=== PATIENT | female | born 1960 ===

== ENCOUNTER 2018-07-30 09:38 | Emergency (ER) | payer MEDICARE, BC ==
[2018-07-30 09:38] VITALS: PULSE 89; BMI 39.4
[2018-07-30 09:51] VITALS: RESP 18
--- NOTE | 2018-07-30 10:26 | ED PDOC ---
HPI: SOB/CHF/COPD Time Seen by Provider: 07/30/18 10:15 Chief Complaint (Nursing): Cough, Cold, Congestion Chief Complaint (Provider): cough SOB History Per: Patient History/Exam Limitations: no limitations Onset/Duration Of Symptoms: Days (5), Gradual Current Symptoms Are (Timing): Still Present Quality: Aching Exacerbating Factor(s): Coughing Severity: Moderate Recently: Hospitalized Additional Complaint(s): 58yo female hx COPD and active smoker, admitted last month to [place], presents now c/o return of cough and SOB. Chest/back pain when coughs, denies fever, hemoptysis, body aches or headache. Hasnt been on steroids in >2 weeks per patient. Denies having an outpatient waste hand. Past Medical History Reviewed: Historical Data, Nursing Documentation, Vital Signs Vital Signs: Last Vital Signs Temp 98.5 F 07/30/18 09:44 Pulse 106 H 07/30/18 09:44 Resp 18 07/30/18 09:44 BP 141/75 07/30/18 09:44 Pulse Ox 91 L 07/30/18 09:44 - Medical History PMH: Anxiety, Asthma, Back Problems, Bipolar Disorder, CHF, COPD, Depression, Diabetes, HTN, Hyperlipidemia, Hypothyroidism, Schizophrenia Denies: Hepatitis, HIV, Chronic Kidney Disease, Seizures, Sexually Transmitted Disease - Surgical History Surgical History: Back Surgery, Cholecystectomy - Family History Family History: States: Unknown Family Hx - Social History Current smoker - smoking cessation education provided: Yes Alcohol: None - Immunization History Hx Tetanus Toxoid Vaccination: No Hx Influenza Vaccination: No Hx Pneumococcal Vaccination: No - Home Medications Home Medications: Ambulatory Orders Medication Instructions Recorded Quetiapine Fumarate [Seroquel] 400 mg PO HS #14 tablet 03/22/18 Paliperidone Palmitate [Invega 234 mg IM Q30D #1 ser 05/08/18 Sustenna] Aspirin [Ecotrin] 81 mg PO DAILY tabec 05/14/18 DULoxetine [Cymbalta] 60 mg PO DAILY #14 ecc 05/14/18 Donepezil [Aricept] 5 mg PO DAILY tab 05/14/18 Famotidine [Pepcid] 20 mg PO 1000,2200 tab 05/14/18 Fenofibrate [Tricor] 145 mg PO DAILY tab 05/14/18 Losartan [Cozaar] 100 mg PO DAILY tab 05/14/18 Pantoprazole [Protonix EC Tab] 20 mg PO 0600 ect 05/14/18 amLODIPine [Norvasc] 10 mg PO DAILY tab 05/14/18 metFORMIN [glucOPHAGE] 500 mg PO BID tab 05/14/18 Albuterol HFA [Ventolin HFA 90 1 - 2 puff IH Q4 PRN #1 inhaler 07/30/18 mcg/actuation (8 g)] Azithromycin [Zithromax] 250 mg PO DAILY #6 tab 07/30/18 Benztropine [Cogentin] 0.5 mg PO Q12 07/30/18 LORazepam [Ativan] 1 mg PO Q8 PRN 07/30/18 Prednisone 50 mg PO DAILY #4 tab 07/30/18 guaiFENesin/Dextromethorphan 5 ml PO Q6 PRN #100 ml 07/30/18 [guaiFENesin-DM] hydrOXYzine Pamoate [Vistaril] 50 mg PO Q8 07/30/18 - Allergies Allergies/Adverse Reactions: Allergies Allergy/AdvReac Type Severity Reaction Status Date / Time No Known Allergies Allergy Verified 07/30/18 10:02 Review of Systems ROS Statement: Except As Marked, All Systems Reviewed And Found Negative Constitutional: Negative for: Fever, Chills Cardiovascular: Negative for: Edema Respiratory: Positive for: Cough, Shortness of Breath, SOB with Exertion, Pleuritic Pain, Wheezing. Negative for: Hemoptysis Gastrointestinal: Negative for: Abdominal Pain Genitourinary Female: Negative for: Dysuria Musculoskeletal: Positive for: Back Pain. Negative for: Neck Pain Skin: Negative for: Rash, Lesions Neurological: Negative for: Weakness, Numbness Psych: Negative for: Depression Physical Exam - Reviewed Nursing Documentation Reviewed: Yes Vital Signs Reviewed: Yes - Physical Exam Appears: Positive for: Non-toxic (+hacking cough), No Acute Distress Head Exam: Positive for: ATRAUMATIC, NORMAL INSPECTION, NORMOCEPHALIC Skin: Positive for: Normal Color, Warm, DRY Eye Exam: Positive for: EOMI, Normal appearance, PERRL ENT: Positive for: Normal ENT Inspection Neck: Positive for: Normal, Painless ROM Cardiovascular/Chest: Positive for: Regular Rate, Rhythm Respiratory: Positive for: Wheezing, Other (++cough). Negative for: Accessory Muscle Use, Rales, Respiratory Distress Gastrointestinal/Abdominal: Positive for: Soft. Negative for: Tenderness, Guarding Back: Positive for: Normal Inspection Extremity: Positive for: Normal ROM Neurologic/Psych: Positive for: Alert, Oriented. Negative for: Motor/Sensory Deficits - Laboratory Results Result Diagrams: 07/30/18 10:40 07/30/18 10:40 - ECG O2 Sat by Pulse Oximetry: 91 Pulse Ox Interpretation: Abnormal (hypoxia RA) Medical Decision Making Medical Decision Makin Chest x-ray FINDINGS: LUNGS: Questionable medial right basilar atelectasis/consolidation versus crowding of vessels from shallow inspiration. PLEURA: No significant pleural effusion identified, no pneumothorax apparent. CARDIOVASCULAR: Aortic atherosclerotic calcifications. Cardiomediastinal silhouette stably enlarged OSSEOUS STRUCTURES: Unchanged. VISUALIZED UPPER ABDOMEN: Normal. OTHER FINDINGS: None. IMPRESSION: Questionable medial right basilar atelectasis/consolidation versus crowding of vessels from shallow inspiration. 0 patient ambulating in ED without difficulty. Lungs improved on ausculation. Speaking full sentences. Wants to be discharged to [facility] by 5pm. Smoking cessation discussed at length. Followup PMD, Rx pulse dose prednisone and cover w Azithromycin, Rx albuterol refill, encourage flu shot. Disposition - Clinical Impression Clinical Impression: COPD with acute exacerbation - Patient ED Disposition Is Patient to be Admitted: No Counseled Patient/Family Regarding: Studies Performed, Diagnosis - Disposition Referrals: Cristóbal Nguyen MD [Staff Provider] - Disposition: Routine/Home Disposition Time: 14:40 Condition: STABLE Additional Instructions: Stop smoking! Take medications including antibiotic and prednisone as directed. Return to ER for any difficulty breathing. Prescriptions: Albuterol HFA [Ventolin HFA 90 mcg/actuation (8 g)] 1 - 2 puff IH Q4 PRN #1 inhaler PRN Reason: Shortness Of Breath Azithromycin [Zithromax] 250 mg PO DAILY #6 tab guaiFENesin/Dextromethorphan [guaiFENesin-DM] 5 ml PO Q6 PRN #100 ml PRN Reason: Cough Prednisone 50 mg PO DAILY #4 tab Instructions: Exacerbation of COPD (DC) Forms: [employer] (Korean)
[2018-07-30] MEDS: Albuterol-Ipratrop 3 mg / 0.5 (3 ml) UD INH STA ×2 (10:41→10:56)
[2018-07-30] MEDS ORDERED: guaiFENesin 100 mg/5 ml Syrup UD ONE (10:47)
[2018-07-30] MEDS: guaiFENesin DM 200 mg-20 mg/10 ml UD PO STA ×3 (10:48→11:00)
[2018-07-30 11:01] LABS: BASO # 0.1 K/uL (0.0-0.2); BASO % 0.7 % (0.0-2.0); EOS % 0.3 % (0.0-4.0); HEMOGLOBIN 13.8 g/dL (12.0-16.0); LYMPH # 1.1 K/uL (1.0-4.3); LYMPH % 8.1 % (20.0-40.0); MEAN CELL VOLUME 92.5 fl (81.0-99.0); MEAN CORPUSCULAR HEMOGLOBIN 31.2 pg (27.0-31.0); MEAN CORPUSCULAR HGB CONC 33.7 g/dL (33.0-37.0); MEAN PLATELET VOLUME 9.4 fl (7.2-11.7); MONO % 7.7 % (0.0-10.0); NEUT % 83.2 % (50.0-75.0); NRBC % 0.1 % (0.0-0.0); PLATELET COUNT 313 K/uL (130-400); RBC 4.43 Mil/uL (3.80-5.20); RED CELL DISTRIBUTION WIDTH 13.8 % (11.5-14.5); WHITE BLOOD COUNT 13.2 K/uL (4.8-10.8)
[2018-07-30 11:14] LABS: ALB/GLOB RATIO 1.2 (1.0-2.1); ALT/SGPT 41 U/L (9-52); AST/SGOT 39 U/L (14-36); BLOOD UREA NITROGEN 11 mg/dl (7-17); CALCIUM 9.8 mg/dL (8.4-10.2); GFR NON-AFRICAN AMERICAN > 60
[2018-07-30 11:22] LABS: B-TYPE NATRIURETIC PEPTIDE 173 pg/ml (0-900)
--- NOTE | 2018-07-30 11:36 | RAD ---
Date of service: 07/30/2018 HISTORY: SOB COMPARISON: Chest radiograph dated 03/14/2014 FINDINGS: LUNGS: Questionable medial right basilar atelectasis/consolidation versus crowding of vessels from shallow inspiration. PLEURA: No significant pleural effusion identified, no pneumothorax apparent. CARDIOVASCULAR: Aortic atherosclerotic calcifications. Cardiomediastinal silhouette stably enlarged OSSEOUS STRUCTURES: Unchanged. VISUALIZED UPPER ABDOMEN: Normal. OTHER FINDINGS: None. IMPRESSION: Questionable medial right basilar atelectasis/consolidation versus crowding of vessels from shallow inspiration.
[2018-07-30 13:01] LABS: BANDS 1 % (0-2); LYMPHOCYTE 11 % (20-50); MONOCYTE 10 % (0-10); NEUTROPHIL 77 % (42-75); PLATELET ESTIMATE NORMAL (NORMAL); REACTIVE LYMPHOCYTES 1 % (0-0); TOTAL CELLS COUNTED 100
[2018-07-30 13:03] VITALS: BP 149/88
[2018-07-30] MEDS ORDERED: Albuterol-Ipratrop 3 mg / 0.5 (3 ml) UD INH STA (13:06)
--- NOTE | 2018-07-30 13:23 | RAD ---
HISTORY: Evaluate for consolidation COMPARISON: Plain radiograph performed earlier the same day TECHNIQUE: Chest PA and lateral FINDINGS: LINES AND TUBES: None. LUNG AND PLEURA: The lungs are well inflated. There is mild pulmonary venous congestion. No pleural effusion or pneumothorax. HEART AND MEDIASTINUM: There is mild cardiomegaly and prominent central vasculature. Atherosclerotic aortic arch calcifications are present. The hilar and mediastinal contours are within normal limits. SKELETAL STRUCTURES: The bony structures are within normal limits for the patient's age. VISUALIZED UPPER ABDOMEN: Normal. OTHER FINDINGS: None. IMPRESSION: No active pulmonary disease. Mild cardiomegaly, prominent central vasculature and mild pulmonary venous congestion.
[2018-07-30] MEDS ORDERED: Albuterol-Ipratrop 3 mg / 0.5 (3 ml) UD ONE (14:17)
[2018-07-30 14:27] VITALS: PULSE 98; TEMP 98
[2018-07-30 14:37] VITALS: O2SAT 91
--- NOTE | 2018-07-30 15:44 | CARD ---
APPROVED REPORT Date of service: 07/30/2018 EKG Measurement Heart [id number] <Conclusion> Normal sinus rhythm Normal ECG
== END 2018-07-30 15:05 | disposition home or self-care (01) ==
LOC: H.ER 09:38
DX: J44.1 Chronic obstructive pulmonary disease with (acute) exacerbation (principal); I11.0 Hypertensive heart disease with heart failure; Z79.84 Long term (current) use of oral hypoglycemic drugs; E11.9 Type 2 diabetes mellitus without complications; E78.5 Hyperlipidemia, unspecified; F17.200 Nicotine dependence, unspecified, uncomplicated; E03.9 Hypothyroidism, unspecified
CPT/HCPCS: 71045; 71046; 80053; 83735; 83880; 85025; 93005; 94640; 96374; 99283; J2930

== ENCOUNTER 2018-08-02 14:16 | Inpatient (IN) | payer MEDICARE, BC ==
[2018-08-02 14:16] VITALS: PULSE 89; BMI 39.4
[2018-08-02] MEDS ORDERED: Albuterol-Ipratrop 3 mg / 0.5 (3 ml) UD ONE (14:32)
[2018-08-02] MEDS ORDERED: Albuterol-Ipratrop 3 mg / 0.5 (3 ml) UD INH STA ×2 (14:36→17:19)
[2018-08-02] MEDS ORDERED: Albuterol-Ipratrop 3 mg / 0.5 (3 ml) UD IH STA ×2 (14:36→14:38)
--- NOTE | 2018-08-02 14:41 | ED PDOC ---
HPI: SOB/CHF/COPD Time Seen by Provider: 08/02/18 14:28 Chief Complaint (Nursing): Shortness Of Breath Chief Complaint (Provider): dyspnea History Per: Patient History/Exam Limitations: no limitations Onset/Duration Of Symptoms: Days (1 week) Additional Complaint(s): Pt. with wheezes. Cough, congestion, runny nose. No chest pain, weakness, headaches, dizziness. No abd pain. Seen 1 week ago and given zithromax, steroids, albuterol. Has been taking but still has shortness of breath. Feels similar to her copd. Past Medical History - Medical History PMH: Anxiety, Asthma, Back Problems, Bipolar Disorder, CHF, COPD, Depression, Diabetes, HTN, Hyperlipidemia, Hypothyroidism, Schizophrenia Denies: Hepatitis, HIV, Chronic Kidney Disease, Seizures, Sexually Transmitted Disease - Surgical History Surgical History: Back Surgery, Cholecystectomy - Family History Family History: States: Unknown Family Hx - Immunization History Hx Tetanus Toxoid Vaccination: No Hx Influenza Vaccination: No Hx Pneumococcal Vaccination: No - Home Medications Home Medications: Ambulatory Orders Medication Instructions Recorded Quetiapine Fumarate [Seroquel] 400 mg PO HS #14 tablet 03/22/18 Paliperidone Palmitate [Invega 234 mg IM Q30D #1 ser 05/08/18 Sustenna] Aspirin [Ecotrin] 81 mg PO DAILY tabec 05/14/18 DULoxetine [Cymbalta] 60 mg PO DAILY #14 ecc 05/14/18 Donepezil [Aricept] 5 mg PO DAILY tab 05/14/18 Famotidine [Pepcid] 20 mg PO 1000,2200 tab 05/14/18 Fenofibrate [Tricor] 145 mg PO DAILY tab 05/14/18 Losartan [Cozaar] 100 mg PO DAILY tab 05/14/18 Pantoprazole [Protonix EC Tab] 20 mg PO 0600 ect 05/14/18 amLODIPine [Norvasc] 10 mg PO DAILY tab 05/14/18 metFORMIN [glucOPHAGE] 500 mg PO BID tab 05/14/18 Albuterol HFA [Ventolin HFA 90 1 - 2 puff IH Q4 PRN #1 inhaler 07/30/18 mcg/actuation (8 g)] Azithromycin [Zithromax] 250 mg PO DAILY #6 tab 07/30/18 Benztropine [Cogentin] 0.5 mg PO Q12 10/30/18 LORazepam [Ativan] 1 mg PO Q8 PRN 07/30/18 Prednisone 50 mg PO DAILY #4 tab 07/30/18 guaiFENesin/Dextromethorphan 5 ml PO Q6 PRN #100 ml 07/30/18 [guaiFENesin-DM] hydrOXYzine Pamoate [Vistaril] 50 mg PO Q8 07/30/18 - Allergies Allergies/Adverse Reactions: Allergies Allergy/AdvReac Type Severity Reaction Status Date / Time No Known Allergies Allergy Verified 07/30/18 10:02 Review of Systems ROS Statement: Except As Marked, All Systems Reviewed And Found Negative Respiratory: Positive for: Cough, Shortness of Breath, Wheezing Physical Exam - Reviewed Nursing Documentation Reviewed: Yes Vital Signs Reviewed: Yes - Physical Exam Appears: Positive for: Uncomfortable Head Exam: Positive for: ATRAUMATIC, NORMAL INSPECTION, NORMOCEPHALIC Skin: Positive for: Normal Color, Warm, DRY Eye Exam: Positive for: EOMI, Normal appearance, PERRL ENT: Positive for: Normal ENT Inspection Neck: Positive for: Normal, Painless ROM, Supple Cardiovascular/Chest: Positive for: Tachycardia (mild) Respiratory: Positive for: Decreased Breath Sounds, Accessory Muscle Use (mild), Wheezing (b/l) Gastrointestinal/Abdominal: Positive for: Normal Exam, Soft. Negative for: Tenderness Back: Positive for: Normal Inspection. Negative for: L CVA Tenderness, R CVA Tenderness Extremity: Positive for: Normal ROM. Negative for: Tenderness, Pedal Edema Neurologic/Psych: Positive for: Alert, Oriented - Laboratory Results Result Diagrams: 08/02/18 15:16 08/02/18 15:20 Interpretation Of Abn Labs: 13.9 - ECG ECG: Positive for: Interpreted By Me, Viewed By Me ECG Rhythm: Positive for: Normal QRS, Normal ST Segment, Sinus Rhythm - Radiology X-Ray: Read By Radiologist X-Ray Interpretation: Infiltrates (L) - Progress ED Course And Treament: 1600: Stable. Doing better on bipap. Continue. 1654: Stable. AAOx3. On bipap. Spoke with Dr. Arauz who will admit. Spoke with Dr. Jimenez who will admit ICU. Pt. awake. - Critical Care Total Time (In Min): 60 Documented Critical Care: Time excludes all time spent performint seperately billable procedures Disposition - Clinical Impression Clinical Impression: COPD exacerbation, Sepsis, Pneumonia - Patient ED Disposition Is Patient to be Admitted: Yes Counseled Patient/Family Regarding: Studies Performed, Diagnosis - Disposition Disposition Time: 16:57 Condition: FAIR - Pt Status Changed To: Hospital Disposition Of: Inpatient - Admit Certification Admit to Inpatient:: After my assessment, the patient will require hos pitalization for at least two midnights. This is because of the severity of symptoms shown, intensity of services needed, and/or the medical risk in this patient being treated as an outpatient. - POA Present On Arrival: None
[2018-08-02] MEDS ORDERED: Sodium Chloride 0.9% 1,000 ML IV SCH (14:45)
[2018-08-02 15:04] LABS: ABG ALLEN TEST YES; ARTERIAL BLOOD GAS HCO3 26.1 mmol/L (21-28); ARTERIAL BLOOD GAS O2 SAT 91.4 % (95-98); ARTERIAL BLOOD GAS PCO2 50 mm/Hg (35-45); ARTERIAL BLOOD GAS PH 7.36 (7.35-7.45); ARTERIAL BLOOD GAS PO2 53 mm/Hg (80-100); ARTERIAL BLOOD GAS TCO2 29.7 mmol/L (22-28)
[2018-08-02 15:22] LABS: BASO % 0.3 % (0.0-2.0); EOS % 0.2 % (0.0-4.0); HEMOGLOBIN 13.1 g/dL (12.0-16.0); LYMPH # 1.6 K/uL (1.0-4.3); LYMPH % 11.6 % (20.0-40.0); MEAN CELL VOLUME 92.9 fl (81.0-99.0); MEAN CORPUSCULAR HGB CONC 33.4 g/dL (33.0-37.0); MEAN PLATELET VOLUME 9.1 fl (7.2-11.7); MONO # 1.1 K/uL (0.0-0.8); MONO % 7.8 % (0.0-10.0); NEUT # 11.1 K/uL (1.8-7.0); NEUT % 80.1 % (50.0-75.0); RBC 4.22 Mil/uL (3.80-5.20); RED CELL DISTRIBUTION WIDTH 14.1 % (11.5-14.5); WHITE BLOOD COUNT 13.9 K/uL (4.8-10.8)
--- NOTE | 2018-08-02 15:25 | RAD ---
Date of service: 08/02/2018 HISTORY: Sepsis Patient COMPARISON: Chest radiographs 07/30/2018. FINDINGS: LUNGS: Increased patchy infiltrate seen at the left perihilar region and mid left lung zone laterally. Fluid is seen in the minor fissure PLEURA: No significant pleural effusion identified, no pneumothorax apparent. CARDIOVASCULAR: No aortic atherosclerotic calcification present. Stable mild cardiomegaly. No pulmonary vascular congestion. No pulmonary vascular congestion. OSSEOUS STRUCTURES: No significant abnormalities. VISUALIZED UPPER ABDOMEN: Normal. OTHER FINDINGS: None. IMPRESSION: Limited patchy infiltrates are identified at the bilateral perihilar regions and left lobe laterally with trace fluid in the minor fissure appears stable cardiomegaly.
[2018-08-02] MEDS ORDERED: cefTRIAXone (Rocephin) 1 gm Inj IV STA (15:33)
[2018-08-02 15:46] LABS: PARTIAL THROMBOPLASTIN TIME 28.6 Seconds (25.6-37.1)
[2018-08-02 15:50] LABS: ALB/GLOB RATIO 1.2 (1.0-2.1); ALBUMIN 3.6 g/dL (3.5-5.0); ALT/SGPT 38 U/L (9-52); AST/SGOT 24 U/L (14-36); B-TYPE NATRIURETIC PEPTIDE 256 pg/ml (0-900); BLOOD UREA NITROGEN 21 mg/dl (7-17); CALCIUM 9.1 mg/dL (8.4-10.2); GFR NON-AFRICAN AMERICAN > 60
[2018-08-02] MEDS ORDERED: cefTRIAXone (Rocephin) 1 gm Inj ONE (15:56)
[2018-08-02] MEDS ORDERED: Azithromycin 500 MG IV IVPB ONE (15:56)
[2018-08-02] MEDS ORDERED: Azithromycin 500 MG in Sodium Chloride 0.9% 250 ML IVPB ONE (16:00)
--- NOTE | 2018-08-02 17:33 | CP.CCUPN ---
CCU Subjective - Physician Review Subjective (Free Text): 58F, discussed with ER MD, walk-in with SOB and asthma exacerbation, underwent 3 Duoneb treatments without improvement, placed on BiPAP, given empiric Zosyn and Rocephin, Solumedrol bolus and requested admission to ICU for COPD exacerbation and LLL Pneumonia. SPO2 reported as 90% via BIPAP on 40% oxygen. She does not appear distressed at this time, is awake and responsive. ROS: No other pertinent negs or positives on 10+ system review. Other vitals and I/O's reviewed. Afebrile, BP 122/68, HR 95 sinus, RR was 34, now 19 on BiPAP 10/ , 40% and generating 376ml TV on average. PMH: Schizophrenia, Anxiety / Depression, Suicide Attempt, CHF, COPD, DM II, HTN, Hyperlipidemia, Hypothyroidism. Allergies: NKDA Home Meds: Cogentin, Vistaril, Ativan, Norvasc, Ecotrin , Zithromax, Cymbalta, Pepcid, Tricor, Cozaar, Metformin, Prednisone, Seroquel Other PMSFH: All other Nursing and physician documentation reviewed to date; no new pertinent info noted relevant to current medical problems. EXAM- HEENT: no icterus, no gaze preference, Pupils 3 mm and reactive NECK: No JVD visible, supple, carotids equal upstroke bilat/no bruit CHEST: diminished bilat BS, no wheezes audible HEART: regular, distant tachy S1S2, no rubs ABD: soft, obese, no focal tenderness, no guarding, no organomegaly, BS hypoactive. EXT: trace edema, no calf tenderness or palpable cords, distal pulses intact and symmetrical. NEURO: moves all 4 limbs spontaneously SKIN: no rashes, warm and dry LABS: WBC= 13.9 HGB= 13.1 PLTs= 300K Coags= normal 7.36/53/50 Na= 142 K= 3.8 RT=455 HCO3= 25 BUN/Cr= 21/0.7 BS= 134 Trop#1 negative BNP = 256 EKG: (my interp) sinus 100, flat T III, F; poor R progression anteriorly CXR: (my interp) poor inspiratory film, atelectatic changes in mid lung zones, mild Left basilar interstitial changes, no gross consolidation. IMPRESSION / MAJOR PROBLEMS NOW: 1. Acute Hypoxemic / Hypercapneic Resp Failure 2 COPD Exac 2. r/o Pneumonia versus tracheobronchitis 3. Multi-Psychoses PLAN: 1. Ensure additional and supplemental Duoneb inh via BiPAP now. 2. Does not appear to need MV support. Ensure generation of adequate TV via BiPAP, increase Fio2 to 50-60% as tolerated. Needs repeat ABG on BiPAP. 3. Empiric abx coverage for CAP. 4. Continue IV Steroids. 5. ECHO for LV fx 6. Consider CT chest to further eval portable CXR findings. 7. Hold anti-psychotic meds over the next 24-36H to avoid excessive sedation. 8. No Advance Directives known, full resuscitative measures if required.
[2018-08-02] MEDS: Albuterol-Ipratrop 3 mg / 0.5 (3 ml) UD INH SCH (19:38)
[2018-08-02] MEDS: Insulin Regular 100 units/ml SC SCH (23:39)
[2018-08-03] MEDS: Albuterol-Ipratrop 3 mg / 0.5 (3 ml) UD INH SCH ×7 (00:12→23:45)
[2018-08-03] MEDS ORDERED: methylPREDNISolone 60 MG in Sodium Chloride 0.9% 50 ML IVPB SCH (01:00)
[2018-08-03 01:49] LABS: ABG ALLEN TEST YES; ARTERIAL BLOOD GAS HCO3 26.2 mmol/L (21-28); ARTERIAL BLOOD GAS HEMOGLOBIN 12.9 g/dL (11.7-17.4); ARTERIAL BLOOD GAS O2 CAPACITY 17.7 mL/dL (16-24); ARTERIAL BLOOD GAS O2 CONTENT 17.4 ML/dL (15-23); ARTERIAL BLOOD GAS O2 SAT 98.4 % (95-98); ARTERIAL BLOOD GAS PCO2 51 mm/Hg (35-45); ARTERIAL BLOOD GAS PH 7.35 (7.35-7.45); ARTERIAL BLOOD GAS PO2 91 mm/Hg (80-100); ARTERIAL BLOOD GAS TCO2 29.8 mmol/L (22-28)
[2018-08-03 05:15] LABS: HEMOGLOBIN 12.6 g/dL (12.0-16.0); MEAN CELL VOLUME 93.6 fl (81.0-99.0); MEAN CORPUSCULAR HEMOGLOBIN 30.3 pg (27.0-31.0); MEAN CORPUSCULAR HGB CONC 32.4 g/dL (33.0-37.0); RBC 4.15 Mil/uL (3.80-5.20); RED CELL DISTRIBUTION WIDTH 13.7 % (11.5-14.5); WHITE BLOOD COUNT 13.7 K/uL (4.8-10.8)
[2018-08-03 05:27] LABS: BLOOD UREA NITROGEN 16 mg/dl (7-17); CALCIUM 9.2 mg/dL (8.4-10.2); GFR NON-AFRICAN AMERICAN > 60
[2018-08-03] MEDS: Insulin Regular 100 units/ml SC SCH ×4 (06:12→23:26)
--- NOTE | 2018-08-03 08:55 | CARD ---
APPROVED REPORT Date of service: 08/02/2018 EKG Measurement Heart [id number] <Conclusion> Normal sinus rhythm Minimal voltage criteria for LVH, may be normal variant Nonspecific ST abnormality Abnormal ECG
[2018-08-03] MEDS ORDERED: Pneumococcal 23-Valent Vaccine IM ONE (09:00)
[2018-08-03] MEDS ORDERED: Influenza Vaccine (5 YR UP)/PF 60 MCG/0.5 ML SYR IM ONE (09:00)
[2018-08-03] MEDS: Enoxaparin 40 mg Syringe SC SCH (09:13)
[2018-08-03] MEDS: Azithromycin 500 MG in Sodium Chloride 0.9% 250 ML IVPB SCH (09:19)
--- NOTE | 2018-08-03 11:39 | CP.CCUPN ---
CCU Subjective - Physician Review Events Since Last Encounter (Free Text): 08/03/18 11:36 alert and awake , on BiPaP, labs , CXR reviewed, pt has been on IV steroid and bronchodilators, CCU Objective - Vital Signs / Intake & Output Vital Signs (Last 4 hours): Vital Signs Pulse BP 08/03/18 11:26 89 08/03/18 09:13 90 113/91 H 08/03/18 08:33 104 H Intake and Output (Last 8hrs): Intake & Output 08/02/18 08/03/18 08/03/18 22:59 06:59 14:59 Intake Total 500 Output Total 200 Balance 500 -200 Weight 206 lb 12.8 oz Intake: IV 500 Intravenous #1 500 Oral 0 Output: Urine 200 Urine, Voided 200 Other: # Voids Urine, Voided 0 # Bowel Movements 0 - Physical Exam Narrative Physical Exam (Free Text): 08/03/18 11:37 P/E neck: No JVD Lungs : ronchi and crackles, bilateral Heart: no gallop Abdomen: soft, non-tender Ext: No edema - Medications Active Medications: Active Medications Generic Name Dose Route Start Last Admin Trade Name Freq PRN Reason Stop Dose Admin Albuterol/Ipratropium 3 ml 08/02/18 20:00 08/03/18 11:26 Duoneb 3 Mg/0.5 Mg (3 Ml) Ud INH 3 ml RQ4 NORIS Administration Amlodipine Besylate 10 mg 08/03/18 09:00 08/03/18 09:13 Norvasc PO 10 mg DAILY NORIS Administration Enoxaparin Sodium 40 mg 08/03/18 09:00 08/03/18 09:13 Lovenox SC 40 mg DAILY NORIS Administration Protocol Famotidine 20 mg 08/02/18 21:00 08/03/18 09:16 Pepcid IVP 20 mg Q12 NORIS Administration Sodium Chloride 1,000 mls @ 500 mls/hr 08/02/18 14:45 08/02/18 15:25 Sodium Chloride 0.9% IV 500 mls/hr .Q2H NORIS Administration Azithromycin 500 mg/ Sodium 250 mls @ 250 mls/hr 08/03/18 09:00 08/03/18 09:19 Chloride IVPB 250 mls/hr DAILY NORIS Administration Protocol Ceftriaxone Sodium 1 gm/ 100 mls @ 100 mls/hr 08/03/18 09:00 08/03/18 09:17 Sodium Chloride IVPB 100 mls/hr DAILY NORIS Administration Protocol Insulin Human Regular 0 units 08/02/18 23:00 08/03/18 06:12 Humulin R SC 2 units ACCU-CHECK NORIS Administration Protocol Methylprednisolone 60 mg 08/03/18 01:00 08/03/18 09:18 Solu-Medrol IV 60 mg Q8 NORIS Administration - Patient Studies Lab Studies: Lab Studies 08/03/18 08/03/18 08/03/18 Range/Units 06:09 04:21 04:21 WBC 13.7 H (4.8-10.8) K/uL RBC 4.15 (3.80-5.20) Mil/uL Hgb 12.6 (12.0-16.0) g/dL Hct 38.8 (34.0-47.0) % MCV 93.6 (81.0-99.0) fl MCH 30.3 (27.0-31.0) pg MCHC 32.4 L (33.0-37.0) g/dL RDW 13.7 (11.5-14.5) % Plt Count 257 (130-400) K/uL MPV (7.2-11.7) fl Neut % (Auto) (50.0-75.0) % Lymph % (Auto) (20.0-40.0) % Patrick % (Auto) (0.0-10.0) % Eos % (Auto) (0.0-4.0) % Baso % (Auto) (0.0-2.0) % Neut # (Auto) (1.8-7.0) K/uL Lymph # (Auto) (1.0-4.3) K/uL Patrick # (Auto) (0.0-0.8) K/uL Eos # (Auto) (0.0-0.7) K/uL Baso # (Auto) (0.0-0.2) K/uL PT (9.8-13.1) Seconds INR APTT (25.6-37.1) Seconds pCO2 (35-45) mm/Hg pO2 (80-100) mm/Hg HCO3 (21-28) mmol/L ABG pH (7.35-7.45) ABG Total CO2 (22-28) mmol/L ABG O2 Saturation (95-98) % ABG O2 Content (15-23) ML/dL ABG Base Excess (-2.0-3.0) mmol/L ABG Hemoglobin (11.7-17.4) g/dL ABG Carboxyhemoglobin (0.5-1.5) % POC ABG HHb (Measured) (0.0-5.0) % ABG Methemoglobin (0.0-3.0) % ABG O2 Capacity (16-24) mL/dL Tino Test ABG Potassium (3.6-5.2) mmol/L A-a O2 Difference mm/Hg Hgb O2 Saturation (95.0-98.0) % Sodium 143 (132-148) mmol/L Chloride 108 H (98-107) mmol/L Glucose (65-105) mg/dL Lactate (0.7-2.1) mmol/L Mechanical Rate FiO2 % Inspiratory BiPAP Expiratory BiPAP Potassium 4.5 (3.6-5.0) MMOL/L Carbon Dioxide 28 (22-30) mmol/L Anion Gap 12 (10-20) BUN 16 (7-17) mg/dl Creatinine 0.4 L (0.7-1.2) mg/dl Est GFR ( Amer) > 60 Est GFR (Non-Af Amer) > 60 POC Glucose (mg/dL) 164 H (65-110) mg/dL Random Glucose 182 H (65-105) mg/dL Calcium 9.2 (8.4-10.2) mg/dL Phosphorus (2.5-4.5) mg/dl Magnesium (1.6-2.3) MG/DL Total Bilirubin (0.2-1.3) mg/dl AST (14-36) U/L ALT (9-52) U/L Alkaline Phosphatase (38-126) U/L Troponin I (0.00-0.120) ng/mL NT-Pro-B Natriuret Pep (0-900) pg/ml Total Protein (6.3-8.2) G/DL Albumin (3.5-5.0) g/dL Globulin (2.2-3.9) gm/dL Albumin/Globulin Ratio (1.0-2.1) Arterial Blood Potassium (3.6-5.2) mmol/L Influenza Typ A,B (EIA) (NEGATIVE) 08/03/18 08/02/18 08/02/18 Range/Units 01:41 21:05 15:20 WBC (4.8-10.8) K/uL RBC (3.80-5.20) Mil/uL Hgb (12.0-16.0) g/dL Hct (34.0-47.0) % MCV (81.0-99.0) fl MCH (27.0-31.0) pg MCHC (33.0-37.0) g/dL RDW (11.5-14.5) % Plt Count (130-400) K/uL MPV (7.2-11.7) fl Neut % (Auto) (50.0-75.0) % Lymph % (Auto) (20.0-40.0) % Patrick % (Auto) (0.0-10.0) % Eos % (Auto) (0.0-4.0) % Baso % (Auto) (0.0-2.0) % Neut # (Auto) (1.8-7.0) K/uL Lymph # (Auto) (1.0-4.3) K/uL Patrick # (Auto) (0.0-0.8) K/uL Eos # (Auto) (0.0-0.7) K/uL Baso # (Auto) (0.0-0.2) K/uL PT 11.0 (9.8-13.1) Seconds INR 1.0 APTT 28.6 (25.6-37.1) Seconds pCO2 51 H (35-45) mm/Hg pO2 91 (80-100) mm/Hg HCO3 26.2 (21-28) mmol/L ABG pH 7.35 (7.35-7.45) ABG Total CO2 29.8 H (22-28) mmol/L ABG O2 Saturation 98.4 H (95-98) % ABG O2 Content 17.4 (15-23) ML/dL ABG Base Excess 1.7 (-2.0-3.0) mmol/L ABG Hemoglobin 12.9 (11.7-17.4) g/dL ABG Carboxyhemoglobin 1.8 H (0.5-1.5) % POC ABG HHb (Measured) 1.6 (0.0-5.0) % ABG Methemoglobin 1.1 (0.0-3.0) % ABG O2 Capacity 17.7 (16-24) mL/dL Tino Test Yes ABG Potassium (3.6-5.2) mmol/L A-a O2 Difference 273.0 mm/Hg Hgb O2 Saturation 95.5 (95.0-98.0) % Sodium (132-148) mmol/L Chloride (98-107) mmol/L Glucose (65-105) mg/dL Lactate (0.7-2.1) mmol/L Mechanical Rate 14 FiO2 60.0 % Inspiratory BiPAP 10 Expiratory BiPAP 5 Potassium (3.6-5.0) MMOL/L Carbon Dioxide (22-30) mmol/L Anion Gap (10-20) BUN (7-17) mg/dl Creatinine (0.7-1.2) mg/dl Est GFR ( Amer) Est GFR (Non-Af Amer) POC Glucose (mg/dL) 207 H (65-110) mg/dL Random Glucose (65-105) mg/dL Calcium (8.4-10.2) mg/dL Phosphorus (2.5-4.5) mg/dl Magnesium (1.6-2.3) MG/DL Total Bilirubin (0.2-1.3) mg/dl AST (14-36) U/L ALT (9-52) U/L Alkaline Phosphatase (38-126) U/L Troponin I (0.00-0.120) ng/mL NT-Pro-B Natriuret Pep (0-900) pg/ml Total Protein (6.3-8.2) G/DL Albumin (3.5-5.0) g/dL Globulin (2.2-3.9) gm/dL Albumin/Globulin Ratio (1.0-2.1) Arterial Blood Potassium (3.6-5.2) mmol/L Influenza Typ A,B (EIA) (NEGATIVE) 08/02/18 08/02/18 08/02/18 Range/Units 15:20 15:16 15:16 WBC 13.9 H (4.8-10.8) K/uL RBC 4.22 (3.80-5.20) Mil/uL Hgb 13.1 (12.0-16.0) g/dL Hct 39.2 (34.0-47.0) % MCV 92.9 (81.0-99.0) fl MCH 31.0 (27.0-31.0) pg MCHC 33.4 (33.0-37.0) g/dL RDW 14.1 (11.5-14.5) % Plt Count 300 (130-400) K/uL MPV 9.1 (7.2-11.7) fl Neut % (Auto) 80.1 H (50.0-75.0) % Lymph % (Auto) 11.6 L (20.0-40.0) % Patrick % (Auto) 7.8 (0.0-10.0) % Eos % (Auto) 0.2 (0.0-4.0) % Baso % (Auto) 0.3 (0.0-2.0) % Neut # (Auto) 11.1 H (1.8-7.0) K/uL Lymph # (Auto) 1.6 (1.0-4.3) K/uL Patrick # (Auto) 1.1 H (0.0-0.8) K/uL Eos # (Auto) 0.0 (0.0-0.7) K/uL Baso # (Auto) 0.0 (0.0-0.2) K/uL PT (9.8-13.1) Seconds INR APTT (25.6-37.1) Seconds pCO2 (35-45) mm/Hg pO2 (80-100) mm/Hg HCO3 (21-28) mmol/L ABG pH (7.35-7.45) ABG Total CO2 (22-28) mmol/L ABG O2 Saturation (95-98) % ABG O2 Content (15-23) ML/dL ABG Base Excess (-2.0-3.0) mmol/L ABG Hemoglobin (11.7-17.4) g/dL ABG Carboxyhemoglobin (0.5-1.5) % POC ABG HHb (Measured) (0.0-5.0) % ABG Methemoglobin (0.0-3.0) % ABG O2 Capacity (16-24) mL/dL Tino Test ABG Potassium (3.6-5.2) mmol/L A-a O2 Difference mm/Hg Hgb O2 Saturation (95.0-98.0) % Sodium 142 (132-148) mmol/L Chloride 106 (98-107) mmol/L Glucose (65-105) mg/dL Lactate (0.7-2.1) mmol/L Mechanical Rate FiO2 % Inspiratory BiPAP Expiratory BiPAP Potassium 3.8 (3.6-5.0) MMOL/L Carbon Dioxide 25 (22-30) mmol/L Anion Gap 15 (10-20) BUN 21 H (7-17) mg/dl Creatinine 0.7 (0.7-1.2) mg/dl Est GFR ( Amer) > 60 Est GFR (Non-Af Amer) > 60 POC Glucose (mg/dL) (65-110) mg/dL Random Glucose 134 H (65-105) mg/dL Calcium 9.1 (8.4-10.2) mg/dL Phosphorus 5.0 H (2.5-4.5) mg/dl Magnesium 1.9 (1.6-2.3) MG/DL Total Bilirubin 0.3 (0.2-1.3) mg/dl AST 24 (14-36) U/L ALT 38 (9-52) U/L Alkaline Phosphatase 115 (38-126) U/L Troponin I 0.0150 (0.00-0.120) ng/mL NT-Pro-B Natriuret Pep 256 (0-900) pg/ml Total Protein 6.7 (6.3-8.2) G/DL Albumin 3.6 (3.5-5.0) g/dL Globulin 3.1 (2.2-3.9) gm/dL Albumin/Globulin Ratio 1.2 (1.0-2.1) Arterial Blood Potassium (3.6-5.2) mmol/L Influenza Typ A,B (EIA) Negative for flu a/b (NEGATIVE) 08/02/18 08/02/18 Range/Units 15:01 14:44 WBC (4.8-10.8) K/uL RBC (3.80-5.20) Mil/uL Hgb (12.0-16.0) g/dL Hct (34.0-47.0) % MCV (81.0-99.0) fl MCH (27.0-31.0) pg MCHC (33.0-37.0) g/dL RDW (11.5-14.5) % Plt Count (130-400) K/uL MPV (7.2-11.7) fl Neut % (Auto) (50.0-75.0) % Lymph % (Auto) (20.0-40.0) % Patrick % (Auto) (0.0-10.0) % Eos % (Auto) (0.0-4.0) % Baso % (Auto) (0.0-2.0) % Neut # (Auto) (1.8-7.0) K/uL Lymph # (Auto) (1.0-4.3) K/uL Patrick # (Auto) (0.0-0.8) K/uL Eos # (Auto) (0.0-0.7) K/uL Baso # (Auto) (0.0-0.2) K/uL PT (9.8-13.1) Seconds INR APTT (25.6-37.1) Seconds pCO2 50 H (35-45) mm/Hg pO2 53 L (80-100) mm/Hg HCO3 26.1 (21-28) mmol/L ABG pH 7.36 (7.35-7.45) ABG Total CO2 29.7 H (22-28) mmol/L ABG O2 Saturation 91.4 L (95-98) % ABG O2 Content (15-23) ML/dL ABG Base Excess 1.9 (-2.0-3.0) mmol/L ABG Hemoglobin (11.7-17.4) g/dL ABG Carboxyhemoglobin (0.5-1.5) % POC ABG HHb (Measured) (0.0-5.0) % ABG Methemoglobin (0.0-3.0) % ABG O2 Capacity (16-24) mL/dL Tino Test Yes ABG Potassium 3.3 L (3.6-5.2) mmol/L A-a O2 Difference 170.0 mm/Hg Hgb O2 Saturation (95.0-98.0) % Sodium 139.0 (132-148) mmol/L Chloride 109.0 H (98-107) mmol/L Glucose 144 H (65-105) mg/dL Lactate 1.1 (0.7-2.1) mmol/L Mechanical Rate FiO2 40.0 % Inspiratory BiPAP Expiratory BiPAP Potassium (3.6-5.0) MMOL/L Carbon Dioxide (22-30) mmol/L Anion Gap (10-20) BUN (7-17) mg/dl Creatinine (0.7-1.2) mg/dl Est GFR ( Amer) Est GFR (Non-Af Amer) POC Glucose (mg/dL) 144 H (65-110) mg/dL Random Glucose (65-105) mg/dL Calcium (8.4-10.2) mg/dL Phosphorus (2.5-4.5) mg/dl Magnesium (1.6-2.3) MG/DL Total Bilirubin (0.2-1.3) mg/dl AST (14-36) U/L ALT (9-52) U/L Alkaline Phosphatase (38-126) U/L Troponin I (0.00-0.120) ng/mL NT-Pro-B Natriuret Pep (0-900) pg/ml Total Protein (6.3-8.2) G/DL Albumin (3.5-5.0) g/dL Globulin (2.2-3.9) gm/dL Albumin/Globulin Ratio (1.0-2.1) Arterial Blood Potassium 3.3 L (3.6-5.2) mmol/L Influenza Typ A,B (EIA) (NEGATIVE) Laboratory Results - last 24 hr 08/02/18 08/02/18 08/02/18 14:44 15:01 15:16 WBC 13.9 H RBC 4.22 Hgb 13.1 Hct 39.2 MCV 92.9 MCH 31.0 MCHC 33.4 RDW 14.1 Plt Count 300 MPV 9.1 Neut % (Auto) 80.1 H Lymph % (Auto) 11.6 L Patrick % (Auto) 7.8 Eos % (Auto) 0.2 Baso % (Auto) 0.3 Neut # (Auto) 11.1 H Lymph # (Auto) 1.6 Patrick # (Auto) 1.1 H Eos # (Auto) 0.0 Baso # (Auto) 0.0 PT INR APTT pCO2 50 H pO2 53 L HCO3 26.1 ABG pH 7.36 ABG Total CO2 29.7 H ABG O2 Saturation 91.4 L ABG O2 Content ABG Base Excess 1.9 ABG Hemoglobin ABG Carboxyhemoglobin POC ABG HHb (Measured) ABG Methemoglobin ABG O2 Capacity Tino Test Yes ABG Potassium 3.3 L A-a O2 Difference 170.0 Hgb O2 Saturation Sodium 139.0 Chloride 109.0 H Glucose 144 H Lactate 1.1 Mechanical Rate FiO2 40.0 Inspiratory BiPAP Expiratory BiPAP Potassium Carbon Dioxide Anion Gap BUN Creatinine Est GFR ( Amer) Est GFR (Non-Af Amer) POC Glucose (mg/dL) 144 H Random Glucose Calcium Phosphorus Magnesium Total Bilirubin AST ALT Alkaline Phosphatase Troponin I NT-Pro-B Natriuret Pep Total Protein Albumin Globulin Albumin/Globulin Ratio Arterial Blood Potassium 3.3 L Influenza Typ A,B (EIA) 08/02/18 08/02/18 08/02/18 15:16 15:20 15:20 WBC RBC Hgb Hct MCV MCH MCHC RDW Plt Count MPV Neut % (Auto) Lymph % (Auto) Patrick % (Auto) Eos % (Auto) Baso % (Auto) Neut # (Auto) Lymph # (Auto) Patrick # (Auto) Eos # (Auto) Baso # (Auto) PT 11.0 INR 1.0 APTT 28.6 pCO2 pO2 HCO3 ABG pH ABG Total CO2 ABG O2 Saturation ABG O2 Content ABG Base Excess ABG Hemoglobin ABG Carboxyhemoglobin POC ABG HHb (Measured) ABG Methemoglobin ABG O2 Capacity Tino Test ABG Potassium A-a O2 Difference Hgb O2 Saturation Sodium 142 Chloride 106 Glucose Lactate Mechanical Rate FiO2 Inspiratory BiPAP Expiratory BiPAP Potassium 3.8 Carbon Dioxide 25 Anion Gap 15 BUN 21 H Creatinine 0.7 Est GFR ( Amer) > 60 Est GFR (Non-Af Amer) > 60 POC Glucose (mg/dL) Random Glucose 134 H Calcium 9.1 Phosphorus 5.0 H Magnesium 1.9 Total Bilirubin 0.3 AST 24 ALT 38 Alkaline Phosphatase 115 Troponin I 0.0150 NT-Pro-B Natriuret Pep 256 Total Protein 6.7 Albumin 3.6 Globulin 3.1 Albumin/Globulin Ratio 1.2 Arterial Blood Potassium Influenza Typ A,B (EIA) Negative for flu a/b 08/02/18 08/03/18 08/03/18 21:05 01:41 04:21 WBC 13.7 H RBC 4.15 Hgb 12.6 Hct 38.8 MCV 93.6 MCH 30.3 MCHC 32.4 L RDW 13.7 Plt Count 257 MPV Neut % (Auto) Lymph % (Auto) Patrick % (Auto) Eos % (Auto) Baso % (Auto) Neut # (Auto) Lymph # (Auto) Patrick # (Auto) Eos # (Auto) Baso # (Auto) PT INR APTT pCO2 51 H pO2 91 HCO3 26.2 ABG pH 7.35 ABG Total CO2 29.8 H ABG O2 Saturation 98.4 H ABG O2 Content 17.4 ABG Base Excess 1.7 ABG Hemoglobin 12.9 ABG Carboxyhemoglobin 1.8 H POC ABG HHb (Measured) 1.6 ABG Methemoglobin 1.1 ABG O2 Capacity 17.7 Tino Test Yes ABG Potassium A-a O2 Difference 273.0 Hgb O2 Saturation 95.5 Sodium Chloride Glucose Lactate Mechanical Rate 14 FiO2 60.0 Inspiratory BiPAP 10 Expiratory BiPAP 5 Potassium Carbon Dioxide Anion Gap BUN Creatinine Est GFR ( Amer) Est GFR (Non-Af Amer) POC Glucose (mg/dL) 207 H Random Glucose Calcium Phosphorus Magnesium Total Bilirubin AST ALT Alkaline Phosphatase Troponin I NT-Pro-B Natriuret Pep Total Protein Albumin Globulin Albumin/Globulin Ratio Arterial Blood Potassium Influenza Typ A,B (EIA) 08/03/18 08/03/18 04:21 06:09 WBC RBC Hgb Hct MCV MCH MCHC RDW Plt Count MPV Neut % (Auto) Lymph % (Auto) Patrick % (Auto) Eos % (Auto) Baso % (Auto) Neut # (Auto) Lymph # (Auto) Patrick # (Auto) Eos # (Auto) Baso # (Auto) PT INR APTT pCO2 pO2 HCO3 ABG pH ABG Total CO2 ABG O2 Saturation ABG O2 Content ABG Base Excess ABG Hemoglobin ABG Carboxyhemoglobin POC ABG HHb (Measured) ABG Methemoglobin ABG O2 Capacity Tino Test ABG Potassium A-a O2 Difference Hgb O2 Saturation Sodium 143 Chloride 108 H Glucose Lactate Mechanical Rate FiO2 Inspiratory BiPAP Expiratory BiPAP Potassium 4.5 Carbon Dioxide 28 Anion Gap 12 BUN 16 Creatinine 0.4 L Est GFR ( Amer) > 60 Est GFR (Non-Af Amer) > 60 POC Glucose (mg/dL) 164 H Random Glucose 182 H Calcium 9.2 Phosphorus Magnesium Total Bilirubin AST ALT Alkaline Phosphatase Troponin I NT-Pro-B Natriuret Pep Total Protein Albumin Globulin Albumin/Globulin Ratio Arterial Blood Potassium Influenza Typ A,B (EIA) EKG/Cardiology Studies: Cardiology / EKG Studies 08/02/18 14:38 ELECTROCARDIOGRAM Stat Comment: Mode Of Transportation: Reason For Exam: Sepsis Patient Fingerstick Blood Sugar Results: 164 Critical Care Progress Note - Nutrition Nutrition: Nutrition Category Date Time Status Consistent Carbohydrate [DIET] Diets 08/03/18 Breakfast Active Assessment/Plan - Assessment and Plan (Free Text) Assessment: IMPRESSION / MAJOR PROBLEMS NOW: 1. Acute Hypoxemic / Hypercapneic Resp Failure 2 COPD Exac 2. r/o Pneumonia versus tracheobronchitis 3. Multi-Psychoses PLAN: 1. Ensure additional and supplemental Duoneb inh via BiPAP now. 2. On BiPAP, increase Fio2 to 50-60% as tolerated. ABG reviewed 3-Has pulm congestion, will give lasix also, 40 mg daily. 4. Empiric abx coverage for CAP. 5. Continue IV Steroids. 6. ECHO for LV fx 7. Hold anti-psychotic meds over the next 24-36H to avoid excessive sedation. 8. No Advance Directives known, full resuscitative measures if required.
--- NOTE | 2018-08-03 14:31 | RAD ---
Date of service: 08/03/2018 HISTORY: f/u PNA COMPARISON: 08/02/2018 FINDINGS: LUNGS: Mild bilateral interstitial changes, slightly improved since prior examination. PLEURA: No significant pleural effusion identified, no pneumothorax apparent. CARDIOVASCULAR: No aortic atherosclerotic calcification present. Normal cardiac size. No pulmonary vascular congestion. OSSEOUS STRUCTURES: No significant abnormalities. VISUALIZED UPPER ABDOMEN: Normal. OTHER FINDINGS: None. IMPRESSION: Mild bilateral interstitial changes, slightly improved since prior examination.
[2018-08-03] MEDS: Promethazine/Cod 6.25mg-10mg/5ml Syr UD PO PRN ×2 (15:53→21:51)
--- NOTE | 2018-08-03 16:36 | CP.PCM.HP ---
History of Present Illness - History of Present Illness History of Present Illness: CC: SOB. 58 y/o F, lives in a long term home with Hx of COPD, Asthma, PNA, CHF, HTN, Non Obstructive CAD, Chronic Back pain 2nd to recent fall and back sx 2016, Bipolar Disorder, [facility]/o of SOB for few days, worsening few hrs [facility] to severe, associated to wheezing, intermittent/intractable non productive cough, congestive nose, Pt using Steroids, Albuterol, abx at home with no relief. Worsening symptoms: SYED, dyspnea at rest, presented to ED with severe stress, increased anxiety, tachycardia. Aggravated factor: Movements/exercise. Denied: Fever, chills, n/v/d, abdominal pain, urinary symptoms, CP, headache, syncope, dizziness, numbness, sick contact. CXR on 08/02/18: Increased patchy infiltrate at the L perihilar region and mid left lung zone. Fluid in the minor fissure, Stable Cardiomegaly. EKG: Normal sinus rhythm. Pt underwent 3 Duoneb Tx, Empiric Zosyn, Rocephin, Solu-Medrol bolus, placed on BIPAP, FIO2 60% and was admitted to ICU unit for Hypoxemic Acute Respiratory Failure Present on Admission - Present on Admission Any Indicators Present on Admission: No Review of Systems - Review of Systems Systems not reviewed;Unavailable: Acuity of Condition Past Patient History - Infectious Disease Hx of Infectious Diseases: None - Past Medical History & Family History Past Medical History?: Yes Pertinent Family History: Father: Depression, DM. Mother and brother: Cerebral hemorrhage , - Past Social History Smoking Status: Heavy Smoker > 10 Cigarettes Daily Alcohol: None Drugs: Denies Home Situation {Lives}: Homeless - CARDIAC Hx Cardiac Disorders: Yes Hx Congestive Heart Failure: Yes Hx Hypertension: Yes - PULMONARY Hx Respiratory Disorders: Yes Hx Asthma: Yes Hx Chronic Obstructive Pulmonary Disease (COPD): Yes Hx Pneumonia: Yes - NEUROLOGICAL Hx Neurological Disorder: No Hx Seizures: No - HEENT Hx HEENT Problems: No - RENAL Hx Chronic Kidney Disease: No - ENDOCRINE/METABOLIC Hx Endocrine Disorders: Yes Hx Diabetes Mellitus Type 2: Yes Hx Hypothyroidism: Yes - HEMATOLOGICAL/ONCOLOGICAL Hx Blood Disorders: No Hx Human Immunodeficiency Virus (HIV): No - INTEGUMENTARY Hx Dermatological Problems: No - MUSCULOSKELETAL/RHEUMATOLOGICAL Hx Musculoskeletal Disorders: Yes Hx Back Pain: Yes Hx Falls: Yes Other/Comment: back surgery - GASTROINTESTINAL Hx Gastrointestinal Disorders: Yes - GENITOURINARY/GYNECOLOGICAL Hx Genitourinary Disorders: No Hx Sexually Transmitted Disorders: No - PSYCHIATRIC Hx Psychophysiologic Disorder: Yes Hx Anxiety: Yes Hx Bipolar Disorder: Yes Hx Depression: Yes Hx Schizophrenia: Yes Hx Substance Use: No - SURGICAL HISTORY Hx Surgeries: Yes Hx Cholecystectomy: Yes Hx Hysterectomy: Yes Other/Comment: back surgery - ANESTHESIA Hx Anesthesia: Yes Hx Anesthesia Reactions: No Hx Malignant Hyperthermia: No Has any member of the family had a problem w/ anesthesia?: No Meds Allergies/Adverse Reactions: Allergies Allergy/AdvReac Type Severity Reaction Status Date / Time No Known Allergies Allergy Verified 07/30/18 10:02 Physical Exam - Constitutional Appears: Chronically Ill - Head Exam Head Exam: NORMAL INSPECTION - Eye Exam Eye Exam: PERRL - ENT Exam ENT Exam: Mucous Membranes Moist Additional comments: On BIPAP mask - Neck Exam Neck exam: Positive for: Normal Inspection - Respiratory Exam Respiratory Exam: Decreased Breath Sounds (at bases), Rhonchi (b/l) - Cardiovascular Exam Cardiovascular Exam: REGULAR RHYTHM - GI/Abdominal Exam GI & Abdominal Exam: Normal Bowel Sounds, Soft - Extremities Exam Additional comments: Non pitting edema b/l foot - Back Exam Back exam: tenderness - Neurological Exam Neurological exam: Alert, Oriented x3 - Skin Skin Exam: Warm Results - Vital Signs Recent Vital Signs: Last Vital Signs Temp 98.6 F 08/03/18 14:00 Pulse 76 08/03/18 15:23 Resp 20 08/03/18 14:00 BP 130/86 08/03/18 14:00 Pulse Ox 96 08/03/18 14:00 reviewed Otoniel - Labs Result Diagrams: 08/04/18 06:00 08/04/18 06:00 Labs: Laboratory Results - last 24 hr 08/02/18 08/03/18 08/03/18 21:05 01:41 04:21 WBC 13.7 H RBC 4.15 Hgb 12.6 Hct 38.8 MCV 93.6 MCH 30.3 MCHC 32.4 L RDW 13.7 Plt Count 257 pCO2 51 H pO2 91 HCO3 26.2 ABG pH 7.35 ABG Total CO2 29.8 H ABG O2 Saturation 98.4 H ABG O2 Content 17.4 ABG Base Excess 1.7 ABG Hemoglobin 12.9 ABG Carboxyhemoglobin 1.8 H POC ABG HHb (Measured) 1.6 ABG Methemoglobin 1.1 ABG O2 Capacity 17.7 Tino Test Yes A-a O2 Difference 273.0 Hgb O2 Saturation 95.5 Mechanical Rate 14 FiO2 60.0 Inspiratory BiPAP 10 Expiratory BiPAP 5 Sodium Potassium Chloride Carbon Dioxide Anion Gap BUN Creatinine Est GFR ( Amer) Est GFR (Non-Af Amer) POC Glucose (mg/dL) 207 H Random Glucose Calcium 08/03/18 08/03/18 04:21 06:09 WBC RBC Hgb Hct MCV MCH MCHC RDW Plt Count pCO2 pO2 HCO3 ABG pH ABG Total CO2 ABG O2 Saturation ABG O2 Content ABG Base Excess ABG Hemoglobin ABG Carboxyhemoglobin POC ABG HHb (Measured) ABG Methemoglobin ABG O2 Capacity Tino Test A-a O2 Difference Hgb O2 Saturation Mechanical Rate FiO2 Inspiratory BiPAP Expiratory BiPAP Sodium 143 Potassium 4.5 Chloride 108 H Carbon Dioxide 28 Anion Gap 12 BUN 16 Creatinine 0.4 L Est GFR ( Amer) > 60 Est GFR (Non-Af Amer) > 60 POC Glucose (mg/dL) 164 H Random Glucose 182 H Calcium 9.2 reviewed J.P. - EKG Data EKG comments: reviewed J.P. - Imaging and Cardiology Chest x-ray Status: Report reviewed by me (JYoshiP.) Assessment & Plan (1) Hypercapnic respiratory failure Status: Acute Priority: High (2) COPD exacerbation Status: Acute Priority: High (3) Pneumonia Status: Acute Priority: High (4) Hypertension Status: Chronic Priority: Medium (5) CAD (coronary artery disease) Status: Chronic (6) Lumbago Status: Chronic Priority: Medium - Assessment and Plan (Free Text) Plan: MRSA Screen, Blood C-S,continue BIPAP FIO2 60%, continue with Ceftriaxone, Zithromax, Solu-Medrol, Duoneb, Promethazine with Co, Norvasc and rest of tx. Critical care time: 60 min. - Date & Time Date: 08/03/18
[2018-08-04] MEDS: Albuterol-Ipratrop 3 mg / 0.5 (3 ml) UD INH SCH ×6 (05:15→19:17)
[2018-08-04] MEDS: Insulin Regular 100 units/ml SC SCH ×4 (06:48→22:53)
[2018-08-04 08:26] LABS: ALB/GLOB RATIO 1.2 (1.0-2.1); ALBUMIN 3.6 g/dL (3.5-5.0); ALT/SGPT 38 U/L (9-52); AST/SGOT 17 U/L (14-36); BLOOD UREA NITROGEN 31 mg/dl (7-17); CALCIUM 9.4 mg/dL (8.4-10.2); GFR NON-AFRICAN AMERICAN > 60
[2018-08-04 08:31] LABS: BASO % 0.2 % (0.0-2.0); HEMOGLOBIN 12.4 g/dL (12.0-16.0); LYMPH # 0.7 K/uL (1.0-4.3); MEAN CELL VOLUME 95.3 fl (81.0-99.0); MEAN CORPUSCULAR HEMOGLOBIN 30.2 pg (27.0-31.0); MEAN CORPUSCULAR HGB CONC 31.7 g/dL (33.0-37.0); MEAN PLATELET VOLUME 9.3 fl (7.2-11.7); MONO # 0.3 K/uL (0.0-0.8); MONO % 2.4 % (0.0-10.0); NEUT # 12.4 K/uL (1.8-7.0); NEUT % 92.4 % (50.0-75.0); NRBC % 0.1 % (0.0-0.0); PLATELET COUNT 287 K/uL (130-400); RBC 4.11 Mil/uL (3.80-5.20); RED CELL DISTRIBUTION WIDTH 13.7 % (11.5-14.5); WHITE BLOOD COUNT 13.4 K/uL (4.8-10.8)
[2018-08-04] MEDS: Enoxaparin 40 mg Syringe SC SCH (08:49)
--- NOTE | 2018-08-04 08:51 | CP.CCUPN ---
CCU Subjective - Physician Review Events Since Last Encounter (Free Text): 08/04/18 08:40 Awake, and alert, making slow progress, now on HFNC 20LPM FIo 80% CCU Objective - Vital Signs / Intake & Output Vital Signs (Last 4 hours): Vital Signs Pulse Resp BP Pulse Ox 08/04/18 06:00 67 27 H 166/92 H 92 L 08/04/18 05:59 17 Intake and Output (Last 8hrs): Intake & Output 08/03/18 08/04/18 08/04/18 23:59 06:59 14:59 Intake Total Output Total Balance Weight Intake: IV Output: Urine Urine, Voided Other: # Voids Urine, Voided - Physical Exam Narrative Physical Exam (Free Text): 08/04/18 08:51 P.E neck: No JVD Lungs: Ronchi, bilaterally, febasal crackles Heart: No gallop Ext: +1 edema Heart: No gallop - Medications Active Medications: Active Medications Generic Name Dose Route Start Last Admin Trade Name Haoq PRN Reason Stop Dose Admin Albuterol/Ipratropium 3 ml 08/02/18 20:00 08/04/18 08:06 Duoneb 3 Mg/0.5 Mg (3 Ml) Ud INH 3 ml RQ4 NORIS Administration Amlodipine Besylate 10 mg 08/03/18 09:00 08/03/18 09:13 Norvasc PO 10 mg DAILY NORIS Administration Enoxaparin Sodium 40 mg 08/03/18 09:00 08/03/18 09:13 Lovenox SC 40 mg DAILY NORIS Administration Protocol Famotidine 20 mg 08/02/18 21:00 08/03/18 21:51 Pepcid IVP 20 mg Q12 NORIS Administration Furosemide 40 mg 08/03/18 12:30 08/03/18 13:00 Lasix IVP 40 mg DAILY NORIS Administration Sodium Chloride 1,000 mls @ 500 mls/hr 08/02/18 14:45 08/02/18 15:25 Sodium Chloride 0.9% IV 500 mls/hr .Q2H NORIS Administration Azithromycin 500 mg/ Sodium 250 mls @ 250 mls/hr 08/03/18 09:00 08/03/18 09:19 Chloride IVPB 250 mls/hr DAILY NORIS Administration Protocol Ceftriaxone Sodium 1 gm/ 100 mls @ 100 mls/hr 08/03/18 09:00 08/03/18 09:17 Sodium Chloride IVPB 100 mls/hr DAILY NORIS Administration Protocol Insulin Human Regular 0 units 08/02/18 23:00 08/04/18 06:48 Humulin R SC 2 units ACCU-CHECK NORIS Administration Protocol Methylprednisolone 60 mg 08/03/18 01:00 08/04/18 01:29 EDT Solu-Medrol IV 60 mg Q8 NORIS Administration Promethazine HCl/Codeine 5 ml 08/03/18 14:38 08/03/18 21:51 Phenergan/Codeine Oral Syrup PO 5 ml Q6 PRN Administration Cough - Patient Studies Lab Studies: Microbiology Studies 08/02/18 15:30 Blood Culture - Preliminary Blood NO GROWTH AFTER 24 HOURS 08/02/18 15:20 Blood Culture - Preliminary Blood NO GROWTH AFTER 24 HOURS Lab Studies 08/04/18 08/04/18 08/03/18 Range/Units 06:00 06:00 20:55 WBC 13.4 H (4.8-10.8) K/uL RBC 4.11 (3.80-5.20) Mil/uL Hgb 12.4 (12.0-16.0) g/dL Hct 39.2 (34.0-47.0) % MCV 95.3 (81.0-99.0) fl MCH 30.2 (27.0-31.0) pg MCHC 31.7 L (33.0-37.0) g/dL RDW 13.7 (11.5-14.5) % Plt Count 287 (130-400) K/uL MPV 9.3 (7.2-11.7) fl Neut % (Auto) 92.4 H (50.0-75.0) % Lymph % (Auto) 5.0 L (20.0-40.0) % Pickens % (Auto) 2.4 (0.0-10.0) % Eos % (Auto) 0.0 (0.0-4.0) % Baso % (Auto) 0.2 (0.0-2.0) % Neut # (Auto) 12.4 H (1.8-7.0) K/uL Lymph # (Auto) 0.7 L (1.0-4.3) K/uL Pickens # (Auto) 0.3 (0.0-0.8) K/uL Eos # (Auto) 0.0 (0.0-0.7) K/uL Baso # (Auto) 0.0 (0.0-0.2) K/uL Sodium 142 (132-148) mmol/l Potassium 3.9 (3.6-5.0) MMOL/L Chloride 105 (98-107) mmol/L Carbon Dioxide 31 H (22-30) mmol/L Anion Gap 10 (10-20) BUN 31 H (7-17) mg/dl Creatinine 0.6 L (0.7-1.2) mg/dl Est GFR ( Amer) > 60 Est GFR (Non-Af Amer) > 60 POC Glucose (mg/dL) 135 H (65-110) mg/dL Random Glucose 181 H (65-105) mg/dL Calcium 9.4 (8.4-10.2) mg/dL Total Bilirubin 0.2 (0.2-1.3) mg/dl AST 17 (14-36) U/L ALT 38 (9-52) U/L Alkaline Phosphatase 104 (38-126) U/L Total Protein 6.6 (6.3-8.2) G/DL Albumin 3.6 (3.5-5.0) g/dL Globulin 3.0 (2.2-3.9) gm/dL Albumin/Globulin Ratio 1.2 (1.0-2.1) 08/03/18 08/03/18 Range/Units 16:58 11:07 WBC (4.8-10.8) K/uL RBC (3.80-5.20) Mil/uL Hgb (12.0-16.0) g/dL Hct (34.0-47.0) % MCV (81.0-99.0) fl MCH (27.0-31.0) pg MCHC (33.0-37.0) g/dL RDW (11.5-14.5) % Plt Count (130-400) K/uL MPV (7.2-11.7) fl Neut % (Auto) (50.0-75.0) % Lymph % (Auto) (20.0-40.0) % Pickens % (Auto) (0.0-10.0) % Eos % (Auto) (0.0-4.0) % Baso % (Auto) (0.0-2.0) % Neut # (Auto) (1.8-7.0) K/uL Lymph # (Auto) (1.0-4.3) K/uL Pickens # (Auto) (0.0-0.8) K/uL Eos # (Auto) (0.0-0.7) K/uL Baso # (Auto) (0.0-0.2) K/uL Sodium (132-148) mmol/l Potassium (3.6-5.0) MMOL/L Chloride (98-107) mmol/L Carbon Dioxide (22-30) mmol/L Anion Gap (10-20) BUN (7-17) mg/dl Creatinine (0.7-1.2) mg/dl Est GFR ( Amer) Est GFR (Non-Af Amer) POC Glucose (mg/dL) 168 H 192 H (65-110) mg/dL Random Glucose (65-105) mg/dL Calcium (8.4-10.2) mg/dL Total Bilirubin (0.2-1.3) mg/dl AST (14-36) U/L ALT (9-52) U/L Alkaline Phosphatase (38-126) U/L Total Protein (6.3-8.2) G/DL Albumin (3.5-5.0) g/dL Globulin (2.2-3.9) gm/dL Albumin/Globulin Ratio (1.0-2.1) Laboratory Results - last 24 hr 08/03/18 08/03/18 08/03/18 11:07 16:58 20:55 WBC RBC Hgb Hct MCV MCH MCHC RDW Plt Count MPV Neut % (Auto) Lymph % (Auto) Pickens % (Auto) Eos % (Auto) Baso % (Auto) Neut # (Auto) Lymph # (Auto) Pickens # (Auto) Eos # (Auto) Baso # (Auto) Sodium Potassium Chloride Carbon Dioxide Anion Gap BUN Creatinine Est GFR ( Amer) Est GFR (Non-Af Amer) POC Glucose (mg/dL) 192 H 168 H 135 H Random Glucose Calcium Total Bilirubin AST ALT Alkaline Phosphatase Total Protein Albumin Globulin Albumin/Globulin Ratio 08/04/18 08/04/18 06:00 06:00 WBC 13.4 H RBC 4.11 Hgb 12.4 Hct 39.2 MCV 95.3 MCH 30.2 MCHC 31.7 L RDW 13.7 Plt Count 287 MPV 9.3 Neut % (Auto) 92.4 H Lymph % (Auto) 5.0 L Pickens % (Auto) 2.4 Eos % (Auto) 0.0 Baso % (Auto) 0.2 Neut # (Auto) 12.4 H Lymph # (Auto) 0.7 L [place]ens # (Auto) 0.3 Eos # (Auto) 0.0 Baso # (Auto) 0.0 Sodium 142 Potassium 3.9 Chloride 105 Carbon Dioxide 31 H Anion Gap 10 BUN 31 H Creatinine 0.6 L Est GFR ( Amer) > 60 Est GFR (Non-Af Amer) > 60 POC Glucose (mg/dL) Random Glucose 181 H Calcium 9.4 Total Bilirubin 0.2 AST 17 ALT 38 Alkaline Phosphatase 104 Total Protein 6.6 Albumin 3.6 Globulin 3.0 Albumin/Globulin Ratio 1.2 Fingerstick Blood Sugar Results: 170 Critical Care Progress Note - Nutrition Nutrition: Nutrition Category Date Time Status Consistent Carbohydrate [DIET] Diets 08/03/18 Breakfast Active Assessment/Plan - Assessment and Plan (Free Text) Assessment: IMPRESSION / MAJOR PROBLEMS NOW: 1. Acute Hypoxemic / Hypercapneic Resp Failure 2 COPD Exac : improving 2: CHF: 3. r/o Pneumonia versus tracheobronchitis 4. Multi-Psychoses PLAN: 1. Contiue Duoneb inh, on HFNC now, continue 20 LPM 2. On HFNC 20LPM, 80% 3- Has pulm congestion, will give lasix also, 40 mg daily. , continue . 4. Empiric abx coverage for CAP. 5. Continue IV Steroids. 6. ECHO for LV fx 7. Awake and alert now, takes ativan at home, will start back, lower dose. 8. No Advance Directives known, full resuscitative measures if required.
--- NOTE | 2018-08-04 10:27 | CP.PCM.PN ---
Subjective - Date & Time of Evaluation Date of Evaluation: 08/04/18 - Subjective Subjective: F/U Respiratory failure. Awake no acute distress, dry cough, on high flow O2 Objective - Vital Signs/Intake and Output Vital Signs (last 24 hours): Temp Pulse Resp BP Pulse Ox 98.8 F 59 L 19 179/93 H 91 L 08/04/18 08:00 08/04/18 10:13 08/04/18 10:13 08/04/18 10:13 08/04/18 10:13 Intake and Output: 08/04/18 08/04/18 06:59 18:59 Intake Total 460 Output Total 1000 Balance -540 - Medications Medications: Current Medications Albuterol/Ipratropium (Duoneb 3 Mg/0.5 Mg (3 Ml) Ud) 3 ml INH RQ4 NORIS Last Admin: 08/04/18 08:06 Dose: 3 ml Amlodipine Besylate (Norvasc) 10 mg PO DAILY NORIS Last Admin: 08/04/18 08:48 Dose: 10 mg Enoxaparin Sodium (Lovenox) 40 mg SC DAILY NORIS; Protocol Last Admin: 08/04/18 08:49 Dose: 40 mg Famotidine (Pepcid) 20 mg IVP Q12 NORIS Last Admin: 08/04/18 08:48 Dose: 20 mg Furosemide (Lasix) 40 mg IVP DAILY NORIS Last Admin: 08/04/18 08:46 Dose: 40 mg Sodium Chloride (Sodium Chloride 0.9%) 1,000 mls @ 500 mls/hr IV .Q2H NORIS Last Admin: 08/02/18 15:25 Dose: 500 mls/hr Azithromycin 500 mg/ Sodium (Chloride) 250 mls @ 250 mls/hr IVPB DAILY NORIS; Protocol Last Admin: 08/03/18 09:19 Dose: 250 mls/hr Ceftriaxone Sodium 1 gm/ (Sodium Chloride) 100 mls @ 100 mls/hr IVPB DAILY NORIS; Protocol Last Admin: 08/04/18 08:50 Dose: 100 mls/hr Piperacillin Sod/Tazobactam (Sod 3.375 gm/ Sodium Chloride) 100 mls @ 100 mls/hr IVPB Q6 NORIS; Protocol Insulin Human Regular (Humulin R) 0 units SC ACCU-CHECK NORIS; Protocol Last Admin: 08/04/18 06:48 Dose: 2 units Methylprednisolone (Solu-Medrol) 60 mg IV Q8 NORIS Last Admin: 08/04/18 08:49 Dose: 60 mg Promethazine HCl/Codeine (Phenergan/Codeine Oral Syrup) 5 ml PO Q6 PRN PRN Reason: Cough Last Admin: 08/03/18 21:51 Dose: 5 ml - Labs Labs: 08/04/18 06:00 08/04/18 06:00 PT 11.0 Seconds (9.8-13.1) 08/02/18 15:20 INR 1.0 08/02/18 15:20 APTT 28.6 Seconds (25.6-37.1) 08/02/18 15:20 - Constitutional Appears: No Acute Distress - Head Exam Head Exam: NORMAL INSPECTION - Eye Exam Eye Exam: PERRL - ENT Exam ENT Exam: Normal Exam - Neck Exam Neck Exam: Normal Inspection - Respiratory Exam Respiratory Exam: Decreased Breath Sounds (at bases), Rhonchi - Cardiovascular Exam Cardiovascular Exam: REGULAR RHYTHM - GI/Abdominal Exam GI & Abdominal Exam: Soft, Normal Bowel Sounds - Extremities Exam Extremities Exam: Normal Inspection - Back Exam Back Exam: NORMAL INSPECTION - Neurological Exam Neurological Exam: Alert, CN II-XII Intact, Oriented x3. absent: Motor Sensory Deficit - Psychiatric Exam Psychiatric exam: Anxious - Skin Skin Exam: Warm Assessment and Plan (1) Hypercapnic respiratory failure Status: Acute (2) COPD exacerbation Status: Acute (3) Pneumonia Status: Acute (4) Hypertension Status: Chronic (5) CAD (coronary artery disease) Status: Chronic (6) Lumbago Status: Chronic - Assessment and Plan (Free Text) Plan: Continue Zithromax, Rocephin, Zosyn, DuoNeb, Solu-Medrol, high flow oxygen, follow-up CT Chest Critical care time: 35 min.
[2018-08-04 11:33] LABS: BANDS 1 % (0-2); LYMPHOCYTE 8 % (20-50); MONOCYTE 3 % (0-10); NEUTROPHIL 88 % (42-75); PLATELET ESTIMATE NORMAL (NORMAL); TOTAL CELLS COUNTED 100
[2018-08-04 11:34] LABS: LARGE PLATELETS PRESENT
[2018-08-04] MEDS: Azithromycin 500 MG in Sodium Chloride 0.9% 250 ML IVPB SCH ×2 (11:34→21:29)
[2018-08-04] MEDS: Promethazine/Cod 6.25mg-10mg/5ml Syr UD PO PRN (15:23)
--- NOTE | 2018-08-04 16:10 | CT ---
Date of service: 08/04/2018 PROCEDURE: CT Chest without contrast HISTORY: Pneumonia COMPARISON: None available. TECHNIQUE: Contiguous axial images were obtained through the chest without intravenous contrast enhancement. Sagittal and coronal reconstructions were performed. Radiation dose: Total exam DLP = 549.32 mGy-cm. This CT exam was performed using one or more of the following dose reduction techniques: Automated exposure control, adjustment of the mA and/or kV according to patient size, and/or use of iterative reconstruction technique. FINDINGS: LUNGS: Bibasilar alveolar infiltrates. MEDIASTINUM: Unremarkable thoracic aorta. No aneurysm. Normal sized heart. Main pulmonary artery unremarkable. No vascular congestion. No lymphadenopathy. No aortic atherosclerotic calcification. PLEURA: No pleural fluid. No pneumothorax. BONES: No fracture. No destructive lesion. UPPER ABDOMEN: Grossly unremarkable. OTHER FINDINGS: Small pericardial effusion. Limited by patient motion artifact. IMPRESSION: Bibasilar alveolar infiltrates.Small pericardial effusion. Limited by patient motion artifact.
[2018-08-04] MEDS: Piperacillin/Tazobact 3.375 GM in Sodium Chloride 0.9% 100 ML IVPB SCH ×2 (16:12→22:53)
[2018-08-04] MEDS ORDERED: Promethazine/Cod 6.25mg-10mg/5ml Syr UD PO STA (21:07)
[2018-08-04] MEDS ORDERED: Albuterol-Ipratrop 3 mg / 0.5 (3 ml) UD INH STA (23:06)
[2018-08-05] MEDS: Albuterol-Ipratrop 3 mg / 0.5 (3 ml) UD INH SCH ×6 (00:05→19:21)
[2018-08-05] MEDS: Piperacillin/Tazobact 3.375 GM in Sodium Chloride 0.9% 100 ML IVPB SCH ×4 (03:41→21:23)
[2018-08-05] MEDS: Insulin Regular 100 units/ml SC SCH ×4 (06:01→23:30)
--- NOTE | 2018-08-05 08:13 | RAD ---
Date of service: 08/05/2018 HISTORY: PNA, COPD EXAC. COMPARISON: Portable chest 08/03/2018. FINDINGS: LUNGS: No interval acute cardiopulmonary disease appreciated. Limited linear atelectasis identified in the medial left basilar lung zone. PLEURA: No significant pleural effusion identified, no pneumothorax apparent. CARDIOVASCULAR: No aortic atherosclerotic calcification present. Stable cardiac silhouette. No pulmonary vascular congestion. OSSEOUS STRUCTURES: No significant abnormalities. VISUALIZED UPPER ABDOMEN: Normal. OTHER FINDINGS: None. IMPRESSION: Limited linear atelectasis medial left base with remaining lung dent clear. Cardiac silhouette stable. No pulmonary vascular congestion.
[2018-08-05] MEDS: Promethazine/Cod 6.25mg-10mg/5ml Syr UD PO PRN ×2 (08:20→15:09)
[2018-08-05] MEDS: Enoxaparin 40 mg Syringe SC SCH (08:24)
[2018-08-05] MEDS: Benzocaine/Menthol (Cepacol) Lozenge PO PRN ×2 (11:07→13:37)
[2018-08-05] MEDS ORDERED: Sodium Chloride 3% for Inhalation 4 ML VIAL.NEB IH PRN (12:06)
[2018-08-05] MEDS: guaiFENesin 600 mg ER Tab PO SCH ×2 (13:36→21:22)
--- NOTE | 2018-08-05 15:04 | CP.PCM.PN ---
Subjective - Date & Time of Evaluation Date of Evaluation: 08/05/18 - Subjective Subjective: F/U Respiratory Failure Awake, Pt with dry cough, difficulty to bring up sputum. Objective - Vital Signs/Intake and Output Vital Signs (last 24 hours): Temp Pulse Resp BP Pulse Ox 98.6 F 84 22 173/96 H 96 08/05/18 12:00 08/05/18 14:00 08/05/18 14:00 08/05/18 14:00 08/05/18 14:00 Intake and Output: 08/05/18 08/05/18 06:59 18:59 Intake Total 0 Output Total 300 Balance 0 -300 - Medications Medications: Current Medications Acetylcysteine (Mucomyst 10% 30 Ml) 2 ml IH RQID NORIS Albuterol/Ipratropium (Duoneb 3 Mg/0.5 Mg (3 Ml) Ud) 3 ml INH RQ4 NORIS Last Admin: 08/05/18 12:04 Dose: 3 ml Amlodipine Besylate (Norvasc) 10 mg PO DAILY COUNT INCLUDES THE [facility] Last Admin: 08/05/18 08:25 Dose: 10 mg Benzocaine/Menthol (Cepacol Sore Throat) 1 anabell PO Q3 PRN PRN Reason: Sore Throat Last Admin: 08/05/18 13:37 Dose: 1 anabell Enoxaparin Sodium (Lovenox) 40 mg SC DAILY NORIS; Protocol Last Admin: 08/05/18 08:24 Dose: 40 mg Famotidine (Pepcid) 20 mg IVP Q12 NORIS Last Admin: 08/05/18 08:30 Dose: 20 mg Fluticasone Propionate (Flonase) 1 spr EMILY BID NORIS Furosemide (Lasix) 40 mg IVP DAILY NORIS Last Admin: 08/05/18 08:28 Dose: 40 mg Guaifenesin (Mucinex La) 600 mg PO Q12 NORIS Last Admin: 08/05/18 13:36 Dose: 600 mg Sodium Chloride (Sodium Chloride 0.9%) 1,000 mls @ 500 mls/hr IV .Q2H NORIS Last Admin: 08/02/18 15:25 Dose: 500 mls/hr Azithromycin 500 mg/ Sodium (Chloride) 250 mls @ 250 mls/hr IVPB DAILY COUNT INCLUDES THE [facility]; Protocol Last Admin: 08/04/18 21:29 Dose: 250 mls/hr Ceftriaxone Sodium 1 gm/ (Sodium Chloride) 100 mls @ 100 mls/hr IVPB DAILY COUNT INCLUDES THE [facility]; Protocol Last Admin: 08/05/18 10:19 Dose: 100 mls/hr Piperacillin Sod/Tazobactam (Sod 3.375 gm/ Sodium Chloride) 100 mls @ 100 mls/hr IVPB Q6 NORIS; Protocol Last Admin: 08/05/18 10:16 Dose: 100 mls/hr Insulin Human Regular (Humulin R) 0 units SC ACCU-CHECK NORIS; Protocol Last Admin: 08/05/18 13:08 Dose: Not Given Methylprednisolone (Solu-Medrol) 60 mg IV Q8 NORIS Last Admin: 08/05/18 08:23 Dose: 60 mg Promethazine HCl/Codeine (Phenergan/Codeine Oral Syrup) 5 ml PO Q6 PRN PRN Reason: Cough Last Admin: 08/05/18 08:20 Dose: 5 ml - Labs Labs: 08/04/18 06:00 08/04/18 06:00 PT 11.0 Seconds (9.8-13.1) 08/02/18 15:20 INR 1.0 08/02/18 15:20 APTT 28.6 Seconds (25.6-37.1) 08/02/18 15:20 - Constitutional Appears: Chronically Ill - Head Exam Head Exam: NORMAL INSPECTION - Eye Exam Eye Exam: PERRL - ENT Exam ENT Exam: Mucous Membranes Moist - Neck Exam Additional comments: On High Flow O2. - Respiratory Exam Respiratory Exam: Decreased Breath Sounds (at bases), Rhonchi (b/l), Wheezes (few) - Cardiovascular Exam Cardiovascular Exam: REGULAR RHYTHM - GI/Abdominal Exam GI & Abdominal Exam: Soft, Normal Bowel Sounds - Extremities Exam Extremities Exam: Normal Inspection - Neurological Exam Neurological Exam: Alert, CN II-XII Intact, Oriented x3. absent: Motor Sensory Deficit - Skin Skin Exam: Warm Assessment and Plan (1) Hypercapnic respiratory failure Status: Acute (2) COPD exacerbation Status: Acute (3) Pneumonia Status: Acute (4) Hypertension Status: Chronic (5) CAD (coronary artery disease) Status: Chronic (6) Lumbago Status: Chronic - Assessment and Plan (Free Text) Plan: CXR: Linear atelectasis medial L base. Continue Zithromax, Ceftriaxone, Zosyn, Duoneb, Solu-Medrol, Mucinex and rest of Tx. Critical care time: 31 min.
[2018-08-05] MEDS: Azithromycin 500 MG in Sodium Chloride 0.9% 250 ML IVPB SCH (15:13)
[2018-08-05] MEDS ORDERED: Acetylcysteine 10% 30 ML IH SCH (16:00)
[2018-08-06] MEDS: Albuterol-Ipratrop 3 mg / 0.5 (3 ml) UD INH SCH ×7 (00:18→23:47)
[2018-08-06] MEDS: Promethazine/Cod 6.25mg-10mg/5ml Syr UD PO PRN ×2 (04:05→10:23)
[2018-08-06] MEDS: Piperacillin/Tazobact 3.375 GM in Sodium Chloride 0.9% 100 ML IVPB SCH ×4 (04:05→21:48)
[2018-08-06] MEDS: Insulin Regular 100 units/ml SC SCH ×4 (06:54→23:14)
--- NOTE | 2018-08-06 07:15 | PN ---
DATE: 08/05/2018 CRITICAL CARE PROGRESS NOTE LOCATION: The patient in ICU, bed 434. TIME SPENT: 35 minutes. SUBJECTIVE: The patient is seen and evaluated at the bedside. Past medical, surgical, family and social history reviewed. Case was discussed in the morning in multidisciplinary ICU rounds. Events since admission noted. A 58-year-old female from a retirement home with history of COPD, asthma, pneumonia, CHF, hypertension, nonobstructive coronary artery disease, chronic back pain, bipolar disorder, admitted on 08/02/2018 with hypoxic respiratory failure. Chest x-ray Showed bibasilar alveolar infiltrate. CT chest confirmed the above findings. ABG showed significant hypoxemia. Admitted to ICU on BiPap, treated empirically with antibiotic; Rocephin, Zosyn, Solu-Medrol. Overnight remains on BiPap, off of BiPap this morning, noted to be alert and awake, but complaining of dry brassy cough nonproductive associated with itching and irritation in the throat with pain both sides of the chest. PHYSICAL EXAMINATION: VITAL SIGNS: Temperature 98.6, heart rate 96 regular, blood pressure 176/99, respiratory rate 20 thoracoabdominal, saturation 100% on high-flow nasal oxygen 20 liters. Intake 820, output 1400, negative balance 580. Weight 206 pounds. HEAD, EYES, EARS, NOSE AND THROAT: Pupils are reactive. Conjunctivae pink. Sclerae white. NECK: Supple. Trachea is central. CHEST: Bilateral breath sounds. Scattered rhonchi. HEART: Rhythm regular. S1 and S2, normal intensity. No S3, S4 or gallop. No audible murmur. ABDOMEN: Bowel sounds present and soft. Liver and spleen not palpable. EXTREMITIES: Trace edema. NEUROLOGIC: Alert, awake, follows commands appropriate. No cranial nerve deficit. No motor or sensory impairment. Plantar flexor. Deep tendon reflex 2+ bilaterally. CURRENT MEDICATIONS: Albuterol and Atrovent inhalation 3 mL via nebulizer every 4 hours, Mucomyst _10% 2 mL via nebulizer every 6 hours, Norvasc 10 mg p.o. daily, ceftriaxone 1 g IV daily, Zithromax 500 mg IV daily, benzocaine/menthol Cepacol sore throat one lozenges every three hours p.r.n., Lovenox 40 subcu daily, Pepcid 20 mg IV every two hours, fluticasone nasal spray one spray to both nostrils twice daily, Lasix 40 mg IV daily, guaifenesin 600 mg every 12 hours, Accu-Chek with regular insulin coverage, Solu-Medrol 60 mg IV every 8 hours, Zosyn 3.375 g IV every 6 hours, Phenergan with codeine 5 mL every 6 hours p.r.n., sodium chloride and IV fluid at 60 mL per hour. LABORATORY DATA: WBC 13.4, hemoglobin 12.4, hematocrit 39.2, platelet count 287, neutrophils 92.4, lymphocytes 5, monocytes 2.4. PT 11, INR 1, PTT 28.6. ABG on BiPAP 5/10 with FiO2 of 60, pH of 7.35, pCO2 of 51, pO2 of 91, saturation 98.4%. SMA-7; sodium 142, potassium 3.9, chloride 105, CO2 of 31, blood urea nitrogen 31, creatinine 0.06, glucose 204, calcium 9.4, total bilirubin 0.2, AST 17, ALT 38, alkaline phosphatase 104, total protein 6.6, albumin 3.6. Serology; influenza A and B negative. Microbiology; MRSA nasal smear negative. Blood culture negative. Urine culture, no growth reported. Chest x-ray shows limited near atelectasis, medial left base. Cardiac silhouette stable. No pulmonary vascular congestion. IMPRESSION: 1. Neurologic: Alert, awake, follows commands appropriate. 2. Pulmonary: Hypoxic respiratory failure. Tracheobronchitis with persistent cough. History of chronic obstructive pulmonary disease. On Solu-Medrol. Continue antibiotic to cover for bacterial infection. 3. Cardiac: Hypertension, controlled. 4. Endocrinology: Diabetes mellitus type 2. Continue on Accu-Chek with regular insulin coverage. 5. Renal: No acute issues. 6. Hematology: Leukocytosis secondary to steroid. Normal hemoglobin, hematocrit and platelet count. No acute renal issues noted. Influenza A and B negative. PLAN: Continue current medications. Diet as tolerated. Keep head of bed 30 degrees up, out of bed to chair as tolerated, on BiPAP at night. Luis Medina MD [facility] # [id number] [place]
[2018-08-06] MEDS: guaiFENesin 600 mg ER Tab PO SCH ×2 (08:28→21:20)
[2018-08-06] MEDS: Enoxaparin 40 mg Syringe SC SCH (08:38)
[2018-08-06] MEDS: Azithromycin 500 MG in Sodium Chloride 0.9% 250 ML IVPB SCH (10:05)
[2018-08-06] MEDS: Acetylcysteine 10% 4 ML IH SCH ×3 (11:16→19:06)
--- NOTE | 2018-08-06 13:13 | PQF ---
PROVIDER RESPONSE TEXT: Sepsis ruled out. REVIEWER QUERY TEXT: Conflicting Documentation Clarification A single mention of SEPSIS by the ER for the same clinical presentation appears in the record. Pleas e clarify if Sepsis is ruled in or ruled out AFTER WORKUP. Please clarify the diagnosis/diagnoses. Please also document if the condition is: -- Confirmed and current -- Confirmed, treated and resolved -- Ruled out -- Other, please specify The patient's Clinical Indicators include: Admitted with severe wheezing, intermittent/intractable non productive cough, congested nose. Patient t using Steroids, Albuterol and antibiotics with no relief. WBC 13.9 L shift, lactate normal 1.1 TEMP: 98, 97.6, 97.5, 98.2, 98.5, 98.8 HR: 103, 108, 95, 96, 93, 92, 88, 90, 89 BP: 129/88, 135/88, 111/74, 120/69 R: 48, 34, 44, 19, 19,21 O2 sat: 85, 100, 95, 97 CT Chest: Bibasilar alveolar infiltrates. Query created by: Alejandra Brown on 08/05/2018 8:34 AM Electronically signed by: Sarthak Arauz MD 08/06/2018 1:10 PM
--- NOTE | 2018-08-06 13:13 | PQF ---
PROVIDER RESPONSE TEXT: Chronic systolic heart failure. REVIEWER QUERY TEXT: Heart Failure Acuity and Type Congestive Heart Failure is documented in the Medical Record as a PMH. Please document the type and a cuity (includes probable or suspected) Such as: Type: -- Combined systolic and diastolic (heart failure with reduced ejection fraction and diastolic) dysfu nction -- Diastolic (HFpEF) -- Systolic (HFrEF) -- Left heart failure -- Right heart failure -- Right heart failure due to left heart failure -- High output failure -- End stage heart failure -- Other, please specify Acuity: -- Acute -- Chronic -- Acute on chronic -- Other, please specify Also please document the underlying cause of the CHF (includes probable or suspected) The patient's Clinical Indicators include: Admitted with SOB. Pro BNP normal 256 OLD ECHO from 02/01/17: EF 35-40% see full report Medication: IV Lasix, Query created by: Alejandra Brown on 08/05/2018 8:24 AM Electronically signed by: Sarthak Arauz MD 08/06/2018 1:10 PM
--- NOTE | 2018-08-06 14:56 | CP.PCM.PN ---
Subjective - Date & Time of Evaluation Date of Evaluation: 08/06/18 Time of Evaluation: 09:30 - Subjective Subjective: F/U Respiratory failure/ PNA Pt awake, on high flow O2, cough with difficulty to bring up phlegms Objective - Vital Signs/Intake and Output Vital Signs (last 24 hours): Temp Pulse Resp BP Pulse Ox 98.6 F 72 23 153/96 H 91 L 08/06/18 12:00 08/06/18 14:00 08/06/18 14:00 08/06/18 14:00 08/06/18 14:00 - Medications Medications: Current Medications Acetylcysteine (Mucomyst 10% 4ml) 2 ml IH RQID [facility] Last Admin: 08/06/18 11:16 Dose: 2 ml Albuterol/Ipratropium (Duoneb 3 Mg/0.5 Mg (3 Ml) Ud) 3 ml INH RQ4 [facility] Last Admin: 08/06/18 11:16 Dose: 3 ml Amlodipine Besylate (Norvasc) 10 mg PO DAILY [facility] Last Admin: 08/06/18 08:28 Dose: 10 mg Benzocaine/Menthol (Cepacol Sore Throat) 1 anabell PO Q3 PRN PRN Reason: Sore Throat Last Admin: 08/05/18 13:37 Dose: 1 anabell Famotidine (Pepcid) 20 mg IVP Q12 [facility] Last Admin: 08/06/18 08:27 Dose: 20 mg Fluticasone Propionate (Flonase) 1 spr EMILY BID [facility] Last Admin: 08/06/18 08:40 Dose: 1 spr Furosemide (Lasix) 40 mg IVP DAILY [facility] Last Admin: 08/06/18 09:26 Dose: 40 mg Guaifenesin (Mucinex La) 600 mg PO Q12 [facility] Last Admin: 08/06/18 08:28 Dose: 600 mg Sodium Chloride (Sodium Chloride 0.9%) 1,000 mls @ 500 mls/hr IV .Q2H [facility] Last Admin: 08/02/18 15:25 Dose: 500 mls/hr Piperacillin Sod/Tazobactam (Sod 3.375 gm/ Sodium Chloride) 100 mls @ 100 ml s/hr IVPB Q6 [facility]; Protocol Last Admin: 08/06/18 09:25 Dose: 100 mls/hr Insulin Human Regular (Humulin R) 0 units SC ACCU-CHECK [facility]; Protocol Last Admin: 08/06/18 11:22 Dose: 4 units Methylprednisolone (Solu-Medrol) 60 mg IV Q8 [facility] Last Admin: 08/06/18 08:37 Dose: 60 mg - Labs Labs: 08/04/18 06:00 08/04/18 06:00 PT 11.0 Seconds (9.8-13.1) 08/02/18 15:20 INR 1.0 08/02/18 15:20 APTT 28.6 Seconds (25.6-37.1) 08/02/18 15:20 - Constitutional Appears: Chronically Ill - Head Exam Head Exam: NORMAL INSPECTION - Eye Exam Eye Exam: PERRL - ENT Exam ENT Exam: Mucous Membranes Moist Additional comments: On high flow O2. - Neck Exam Neck Exam: Normal Inspection - Respiratory Exam Respiratory Exam: Decreased Breath Sounds (at bases), Rhonchi (b/l) - Cardiovascular Exam Cardiovascular Exam: REGULAR RHYTHM - GI/Abdominal Exam GI & Abdominal Exam: Soft, Normal Bowel Sounds - Extremities Exam Extremities Exam: Normal Inspection - Back Exam Back Exam: tenderness - Neurological Exam Neurological Exam: Alert, CN II-XII Intact, Oriented x3. absent: Motor Sensory Deficit - Skin Skin Exam: Warm Assessment and Plan (1) Hypercapnic respiratory failure Status: Acute (2) COPD exacerbation Status: Acute (3) Pneumonia Status: Acute (4) Hypertension Status: Chronic (5) CAD (coronary artery disease) Status: Chronic (6) Lumbago Status: Chronic - Assessment and Plan (Free Text) Plan: Continue Zosyn, Duoneb, Solu-Medrol, Phenergan with Co and rest of Tx. Critical care time: 34 min.
--- NOTE | 2018-08-06 17:06 | CP.CCUPN ---
CCU Subjective - Physician Review Subjective (Free Text): 08/06/18 17:02 The patient was Seen/interviewed and examined by me at the bedside during ICU round, Medical records reviewed and Management issues were discussed and formulated with the house staff. Events reviewed Clinically improving Denies any chest pain, Less SOD No Vasopressors Awake, Comfortable, NAD Awake, and alert, making slow progress, now on HFNC 20LPM FIo 60% down from 80% CCU Objective - Vital Signs / Intake & Output Vital Signs (Last 4 hours): Vital Signs Temp Pulse Resp BP Pulse Ox 08/06/18 16:00 98.5 F 80 19 152/79 H 93 L 08/06/18 15:21 22 08/06/18 14:00 72 23 153/96 H 91 L 08/06/18 13:45 20 Intake and Output (Last 8hrs): Intake & Output 08/06/18 08/06/18 08/06/18 06:59 14:59 22:59 Weight 206 lb - Physical Exam Head: Positive for: Atraumatic, Normocephalic Pupils: Positive for: PERRL Extroacular Muscles: Positive for: EOMI Conjunctiva: Positive for: Normal. Negative for: Injected, Icteric Ears: Positive for: Normal. Negative for: NORMAL TM Pharnyx: Positive for: Normal Nose (Internal): Positive for: Normal Inspection Neck: Positive for: Normal Range of Motion, Trachea Midline. Negative for: Meningeal Signs, MIDLINE TENDERNESS, Paraspinal Tenderness, JVD, Lymphadenopathy, Bruit, Other Respiratory/Chest: Positive for: Decreased Breath Sounds, Rales, Rhonchi. Negative for: Clear to Auscultation, Respiratory Distress, Accessory Muscle Use, Wheezes Cardiovascular: Positive for: Regular Rate and Rhythm, Normal S1, S2, Peripheal Pulses Present. Negative for: Irregular Rhythm Abdomen: Positive for: Normal Bowel Sounds. Negative for: Tenderness, Distention Upper Extremity: Positive for: Edema Neurological: Positive for: GCS=15, CN II-XII Intact, Speech Normal, Motor Func Grossly Intact, Normal Sensory Function Psychiatric: Positive for: Alert, Oriented x 3 - Medications Active Medications: Active Medications Generic Name Dose Route Start Last Admin Trade Name Freq PRN Reason Stop Dose Admin Acetylcysteine 2 ml 08/06/18 12:00 08/06/18 15:20 Mucomyst 10% 4ml IH 2 ml RQID [facility] Administration Albuterol/Ipratropium 3 ml 08/02/18 20:00 08/06/18 15:20 Duoneb 3 Mg/0.5 Mg (3 Ml) Ud INH 3 ml RQ4 [facility] Administration Amlodipine Besylate 10 mg 08/03/18 09:00 08/06/18 08:28 Norvasc PO 10 mg DAILY [facility] Administration Benzocaine/Menthol 1 anabell 08/05/18 09:43 08/05/18 13:37 Cepacol Sore Throat PO 1 anabell Q3 PRN Administration Sore Throat Famotidine 20 mg 08/02/18 21:00 08/06/18 08:27 Pepcid IVP 20 mg Q12 [facility] Administration Fluticasone Propionate 1 spr 08/05/18 09:45 08/06/18 16:19 Flonase EMILY 1 spr BID [facility] Administration Furosemide 40 mg 08/03/18 12:30 08/06/18 09:26 Lasix IVP 40 mg DAILY [facility] Administration Guaifenesin 600 mg 08/05/18 12:15 08/06/18 08:28 Mucinex La PO 600 mg Q12 [facility] Administration Sodium Chloride 1,000 mls @ 500 mls/hr 08/02/18 14:45 08/02/18 15:25 Sodium Chloride 0.9% IV 500 mls/hr .Q2H [facility] Administration Piperacillin Sod/Tazobactam 100 mls @ 100 mls/hr 08/04/18 16:00 08/06/18 16:21 Sod 3.375 gm/ Sodium Chloride IVPB 100 mls/hr Q6 [facility] Administration Protocol Insulin Human Regular 0 units 08/02/18 23:00 08/06/18 16:55 Humulin R SC 4 units ACCU-CHECK [facility] Administration Protocol Methylprednisolone 60 mg 08/03/18 01:00 08/06/18 16:20 Solu-Medrol IV 60 mg Q8 [facility] Administration - Patient Studies Lab Studies: Microbiology Studies 08/02/18 15:30 Blood Culture - Preliminary Blood NO GROWTH AFTER 4 DAYS 08/02/18 15:20 Blood Culture - Preliminary Blood NO GROWTH AFTER 4 DAYS Lab Studies 08/06/18 08/06/18 08/05/18 Range/Units 11:14 05:50 21:23 POC Glucose (mg/dL) 220 H 232 H 232 H (65-110) mg/dL 08/05/18 08/05/18 Range/Units 17:00 11:27 POC Glucose (mg/dL) 177 H 185 H (65-110) mg/dL Laboratory Results - last 24 hr 08/05/18 08/05/18 08/05/18 11:27 17:00 21:23 POC Glucose (mg/dL) 185 H 177 H 232 H 08/06/18 08/06/18 05:50 11:14 POC Glucose (mg/dL) 232 H 220 H Fingerstick Blood Sugar Results: 206 Review of Systems - Cardiovascular Cardiovascular: absent: Chest Pain, Chest Pain at Rest, Chest Pain with Activity, Claudication, Diaphoresis - Respiratory Respiratory: Cough, Dyspnea, Dyspnea on Exertion. absent: Hemoptysis, Wheezing Critical Care Progress Note - Extremities/Vascular Does the Patient have a Central Venous Catheter?: No Does the Patient need a Central Venous Catheter?: No Does the Patient have a Dowell Catheter?: No Does the Patient need a Dowell Catheter?: No - Nutrition Nutrition: Nutrition Category Date Time Status Consistent Carbohydrate [DIET] Diets 08/04/18 Dinner Active Assessment/Plan (1) Hypercapnic respiratory failure Current Visit: Yes Status: Acute Priority: High (2) COPD exacerbation Current Visit: Yes Status: Acute Priority: High (3) Pneumonia Current Visit: Yes Status: Acute Priority: High (4) Sepsis Current Visit: Yes Status: Acute Priority: High - Assessment and Plan (Free Text) Assessment: Contiue Duoneb INH Q4 [facility] with Acetylcysteine (Mucomyst) Wean off HFNC, down to 60% continue 20 LPM Continue Empiric abx coverage for CAP with Ceftriaxone and Azithromycin Continue IV Steroids, Solu-Medrol 60 mg IV Q. ECHO
[2018-08-06] MEDS: Benzocaine/Menthol (Cepacol) Lozenge PO PRN (23:34)
[2018-08-07] MEDS: Albuterol-Ipratrop 3 mg / 0.5 (3 ml) UD INH SCH ×6 (04:59→23:44)
[2018-08-07] MEDS: Piperacillin/Tazobact 3.375 GM in Sodium Chloride 0.9% 100 ML IVPB SCH ×4 (05:50→21:00)
[2018-08-07] MEDS: Acetylcysteine 10% 4 ML IH SCH ×4 (07:29→19:18)
[2018-08-07] MEDS: guaiFENesin 600 mg ER Tab PO SCH ×2 (08:40→20:55)
[2018-08-07] MEDS: Promethazine/Cod 6.25mg-10mg/5ml Syr UD PO PRN ×2 (08:49→16:42)
[2018-08-07 10:37] LABS: BASO % 0.1 % (0.0-2.0); EOS % 0.1 % (0.0-4.0); LYMPH # 0.3 K/uL (1.0-4.3); LYMPH % 3.7 % (20.0-40.0); MEAN CELL VOLUME 92.8 fl (81.0-99.0); MEAN CORPUSCULAR HGB CONC 33.4 g/dL (33.0-37.0); MEAN PLATELET VOLUME 8.9 fl (7.2-11.7); MONO # 0.3 K/uL (0.0-0.8); MONO % 3.1 % (0.0-10.0); NEUT # 8.1 K/uL (1.8-7.0); NRBC % 0.1 % (0.0-0.0); PLATELET COUNT 285 K/uL (130-400); RBC 4.83 Mil/uL (3.80-5.20); RED CELL DISTRIBUTION WIDTH 13.4 % (11.5-14.5); WHITE BLOOD COUNT 8.7 K/uL (4.8-10.8)
[2018-08-07 10:45] LABS: ALB/GLOB RATIO 1.4 (1.0-2.1); ALT/SGPT 42 U/L (9-52); AST/SGOT 20 U/L (14-36); BLOOD UREA NITROGEN 27 mg/dl (7-17); CALCIUM 8.9 mg/dL (8.4-10.2); GFR NON-AFRICAN AMERICAN > 60
--- NOTE | 2018-08-07 11:19 | CP.CCUPN ---
CCU Subjective - Physician Review Subjective (Free Text): Very frequent coughing noted, no desaturation, lying mostly supine. Denies any chest discomfort, otherwise not distressed at this time, awake and responsive. ROS: No other pertinent negs or positives on 10+ system review. Other vitals and I/O's reviewed. Afebrile, BP 150/90, HR 85 sinus, RR 20, no on HFNC20 LPM and 60% oxygen. Other PMSFH: All other Nursing and physician documentation reviewed to date; no new pertinent info noted relevant to current medical problems. EXAM- HEENT: no icterus, no gaze preference, Pupils 3 mm and reactive NECK: No JVD visible, supple, carotids equal upstroke bilat/no bruit CHEST: diminished bilat BS, no wheezes audible HEART: regular, distant tachy S1S2, no rubs ABD: soft, obese, no focal tenderness, no guarding, no organomegaly, BS hypoactive. EXT: trace edema, no calf tenderness or palpable cords, distal pulses intact and symmetrical. NEURO: moves all 4 limbs spontaneously SKIN: no rashes, warm and dry LABS: WBC= 13.4 HGB= 12.4 PLTs= 287K Coags= normal Na= 142 K= 3.8 HR=791 HCO3= 31 BUN/Cr= 31/0.6 BS= 181 Trop#1 negative IMPRESSION / MAJOR PROBLEMS NOW: 1. Acute Hypoxemic / Hypercapneic Resp Failure 2 COPD Exac 2. r/o Pneumonia versus tracheobronchitis 3. Multi-Psychoses PLAN: 1. If patient allows, get repeat bloodwork. Latest CXR on 08/05 looks good, no new consolidation noted nor any signs of PVC and none clinically on exam, though orders reveal IVFs at 500 ml.hr and Lasix. Will stop IVFs now, and additional Lasix prn. 2. Coughing appears to be attempts at mobilizing non-productive sputum. Already on mucolytics. 3. Empiric abx coverage for CAP. 4. Continue IV Steroids. 5. ECHO for LV fx 6. Resumed Ativan today. 7. No Advance Directives known, full resuscitative measures if required.
[2018-08-07] MEDS: Insulin Regular 100 units/ml SC SCH ×3 (11:42→22:42)
[2018-08-07 12:14] LABS: ABG ALLEN TEST YES; ARTERIAL BLOOD GAS HCO3 33.9 mmol/L (21-28); ARTERIAL BLOOD GAS HEMOGLOBIN 15.9 g/dL (11.7-17.4); ARTERIAL BLOOD GAS O2 CAPACITY 21.6 mL/dL (16-24); ARTERIAL BLOOD GAS O2 CONTENT 18.1 ML/dL (15-23); ARTERIAL BLOOD GAS O2 SAT 83.8 % (95-98); ARTERIAL BLOOD GAS PCO2 41 mm/Hg (35-45); ARTERIAL BLOOD GAS PH 7.55 (7.35-7.45); ARTERIAL BLOOD GAS PO2 43 mm/Hg (80-100); ARTERIAL BLOOD GAS TCO2 37.2 mmol/L (22-28)
[2018-08-07 14:15] LABS: LYMPHOCYTE 9 % (20-50); MONOCYTE 3 % (0-10); NEUTROPHIL 88 % (42-75); PLATELET ESTIMATE NORMAL (NORMAL); TOTAL CELLS COUNTED 100
--- NOTE | 2018-08-07 15:29 | CP.PCM.PN ---
Subjective - Date & Time of Evaluation Date of Evaluation: 08/07/18 Time of Evaluation: 10:40 - Subjective Subjective: F/U respiratory failure. Pt awake, on high flow O2, c/o of dry cough, paroxysmal at times reported by nurses.. Objective - Vital Signs/Intake and Output Vital Signs (last 24 hours): Temp Pulse Resp BP Pulse Ox 98.5 F 80 26 H 160/90 H 94 L 08/07/18 12:00 08/07/18 14:00 08/07/18 14:00 08/07/18 14:00 08/07/18 14:00 Intake and Output: 08/07/18 08/07/18 06:59 18:59 Intake Total 100 Balance 100 - Medications Medications: Current Medications Acetylcysteine (Mucomyst 10% 4ml) 2 ml IH RQID [facility] Last Admin: 08/07/18 11:59 Dose: 2 ml Albuterol/Ipratropium (Duoneb 3 Mg/0.5 Mg (3 Ml) Ud) 3 ml INH RQ4 [facility] Last Admin: 08/07/18 11:59 Dose: 3 ml Amlodipine Besylate (Norvasc) 10 mg PO DAILY [facility] Last Admin: 08/07/18 08:40 Dose: 10 mg Benzocaine/Menthol (Cepacol Sore Throat) 1 anabell PO Q3 PRN PRN Reason: Sore Throat Last Admin: 08/06/18 23:34 Dose: 1 anabell Famotidine (Pepcid) 20 mg IVP Q12 [facility] Last Admin: 08/07/18 08:49 Dose: 20 mg Fluticasone Propionate (Flonase) 1 spr EMILY BID [facility] Last Admin: 08/07/18 08:39 Dose: 1 spr Furosemide (Lasix) 40 mg IVP DAILY [facility] Last Admin: 08/07/18 08:49 Dose: 40 mg Guaifenesin (Mucinex La) 600 mg PO Q12 [facility] Last Admin: 08/07/18 08:40 Dose: 600 mg Piperacillin Sod/Tazobactam (Sod 3.375 gm/ Sodium Chloride) 100 mls @ 100 mls/hr IVPB Q6 [facility]; Protocol Last Admin: 08/07/18 09:01 Dose: 100 mls/hr Insulin Human Regular (Humulin R) 0 units SC ACCU-CHECK [facility]; Protocol Last Admin: 08/07/18 11:42 Dose: 8 units Lorazepam (Ativan) 1 mg PO Q8 PRN PRN Reason: Agitation Last Admin: 08/07/18 09:15 Dose: 1 mg Methylprednisolone (Solu-Medrol) 60 mg IV Q8 [facility] Last Admin: 08/07/18 08:43 Dose: 60 mg Promethazine HCl/Codeine (Phenergan/Codeine Oral Syrup) 10 ml PO Q4 PRN PRN Reason: Cough Last Admin: 08/07/18 08:49 Dose: 10 ml - Labs Labs: 08/07/18 10:15 08/07/18 10:15 PT 11.0 Seconds (9.8-13.1) 08/02/18 15:20 INR 1.0 08/02/18 15:20 APTT 28.6 Seconds (25.6-37.1) 08/02/18 15:20 - Constitutional Appears: Chronically Ill - Head Exam Head Exam: NORMAL INSPECTION - Eye Exam Eye Exam: PERRL - ENT Exam ENT Exam: Normal Exam - Neck Exam Additional comments: On high flow O2. - Respiratory Exam Respiratory Exam: Decreased Breath Sounds (at bases), Rhonchi (b/l) - Cardiovascular Exam Cardiovascular Exam: REGULAR RHYTHM - GI/Abdominal Exam GI & Abdominal Exam: Soft, Normal Bowel Sounds - Extremities Exam Extremities Exam: Normal Inspection - Back Exam Back Exam: tenderness - Neurological Exam Neurological Exam: Alert, CN II-XII Intact, Oriented x3. absent: Motor Sensory Deficit - Skin Skin Exam: Warm Assessment and Plan (1) Hypercapnic respiratory failure Status: Acute (2) COPD exacerbation Status: Acute (3) Pneumonia Status: Acute (4) Hypertension Status: Chronic (5) CAD (coronary artery disease) Status: Chronic (6) Lumbago Status: Chronic - Assessment and Plan (Free Text) Plan: F/U CXR today, ABG room air, continue Sozyn, Solu-Medrol and rtest of Tx. Critical care time: 32 min.
[2018-08-07] MEDS ORDERED: Iodixanol 320 MG/ML 100 ML BOTTLE IV ONE (15:39)
[2018-08-07] MEDS ORDERED: Sodium Chloride 0.9% 50 ML IV ONE (15:40)
--- NOTE | 2018-08-07 16:59 | CT ---
Date of service: 08/07/2018 PROCEDURE: CT Chest with contrast (Pulmonary Angiogram) HISTORY: r/o PE COMPARISON: 08/04/2018 TECHNIQUE: Axial computed tomography images were obtained of the chest in the pulmonary arterial phase of enhancement. Coronal and sagittal reformatted images were created and reviewed. Intravenous contrast dose: 60 mL Visipaque 320 Radiation dose: Total exam DLP = 310.45 mGy-cm. This CT exam was performed using one or more of the following dose reduction techniques: Automated exposure control, adjustment of the mA and/or kV according to patient size, and/or use of iterative reconstruction technique. FINDINGS: PULMONARY ARTERIES: No central or segmental pulmonary embolism. AORTA: No acute findings. No thoracic aortic aneurysm. There is aorta atherosclerotic calcification present on these images. No gross mural plaque appreciated. LUNGS: No nodule, or masses seen. There are wedge-like areas of bibasilar posteromedial consolidations/infiltrates and/or atelectatic changes present. These findings were suggested on the prior study which had motion artifact. No gross endobronchial lesions appreciated. PLEURAL SPACES: Unremarkable. No effusion or pneumothorax. HEART: Unremarkable. No significant appear cardiomegaly. No significant pericardial effusion. LYMPH NODES: No lymphadenopathy. BONES, CHEST WALL: Unremarkable. No fracture or destructive lesion OTHER FINDINGS: 3 mm calcification right upper renal pole posterior-some focal posterior right upper lobe cortical scarring here also suggested. Cholecystectomy clips in gallbladder fossa. IMPRESSION: No central or segmental pulmonary emboli seen. Bibasilar posteromedial areas of consolidation-infiltrate and/or atelectasis. No endobronchial lesions seen. No significant pleural effusions appreciated. Follow-up recommended. Other findings as above.
--- NOTE | 2018-08-07 20:30 | CARD ---
APPROVED REPORT Date of service: 08/07/2018 EKG Measurement Heart [id number] CT [id number] [id number] <Conclusion> Normal sinus rhythm Left ventricular hypertrophy with repolarization abnormality Abnormal ECG
[2018-08-08] MEDS: Piperacillin/Tazobact 3.375 GM in Sodium Chloride 0.9% 100 ML IVPB SCH ×4 (04:23→21:21)
[2018-08-08] MEDS: Albuterol-Ipratrop 3 mg / 0.5 (3 ml) UD INH SCH ×6 (05:00→23:52)
[2018-08-08] MEDS: Acetylcysteine 10% 4 ML IH SCH ×4 (08:00→19:02)
[2018-08-08] MEDS: guaiFENesin 600 mg ER Tab PO SCH ×2 (08:33→20:21)
[2018-08-08] MEDS: Promethazine/Cod 6.25mg-10mg/5ml Syr UD PO PRN (08:39)
--- NOTE | 2018-08-08 11:36 | CP.CCUPN ---
CCU Subjective - Physician Review Subjective (Free Text): Frequency of coughs have improved and less prolonged, no desaturation noted during coughing episodes. Breathing pattern has improved, with less laboring and no abdominal breathing movements now evident. ROS: No other pertinent negs or positives on 10+ system review. Other vitals and I/O's reviewed. Afebrile, SBP 170s, HR 85 sinus, RR 20, no on HFNC20 LPM and 60% oxygen. Other PMSFH: All other Nursing and physician documentation reviewed to date; no new pertinent info noted relevant to current medical problems. EXAM- HEENT: no icterus, no gaze preference, Pupils 3 mm and reactive NECK: No JVD visible, supple, carotids equal upstroke bilat/no bruit CHEST: diminished bilat BS, no wheezes audible HEART: regular, distant tachy S1S2, no rubs ABD: soft, obese, no focal tenderness, no guarding, no organomegaly, BS hypoactive. EXT: trace edema, no calf tenderness or palpable cords, distal pulses intact and symmetrical. NEURO: moves all 4 limbs spontaneously SKIN: no rashes, warm and dry LABS: WBC= 8.7 HGB= 15.0 PLTs= 285K Na= 137 K= 3.4 CL=97 HCO3= 31 BUN/Cr= 27/0.6 BS= 325 IMPRESSION / MAJOR PROBLEMS NOW: 1. Acute Hypoxemic / Hypercapneic Resp Failure 2 COPD Exac 2. r/o Pneumonia versus tracheobronchitis 3. Multi-Psychoses PLAN: 1. CT Chest Angio negative for PTE. If cough persists or recurs significantly, would get CT Neck / upper chest to examine for upper airway obstruction. 2. Try regular flow NC today as tolerated. 3. Empiric abx coverage for CAP. 4. Wean IV Steroids. 5. Ativan resumed yesterday; was also on Cymbalta, Seroquel, Cogentin, and Invega which may need resumption. 6. Need better glycemic control.
--- NOTE | 2018-08-08 11:42 | CARD ---
APPROVED REPORT Date of service: 08/08/2018 EXAM: Two-dimensional and M-mode echocardiogram with Doppler and color Doppler. Other Information Quality : FairRhythm : NSR Technically limited study due to Very poor echo window INDICATION Resp.failure 2D DIMENSIONS IVSd1.20 (0.7-1.1cm)LVDd4.03 (3.9-5.9cm) LVOT Diameter2.40 (1.8-2.4cm)PWd1.18 (0.7-1.1cm) IVSs1.52 (0.8-1.2cm)LVDs2.85 (2.5-4.0cm) FS (%) 29.3 %PWs1.32 (0.8-1.2cm) M-Mode DIMENSIONS Left Atrium (MM)4.21 (2.5-4.0cm)IVSd1.32 (0.7-1.1cm) Aortic Root2.85 (2.2-3.7cm)LVDd3.59 (4.0-5.6cm) Aortic Cusp Exc.1.82 (1.5-2.0cm)PWd0.97 (0.7-1.1cm) IVSs1.56 cmFS (%) 25 % LVDs2.68 (2.0-3.8cm)PWs1.59 cm Aortic Valve AoV Peak Cmxmvwjp432.5cm/sAoV VTI17.5cmAO Peak GR.5mmHg LVOT Peak Anvofwdz32.4cm/sLVOT VTI11.92cmAO Mean GR.3mmHg FAUSTO (VMAX)1.36vc5KKA (VTI)1.62cm2 Mitral Valve MV E Rfabbmmi57.4cm/sMV DECEL ESVU328etGN A Oofwduse98.2cm/s MV CCD46laY/A ratio0.8MVA (PHT)2.44cm2 TDI E/Lateral E'0.0E/Medial E'0.0 Pulmonary Valve PV Peak Apfrrszi000.8cm/s LEFT VENTRICLE The left ventricle is normal size. There is borderline concentric left ventricular hypertrophy. The left ventricular systolic function is normal. The estimated ejection fraction is 55-60% No regional wall motion abnormalities noted.. Transmitral Doppler flow pattern is Grade I-abnormal relaxation pattern. No left ventricle thrombus noted on this study. There is no ventricular septal defect visualized. There is no left ventricular aneurysm. There is no mass noted in the left ventricle. RIGHT VENTRICLE The right ventricle is normal size. There is normal right ventricular wall thickness. The right ventricular systolic function is normal. ATRIA The left atrium is mildly dilated. The right atrium size is normal. AORTIC VALVE The aortic valve is normal in structure. No aortic regurgitation is present. There is no aortic valvular stenosis. MITRAL VALVE The mitral valve is normal in structure. There is no mitral valve stenosis. There is no mitral valve regurgitation noted. TRICUSPID VALVE The tricuspid valve is normal in structure. There is no significant tricuspid valve regurgitation noted. PULMONIC VALVE The pulmonary valve is normal in structure. There is no pulmonic valvular regurgitation. There is no pulmonic valvular stenosis. GREAT VESSELS The aortic root is normal in size. The ascending aorta is normal in size. The pulmonary artery is normal. The IVC is normal in size and collapses >50% with inspiration. PERICARDIAL EFFUSION There is no pericardial effusion. There is no pleural effusion. <Conclusion> Technically difficult study There is borderline concentric left ventricular hypertrophy. The estimated ejection fraction is 55-60% Transmitral Doppler flow pattern is Grade I-abnormal relaxation pattern. The left atrium is mildly dilated. There is no significant tricuspid valve regurgitation noted.
[2018-08-08] MEDS: Insulin Regular 100 units/ml SC SCH ×3 (12:16→22:00)
--- NOTE | 2018-08-08 15:46 | CP.PCM.PN ---
Subjective - Date & Time of Evaluation Date of Evaluation: 08/08/18 Time of Evaluation: 11:00 - Subjective Subjective: F/U Respiratory failure Pt breathing better, still in high flow O2, dry cough decreased. Objective - Vital Signs/Intake and Output Vital Signs (last 24 hours): Temp Pulse Resp BP Pulse Ox 98.9 F 74 20 137/83 95 08/08/18 12:00 08/08/18 14:00 08/08/18 15:26 08/08/18 14:00 08/08/18 14:00 Intake and Output: 08/08/18 08/08/18 06:59 18:59 Intake Total 350 Balance 350 - Medications Medications: Current Medications Acetylcysteine (Mucomyst 10% 4ml) 2 ml IH RQID [facility] Last Admin: 08/08/18 15:23 Dose: 2 ml Albuterol/Ipratropium (Duoneb 3 Mg/0.5 Mg (3 Ml) Ud) 3 ml INH RQ4 [facility] Last Admin: 08/08/18 15:23 Dose: 3 ml Amlodipine Besylate (Norvasc) 10 mg PO DAILY [facility] Last Admin: 08/08/18 08:33 Dose: 10 mg Benzocaine/Menthol (Cepacol Sore Throat) 1 anabell PO Q3 PRN PRN Reason: Sore Throat Last Admin: 08/06/18 23:34 Dose: 1 anabell Duloxetine HCl (Cymbalta) 60 mg PO DAILY [facility] Fluticasone Propionate (Flonase) 1 spr EMILY BID [facility] Last Admin: 08/08/18 08:33 Dose: 1 spr Furosemide (Lasix) 40 mg IVP DAILY [facility] Last Admin: 08/08/18 08:33 Dose: 40 mg Guaifenesin (Mucinex La) 600 mg PO Q12 [facility] Last Admin: 08/08/18 08:33 Dose: 600 mg Piperacillin Sod/Tazobactam (Sod 3.375 gm/ Sodium Chloride) 100 mls @ 100 mls/hr IVPB Q6 [facility]; Protocol Last Admin: 08/08/18 09:00 Dose: 100 mls/hr Insulin Human Regular (Humulin R) 0 units SC ACCU-CHECK [facility]; Protocol Last Admin: 08/08/18 12:16 Dose: 8 units Lorazepam (Ativan) 1 mg PO Q8 PRN PRN Reason: Agitation Last Admin: 08/08/18 08:38 Dose: 1 mg Methylprednisolone (Solu-Medrol) 40 mg IV Q12 [facility] Promethazine HCl/Codeine (Phenergan/Codeine Oral Syrup) 10 ml PO Q4 PRN PRN Reason: Cough Last Admin: 08/08/18 08:39 Dose: 10 ml - Labs Labs: 08/07/18 10:15 08/07/18 10:15 PT 11.0 Seconds (9.8-13.1) 08/02/18 15:20 INR 1.0 08/02/18 15:20 APTT 28.6 Seconds (25.6-37.1) 08/02/18 15:20 - Constitutional Appears: Chronically Ill - Head Exam Head Exam: NORMAL INSPECTION - Eye Exam Eye Exam: PERRL - ENT Exam Additional comments: On High flow O2 - Neck Exam Neck Exam: Normal Inspection - Respiratory Exam Respiratory Exam: Decreased Breath Sounds (at bases), Rhonchi (scattered) - Cardiovascular Exam Cardiovascular Exam: REGULAR RHYTHM - GI/Abdominal Exam GI & Abdominal Exam: Soft, Normal Bowel Sounds - Extremities Exam Extremities Exam: Normal Inspection - Neurological Exam Neurological Exam: Alert, CN II-XII Intact, Oriented x3. absent: Motor Sensory Deficit - Skin Skin Exam: Warm Assessment and Plan (1) Hypercapnic respiratory failure Status: Acute (2) COPD exacerbation Status: Acute (3) Pneumonia Status: Acute (4) Hypertension Status: Chronic (5) CAD (coronary artery disease) Status: Chronic (6) Lumbago Status: Chronic - Assessment and Plan (Free Text) Plan: Continue Zosyn, Duoneb, Solumedrol, Norvasc, Ativan and rest of Tx.
[2018-08-08] MEDS: MethylPREDNISolone 40 mg Vial IV SCH (20:21)
[2018-08-09] MEDS: Piperacillin/Tazobact 3.375 GM in Sodium Chloride 0.9% 100 ML IVPB SCH ×3 (03:22→16:11)
[2018-08-09] MEDS: Albuterol-Ipratrop 3 mg / 0.5 (3 ml) UD INH SCH ×6 (04:48→23:28)
[2018-08-09] MEDS: Acetylcysteine 10% 4 ML IH SCH ×4 (07:20→19:45)
[2018-08-09] MEDS: guaiFENesin 600 mg ER Tab PO SCH ×2 (10:03→21:44)
[2018-08-09] MEDS: MethylPREDNISolone 40 mg Vial IV SCH ×2 (10:04→21:44)
[2018-08-09] MEDS: Promethazine/Cod 6.25mg-10mg/5ml Syr UD PO PRN (10:08)
[2018-08-09] MEDS: Insulin Regular 100 units/ml SC SCH ×3 (13:20→22:41)
--- NOTE | 2018-08-09 14:20 | CP.PCM.PN ---
Subjective - Date & Time of Evaluation Date of Evaluation: 08/09/18 Time of Evaluation: 12:20 - Subjective Subjective: F/U Respiratory Failure. Pt with no A/D, less cough, on high flow O2. Objective - Vital Signs/Intake and Output Vital Signs (last 24 hours): Temp Pulse Resp BP Pulse Ox 98.0 F 80 20 109/56 L 94 L 08/09/18 12:00 08/09/18 14:00 08/09/18 14:00 08/09/18 14:00 08/09/18 14:00 Intake and Output: 08/09/18 08/09/18 06:59 18:59 Output Total 500 Balance -500 - Medications Medications: Current Medications Acetylcysteine (Mucomyst 10% 4ml) 2 ml IH RQID [facility] Last Admin: 08/09/18 11:10 Dose: 2 ml Albuterol/Ipratropium (Duoneb 3 Mg/0.5 Mg (3 Ml) Ud) 3 ml INH RQ4 [facility] Last Admin: 08/09/18 11:08 Dose: 3 ml Amlodipine Besylate (Norvasc) 10 mg PO DAILY [facility] Last Admin: 08/09/18 10:03 Dose: 10 mg Benzocaine/Menthol (Cepacol Sore Throat) 1 anabell PO Q3 PRN PRN Reason: Sore Throat Last Admin: 08/06/18 23:34 Dose: 1 anabell Duloxetine HCl (Cymbalta) 60 mg PO DAILY [facility] Last Admin: 08/09/18 10:02 Dose: 60 mg Fluticasone Propionate (Flonase) 1 spr EMILY BID [facility] Last Admin: 08/09/18 10:03 Dose: 1 spr Furosemide (Lasix) 40 mg IVP DAILY [facility] Last Admin: 08/09/18 10:14 Dose: 40 mg Guaifenesin (Mucinex La) 600 mg PO Q12 [facility] Last Admin: 08/09/18 10:03 Dose: 600 mg Piperacillin Sod/Tazobactam (Sod 3.375 gm/ Sodium Chloride) 100 mls @ 100 mls/hr IVPB Q6 [facility]; Protocol Last Admin: 08/09/18 10:04 Dose: 100 mls/hr Insulin Human Regular (Humulin R) 0 units SC ACCU-CHECK [facility]; Protocol Last Admin: 08/09/18 13:20 Dose: 4 units Lorazepam (Ativan) 1 mg PO Q8 PRN PRN Reason: Agitation Last Admin: 08/09/18 10:32 Dose: 1 mg Methylprednisolone (Solu-Medrol) 40 mg IV Q12 [facility] Last Admin: 08/09/18 10:04 Dose: 40 mg Promethazine HCl/Codeine (Phenergan/Codeine Oral Syrup) 10 ml PO Q4 PRN PRN Reason: Cough Last Admin: 08/09/18 10:08 Dose: 10 ml - Labs Labs: 08/07/18 10:15 08/07/18 10:15 PT 11.0 Seconds (9.8-13.1) 08/02/18 15:20 INR 1.0 08/02/18 15:20 APTT 28.6 Seconds (25.6-37.1) 08/02/18 15:20 - Constitutional Appears: Chronically Ill - Head Exam Head Exam: NORMAL INSPECTION - Eye Exam Eye Exam: PERRL - ENT Exam ENT Exam: Normal Exam Additional comments: On high flow O2 - Neck Exam Neck Exam: Normal Inspection - Respiratory Exam Respiratory Exam: Decreased Breath Sounds (at bases), Rhonchi (few ) - Cardiovascular Exam Cardiovascular Exam: REGULAR RHYTHM - GI/Abdominal Exam GI & Abdominal Exam: Soft, Normal Bowel Sounds - Extremities Exam Extremities Exam: Normal Inspection - Neurological Exam Neurological Exam: Alert, CN II-XII Intact, Oriented x3. absent: Motor Sensory Deficit - Skin Skin Exam: Warm Assessment and Plan (1) Hypercapnic respiratory failure Status: Acute (2) COPD exacerbation Status: Acute (3) Pneumonia Status: Acute (4) Hypertension Status: Chronic (5) CAD (coronary artery disease) Status: Chronic (6) Lumbago Status: Chronic - Assessment and Plan (Free Text) Plan: Pt stable to be transferred to Telemetry.
[2018-08-10] MEDS: Albuterol-Ipratrop 3 mg / 0.5 (3 ml) UD INH SCH ×6 (03:43→23:09)
[2018-08-10] MEDS: Acetylcysteine 10% 4 ML IH SCH ×4 (07:41→19:31)
[2018-08-10] MEDS: Insulin Regular 100 units/ml SC SCH ×5 (08:17→22:01)
[2018-08-10] MEDS: guaiFENesin 600 mg ER Tab PO SCH ×2 (10:16→20:53)
[2018-08-10] MEDS: MethylPREDNISolone 40 mg Vial IV SCH ×2 (10:16→20:53)
--- NOTE | 2018-08-10 15:43 | CP.PCM.PN ---
Subjective - Date & Time of Evaluation Date of Evaluation: 08/10/18 Time of Evaluation: 13:00 - Subjective Subjective: F/U Respiratory Failure Objective - Vital Signs/Intake and Output Vital Signs (last 24 hours): Temp Pulse Resp BP Pulse Ox 98.6 F 89 18 135/89 96 08/10/18 08:21 08/10/18 10:17 08/10/18 08:21 08/10/18 10:24 08/10/18 08:21 - Medications Medications: Current Medications Acetylcysteine (Mucomyst 10% 4ml) 2 ml IH RQID [facility] Last Admin: 08/10/18 12:08 Dose: 2 ml Albuterol/Ipratropium (Duoneb 3 Mg/0.5 Mg (3 Ml) Ud) 3 ml INH RQ4 [facility] Last Admin: 08/10/18 12:08 Dose: 3 ml Amlodipine Besylate (Norvasc) 10 mg PO DAILY [facility] Last Admin: 08/10/18 10:17 Dose: 10 mg Benzocaine/Menthol (Cepacol Sore Throat) 1 anabell PO Q3 PRN PRN Reason: Sore Throat Last Admin: 08/06/18 23:34 Dose: 1 anabell Duloxetine HCl (Cymbalta) 60 mg PO DAILY [facility] Last Admin: 08/10/18 10:16 Dose: 60 mg Fluticasone Propionate (Flonase) 1 spr EMILY BID [facility] Last Admin: 08/10/18 10:15 Dose: 1 spr Furosemide (Lasix) 40 mg IVP DAILY [facility] Last Admin: 08/10/18 10:24 Dose: 40 mg Guaifenesin (Mucinex La) 600 mg PO Q12 [facility] Last Admin: 08/10/18 10:16 Dose: 600 mg Azithromycin 500 mg/ Sodium (Chloride) 250 mls @ 250 mls/hr IVPB DAILY [facility]; Protocol Piperacillin Sod/Tazobactam (Sod 3.375 gm/ Sodium Chloride) 100 mls @ 100 mls/hr IVPB Q6 [facility]; Protocol Insulin Human Regular (Humulin R) 0 units SC ACCU-CHECK [facility]; Protocol Last Admin: 08/10/18 08:18 Dose: 4 units Lorazepam (Ativan) 1 mg PO Q8 PRN PRN Reason: Agitation Last Admin: 08/10/18 10:24 Dose: 1 mg Metformin HCl (Glucophage) 500 mg PO BIDWM [facility] Last Admin: 08/10/18 08:17 Dose: 500 mg Methylprednisolone (Solu-Medrol) 40 mg IV Q12 [facility] Last Admin: 08/10/18 10:16 Dose: 40 mg Promethazine HCl/Codeine (Phenergan/Codeine Oral Syrup) 10 ml PO Q4 PRN PRN Reason: Cough Last Admin: 08/09/18 10:08 Dose: 10 ml - Labs Labs: 08/07/18 10:15 08/07/18 10:15 PT 11.0 Seconds (9.8-13.1) 08/02/18 15:20 INR 1.0 08/02/18 15:20 APTT 28.6 Seconds (25.6-37.1) 08/02/18 15:20 - Constitutional Appears: Chronically Ill - Head Exam Head Exam: NORMAL INSPECTION - Eye Exam Eye Exam: PERRL - ENT Exam Additional comments: On high flow O2 - Neck Exam Neck Exam: Normal Inspection - Respiratory Exam Respiratory Exam: Decreased Breath Sounds (at bases), Rhonchi (b/l) - Cardiovascular Exam Cardiovascular Exam: REGULAR RHYTHM - GI/Abdominal Exam GI & Abdominal Exam: Soft, Normal Bowel Sounds - Extremities Exam Extremities Exam: Normal Inspection Additional comments: PICC line RUE - Back Exam Back Exam: tenderness - Neurological Exam Neurological Exam: Alert, CN II-XII Intact, Oriented x3. absent: Motor Sensory Deficit - Skin Skin Exam: Warm Assessment and Plan (1) Hypercapnic respiratory failure Status: Acute (2) COPD exacerbation Status: Acute (3) Pneumonia Status: Acute (4) Hypertension Status: Chronic (5) CAD (coronary artery disease) Status: Chronic (6) Lumbago Status: Chronic
[2018-08-10] MEDS: Piperacillin/Tazobact 3.375 GM in Sodium Chloride 0.9% 100 ML IVPB SCH ×2 (16:40→21:02)
[2018-08-10] MEDS: Azithromycin 500 MG in Sodium Chloride 0.9% 250 ML IVPB SCH (16:49)
[2018-08-11] MEDS: Albuterol-Ipratrop 3 mg / 0.5 (3 ml) UD INH SCH ×6 (03:18→23:32)
[2018-08-11] MEDS: Piperacillin/Tazobact 3.375 GM in Sodium Chloride 0.9% 100 ML IVPB SCH ×4 (04:04→22:31)
[2018-08-11] MEDS: Acetylcysteine 10% 4 ML IH SCH ×2 (08:03→19:45)
[2018-08-11] MEDS: Insulin Regular 100 units/ml SC SCH ×6 (09:59→22:31)
[2018-08-11] MEDS: guaiFENesin 600 mg ER Tab PO SCH ×2 (10:03→22:31)
[2018-08-11] MEDS: Azithromycin 500 MG in Sodium Chloride 0.9% 250 ML IVPB SCH (10:05)
[2018-08-11] MEDS: Promethazine/Cod 6.25mg-10mg/5ml Syr UD PO PRN ×2 (11:01→22:31)
[2018-08-11] MEDS: MethylPREDNISolone 40 mg Vial IV SCH ×2 (11:02→22:31)
--- NOTE | 2018-08-11 14:30 | CP.PCM.PN ---
Subjective - Date & Time of Evaluation Date of Evaluation: 08/11/18 Time of Evaluation: 12:00 - Subjective Subjective: F/U Respiratory failure Dry cough improved, on NC High flow O2. Objective - Vital Signs/Intake and Output Vital Signs (last 24 hours): Temp Pulse Resp BP Pulse Ox 98.4 F 99 H 18 123/80 95 08/11/18 08:00 08/11/18 10:03 08/11/18 08:00 08/11/18 10:03 08/11/18 08:00 - Medications Medications: Current Medications Acetylcysteine (Mucomyst 10% 4ml) 2 ml IH RBID [facility] Last Admin: 08/11/18 08:03 Dose: Not Given Albuterol/Ipratropium (Duoneb 3 Mg/0.5 Mg (3 Ml) Ud) 3 ml INH RQ4 [facility] Last Admin: 08/11/18 12:07 Dose: Not Given Amlodipine Besylate (Norvasc) 10 mg PO DAILY [facility] Last Admin: 08/11/18 10:03 Dose: 10 mg Benzocaine/Menthol (Cepacol Sore Throat) 1 anabell PO Q3 PRN PRN Reason: Sore Throat Last Admin: 08/06/18 23:34 Dose: 1 anabell Duloxetine HCl (Cymbalta) 60 mg PO DAILY [facility] Last Admin: 08/11/18 09:57 Dose: 60 mg Fluticasone Propionate (Flonase) 1 spr EMILY BID [facility] Last Admin: 08/11/18 09:58 Dose: 1 spr Furosemide (Lasix) 40 mg IVP DAILY [facility] Last Admin: 08/11/18 10:01 Dose: 40 mg Guaifenesin (Mucinex La) 600 mg PO Q12 [facility] Last Admin: 08/11/18 10:03 Dose: 600 mg Azithromycin 500 mg/ Sodium (Chloride) 250 mls @ 250 mls/hr IVPB DAILY [facility]; Protocol Last Admin: 08/11/18 10:05 Dose: 250 mls/hr Piperacillin Sod/Tazobactam (Sod 3.375 gm/ Sodium Chloride) 100 mls @ 100 mls/hr IVPB Q6 [facility]; Protocol Last Admin: 08/11/18 10:04 Dose: 100 mls/hr Insulin Human Regular (Humulin R) 0 units SC ACCU-CHECK [facility]; Protocol Last Admin: 08/11/18 12:12 Dose: 2 units Lorazepam (Ativan) 1 mg PO Q8 PRN PRN Reason: Agitation Last Admin: 08/11/18 10:49 Dose: 1 mg Metformin HCl (Glucophage) 500 mg PO BIDWM [facility] Last Admin: 08/11/18 09:58 Dose: 500 mg Methylprednisolone (Solu-Medrol) 40 mg IV Q12 [facility] Last Admin: 08/11/18 11:02 Dose: 40 mg Promethazine HCl/Codeine (Phenergan/Codeine Oral Syrup) 10 ml PO Q4 PRN PRN Reason: Cough Last Admin: 08/11/18 11:01 Dose: 10 ml - Labs Labs: 08/07/18 10:15 08/07/18 10:15 PT 11.0 Seconds (9.8-13.1) 08/02/18 15:20 INR 1.0 08/02/18 15:20 APTT 28.6 Seconds (25.6-37.1) 08/02/18 15:20 - Constitutional Appears: Chronically Ill - Head Exam Head Exam: NORMAL INSPECTION - Eye Exam Eye Exam: PERRL - ENT Exam Additional comments: On High flow O2 - Neck Exam Neck Exam: Normal Inspection - Respiratory Exam Respiratory Exam: Decreased Breath Sounds (at bases), Rhonchi (b/l) - Cardiovascular Exam Cardiovascular Exam: REGULAR RHYTHM - GI/Abdominal Exam GI & Abdominal Exam: Soft, Normal Bowel Sounds - Extremities Exam Extremities Exam: Normal Inspection Additional comments: PICC line RUE in place - Back Exam Back Exam: tenderness - Neurological Exam Neurological Exam: Alert, Oriented x3. absent: Motor Sensory Deficit - Skin Skin Exam: Warm Assessment and Plan (1) Hypercapnic respiratory failure Status: Acute (2) COPD exacerbation Status: Acute (3) Pneumonia Status: Acute (4) Hypertension Status: Chronic (5) CAD (coronary artery disease) Status: Chronic (6) Lumbago Status: Chronic - Assessment and Plan (Free Text) Plan: Continue High Flow O2, Zithromax, Zosyn, Solu-Medrol and rest of Tx.
[2018-08-12] MEDS: Piperacillin/Tazobact 3.375 GM in Sodium Chloride 0.9% 100 ML IVPB SCH ×4 (04:33→22:46)
[2018-08-12] MEDS: Albuterol-Ipratrop 3 mg / 0.5 (3 ml) UD INH SCH ×5 (04:38→19:02)
[2018-08-12] MEDS: Acetylcysteine 10% 4 ML IH SCH ×2 (08:54→19:02)
[2018-08-12] MEDS: Insulin Regular 100 units/ml SC SCH ×4 (09:00→22:47)
[2018-08-12] MEDS: guaiFENesin 600 mg ER Tab PO SCH ×2 (10:43→22:46)
[2018-08-12] MEDS: Azithromycin 500 MG in Sodium Chloride 0.9% 250 ML IVPB SCH (10:44)
[2018-08-12 11:45] LABS: MEAN CELL VOLUME 92.5 fl (81.0-99.0); MEAN CORPUSCULAR HEMOGLOBIN 29.9 pg (27.0-31.0); MEAN CORPUSCULAR HGB CONC 32.4 g/dL (33.0-37.0); RBC 5.34 Mil/uL (3.80-5.20); RED CELL DISTRIBUTION WIDTH 13.5 % (11.5-14.5); WHITE BLOOD COUNT 13.1 K/uL (4.8-10.8)
[2018-08-12 12:01] LABS: BLOOD UREA NITROGEN 25 mg/dl (7-17); CALCIUM 9.4 mg/dL (8.4-10.2); GFR NON-AFRICAN AMERICAN > 60
[2018-08-12] MEDS: MethylPREDNISolone 40 mg Vial IV SCH ×2 (13:08→22:46)
--- NOTE | 2018-08-12 16:05 | CP.PCM.PN ---
Subjective - Date & Time of Evaluation Date of Evaluation: 08/12/18 Time of Evaluation: 15:20 - Subjective Subjective: F/U Respiratory Failure Pt without O2 from overnight, no SOB, no SYED, occasional dry cough. Objective - Vital Signs/Intake and Output Vital Signs (last 24 hours): Temp Pulse Resp BP Pulse Ox 98.5 F 83 16 92/59 L 94 L 08/12/18 16:04 08/12/18 16:04 08/12/18 16:04 08/12/18 16:04 08/12/18 16:04 - Medications Medications: Current Medications Acetylcysteine (Mucomyst 10% 4ml) 2 ml IH RBID [facility] Last Admin: 08/12/18 08:54 Dose: Not Given Albuterol/Ipratropium (Duoneb 3 Mg/0.5 Mg (3 Ml) Ud) 3 ml INH RQ4 [facility] Last Admin: 08/12/18 12:50 Dose: Not Given Amlodipine Besylate (Norvasc) 10 mg PO DAILY [facility] Last Admin: 08/12/18 10:43 Dose: 10 mg Benzocaine/Menthol (Cepacol Sore Throat) 1 anabell PO Q3 PRN PRN Reason: Sore Throat Last Admin: 08/06/18 23:34 Dose: 1 anabell Duloxetine HCl (Cymbalta) 60 mg PO DAILY [facility] Last Admin: 08/12/18 10:38 Dose: 60 mg Fluticasone Propionate (Flonase) 1 spr EMILY BID [facility] Last Admin: 08/12/18 10:38 Dose: 1 spr Furosemide (Lasix) 40 mg IVP DAILY [facility] Last Admin: 08/12/18 10:41 Dose: 40 mg Guaifenesin (Mucinex La) 600 mg PO Q12 [facility] Last Admin: 08/12/18 10:43 Dose: 600 mg Azithromycin 500 mg/ Sodium (Chloride) 250 mls @ 250 mls/hr IVPB DAILY [facility]; Protocol Last Admin: 08/12/18 10:44 Dose: 250 mls/hr Piperacillin Sod/Tazobactam (Sod 3.375 gm/ Sodium Chloride) 100 mls @ 100 mls/hr IVPB Q6 [facility]; Protocol Last Admin: 08/12/18 10:44 Dose: 100 mls/hr Insulin Human Regular (Humulin R) 0 units SC ACCU-CHECK [facility]; Protocol Last Admin: 08/12/18 13:07 Dose: 4 units Lorazepam (Ativan) 1 mg PO Q8 PRN PRN Reason: Agitation Last Admin: 08/12/18 10:50 Dose: 1 mg Metformin HCl (Glucophage) 500 mg PO BIDWM [facility] Last Admin: 08/12/18 10:39 Dose: 500 mg Methylprednisolone (Solu-Medrol) 40 mg IV Q12 [facility] Last Admin: 08/12/18 13:08 Dose: 40 mg Promethazine HCl/Codeine (Phenergan/Codeine Oral Syrup) 10 ml PO Q4 PRN PRN Reason: Cough Last Admin: 08/11/18 22:31 Dose: 10 ml - Labs Labs: 08/12/18 11:39 08/12/18 11:39 PT 11.0 Seconds (9.8-13.1) 08/02/18 15:20 INR 1.0 08/02/18 15:20 APTT 28.6 Seconds (25.6-37.1) 08/02/18 15:20 - Constitutional Appears: Chronically Ill - Head Exam Head Exam: NORMAL INSPECTION - Eye Exam Eye Exam: PERRL - ENT Exam Additional comments: On High flow O2 - Neck Exam Neck Exam: Normal Inspection - Respiratory Exam Respiratory Exam: Decreased Breath Sounds (at bases), Rhonchi (b/l) - Cardiovascular Exam Cardiovascular Exam: REGULAR RHYTHM - GI/Abdominal Exam GI & Abdominal Exam: Soft, Normal Bowel Sounds - Extremities Exam Extremities Exam: Normal Inspection Additional comments: PICC line in RUE - Back Exam Back Exam: tenderness - Neurological Exam Neurological Exam: Alert, CN II-XII Intact, Oriented x3. absent: Motor Sensory Deficit - Skin Skin Exam: Warm Assessment and Plan (1) Hypercapnic respiratory failure Status: Acute (2) COPD exacerbation Status: Acute (3) Pneumonia Status: Acute (4) Hypertension Status: Chronic (5) CAD (coronary artery disease) Status: Chronic (6) Lumbago Status: Chronic - Assessment and Plan (Free Text) Plan: F/U ABG room air, continue Zithromax, Zosyn, Solu-Medrol and rest of Tx.
[2018-08-12 16:16] LABS: ABG ALLEN TEST YES; ARTERIAL BLOOD GAS HCO3 29.7 mmol/L (21-28); ARTERIAL BLOOD GAS HEMOGLOBIN 16.6 g/dL (11.7-17.4); ARTERIAL BLOOD GAS O2 CAPACITY 22.5 mL/dL (16-24); ARTERIAL BLOOD GAS O2 CONTENT 21.5 ML/dL (15-23); ARTERIAL BLOOD GAS O2 SAT 95.6 % (95-98); ARTERIAL BLOOD GAS PCO2 36 mm/Hg (35-45); ARTERIAL BLOOD GAS PH 7.52 (7.35-7.45); ARTERIAL BLOOD GAS PO2 63 mm/Hg (80-100); ARTERIAL BLOOD GAS TCO2 30.5 mmol/L (22-28)
[2018-08-13] MEDS: Albuterol-Ipratrop 3 mg / 0.5 (3 ml) UD INH SCH ×6 (00:15→19:57)
[2018-08-13] MEDS: Piperacillin/Tazobact 3.375 GM in Sodium Chloride 0.9% 100 ML IVPB SCH ×4 (04:10→21:20)
[2018-08-13] MEDS: Acetylcysteine 10% 4 ML IH SCH ×2 (07:50→19:57)
[2018-08-13] MEDS: Insulin Regular 100 units/ml SC SCH ×3 (09:58→16:59)
[2018-08-13] MEDS: guaiFENesin 600 mg ER Tab PO SCH ×2 (10:00→21:20)
[2018-08-13] MEDS: Azithromycin 500 MG in Sodium Chloride 0.9% 250 ML IVPB SCH (10:00)
[2018-08-13] MEDS: MethylPREDNISolone 40 mg Vial IV SCH (10:00)
--- NOTE | 2018-08-13 12:55 | RAD ---
Date of service: 08/13/2018 HISTORY: f/u pna COMPARISON: 08/05/2018 single-view chest. 08/07/2018 CT pulmonary angiogram TECHNIQUE: Chest PA and lateral FINDINGS: LUNGS: Atelectatic changes at the lung bases. No discrete infiltrates. Similar findings identified on recent CT angiogram. PLEURA: No significant pleural effusion identified. No pneumothorax apparent. CARDIOVASCULAR: No aortic atherosclerotic calcification present. Normal cardiac size. No pulmonary vascular congestion. OSSEOUS STRUCTURES: No significant abnormalities. VISUALIZED UPPER ABDOMEN: Normal. OTHER FINDINGS: None. IMPRESSION: No active disease. No significant interval change compared to the prior examination(s).
--- NOTE | 2018-08-13 13:06 | CP.PCM.PN ---
Subjective - Date & Time of Evaluation Date of Evaluation: 08/13/18 Time of Evaluation: 11:30 - Subjective Subjective: F/U Respiratory Failure Off O2, no SOB, no cough, no chest congestion. Objective - Vital Signs/Intake and Output Vital Signs (last 24 hours): Temp Pulse Resp BP Pulse Ox 98.3 F 90 18 141/87 93 L 08/13/18 09:28 08/13/18 09:28 08/13/18 09:28 08/13/18 09:58 08/13/18 09:28 - Medications Medications: Current Medications Acetylcysteine (Mucomyst 10% 4ml) 2 ml IH RBID [facility] Last Admin: 08/13/18 07:50 Dose: Not Given Albuterol/Ipratropium (Duoneb 3 Mg/0.5 Mg (3 Ml) Ud) 3 ml INH RQ4 [facility] Last Admin: 08/13/18 11:43 Dose: Not Given Amlodipine Besylate (Norvasc) 10 mg PO DAILY [facility] Last Admin: 08/13/18 09:59 Dose: 10 mg Benzocaine/Menthol (Cepacol Sore Throat) 1 anabell PO Q3 PRN PRN Reason: Sore Throat Last Admin: 08/06/18 23:34 Dose: 1 anabell Duloxetine HCl (Cymbalta) 60 mg PO DAILY [facility] Last Admin: 08/13/18 09:57 Dose: 60 mg Fluticasone Propionate (Flonase) 1 spr EMILY BID [facility] Last Admin: 08/13/18 10:10 Dose: 1 spr Furosemide (Lasix) 40 mg PO DAILY [facility] Guaifenesin (Mucinex La) 600 mg PO Q12 [facility] Last Admin: 08/13/18 10:00 Dose: 600 mg Azithromycin 500 mg/ Sodium (Chloride) 250 mls @ 250 mls/hr IVPB DAILY [facility]; Protocol Last Admin: 08/13/18 10:00 Dose: 250 mls/hr Piperacillin Sod/Tazobactam (Sod 3.375 gm/ Sodium Chloride) 100 mls @ 100 mls/hr IVPB Q6 [facility]; Protocol Last Admin: 08/13/18 10:01 Dose: 100 mls/hr Insulin Human Regular (Humulin R) 0 units SC ACCU-CHECK [facility]; Protocol Last Admin: 08/13/18 09:58 Dose: 4 units Lorazepam (Ativan) 1 mg PO Q8 PRN PRN Reason: Agitation Last Admin: 08/13/18 09:56 Dose: 1 mg Metformin HCl (Glucophage) 500 mg PO BIDWM [facility] Last Admin: 08/13/18 09:58 Dose: 500 mg Methylprednisolone (Solu-Medrol) 30 mg IV Q12 [facility] Promethazine HCl/Codeine (Phenergan/Codeine Oral Syrup) 10 ml PO Q4 PRN PRN Reason: Cough Last Admin: 08/11/18 22:31 Dose: 10 ml - Labs Labs: 08/12/18 11:39 08/12/18 11:39 PT 11.0 Seconds (9.8-13.1) 08/02/18 15:20 INR 1.0 08/02/18 15:20 APTT 28.6 Seconds (25.6-37.1) 08/02/18 15:20 - Constitutional Appears: Chronically Ill - Head Exam Head Exam: NORMAL INSPECTION - Eye Exam Eye Exam: PERRL - ENT Exam Additional comments: On High Flow O2 - Neck Exam Neck Exam: Normal Inspection - Respiratory Exam Respiratory Exam: Decreased Breath Sounds (at bases) - Cardiovascular Exam Cardiovascular Exam: REGULAR RHYTHM - GI/Abdominal Exam GI & Abdominal Exam: Soft, Normal Bowel Sounds - Extremities Exam Extremities Exam: Normal Inspection Additional comments: PICC line RUE - Back Exam Back Exam: tenderness - Neurological Exam Neurological Exam: Alert, CN II-XII Intact, Oriented x3. absent: Motor Sensory Deficit - Psychiatric Exam Additional comments: Calm - Skin Skin Exam: Warm Assessment and Plan (1) Hypercapnic respiratory failure Status: Acute (2) COPD exacerbation Status: Acute (3) Pneumonia Status: Acute (4) Hypertension Status: Chronic (5) CAD (coronary artery disease) Status: Chronic (6) Lumbago Status: Chronic - Assessment and Plan (Free Text) Plan: F/U CXR today. Continue Zithromax, Zosyn, Solu-Medrol and rest f tx.
[2018-08-13 14:57] LABS: HEMOGLOBIN 15.9 g/dL (12.0-16.0); MEAN CELL VOLUME 92.7 fl (81.0-99.0); MEAN CORPUSCULAR HGB CONC 32.4 g/dL (33.0-37.0); RBC 5.28 Mil/uL (3.80-5.20); RED CELL DISTRIBUTION WIDTH 13.3 % (11.5-14.5); WHITE BLOOD COUNT 12.9 K/uL (4.8-10.8)
[2018-08-13 15:03] LABS: BLOOD UREA NITROGEN 29 mg/dl (7-17); CALCIUM 9.3 mg/dL (8.4-10.2); GFR NON-AFRICAN AMERICAN > 60
[2018-08-13 19:53] VITALS: BP 104/66; PULSE 95; RESP 20; TEMP 98.3; O2SAT 94
[2018-08-13] MEDS ORDERED: MethylPREDNISolone 40 mg Vial IV SCH (21:00)
--- NOTE | 2018-08-13 23:05 | CP.PCM.DIS ---
Provider - Provider Date of Admission: 08/02/18 16:51 Attending physician: Sarthak Arauz MD Primary care physician: Johnson Kerr DO Diagnosis - Discharge Diagnosis (1) Hypercapnic respiratory failure Status: Acute Priority: High (2) COPD exacerbation Status: Acute Priority: High (3) Pneumonia Status: Acute Priority: High Comment: Type of Pneumonia unable to determine. (4) Hypertension Status: Chronic Priority: Medium (5) CAD (coronary artery disease) Status: Chronic Priority: Medium (6) Lumbago Status: Chronic Priority: Medium Hospital Course - Lab Results Lab Results: Micro Results 08/09/18 17:36 [facility] MRSA Culture (Admit) - Final MRSA NOT DETECTED 08/02/18 15:30 Blood Blood Culture - Final NO GROWTH AFTER 5 DAYS 08/02/18 15:30 Blood Gram Stain - Final TEST NOT PERFORMED 08/02/18 15:20 Blood Blood Culture - Final NO GROWTH AFTER 5 DAYS 08/02/18 15:20 Blood Gram Stain - Final TEST NOT PERFORMED 08/02/18 21:44 [facility] MRSA Culture (Admit) - Final MRSA NOT DETECTED Most Recent Lab Values WBC 12.9 K/uL (4.8-10.8) H 08/13/18 14:19 RBC 5.28 Mil/uL (3.80-5.20) H 08/13/18 14:19 Hgb 15.9 g/dL (12.0-16.0) 08/13/18 14:19 Hct 49.0 % (34.0-47.0) H 08/13/18 14:19 MCV 92.7 fl (81.0-99.0) 08/13/18 14:19 MCH 30.0 pg (27.0-31.0) 08/13/18 14:19 MCHC 32.4 g/dL (33.0-37.0) L 08/13/18 14:19 RDW 13.3 % (11.5-14.5) 08/13/18 14:19 Plt Count 197 K/uL (130-400) 08/13/18 14:19 MPV 8.9 fl (7.2-11.7) 08/07/18 10:15 Neut % (Auto) 93.0 % (50.0-75.0) H 08/07/18 10:15 Lymph % (Auto) 3.7 % (20.0-40.0) L 08/07/18 10:15 [place] % (Auto) 3.1 % (0.0-10.0) 08/07/18 10:15 Eos % (Auto) 0.1 % (0.0-4.0) 08/07/18 10:15 Baso % (Auto) 0.1 % (0.0-2.0) 08/07/18 10:15 Neut # (Auto) 8.1 K/uL (1.8-7.0) H 08/07/18 10:15 Lymph # (Auto) 0.3 K/uL (1.0-4.3) L 08/07/18 10:15 [place] # (Auto) 0.3 K/uL (0.0-0.8) 08/07/18 10:15 Eos # (Auto) 0.0 K/uL (0.0-0.7) 08/07/18 10:15 Baso # (Auto) 0.0 K/uL (0.0-0.2) 08/07/18 10:15 Neutrophils % (Manual) 88 % (42-75) H 08/07/18 10:15 Band Neutrophils % 1 % (0-2) 08/04/18 06:00 Lymphocytes % (Manual) 9 % (20-50) L 08/07/18 10:15 Monocytes % (Manual) 3 % (0-10) 08/07/18 10:15 Platelet Estimate Normal (NORMAL) 08/07/18 10:15 Large Platelets Present 08/04/18 06:00 RBC Morphology Normal (NORMAL) 08/07/18 10:15 PT 11.0 Seconds (9.8-13.1) 08/02/18 15:20 INR 1.0 08/02/18 15:20 APTT 28.6 Seconds (25.6-37.1) 08/02/18 15:20 pCO2 36 mm/Hg (35-45) 08/12/18 16:10 pO2 63 mm/Hg (80-100) L 08/12/18 16:10 HCO3 29.7 mmol/L (21-28) H 08/12/18 16:10 ABG pH 7.52 (7.35-7.45) H 08/12/18 16:10 ABG Total CO2 30.5 mmol/L (22-28) H 08/12/18 16:10 ABG O2 Saturation 95.6 % (95-98) 08/12/18 16:10 ABG O2 Content 21.5 ML/dL (15-23) 08/12/18 16:10 ABG Base Excess 6.4 mmol/L (-2.0-3.0) H 08/12/18 16:10 ABG Hemoglobin 16.6 g/dL (11.7-17.4) 08/12/18 16:10 ABG Carboxyhemoglobin 2.2 % (0.5-1.5) H 08/12/18 16:10 POC ABG HHb (Measured) 4.3 % (0.0-5.0) 08/12/18 16:10 ABG Methemoglobin 1.1 % (0.0-3.0) 08/12/18 16:10 ABG O2 Capacity 22.5 mL/dL (16-24) 08/12/18 16:10 Tino Test Yes 08/12/18 16:10 ABG Potassium 3.3 mmol/L (3.6-5.2) L 08/02/18 15:01 A-a O2 Difference 42.0 mm/Hg 08/12/18 16:10 Hgb O2 Saturation 92.4 % (95.0-98.0) L 08/12/18 16:10 Sodium 139.0 mmol/L (132-148) 08/02/18 15:01 Chloride 109.0 mmol/L (98-107) H 08/02/18 15:01 Glucose 144 mg/dL (65-105) H 08/02/18 15:01 Lactate 1.1 mmol/L (0.7-2.1) 08/02/18 15:01 Mechanical Rate 14 08/03/18 01:41 FiO2 21.0 % 08/12/18 16:10 Inspiratory BiPAP 10 08/03/18 01:41 Expiratory BiPAP 5 08/03/18 01:41 Crit Value Called To Wolfgang wilson 08/07/18 11:57 Crit Value Called By Ramya 08/07/18 11:57 Crit Value Read Back Y 08/07/18 11:57 Blood Gas Notified Time 1212 08/07/18 11:57 Sodium 135 mmol/l (132-148) 08/13/18 14:19 Potassium 4.3 MMOL/L (3.6-5.0) 08/13/18 14:19 Chloride 99 mmol/L (98-107) 08/13/18 14:19 Carbon Dioxide 21 mmol/L (22-30) L 08/13/18 14:19 Anion Gap 19 (10-20) 08/13/18 14:19 BUN 29 mg/dl (7-17) H 08/13/18 14:19 Creatinine 0.7 mg/dl (0.7-1.2) 08/13/18 14:19 Est GFR ( Amer) > 60 08/13/18 14:19 Est GFR (Non-Af Amer) > 60 08/13/18 14:19 POC Glucose (mg/dL) 179 mg/dL (65-110) H 08/13/18 21:25 Random Glucose 354 mg/dL (65-105) H 08/13/18 14:19 Calcium 9.3 mg/dL (8.4-10.2) 08/13/18 14:19 Phosphorus 5.0 mg/dl (2.5-4.5) H 08/02/18 15:20 Magnesium 1.9 MG/DL (1.6-2.3) 08/02/18 15:20 Total Bilirubin 0.6 mg/dl (0.2-1.3) 08/07/18 10:15 AST 20 U/L (14-36) 08/07/18 10:15 ALT 42 U/L (9-52) 08/07/18 10:15 Alkaline Phosphatase 89 U/L (38-126) 08/07/18 10:15 Troponin I 0.0150 ng/mL (0.00-0.120) 08/02/18 15:20 NT-Pro-B Natriuret Pep 256 pg/ml (0-900) 08/02/18 15:20 Total Protein 7.0 G/DL (6.3-8.2) 08/07/18 10:15 Albumin 4.0 g/dL (3.5-5.0) 08/07/18 10:15 Globulin 2.9 gm/dL (2.2-3.9) 08/07/18 10:15 Albumin/Globulin Ratio 1.4 (1.0-2.1) 08/07/18 10:15 Arterial Blood Potassium 3.3 mmol/L (3.6-5.2) L 08/02/18 15:01 Influenza Typ A,B (EIA) Negative for flu a/b (NEGATIVE) 08/07/18 14:17 Mycoplasma pneumon IgG 1.21 (<=0.90) H 08/07/18 10:15 Mycoplasma pneumon IgM 69 U/mL (<770) 08/07/18 10:15 Discharge Exam - Head Exam Head Exam: NORMAL INSPECTION Discharge Plan - Discharge Medications Prescriptions: Azithromycin 500MG/NS 250ml [Zithromax 500mg in NS] 500 mg IV DAILY #7 bag Piperacill/Tazo 3.375gm in Dex [Zosyn 3.375 Gm IV] 3.375 gm IVPB Q6 #15 bag - Follow Up Plan Condition: FAIR Disposition: TRANSF TO SNF Instructions: Pneumonia, Adult (DC), Exacerbation of COPD (DC) Referrals: Sarthak Arauz MD [Staff Provider] -
== END 2018-08-13 22:30 | DRG 193 ==
LOC: H.ER 14:16 → SUPCPDRO 14:16 → H.ERHOLD 16:51 → H.ICU/CCU 18:22 → H.TEL 08-09 18:32
PROVIDERS: ADMIT Internal Medicine Pulmonary Disease; ATTEND Internal Medicine Pulmonary Disease
PROC: 5A09457 Assistance with Respiratory Ventilation, 24-96 Consecutive Hours, Continuous Positive Airway Pressure (ICD-10-PCS; 2018-08-02)
PROC: 3E02340 Introduction of Influenza Vaccine into Muscle, Percutaneous Approach (ICD-10-PCS; 2018-08-03)
PROC: 3E0234Z Introduction of Serum, Toxoid and Vaccine into Muscle, Percutaneous Approach (ICD-10-PCS; 2018-08-03)
PROC: 5A0955Z Assistance with Respiratory Ventilation, Greater than 96 Consecutive Hours (ICD-10-PCS; principal; 2018-08-04)
DX: J18.1 Lobar pneumonia, unspecified organism (principal); J96.02 Acute respiratory failure with hypercapnia; J96.01 Acute respiratory failure with hypoxia; J44.1 Chronic obstructive pulmonary disease with (acute) exacerbation; J44.0 Chronic obstructive pulmonary disease with (acute) lower respiratory infection; I50.22 Chronic systolic (congestive) heart failure; I11.0 Hypertensive heart disease with heart failure; E11.9 Type 2 diabetes mellitus without complications; F31.9 Bipolar disorder, unspecified; I25.10 Atherosclerotic heart disease of native coronary artery without angina pectoris; G89.29 Other chronic pain; E78.5 Hyperlipidemia, unspecified; E03.9 Hypothyroidism, unspecified; Z23 Encounter for immunization; E66.9 Obesity, unspecified; Z68.38 Body mass index [BMI] 38.0-38.9, adult; J40 Bronchitis, not specified as acute or chronic; F17.210 Nicotine dependence, cigarettes, uncomplicated; Z59.0 Homelessness; F20.9 Schizophrenia, unspecified; T38.0X5A Adverse effect of glucocorticoids and synthetic analogues, initial encounter; D72.829 Elevated white blood cell count, unspecified

== ENCOUNTER 2018-08-13 16:13 | Inpatient (IN) | payer OTHER, BC ==
[2018-08-13 22:35] VITALS: BMI 33.2
[2018-08-13] MEDS ORDERED: Promethazine/Cod 6.25mg-10mg/5ml Syr UD PO PRN (23:26)
[2018-08-13] MEDS ORDERED: Benzocaine/Menthol (Cepacol) Lozenge PO PRN (23:26)
[2018-08-13] MEDS ORDERED: Alum-Mag Hydrox-Simethicone Susp (30 mL) PO PRN (23:26)
[2018-08-13 23:57] VITALS: RESP 20
[2018-08-14] MEDS: Albuterol-Ipratrop 3 mg / 0.5 (3 ml) UD INH SCH ×6 (00:34→19:12)
[2018-08-14] MEDS: Piperacillin/Tazobact 3.375 GM IV Q6H IVPB SCH ×4 (03:58→21:50)
[2018-08-14] MEDS ORDERED: Patient's Own Med (Piperacill/Tazo 3.375gm In Dex [Zosyn 3.375 Gm Iv] 3.375 GM) IVPB SCH (04:00)
[2018-08-14] MEDS: Insulin Regular 100 units/ml SC SCH ×4 (06:51→23:20)
[2018-08-14] MEDS: guaiFENesin 600 mg ER Tab PO SCH ×2 (08:24→21:45)
[2018-08-14] MEDS: MethylPREDNISolone 40 mg Vial IV SCH ×3 (08:24→23:08)
[2018-08-14] MEDS: Azithromycin 500 MG in Sodium Chloride 0.9% 250 ML IVPB SCH (08:25)
[2018-08-14] MEDS: Acetylcysteine 10% 4 ML IH SCH ×2 (08:41→19:12)
--- NOTE | 2018-08-14 13:11 | CP.PCM.HP ---
History of Present Illness - History of Present Illness History of Present Illness: 58 y/o F, lives in [facility]mediate Home, Hx COPD, /Asthma, CHF, HTN , with previous admission to [facility] Telemetry floor on 08/02/18 due to Respiratory Failure, PNA, COPD Exacerbation. On 08/13/18, Pt condition improved and was transferred to TCU for completion of abx course. Present on Admission - Present on Admission Any Indicators Present on Admission: No Review of Systems - Constitutional Constitutional: Other (negative) - EENT Eyes: Other (negative) Ears: Other (negative) Nose/Mouth/Throat: Other (negative) - Cardiovascular Cardiovascular: Other (negative) - Respiratory Respiratory: Cough (dry) - Gastrointestinal Gastrointestinal: Other (negative) - Genitourinary Genitourinary: Other (negative) - Musculoskeletal Musculoskeletal: Back Pain - Integumentary Integumentary: Other (negative) - Neurological Neurological: Other (negative) - Psychiatric Psychiatric: Anxiety, Depression - Endocrine Endocrine: Other (negative) - Hematologic/Lymphatic Hematologic: Other (negative) Past Patient History - Infectious Disease Hx of Infectious Diseases: None - Past Medical History & Family History Past Medical History?: Yes Pertinent Family History: Father: Depression, DM. Mother and brother: Cerebral hemorrhage, - Past Social History Smoking Status: Heavy Smoker > 10 Cigarettes Daily Alcohol: None Drugs: Denies Home Situation {Lives}: Homeless - CARDIAC Hx Cardiac Disorders: Yes Hx Congestive Heart Failure: Yes Hx Hypertension: Yes - PULMONARY Hx Respiratory Disorders: Yes Hx Asthma: Yes Hx Chronic Obstructive Pulmonary Disease (COPD): Yes Hx Pneumonia: Yes - NEUROLOGICAL Hx Neurological Disorder: No Hx Seizures: No - HEENT Hx HEENT Problems: No - RENAL Hx Chronic Kidney Disease: No - ENDOCRINE/METABOLIC Hx Endocrine Disorders: Yes Hx Diabetes Mellitus Type 2: Yes Hx Hypothyroidism: Yes - HEMATOLOGICAL/ONCOLOGICAL Hx Blood Disorders: No Hx AIDS: No Hx Human Immunodeficiency Virus (HIV): No - INTEGUMENTARY Hx Dermatological Problems: No - MUSCULOSKELETAL/RHEUMATOLOGICAL Hx Musculoskeletal Disorders: Yes Hx Back Pain: Yes Hx Falls: Yes Other/Comment: back surgery - GASTROINTESTINAL Hx Gastrointestinal Disorders: Yes - GENITOURINARY/GYNECOLOGICAL Hx Genitourinary Disorders: No Hx Sexually Transmitted Disorders: No - PSYCHIATRIC Hx Psychophysiologic Disorder: Yes Hx Anxiety: Yes Hx Bipolar Disorder: Yes Hx Depression: Yes Hx Schizophrenia: Yes Hx Substance Use: No - SURGICAL HISTORY Hx Surgeries: Yes Hx Cholecystectomy: Yes Hx Hysterectomy: Yes Other/Comment: back surgery - ANESTHESIA Hx Anesthesia: Yes Hx Anesthesia Reactions: No Hx Malignant Hyperthermia: No Meds Allergies/Adverse Reactions: Allergies Allergy/AdvReac Type Severity Reaction Status Date / Time No Known Allergies Allergy Verified 07/30/18 10:02 Physical Exam - Constitutional Appears: No Acute Distress - Head Exam Head Exam: NORMAL INSPECTION - Eye Exam Eye Exam: PERRL - ENT Exam ENT Exam: Normal Exam - Neck Exam Neck exam: Positive for: Normal Inspection - Respiratory Exam Respiratory Exam: Decreased Breath Sounds (at bases), Rhonchi (few scattered) - Cardiovascular Exam Cardiovascular Exam: REGULAR RHYTHM - GI/Abdominal Exam GI & Abdominal Exam: Normal Bowel Sounds, Soft - Extremities Exam Extremities exam: Positive for: normal inspection - Back Exam Back exam: tenderness - Neurological Exam Neurological exam: Alert, CN II-XII Intact, Oriented x3 Additional comments: No motor/sensory deficit. - Psychiatric Exam Psychiatric exam: Anxious, Depressed - Skin Skin Exam: Warm Results - Vital Signs Recent Vital Signs: Last Vital Signs Temp 97.6 F 08/14/18 08:10 Pulse 80 08/14/18 09:04 Resp 20 08/14/18 08:10 BP 145/70 08/14/18 09:04 Pulse Ox 98 08/14/18 09:04 reviewed J.P. - Labs Labs: Laboratory Results - last 24 hr 08/14/18 05:22 POC Glucose (mg/dL) 229 H reviewed J.P. Assessment & Plan (1) PNA (pneumonia) Status: Acute Priority: High (2) COPD exacerbation Status: Acute Priority: High (3) Lumbago Status: Chronic Priority: Medium (4) Hypertension Status: Chronic Priority: Medium (5) CAD (coronary artery disease) Status: Chronic Priority: Medium - Assessment and Plan (Free Text) Plan: Continue O2 NC, Zithromax, Zosyn, Duoneb, Solu-Medrol, Mucomyst, Mucinex and rest of Tx. - Date & Time Date: 08/14/18 Time: 09:30
[2018-08-14] MEDS ORDERED: Paliperidone Palmitate 234 MG/1.5 ML SYR IM ONE (15:00)
[2018-08-15] MEDS: Albuterol-Ipratrop 3 mg / 0.5 (3 ml) UD INH SCH ×7 (00:32→23:27)
[2018-08-15] MEDS: Piperacillin/Tazobact 3.375 GM IV Q6H IVPB SCH ×4 (04:22→21:04)
[2018-08-15] MEDS: Insulin Regular 100 units/ml SC SCH ×4 (06:55→22:39)
[2018-08-15] MEDS: Acetylcysteine 10% 4 ML IH SCH ×2 (07:46→19:08)
[2018-08-15] MEDS: Lactobacillus Acidophilus 500 MU Cap PO SCH ×2 (08:08→16:34)
[2018-08-15] MEDS: guaiFENesin 600 mg ER Tab PO SCH ×2 (08:10→21:05)
[2018-08-15] MEDS: MethylPREDNISolone 40 mg Vial IV SCH ×2 (08:11→21:03)
[2018-08-15] MEDS: Azithromycin 500 MG in Sodium Chloride 0.9% 250 ML IVPB SCH (08:12)
--- NOTE | 2018-08-15 14:17 | CP.PCM.PN ---
Subjective - Date & Time of Evaluation Date of Evaluation: 08/15/18 Time of Evaluation: 12:30 - Subjective Subjective: F/U PNA Pt with no SOB, no SYED, off O2, no cough. Objective - Vital Signs/Intake and Output Vital Signs (last 24 hours): Temp Pulse Resp BP Pulse Ox 98.1 F 88 20 154/85 H 97 08/15/18 07:58 08/15/18 08:10 08/15/18 07:58 08/15/18 08:10 08/15/18 07:58 - Medications Medications: Current Medications Acetylcysteine (Mucomyst 10% 4ml) 2 ml IH RBID [facility] Last Admin: 08/15/18 07:46 Dose: Not Given Al Hydrox/Mg Hydrox/Simethicone (Maalox Plus 30 Ml) 30 ml PO Q6 PRN PRN Reason: Indigestion / Heartburn Albuterol/Ipratropium (Duoneb 3 Mg/0.5 Mg (3 Ml) Ud) 3 ml INH RQ4 [facility] Last Admin: 08/15/18 11:41 Dose: Not Given Amlodipine Besylate (Norvasc) 10 mg PO DAILY [facility] Last Admin: 08/15/18 08:10 Dose: 10 mg Benzocaine/Menthol (Cepacol Sore Throat) 1 anabell PO Q3 PRN PRN Reason: Sore Throat Duloxetine HCl (Cymbalta) 60 mg PO DAILY [facility] Last Admin: 08/15/18 08:09 Dose: 60 mg Famotidine (Pepcid) 20 mg PO 1000,2200 [facility] Last Admin: 08/15/18 09:22 Dose: 20 mg Fluticasone Propionate (Flonase) 1 spr EMILY BID [facility] Last Admin: 08/15/18 08:09 Dose: 1 spr Furosemide (Lasix) 40 mg PO DAILY [facility] Last Admin: 08/15/18 08:10 Dose: 40 mg Guaifenesin (Mucinex La) 600 mg PO Q12 [facility] Last Admin: 08/15/18 08:10 Dose: 600 mg Piperacillin Sod/Tazobactam (Sod 3.375 gm/ Sodium Chloride) 100 mls @ 100 mls/hr IVPB Q6 [facility] Last Admin: 08/15/18 09:23 Dose: 100 mls/hr Azithromycin 500 mg/ Sodium (Chloride) 250 mls @ 250 mls/hr IVPB DAILY [facility] Last Admin: 08/15/18 08:12 Dose: 250 mls/hr Insulin Human Regular (Humulin R) 0 units SC ACCU-CHECK [facility]; Protocol Last Admin: 08/15/18 11:43 Dose: 8 units Lactobacillus Acidophilus (Bacid Acidophilus) 1 cap PO BID [facility] Last Admin: 08/15/18 08:08 Dose: 1 cap Lorazepam (Ativan) 1 mg PO Q8 PRN PRN Reason: Agitation Last Admin: 08/15/18 08:23 Dose: 1 mg Metformin HCl (Glucophage) 500 mg PO BIDWM [facility] Last Admin: 08/15/18 08:09 Dose: 500 mg Methylprednisolone (Solu-Medrol) 30 mg IV Q12 [facility] Last Admin: 08/15/18 08:11 Dose: 30 mg Promethazine HCl/Codeine (Phenergan/Codeine Oral Syrup) 10 ml PO Q4 PRN PRN Reason: Cough - Constitutional Appears: No Acute Distress - Head Exam Head Exam: NORMAL INSPECTION - Eye Exam Eye Exam: PERRL - ENT Exam ENT Exam: Normal Exam - Neck Exam Neck Exam: Normal Inspection - Respiratory Exam Respiratory Exam: Decreased Breath Sounds (at bases) - Cardiovascular Exam Cardiovascular Exam: REGULAR RHYTHM - GI/Abdominal Exam GI & Abdominal Exam: Soft, Normal Bowel Sounds - Extremities Exam Extremities Exam: Normal Inspection - Back Exam Back Exam: tenderness - Neurological Exam Neurological Exam: Alert, CN II-XII Intact, Oriented x3. absent: Motor Sensory Deficit - Psychiatric Exam Psychiatric exam: Anxious, Depressed - Skin Skin Exam: Warm Assessment and Plan (1) PNA (pneumonia) Status: Acute (2) COPD exacerbation Status: Acute (3) Lumbago Status: Chronic (4) Hypertension Status: Chronic (5) CAD (coronary artery disease) Status: Chronic (6) DM (diabetes mellitus) Status: Acute (7) Hyperglycemia due to type 2 diabetes mellitus Status: Acute - Assessment and Plan (Free Text) Plan: Continue Zosyn, Zithromax, taper Solu-Medrol, DuoNeb, Mucomyst Mucinex and rest of Tx.
[2018-08-15] MEDS ORDERED: Lactobacillus Acidophilus 500 MU Cap PO SCH (20:40)
[2018-08-16] MEDS: Albuterol-Ipratrop 3 mg / 0.5 (3 ml) UD INH SCH ×6 (04:27→23:17)
[2018-08-16] MEDS: Piperacillin/Tazobact 3.375 GM IV Q6H IVPB SCH ×4 (04:56→21:44)
[2018-08-16] MEDS: Insulin Regular 100 units/ml SC SCH ×4 (06:37→22:48)
[2018-08-16] MEDS: Acetylcysteine 10% 4 ML IH SCH ×2 (07:25→19:25)
[2018-08-16] MEDS: Lactobacillus Acidophilus 500 MU Cap PO SCH ×2 (08:14→15:59)
[2018-08-16] MEDS: guaiFENesin 600 mg ER Tab PO SCH ×2 (08:16→21:45)
[2018-08-16] MEDS: Azithromycin 500 MG in Sodium Chloride 0.9% 250 ML IVPB SCH (08:17)
[2018-08-16] MEDS: MethylPREDNISolone 40 mg Vial IV SCH ×2 (08:17→21:44)
--- NOTE | 2018-08-16 13:20 | CP.PCM.PN ---
Subjective - Date & Time of Evaluation Date of Evaluation: 08/16/18 Time of Evaluation: 11:40 - Subjective Subjective: F/U PNA no AD, no SOB ,no SYED , no cough Objective - Vital Signs/Intake and Output Vital Signs (last 24 hours): Temp Pulse Resp BP Pulse Ox 97.7 F 90 20 127/67 98 08/16/18 08:14 08/16/18 08:16 08/16/18 08:14 08/16/18 08:16 08/16/18 08:14 - Medications Medications: Current Medications Acetylcysteine (Mucomyst 10% 4ml) 2 ml IH RBID [facility] Last Admin: 08/16/18 07:25 Dose: Not Given Al Hydrox/Mg Hydrox/Simethicone (Maalox Plus 30 Ml) 30 ml PO Q6 PRN PRN Reason: Indigestion / Heartburn Albuterol/Ipratropium (Duoneb 3 Mg/0.5 Mg (3 Ml) Ud) 3 ml INH RQ4 [facility] Last Admin: 08/16/18 11:03 Dose: Not Given Amlodipine Besylate (Norvasc) 10 mg PO DAILY [facility] Last Admin: 08/16/18 08:16 Dose: 10 mg Benzocaine/Menthol (Cepacol Sore Throat) 1 anabell PO Q3 PRN PRN Reason: Sore Throat Duloxetine HCl (Cymbalta) 60 mg PO DAILY [facility] Last Admin: 08/16/18 09:50 Dose: 60 mg Famotidine (Pepcid) 20 mg PO 1000,2200 [facility] Last Admin: 08/16/18 09:43 Dose: 20 mg Fluticasone Propionate (Flonase) 1 spr EMILY BID [facility] Last Admin: 08/16/18 08:15 Dose: 1 spr Furosemide (Lasix) 40 mg PO DAILY [facility] Last Admin: 08/16/18 08:14 Dose: 40 mg Guaifenesin (Mucinex La) 600 mg PO Q12 [facility] Last Admin: 08/16/18 08:16 Dose: 600 mg Piperacillin Sod/Tazobactam (Sod 3.375 gm/ Sodium Chloride) 100 mls @ 100 mls/hr IVPB Q6 [facility] Last Admin: 08/16/18 09:43 Dose: 100 mls/hr Azithromycin 500 mg/ Sodium (Chloride) 250 mls @ 250 mls/hr IVPB DAILY [facility] Last Admin: 08/16/18 08:17 Dose: 250 mls/hr Insulin Human Regular (Humulin R) 0 units SC ACCU-CHECK [facility]; Protocol Last Admin: 08/16/18 12:04 Dose: 8 units Lactobacillus Acidophilus (Bacid Acidophilus) 1 cap PO BID [facility] Last Admin: 08/16/18 08:14 Dose: 1 cap Lorazepam (Ativan) 1 mg PO Q8 PRN PRN Reason: Agitation Last Admin: 08/15/18 08:23 Dose: 1 mg Metformin HCl (Glucophage) 500 mg PO BIDWM [facility] Last Admin: 08/16/18 08:14 Dose: 500 mg Methylprednisolone (Solu-Medrol) 30 mg IV Q12 [facility] Last Admin: 08/16/18 08:17 Dose: 30 mg Promethazine HCl/Codeine (Phenergan/Codeine Oral Syrup) 10 ml PO Q4 PRN PRN Reason: Cough - Constitutional Appears: No Acute Distress - Head Exam Head Exam: NORMAL INSPECTION - Eye Exam Eye Exam: PERRL - ENT Exam ENT Exam: Normal Exam - Neck Exam Neck Exam: Normal Inspection - Respiratory Exam Respiratory Exam: Decreased Breath Sounds (at bases) - Cardiovascular Exam Cardiovascular Exam: REGULAR RHYTHM - GI/Abdominal Exam GI & Abdominal Exam: Soft, Normal Bowel Sounds - Extremities Exam Extremities Exam: Normal Inspection - Back Exam Back Exam: tenderness (mild) - Neurological Exam Neurological Exam: Alert, CN II-XII Intact, Oriented x3. absent: Motor Sensory Deficit - Psychiatric Exam Psychiatric exam: Depressed - Skin Skin Exam: Warm Assessment and Plan (1) PNA (pneumonia) Status: Acute (2) COPD exacerbation Status: Acute (3) Lumbago Status: Chronic (4) Hypertension Status: Chronic (5) CAD (coronary artery disease) Status: Chronic (6) DM (diabetes mellitus) Status: Acute (7) Hyperglycemia due to type 2 diabetes mellitus Status: Acute - Assessment and Plan (Free Text) Plan: Accu Check in the 400's , DC Solu Medrol, Accu check high cooverage, Levemir at hs, continue DuoNeb, Mucomyst , Zosyn
[2018-08-17] MEDS: Piperacillin/Tazobact 3.375 GM IV Q6H IVPB SCH ×4 (04:30→21:09)
[2018-08-17] MEDS: Albuterol-Ipratrop 3 mg / 0.5 (3 ml) UD INH SCH ×5 (05:00→19:05)
[2018-08-17] MEDS: Insulin Regular 100 units/ml SC SCH ×5 (07:02→22:07)
[2018-08-17] MEDS: Acetylcysteine 10% 4 ML IH SCH ×2 (07:11→19:05)
[2018-08-17] MEDS: MethylPREDNISolone 40 mg Vial IV SCH (08:01)
[2018-08-17] MEDS: Lactobacillus Acidophilus 500 MU Cap PO SCH ×2 (08:02→16:00)
[2018-08-17] MEDS: guaiFENesin 600 mg ER Tab PO SCH ×2 (08:04→21:07)
[2018-08-17] MEDS: Azithromycin 500 MG in Sodium Chloride 0.9% 250 ML IVPB SCH (08:06)
[2018-08-17] MEDS ORDERED: Insulin Detemir 100 Units/ml Inj SC SCH (22:00)
[2018-08-18] MEDS: Albuterol-Ipratrop 3 mg / 0.5 (3 ml) UD INH SCH ×6 (00:28→23:19)
[2018-08-18] MEDS: Piperacillin/Tazobact 3.375 GM IV Q6H IVPB SCH ×4 (04:14→21:18)
[2018-08-18] MEDS: Insulin Regular 100 units/ml SC SCH ×4 (06:11→22:40)
[2018-08-18] MEDS: Acetylcysteine 10% 4 ML IH SCH (07:24)
[2018-08-18] MEDS: Lactobacillus Acidophilus 500 MU Cap PO SCH ×2 (08:30→16:31)
[2018-08-18] MEDS: guaiFENesin 600 mg ER Tab PO SCH ×2 (08:31→21:17)
[2018-08-18] MEDS: Azithromycin 500 MG in Sodium Chloride 0.9% 250 ML IVPB SCH (08:31)
[2018-08-18] MEDS ORDERED: MethylPREDNISolone 40 mg Vial IV SCH (09:00)
--- NOTE | 2018-08-18 15:11 | CP.PCM.PN ---
Subjective - Date & Time of Evaluation Date of Evaluation: 08/18/18 Time of Evaluation: 13:00 - Subjective Subjective: no AD,no SOB,no SYED, no cough Objective - Vital Signs/Intake and Output Vital Signs (last 24 hours): Temp Pulse Resp BP Pulse Ox 97.9 F 89 20 131/69 95 08/18/18 09:00 08/18/18 08:31 08/18/18 07:34 08/18/18 08:31 08/18/18 07:34 - Medications Medications: Current Medications Acetylcysteine (Mucomyst 10% 4ml) 2 ml IH RBID [facility] Last Admin: 08/18/18 07:24 Dose: Not Given Al Hydrox/Mg Hydrox/Simethicone (Maalox Plus 30 Ml) 30 ml PO Q6 PRN PRN Reason: Indigestion / Heartburn Albuterol/Ipratropium (Duoneb 3 Mg/0.5 Mg (3 Ml) Ud) 3 ml INH RQ4 [facility] Last Admin: 08/18/18 11:12 Dose: Not Given Amlodipine Besylate (Norvasc) 10 mg PO DAILY [facility] Last Admin: 08/18/18 08:31 Dose: 10 mg Benzocaine/Menthol (Cepacol Sore Throat) 1 anabell PO Q3 PRN PRN Reason: Sore Throat Duloxetine HCl (Cymbalta) 60 mg PO DAILY [facility] Last Admin: 08/18/18 08:30 Dose: 60 mg Famotidine (Pepcid) 20 mg PO 1000,2200 [facility] Last Admin: 08/18/18 10:37 Dose: 20 mg Fluticasone Propionate (Flonase) 1 spr EMILY BID [facility] Last Admin: 08/18/18 08:30 Dose: 1 spr Furosemide (Lasix) 40 mg PO DAILY [facility] Last Admin: 08/18/18 08:31 Dose: 40 mg Guaifenesin (Mucinex La) 600 mg PO Q12 [facility] Last Admin: 08/18/18 08:31 Dose: 600 mg Piperacillin Sod/Tazobactam (Sod 3.375 gm/ Sodium Chloride) 100 mls @ 100 mls/hr IVPB Q6 [facility] Last Admin: 08/18/18 10:37 Dose: 100 mls/hr Azithromycin 500 mg/ Sodium (Chloride) 250 mls @ 250 mls/hr IVPB DAILY [facility] Last Admin: 08/18/18 08:31 Dose: 250 mls/hr Insulin Detemir (Levemir) 10 units SC HS [facility] Last Admin: 08/17/18 21:14 Dose: 10 units Insulin Human Regular (Humulin R) 0 units SC ACCU-CHECK [facility]; Protocol Last Admin: 08/18/18 12:12 Dose: 4 units Lactobacillus Acidophilus (Bacid Acidophilus) 1 cap PO BID [facility] Last Admin: 08/18/18 08:30 Dose: 1 cap Lorazepam (Ativan) 1 mg PO Q8 PRN PRN Reason: Agitation Last Admin: 08/18/18 08:35 Dose: 1 mg Metformin HCl (Glucophage) 1,000 mg PO BIDWM [facility] Last Admin: 08/18/18 08:29 Dose: 1,000 mg Promethazine HCl/Codeine (Phenergan/Codeine Oral Syrup) 10 ml PO Q4 PRN PRN Reason: Cough Sitagliptin Phosphate (Januvia) 100 mg PO DAILY [facility] Last Admin: 08/18/18 08:30 Dose: 100 mg - Constitutional Appears: No Acute Distress - Head Exam Head Exam: NORMAL INSPECTION - Eye Exam Eye Exam: PERRL - ENT Exam ENT Exam: Normal Exam - Neck Exam Neck Exam: Normal Inspection - Respiratory Exam Respiratory Exam: Decreased Breath Sounds (at bases) - Cardiovascular Exam Cardiovascular Exam: REGULAR RHYTHM - GI/Abdominal Exam GI & Abdominal Exam: Soft, Normal Bowel Sounds - Extremities Exam Extremities Exam: Normal Inspection - Back Exam Back Exam: NORMAL INSPECTION - Neurological Exam Neurological Exam: Alert, Awake, CN II-XII Intact. absent: Motor Sensory Deficit - Psychiatric Exam Psychiatric exam: Depressed - Skin Skin Exam: Warm Assessment and Plan (1) PNA (pneumonia) Status: Acute (2) COPD exacerbation Status: Acute (3) Lumbago Status: Chronic (4) Hypertension Status: Chronic (5) CAD (coronary artery disease) Status: Chronic (6) DM (diabetes mellitus) Status: Acute (7) Hyperglycemia due to type 2 diabetes mellitus Status: Acute - Assessment and Plan (Free Text) Plan: continue Zithromax, Zosyn, DuoNeb , Mucomyst, f/u CXR, BS better controlled , ad Levemir
[2018-08-18] MEDS ORDERED: Lactulose 10 gm/15 ml Syrup PO ONE (15:13)
[2018-08-18] MEDS: Insulin Detemir 100 Units/ml Inj SC SCH (21:18)
[2018-08-19] MEDS: Albuterol-Ipratrop 3 mg / 0.5 (3 ml) UD INH SCH ×6 (04:00→23:19)
[2018-08-19] MEDS: Piperacillin/Tazobact 3.375 GM IV Q6H IVPB SCH ×4 (04:40→21:22)
[2018-08-19] MEDS: Insulin Regular 100 units/ml SC SCH ×4 (06:12→23:37)
[2018-08-19] MEDS: Acetylcysteine 10% 4 ML IH SCH ×2 (07:35→19:12)
[2018-08-19 07:58] LABS: HEMOGLOBIN 15.2 g/dL (12.0-16.0); MEAN CELL VOLUME 90.2 fl (81.0-99.0); MEAN CORPUSCULAR HEMOGLOBIN 29.9 pg (27.0-31.0); MEAN CORPUSCULAR HGB CONC 33.2 g/dL (33.0-37.0); RBC 5.09 Mil/uL (3.80-5.20); RED CELL DISTRIBUTION WIDTH 13.5 % (11.5-14.5); WHITE BLOOD COUNT 9.3 K/uL (4.8-10.8)
--- NOTE | 2018-08-19 07:59 | RAD ---
Date of service: 08/18/2018 HISTORY: PNA COMPARISON: Chest radiographs 08/13/2018. TECHNIQUE: Chest PA and lateral FINDINGS: LUNGS: Linear atelectasis or fluid is seen in the minor fissure based on lateral projection of the chest. Frontal projection suggest potential infiltrate which is not felt to be present though limited underlying infiltrate adjacent to the minor fissure is not excluded. Left chest remains clear. PLEURA: No significant pleural effusion identified. No pneumothorax apparent. CARDIOVASCULAR: No aortic atherosclerotic calcification present. Normal cardiac size. No pulmonary vascular congestion. OSSEOUS STRUCTURES: No significant abnormalities. VISUALIZED UPPER ABDOMEN: Normal. OTHER FINDINGS: None. IMPRESSION: Interval development of linear atelectasis adjacent to the minor fissure versus fluid in the minor fissure. Remaining lung dent clear.
[2018-08-19] MEDS: Lactobacillus Acidophilus 500 MU Cap PO SCH ×2 (08:06→16:27)
[2018-08-19] MEDS: guaiFENesin 600 mg ER Tab PO SCH ×2 (08:07→21:21)
[2018-08-19] MEDS: Azithromycin 500 MG in Sodium Chloride 0.9% 250 ML IVPB SCH (08:08)
[2018-08-19 08:28] LABS: ALB/GLOB RATIO 1.4 (1.0-2.1); ALBUMIN 3.7 g/dL (3.5-5.0); ALT/SGPT 36 U/L (9-52); AST/SGOT 15 U/L (14-36); BLOOD UREA NITROGEN 25 mg/dl (7-17); CALCIUM 9.9 mg/dL (8.4-10.2); GFR NON-AFRICAN AMERICAN > 60
[2018-08-19] MEDS ORDERED: Potassium Chloride 20 mEq ER Tab PO STA ×2 (10:48→15:54)
--- NOTE | 2018-08-19 12:41 | CP.PCM.PN ---
Subjective - Date & Time of Evaluation Date of Evaluation: 08/19/18 Time of Evaluation: 12:00 - Subjective Subjective: F/U PNA Objective - Vital Signs/Intake and Output Vital Signs (last 24 hours): Temp Pulse Resp BP Pulse Ox 96.8 F L 92 H 20 138/61 95 08/18/18 19:28 08/19/18 08:09 08/18/18 19:28 08/19/18 08:09 08/18/18 19:28 - Medications Medications: Current Medications Acetaminophen (Tylenol 325mg Tab) 650 mg PO Q6 PRN PRN Reason: Pain, moderate (4-7) Last Admin: 08/19/18 09:36 Dose: 650 mg Acetylcysteine (Mucomyst 10% 4ml) 2 ml IH RBID [facility] Last Admin: 08/19/18 07:35 Dose: Not Given Al Hydrox/Mg Hydrox/Simethicone (Maalox Plus 30 Ml) 30 ml PO Q6 PRN PRN Reason: Indigestion / Heartburn Albuterol/Ipratropium (Duoneb 3 Mg/0.5 Mg (3 Ml) Ud) 3 ml INH RQ4 [facility] Last Admin: 08/19/18 11:19 Dose: Not Given Amlodipine Besylate (Norvasc) 10 mg PO DAILY [facility] Last Admin: 08/19/18 08:09 Dose: 10 mg Benzocaine/Menthol (Cepacol Sore Throat) 1 anabell PO Q3 PRN PRN Reason: Sore Throat Duloxetine HCl (Cymbalta) 60 mg PO DAILY [facility] Last Admin: 08/19/18 08:07 Dose: 60 mg Famotidine (Pepcid) 20 mg PO 1000,2200 [facility] Last Admin: 08/18/18 21:18 Dose: 20 mg Fluticasone Propionate (Flonase) 1 spr EMILY BID [facility] Last Admin: 08/19/18 08:07 Dose: 1 spr Furosemide (Lasix) 20 mg PO DAILY [facility] Guaifenesin (Mucinex La) 600 mg PO Q12 [facility] Last Admin: 08/19/18 08:07 Dose: 600 mg Piperacillin Sod/Tazobactam (Sod 3.375 gm/ Sodium Chloride) 100 mls @ 100 mls/hr IVPB Q6 [facility] Last Admin: 08/19/18 09:38 Dose: 100 mls/hr Azithromycin 500 mg/ Sodium (Chloride) 250 mls @ 250 mls/hr IVPB DAILY [facility] Last Admin: 08/19/18 08:08 Dose: 250 mls/hr Insulin Detemir (Levemir) 10 units SC [facility] Last Admin: 08/18/18 21:18 Dose: 10 units Insulin Human Regular (Humulin R) 0 units SC ACCU-CHECK [facility]; Protocol Last Admin: 08/19/18 06:12 Dose: Not Given Lactobacillus Acidophilus (Bacid Acidophilus) 1 cap PO BID [facility] Last Admin: 08/19/18 08:06 Dose: 1 cap Lorazepam (Ativan) 1 mg PO Q8 PRN PRN Reason: Agitation Last Admin: 08/19/18 08:06 Dose: 1 mg Metformin HCl (Glucophage) 1,000 mg PO BIDWM [facility] Last Admin: 08/19/18 08:07 Dose: 1,000 mg Promethazine HCl/Codeine (Phenergan/Codeine Oral Syrup) 10 ml PO Q4 PRN PRN Reason: Cough Sitagliptin Phosphate (Januvia) 100 mg PO DAILY [facility] Last Admin: 08/19/18 08:07 Dose: 100 mg - Labs Labs: 08/19/18 07:53 08/19/18 07:53 - Constitutional Appears: No Acute Distress - Head Exam Head Exam: NORMAL INSPECTION - Eye Exam Eye Exam: PERRL - ENT Exam ENT Exam: Normal Exam - Neck Exam Neck Exam: Normal Inspection - Respiratory Exam Respiratory Exam: Decreased Breath Sounds (at bases) - Cardiovascular Exam Cardiovascular Exam: REGULAR RHYTHM - GI/Abdominal Exam GI & Abdominal Exam: Soft, Normal Bowel Sounds - Extremities Exam Extremities Exam: Normal Inspection - Back Exam Back Exam: NORMAL INSPECTION - Neurological Exam Neurological Exam: Alert, Awake, CN II-XII Intact. absent: Motor Sensory Deficit - Psychiatric Exam Psychiatric exam: Normal Affect, Normal Mood - Skin Skin Exam: Warm Assessment and Plan (1) PNA (pneumonia) Status: Acute (2) COPD exacerbation Status: Acute (3) Lumbago Status: Chronic (4) Hypertension Status: Chronic (5) CAD (coronary artery disease) Status: Chronic (6) DM (diabetes mellitus) Status: Acute (7) Hyperglycemia due to type 2 diabetes mellitus Status: Acute
[2018-08-19] MEDS: Insulin Detemir 100 Units/ml Inj SC SCH (21:21)
[2018-08-20] MEDS: Piperacillin/Tazobact 3.375 GM IV Q6H IVPB SCH ×4 (03:20→21:29)
[2018-08-20] MEDS: Albuterol-Ipratrop 3 mg / 0.5 (3 ml) UD INH SCH ×6 (04:00→23:07)
[2018-08-20] MEDS: Insulin Regular 100 units/ml SC SCH ×3 (06:13→16:06)
[2018-08-20 06:26] LABS: BLOOD UREA NITROGEN 20 mg/dl (7-17); CALCIUM 9.3 mg/dL (8.4-10.2); GFR NON-AFRICAN AMERICAN > 60
[2018-08-20] MEDS: Acetylcysteine 10% 4 ML IH SCH ×2 (07:17→19:33)
[2018-08-20] MEDS: Lactobacillus Acidophilus 500 MU Cap PO SCH ×2 (08:48→16:05)
[2018-08-20] MEDS: guaiFENesin 600 mg ER Tab PO SCH ×2 (08:50→21:31)
[2018-08-20] MEDS: Potassium Chloride 20 mEq ER Tab PO SCH (08:58)
[2018-08-20] MEDS: Azithromycin 500 MG in Sodium Chloride 0.9% 250 ML IVPB SCH (08:59)
--- NOTE | 2018-08-20 13:03 | CP.PCM.PN ---
Subjective - Date & Time of Evaluation Date of Evaluation: 08/20/18 Time of Evaluation: 10:00 - Subjective Subjective: F/U PNA Objective - Vital Signs/Intake and Output Vital Signs (last 24 hours): Temp Pulse Resp BP Pulse Ox 97.7 F 90 20 114/56 L 99 08/20/18 07:57 08/20/18 07:57 08/20/18 07:57 08/20/18 08:49 08/20/18 07:57 - Medications Medications: Current Medications Acetaminophen (Tylenol 325mg Tab) 650 mg PO Q6 PRN PRN Reason: Pain, moderate (4-7) Last Admin: 08/19/18 09:36 Dose: 650 mg Acetylcysteine (Mucomyst 10% 4ml) 2 ml IH RBID [facility] Last Admin: 08/19/18 19:12 Dose: Not Given Al Hydrox/Mg Hydrox/Simethicone (Maalox Plus 30 Ml) 30 ml PO Q6 PRN PRN Reason: Indigestion / Heartburn Albuterol/Ipratropium (Duoneb 3 Mg/0.5 Mg (3 Ml) Ud) 3 ml INH RQ4 [facility] Last Admin: 08/20/18 07:17 Dose: Not Given Amlodipine Besylate (Norvasc) 10 mg PO DAILY [facility] Last Admin: 08/20/18 08:48 Dose: 10 mg Benzocaine/Menthol (Cepacol Sore Throat) 1 anabell PO Q3 PRN PRN Reason: Sore Throat Duloxetine HCl (Cymbalta) 60 mg PO DAILY [facility] Last Admin: 08/20/18 08:48 Dose: 60 mg Famotidine (Pepcid) 20 mg PO 1000,2200 [facility] Last Admin: 08/20/18 10:00 Dose: 20 mg Fluticasone Propionate (Flonase) 1 spr EMILY BID [facility] Last Admin: 08/20/18 08:48 Dose: 1 spr Furosemide (Lasix) 20 mg PO DAILY [facility] Last Admin: 08/20/18 08:49 Dose: 20 mg Guaifenesin (Mucinex La) 600 mg PO Q12 [facility] Last Admin: 08/20/18 08:50 Dose: 600 mg Piperacillin Sod/Tazobactam (Sod 3.375 gm/ Sodium Chloride) 100 mls @ 100 mls/hr IVPB Q6 [facility] Last Admin: 08/20/18 03:20 Dose: 100 mls/hr Azithromycin 500 mg/ Sodium (Chloride) 250 mls @ 250 mls/hr IVPB DAILY [facility] Last Admin: 08/20/18 08:59 Dose: 250 mls/hr Insulin Detemir (Levemir) 10 units SC [facility] Last Admin: 08/19/18 21:21 Dose: 10 units Insulin Human Regular (Humulin R) 0 units SC ACCU-CHECK [facility]; Protocol Last Admin: 08/20/18 12:00 Dose: 2 units Lactobacillus Acidophilus (Bacid Acidophilus) 1 cap PO BID [facility] Last Admin: 08/20/18 08:48 Dose: 1 cap Lorazepam (Ativan) 1 mg PO Q8 PRN PRN Reason: Agitation Last Admin: 08/20/18 08:48 Dose: 1 mg Metformin HCl (Glucophage) 1,000 mg PO BIDWM [facility] Last Admin: 08/20/18 08:49 Dose: 1,000 mg Potassium Chloride (K-Dur 20 Meq Er Tab) 20 meq PO DAILY [facility] Last Admin: 08/20/18 08:58 Dose: 20 meq Potassium Chloride (K-Dur 20 Meq Er Tab) 20 meq PO ONCE ONE Stop: 08/20/18 16:01 Promethazine HCl/Codeine (Phenergan/Codeine Oral Syrup) 10 ml PO Q4 PRN PRN Reason: Cough Sitagliptin Phosphate (Januvia) 100 mg PO DAILY [facility] Last Admin: 08/20/18 08:48 Dose: 100 mg - Labs Labs: 08/19/18 07:53 08/20/18 05:30 - Constitutional Appears: No Acute Distress - Head Exam Head Exam: NORMAL INSPECTION - Eye Exam Eye Exam: PERRL - ENT Exam ENT Exam: Normal Exam - Neck Exam Neck Exam: Normal Inspection - Respiratory Exam Respiratory Exam: Decreased Breath Sounds (at bases) - Cardiovascular Exam Cardiovascular Exam: REGULAR RHYTHM - GI/Abdominal Exam GI & Abdominal Exam: Soft, Normal Bowel Sounds - Extremities Exam Extremities Exam: Normal Inspection - Neurological Exam Neurological Exam: Alert, CN II-XII Intact, Oriented x3. absent: Motor Sensory Deficit - Psychiatric Exam Psychiatric exam: Normal Affect, Normal Mood - Skin Skin Exam: Warm Assessment and Plan (1) PNA (pneumonia) Status: Acute (2) COPD exacerbation Status: Acute (3) Lumbago Status: Chronic (4) Hypertension Status: Chronic (5) CAD (coronary artery disease) Status: Chronic (6) DM (diabetes mellitus) Status: Acute (7) Hyperglycemia due to type 2 diabetes mellitus Status: Acute
[2018-08-20] MEDS ORDERED: Potassium Chloride 20 mEq ER Tab PO ONE (16:00)
[2018-08-20] MEDS: Insulin Detemir 100 Units/ml Inj SC SCH (21:31)
[2018-08-21] MEDS: Insulin Regular 100 units/ml SC SCH ×2 (01:00→06:21)
[2018-08-21] MEDS: Albuterol-Ipratrop 3 mg / 0.5 (3 ml) UD INH SCH ×3 (04:29→11:31)
[2018-08-21] MEDS: Piperacillin/Tazobact 3.375 GM IV Q6H IVPB SCH ×2 (04:45→09:52)
[2018-08-21 06:39] LABS: BLOOD UREA NITROGEN 16 mg/dl (7-17); CALCIUM 9.5 mg/dL (8.4-10.2); GFR NON-AFRICAN AMERICAN > 60
[2018-08-21] MEDS: Acetylcysteine 10% 4 ML IH SCH (07:45)
[2018-08-21] MEDS: Lactobacillus Acidophilus 500 MU Cap PO SCH (08:22)
[2018-08-21] MEDS: Potassium Chloride 20 mEq ER Tab PO SCH (08:25)
[2018-08-21] MEDS: guaiFENesin 600 mg ER Tab PO SCH (08:26)
[2018-08-21 08:28] VITALS: BP 136/75; PULSE 93
[2018-08-21] MEDS: Azithromycin 500 MG in Sodium Chloride 0.9% 250 ML IVPB SCH (08:32)
[2018-08-21 08:44] VITALS: TEMP 98.2; O2SAT 93
--- NOTE | 2018-08-21 16:13 | CP.PCM.DIS ---
Provider - Provider Date of Admission: 08/13/18 22:35 Attending physician: Sarthak Arauz MD Primary care physician: Johnson Kerr DO Diagnosis - Discharge Diagnosis (1) PNA (pneumonia) Status: Acute Priority: High (2) COPD exacerbation Status: Acute Priority: High (3) Lumbago Status: Chronic Priority: Medium (4) Hypertension Status: Chronic Priority: Medium (5) CAD (coronary artery disease) Status: Chronic Priority: Medium (6) DM (diabetes mellitus) Status: Acute (7) Hyperglycemia due to type 2 diabetes mellitus Status: Acute Hospital Course - Lab Results Lab Results: Most Recent Lab Values WBC 9.3 K/uL (4.8-10.8) 08/19/18 07:53 RBC 5.09 Mil/uL (3.80-5.20) 08/19/18 07:53 Hgb 15.2 g/dL (12.0-16.0) 08/19/18 07:53 Hct 45.9 % (34.0-47.0) 08/19/18 07:53 MCV 90.2 fl (81.0-99.0) D 08/19/18 07:53 MCH 29.9 pg (27.0-31.0) 08/19/18 07:53 MCHC 33.2 g/dL (33.0-37.0) 08/19/18 07:53 RDW 13.5 % (11.5-14.5) 08/19/18 07:53 Plt Count 163 K/uL (130-400) 08/19/18 07:53 Sodium 138 mmol/l (132-148) 08/21/18 04:51 Potassium 3.2 MMOL/L (3.6-5.0) L 08/21/18 04:51 Chloride 101 mmol/L (98-107) 08/21/18 04:51 Carbon Dioxide 27 mmol/L (22-30) 08/21/18 04:51 Anion Gap 13 (10-20) 08/21/18 04:51 BUN 16 mg/dl (7-17) 08/21/18 04:51 Creatinine 0.4 mg/dl (0.7-1.2) L 08/21/18 04:51 Est GFR ( Amer) > 60 08/21/18 04:51 Est GFR (Non-Af Amer) > 60 08/21/18 04:51 POC Glucose (mg/dL) 140 mg/dL (65-110) H 08/21/18 11:05 Random Glucose 168 mg/dL (65-105) H 08/21/18 04:51 Calcium 9.5 mg/dL (8.4-10.2) 08/21/18 04:51 Total Bilirubin 0.5 mg/dl (0.2-1.3) 08/19/18 07:53 AST 15 U/L (14-36) 08/19/18 07:53 ALT 36 U/L (9-52) 08/19/18 07:53 Alkaline Phosphatase 85 U/L (38-126) 08/19/18 07:53 Total Protein 6.4 G/DL (6.3-8.2) 08/19/18 07:53 Albumin 3.7 g/dL (3.5-5.0) 08/19/18 07:53 Globulin 2.7 gm/dL (2.2-3.9) 08/19/18 07:53 Albumin/Globulin Ratio 1.4 (1.0-2.1) 08/19/18 07:53 C. difficile Ag & Toxin Negative (NEGATIVE) 08/14/18 08:08 Discharge Exam - Head Exam Head Exam: NORMAL INSPECTION Discharge Plan - Follow Up Plan Condition: FAIR Disposition: HOME/ ROUTINE Instructions: Exacerbation of COPD (DC) Referrals: Johnson Kerr DO [Primary Care Provider] -
== END 2018-08-21 13:20 | disposition home or self-care (01) | DRG 194 ==
LOC: H.TCU 22:35
PROVIDERS: ADMIT Internal Medicine Pulmonary Disease; ATTEND Internal Medicine Pulmonary Disease
PROC: 3E03329 Introduction of Other Anti-infective into Peripheral Vein, Percutaneous Approach (ICD-10-PCS; principal; 2018-08-13)
PROC: F07Z9FZ Gait Training/Functional Ambulation Treatment using Assistive, Adaptive, Supportive or Protective Equipment (ICD-10-PCS; 2018-08-13)
PROC: F08Z4FZ Home Management Treatment using Assistive, Adaptive, Supportive or Protective Equipment (ICD-10-PCS; 2018-08-13)
PROC: F07M6FZ Therapeutic Exercise Treatment of Musculoskeletal System - Whole Body using Assistive, Adaptive, Supportive or Protective Equipment (ICD-10-PCS; 2018-08-14)
DX: J18.9 Pneumonia, unspecified organism (principal); J44.0 Chronic obstructive pulmonary disease with (acute) lower respiratory infection; J44.1 Chronic obstructive pulmonary disease with (acute) exacerbation; E11.65 Type 2 diabetes mellitus with hyperglycemia; I10 Essential (primary) hypertension; I25.10 Atherosclerotic heart disease of native coronary artery without angina pectoris; M54.5 Low back pain; F17.210 Nicotine dependence, cigarettes, uncomplicated; Z59.0 Homelessness

== ENCOUNTER 2018-09-01 08:49 | Emergency (ER) | payer MEDICARE, BC ==
[2018-09-01 08:50] VITALS: PULSE 89; BMI 33.2
[2018-09-01 11:10] VITALS: BP 162/99; PULSE 93; RESP 21; TEMP 98.2; O2SAT 95
--- NOTE | 2018-09-01 11:41 | ED PDOC ---
HPI: Back Time Seen by Provider: 09/01/18 09:22 Chief Complaint (Nursing): Back Pain Chief Complaint (Provider): Chronic Back Pain History Per: Patient History/Exam Limitations: no limitations Onset/Duration Of Symptoms: Days (>365 ), Persistent, Worse Since (yesterday) Current Symptoms Are (Timing): Still Present Quality Of Discomfort: Dull, Aching Description Of Injury (Context): non-traumatic lower back pain without radiation Severity: Mild Previous Symptoms: Back Pain, Chronic Pain Additional Complaint(s): Pt presents to the ED with a history of chronic lower back pain for which she often treats herself with Excedrin; pt indicates that her pain is not necess arily worse today than it was over the last several weeks, but she did want to be evaluated at the hospital. There was no trauma and the back pain has been consistent and persistent for several years accord the patient. There is no radiation; the patient indicates that prolonged standing and lifting exacerbates the pain and that typically, the excedrin reduces the pain Past Medical History Reviewed: Historical Data, Nursing Documentation, Vital Signs Vital Signs: Last Vital Signs Temp 98.2 F 09/01/18 11:10 Pulse 93 H 09/01/18 11:10 Resp 21 09/01/18 11:10 BP 162/99 H 09/01/18 11:10 Pulse Ox 95 09/01/18 11:10 - Medical History PMH: Anxiety, Asthma, Back Problems, Bipolar Disorder, CHF, COPD, Depression, Diabetes, HTN, Hyperlipidemia, Hypothyroidism, Pneumonia, Schizophrenia Denies: Hepatitis, HIV, Chronic Kidney Disease, Seizures, Sexually Transmitted Disease - Surgical History Surgical History: Back Surgery, Cholecystectomy - Family History Family History: States: Unknown Family Hx - Immunization History Hx Tetanus Toxoid Vaccination: No Hx Influenza Vaccination: No Hx Pneumococcal Vaccination: No - Home Medications Home Medications: Ambulatory Orders Medication Instructions Recorded Aspirin [Ecotrin] 81 mg PO DAILY tabec 05/14/18 Donepezil [Aricept] 5 mg PO DAILY tab 05/14/18 Famotidine [Pepcid] 20 mg PO 1000,2200 tab 05/14/18 Fenofibrate [Tricor] 145 mg PO DAILY tab 05/14/18 Losartan [Cozaar] 100 mg PO DAILY tab 05/14/18 Benztropine [Cogentin] 0.5 mg PO Q12 07/30/18 Benzocaine/Menthol [Cepacol Sore 1 anabell PO Q3 PRN anabell 08/13/18 Throat] DULoxetine [Cymbalta] 60 mg PO DAILY ecc 08/13/18 Fluticasone Propionate [Flonase] 1 spr EMILY BID bottle 08/13/18 Furosemide [Lasix] 40 mg PO DAILY tab 08/13/18 LORazepam [Ativan] 1 mg PO Q8 PRN tab 08/13/18 amLODIPine [Norvasc] 10 mg PO DAILY tab 08/13/18 guaiFENesin [Mucinex LA] 600 mg PO Q12 tab 08/13/18 Acetaminophen [Tylenol 325mg tab] 650 mg PO Q6 PRN tab 08/21/18 Aluminum Hydroxide/Magnesium 30 ml PO Q6 PRN udc 08/21/18 [Maalox Plus 30 ml] Clotrimazole 1% Cream [Lotrimin 1% 1 applic TOP BID tube 08/21/18 CREAM] MetFORMIN [glucoPHAGE] 1,000 mg PO BIDWM tab 08/21/18 Potassium Chloride [K-Dur 20 mEq 20 meq PO DAILY tab 08/21/18 ER Tab] SITagliptin [Januvia] 100 mg PO DAILY tab 08/21/18 Acetaminophen [Tylenol 325mg tab] 650 mg PO TID #30 tab 09/01/18 Cyclobenzaprine [Flexeril] 10 mg PO TID #27 tab 09/01/18 Diclofenac Sodium 100 gm TP TID #100 gr 09/01/18 Diclofenac Sodium [Diclofenac 100 mg PO BID #40 tab.er.24h 09/01/18 Sodium ER] - Allergies Allergies/Adverse Reactions: Allergies Allergy/AdvReac Type Severity Reaction Status Date / Time No Known Allergies Allergy Verified 07/30/18 10:02 Review of Systems Constitutional: Negative for: Fever, Chills, Sweats Musculoskeletal: Positive for: Back Pain Physical Exam - Reviewed Nursing Documentation Reviewed: Yes Vital Signs Reviewed: Yes - Physical Exam Appears: Positive for: Well, Non-toxic, No Acute Distress. Negative for: In Acute Distress Head Exam: Positive for: ATRAUMATIC, NORMAL INSPECTION, NORMOCEPHALIC Skin: Positive for: Normal Color, Warm, Dry Eye Exam: Positive for: Normal appearance, EOMI, PERRL Neck: Positive for: Normal, Painless ROM, Supple, Trachea Midline. Negative for: Decreased ROM, Pain On Movement Of Neck Cardiovascular/Chest: Positive for: Regular Rate, Rhythm, Chest Non Tender. Negative for: Edema, Gallop, Murmur, Bradycardia, Tachycardia Respiratory: Positive for: Normal Breath Sounds. Negative for: Decreased Breath Sounds, Accessory Muscle Use, Crackles, Rales, Rhonchi, Stridor, Wheezing, Respiratory Distress Pulses-Carotid (L): 2+ Pulses-Carotid (R): 2+ Pulses-Radial (L): 2+ Pulses-Radial (R): 2+ Gastrointestinal/Abdominal: Positive for: Normal Exam Back: Positive for: Normal Inspection (there is the presences of lumbosacral spasm on palpation), Decreased ROM. Negative for: L CVA Tenderness, R CVA Tenderness, Vertebral Tenderness Extremity: Positive for: Normal ROM. 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 Disposition - Clinical Impression Clinical Impression: Back pain, Chronic back pain Clinical Impression: (Ruled Out): Lumbar radiculopathy - Patient ED Disposition Is Patient to be Admitted: No Doctor Will See Patient In The: Office Counseled Patient/Family Regarding: Studies Performed, Diagnosis, Need For Followup - Disposition Disposition: Routine/Home Disposition Time: 11:45 Condition: STABLE Prescriptions: Acetaminophen [Tylenol 325mg tab] 650 mg PO TID #30 tab Cyclobenzaprine [Flexeril] 10 mg PO TID #27 tab Diclofenac Sodium [Diclofenac Sodium ER] 100 mg PO BID #40 tab.er.24h Diclofenac Sodium 100 gm TP TID #100 gr Instructions: Chronic Pain (DC), Chronic Pain
== END 2018-09-01 12:15 | disposition home or self-care (01) ==
LOC: H.ER 08:49
DX: M54.9 Dorsalgia, unspecified (principal); E11.9 Type 2 diabetes mellitus without complications; Z79.84 Long term (current) use of oral hypoglycemic drugs; G89.29 Other chronic pain
CPT/HCPCS: 96372; 99283; J1100; J1885

== ENCOUNTER 2018-09-08 09:53 | Emergency (ER) | payer MEDICARE, BC ==
[2018-09-08 09:53] VITALS: PULSE 89; BMI 33.2
[2018-09-08 10:19] VITALS: TEMP 98.7; O2SAT 96
[2018-09-08 10:39] VITALS: PULSE 100; RESP 18
--- NOTE | 2018-09-08 13:16 | ED PDOC ---
HPI: Back Time Seen by Provider: 09/08/18 10:47 Chief Complaint (Nursing): Back Pain Chief Complaint (Provider): chronic back pain History Per: Patient History/Exam Limitations: no limitations Onset/Duration Of Symptoms: Days (>7 days) Current Symptoms Are (Timing): Still Present Quality Of Discomfort: "Pain" Severity: None Past Medical History Reviewed: Historical Data, Nursing Documentation, Vital Signs Vital Signs: Last Vital Signs Temp 98.7 F 09/08/18 10:17 Pulse 100 H 09/08/18 10:39 Resp 18 09/08/18 10:39 BP 180/110 H 09/08/18 11:53 Pulse Ox 96 09/08/18 10:17 - Medical History PMH: Anxiety, Asthma, Back Problems, Bipolar Disorder, CHF, COPD, Depression, Diabetes, HTN, Hyperlipidemia, Hypothyroidism, Pneumonia, Schizophrenia Denies: Hepatitis, HIV, Chronic Kidney Disease, Seizures, Sexually Transmi tted Disease - Surgical History Surgical History: Back Surgery, Cholecystectomy - Family History Family History: States: Unknown Family Hx - Immunization History Hx Tetanus Toxoid Vaccination: No Hx Influenza Vaccination: No Hx Pneumococcal Vaccination: No - Home Medications Home Medications: Ambulatory Orders Medication Instructions Recorded Aspirin [Ecotrin] 81 mg PO DAILY tabec 05/14/18 Donepezil [Aricept] 5 mg PO DAILY tab 05/14/18 Famotidine [Pepcid] 20 mg PO 1000,2200 tab 05/14/18 Fenofibrate [Tricor] 145 mg PO DAILY tab 05/14/18 Losartan [Cozaar] 100 mg PO DAILY tab 05/14/18 Benztropine [Cogentin] 0.5 mg PO Q12 07/30/18 Benzocaine/Menthol [Cepacol Sore 1 anabell PO Q3 PRN anabell 08/13/18 Throat] DULoxetine [Cymbalta] 60 mg PO DAILY ecc 08/13/18 Fluticasone Propionate [Flonase] 1 spr EMILY BID bottle 08/13/18 Furosemide [Lasix] 40 mg PO DAILY tab 08/13/18 LORazepam [Ativan] 1 mg PO Q8 PRN tab 08/13/18 amLODIPine [Norvasc] 10 mg PO DAILY tab 08/13/18 guaiFENesin [Mucinex LA] 600 mg PO Q12 tab 08/13/18 Acetaminophen [Tylenol 325mg tab] 650 mg PO Q6 PRN tab 08/21/18 Aluminum Hydroxide/Magnesium 30 ml PO Q6 PRN udc 08/21/18 [Maalox Plus 30 ml] Clotrimazole 1% Cream [Lotrimin 1% 1 applic TOP BID tube 08/21/18 CREAM] MetFORMIN [glucoPHAGE] 1,000 mg PO BIDWM tab 08/21/18 Potassium Chloride [K-Dur 20 mEq 20 meq PO DAILY tab 08/21/18 ER Tab] SITagliptin [Januvia] 100 mg PO DAILY tab 08/21/18 Acetaminophen [Tylenol 325mg tab] 650 mg PO TID #30 tab 09/01/18 Cyclobenzaprine [Flexeril] 10 mg PO TID #27 tab 09/01/18 Diclofenac Sodium 100 gm TP TID #100 gr 09/01/18 Diclofenac Sodium [Diclofenac 100 mg PO BID #40 tab.er.24h 09/01/18 Sodium ER] Cyclobenzaprine [Flexeril] 10 mg PO TID #27 tab 09/08/18 - Allergies Allergies/Adverse Reactions: Allergies Allergy/AdvReac Type Severity Reaction Status Date / Time No Known Allergies Allergy Verified 09/08/18 10:24 Review of Systems Constitutional: Negative for: Fever, Chills, Sweats Gastrointestinal: Negative for: Nausea, Vomiting, Abdominal Pain Musculoskeletal: Positive for: Back Pain Physical Exam - Reviewed Nursing Documentation Reviewed: Yes Vital Signs Reviewed: Yes - Physical Exam Appears: Positive for: Well, Non-toxic, No Acute Distress, Uncomfortable Head Exam: Positive for: ATRAUMATIC Skin: Positive for: Normal Color, Warm, Dry Eye Exam: Positive for: Normal appearance, EOMI, PERRL. Negative for: Nystagmus Neck: Positive for: Normal, Painless ROM, Supple. Negative for: Decreased ROM Cardiovascular/Chest: Positive for: Regular Rate, Rhythm, Chest Non Tender. Negative for: Edema, Gallop, Murmur, Bradycardia, Tachycardia Respiratory: Positive for: Normal Breath Sounds. Negative for: Decreased Breath Sounds, Accessory Muscle Use, Crackles, Rales, Rhonchi, Stridor, Wheezing, Respiratory Distress Pulses-Carotid (L): 2+ Pulses-Carotid (R): 2+ Pulses-Radial (L): 2+ Pulses-Radial (R): 2+ Gastrointestinal/Abdominal: Positive for: Normal Exam Back: Positive for: Normal Inspection. 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; pt acknowledged understanding seeks refill today no refill provided pt is hypertensive as well tx with hydraulizine Disposition - Clinical Impression Clinical Impression: Chronic back pain greater than 3 months duration - Patient ED Disposition Is Patient to be Admitted: No Doctor Will See Patient In The: ED Counseled Patient/Family Regarding: Studies Performed, Diagnosis, Need For Followup - Disposition Referrals: Johnson Kerr DO [Medical Doctor] - Disposition: Routine/Home Disposition Time: 14:48 Condition: STABLE Prescriptions: Cyclobenzaprine [Flexeril] 10 mg PO TID #27 tab Instructions: Chronic Pain Forms: [employer] (Guatemalan)
[2018-09-08 15:18] VITALS: BP 165/107
== END 2018-09-08 15:20 | disposition home or self-care (01) ==
LOC: H.ER 09:53
DX: M54.9 Dorsalgia, unspecified (principal)
CPT/HCPCS: 96372; 99283; J1100; J1885

== ENCOUNTER 2018-09-21 06:46 | Emergency (ER) | payer MEDICARE, BC ==
[2018-09-21 06:46] VITALS: PULSE 89; BMI 33.2
--- NOTE | 2018-09-21 07:29 | ED PDOC ---
HPI: Back Time Seen by Provider: 09/21/18 07:05 Chief Complaint (Nursing): Back Pain Additional Complaint(s): Beth Jarrett is a 58 year old female with a past medical history of back problems, bipolar disorder, HTN, HLD and diabetes, who presents to the emergency department complaining of sharp, throbbing constant lower back pain that is worse with movement, onset is x2 months. Patient states she has been taking Tramadol with minimal relief. She saw her PMD earlier this week, who prescribed her more Tramadol. Patient states this is her 3rd visit this month to the ED for back pain. She denies fever, headache, chest pain, shortness of breath, vomiting, diarrhea, numbness, weakness, or incontinence. PMD: Johnson Kerr Past Medical History Reviewed: Historical Data, Nursing Documentation, Vital Signs Vital Signs: Last Vital Signs Temp 98.3 F 09/21/18 06:54 Pulse 114 H 09/21/18 06:54 Resp 18 09/21/18 06:54 BP 167/113 H 09/21/18 06:54 Pulse Ox 94 L 09/21/18 06:54 - Medical History PMH: Anxiety, Asthma, Back Problems, Bipolar Disorder, CHF, COPD, Depression, Diabetes, HTN, Hyperlipidemia, Hypothyroidism, Pneumonia, Schizophrenia Denies: Hepatitis, HIV, Chronic Kidney Disease, Seizures, Sexually Transmitted Disease - Surgical History Surgical History: Back Surgery, Cholecystectomy, Other surgeries: Ankle reconstruction,. lumbar fusion - Family History Family History: States: Unknown Family Hx - Immunization History Hx Tetanus Toxoid Vaccination: No Hx Influenza Vaccination: No Hx Pneumococcal Vaccination: No - Home Medications Home Medications: Ambulatory Orders Medication Instructions Recorded Aspirin [Ecotrin] 81 mg PO DAILY tabec 05/14/18 Donepezil [Aricept] 5 mg PO DAILY tab 05/14/18 Famotidine [Pepcid] 20 mg PO 1000,2200 tab 05/14/18 Fenofibrate [Tricor] 145 mg PO DAILY tab 05/14/18 Losartan [Cozaar] 100 mg PO DAILY tab 05/14/18 Benztropine [Cogentin] 0.5 mg PO Q12 07/30/18 Benzocaine/Menthol [Cepacol Sore 1 anabell PO Q3 PRN anabell 08/13/18 Throat] DULoxetine [Cymbalta] 60 mg PO DAILY ecc 08/13/18 Fluticasone Propionate [Flonase] 1 spr EMILY BID bottle 08/13/18 Furosemide [Lasix] 40 mg PO DAILY tab 08/13/18 LORazepam [Ativan] 1 mg PO Q8 PRN tab 08/13/18 amLODIPine [Norvasc] 10 mg PO DAILY tab 08/13/18 guaiFENesin [Mucinex LA] 600 mg PO Q12 tab 08/13/18 Acetaminophen [Tylenol 325mg tab] 650 mg PO Q6 PRN tab 08/21/18 Aluminum Hydroxide/Magnesium 30 ml PO Q6 PRN udc 08/21/18 [Maalox Plus 30 ml] Clotrimazole 1% Cream [Lotrimin 1% 1 applic TOP BID tube 08/21/18 CREAM] MetFORMIN [glucoPHAGE] 1,000 mg PO BIDWM tab 08/21/18 Potassium Chloride [K-Dur 20 mEq 20 meq PO DAILY tab 08/21/18 ER Tab] SITagliptin [Januvia] 100 mg PO DAILY tab 08/21/18 Acetaminophen [Tylenol 325mg tab] 650 mg PO TID #30 tab 09/01/18 Cyclobenzaprine [Flexeril] 10 mg PO TID #27 tab 09/01/18 Diclofenac Sodium 100 gm TP TID #100 gr 09/01/18 Diclofenac Sodium [Diclofenac 100 mg PO BID #40 tab.er.24h 09/01/18 Sodium ER] Cyclobenzaprine [Flexeril] 10 mg PO TID #27 tab 09/08/18 oxyCODONE/Acetaminophen [Percocet 1 ea PO TID #10 tab 09/21/18 5/325 mg Tab] - Allergies Allergies/Adverse Reactions: Allergies Allergy/AdvReac Type Severity Reaction Status Date / Time No Known Allergies Allergy Verified 09/08/18 10:24 Review of Systems ROS Statement: Except As Marked, All Systems Reviewed And Found Negative Constitutional: Negative for: Fever Cardiovascular: Negative for: Chest Pain Respiratory: Negative for: Shortness of Breath Gastrointestinal: Negative for: Vomiting, Diarrhea Genitourinary Female: Negative for: Incontinence Musculoskeletal: Positive for: Back Pain Neurological: Negative for: Weakness, Numbness, Headache Physical Exam - Reviewed Nursing Documentation Reviewed: Yes Vital Signs Reviewed: Yes - Physical Exam Appears: Positive for: Non-toxic, No Acute Distress Head Exam: Positive for: ATRAUMATIC Skin: Positive for: Normal Color, Warm, Dry Eye Exam: Positive for: Normal appearance, EOMI, PERRL Neck: Positive for: Normal, Supple Cardiovascular/Chest: Positive for: Regular Rate, Rhythm. Negative for: Murmur Respiratory: Positive for: Normal Breath Sounds. Negative for: Respiratory Distress Gastrointestinal/Abdominal: Positive for: Normal Exam, Soft. Negative for: Tenderness Back: Positive for: Other (Midline incision around midline area with surrounding tenderness; (-) induration, eyrthema, or warmth) Extremity: Positive for: Normal ROM. Negative for: Pedal Edema, Deformity Neurologic/Psych: Positive for: Alert, Oriented, Gait (steady), Other (strength is equal and intact in bilateral lower extremities) - ECG O2 Sat by Pulse Oximetry: 94 (RA) Pulse Ox Interpretation: Abnormal Medical Decision Making Medical Decision Making: Time: 718 Impression: lower back pain Plan: --CT Lumbar spine without contrast --Toradol 30 mg IM Prior ER visits reviewed, where patient had blood work and x-ray performed. Will require CT imaging of the Lumbar spine. CT Lumbar spine FINDINGS: VERTEBRAE: Redemonstrated is bilateral laminectomy L5-S1 level and 3 level posterior fixation with in situ short-segment bilateral Ceron rods are attached to the right and left pedicles of the L4, L5 and S1 segments.. There are bilateral posterior fusion masses that extend over the fused levels. The DISCS/SPINAL CANAL/NEURAL FORAMINA: . There is persistent slight anterior subluxation L5 over S1. Intradiscal calcification with endplate eburnation.. Note that the central canal is not well delineated over the fused levels due to significant streak and beam hardening artifact arising from posterior fixation hardware. The the overall central bony canal appears adequate however. The facets are hypertrophic with significant bilateral foraminal stenosis. At the L4-L5 level, there is minor posterior disc space narrowing. Overall central bony canal and exit foramina are adequate. At the L3-L4 level, there is posterior disc space narrowing. No disc herniation or significant disc bulge. Facet joints also hypertrophic at this level. Proximal exit foramina are marginal to slightly narrowed. At the L2-L3 level, there is degenerative chronic appearing Schmorl's node formation inferior L2 endplate with endplate eburnation and vacuum disc phenomena. Mild posterior disc space narrowing. No disc herniation or significant disc bulge. PARASPINAL SOFT TISSUES: Unremarkable. OTHER FINDINGS: Linear scarring seen in the medial aspect left posterior sulcus Urinary bladder is incompletely distended which presumably accounts for thick- walled appearance. Correlation with urinalysis to exclude cystitis. IMPRESSION: Bilateral laminectomy L5-S1 with a 3 level fusion. Hardware appears intact. The overall central bony canal appears adequate however there are fairly significant significant bilateral foraminal stenotic changes at this level. See above discussion for additional details and findings. --------- [id number] re-eval improved w lidoderm patch but she knows her insurance doesnt cover lidoderm patches No weakness or numbness, as of now no indication for emergent MRI needed given stable gait, normal neuro exam, will Rx percocet for 3 days given recurrent visits and followup pain management Scribe Attestation: Documented by Elio Staley, acting as a scribe for Cisco Hoyt III, DO. Provider Scribe Attestation: All medical record entries made by the Scribe were at my direction and personally dictated by me. I have reviewed the chart and agree that the record accurately reflects my personal performance of the history, physical exam, medical decision making, and the department course for this patient. I have also personally directed, reviewed, and agree with the discharge instructions and disposition. Disposition - Clinical Impression Clinical Impression: Back pain - Patient ED Disposition Is Patient to be Admitted: No Counseled Patient/Family Regarding: Studies Performed, Diagnosis - Disposition Disposition: Routine/Home Disposition Time: 10:42 Condition: STABLE Additional Instructions: Followup with pain management, your spine surgeon, and PMD in next several days. Return to ER for any worse or new symptoms, weakness, numbness, difficulty walking, fever or any concern Prescriptions: oxyCODONE/Acetaminophen [Percocet 5/325 mg Tab] 1 ea PO TID #10 tab Instructions: Low Back Pain in Adults, Spinal Fusion Forms: [employer] (Uzbek)
[2018-09-21] MEDS ORDERED: Lidocaine 5% Patch TD STA (08:12)
[2018-09-21] MEDS ORDERED: Lidocaine 5% Patch TD ONE (09:24)
--- NOTE | 2018-09-21 10:23 | CT ---
Date of service: 09/21/2018 PROCEDURE: CT Lumbar Spine without contrast HISTORY: Persistent low back pain, hx Lumbar fusion COMPARISON: Comparison made with prior abdominal radiographs 09/18/2018 TECHNIQUE: Axial computed tomography images were obtained of the lumbar spine without the use of intravenous contrast. Coronal and sagittal reformatted images were created and reviewed. Radiation dose: Total exam DLP = 1671.59 mGy-cm. This CT exam was performed using one or more of the following dose reduction techniques: Automated exposure control, adjustment of the mA and/or kV according to patient size, and/or use of iterative reconstruction technique. FINDINGS: VERTEBRAE: Redemonstrated is bilateral laminectomy L5-S1 level and 3 level posterior fixation with in situ short-segment bilateral Ceron rods are attached to the right and left pedicles of the L4, L5 and S1 segments.. There are bilateral posterior fusion masses that extend over the fused levels. The DISCS/SPINAL CANAL/NEURAL FORAMINA: . There is persistent slight anterior subluxation L5 over S1. Intradiscal calcification with endplate eburnation.. Note that the central canal is not well delineated over the fused levels due to significant streak and beam hardening artifact arising from posterior fixation hardware. The the overall central bony canal appears adequate however. The facets are hypertrophic with significant bilateral foraminal stenosis. At the L4-L5 level, there is minor posterior disc space narrowing. Overall central bony canal and exit foramina are adequate. At the L3-L4 level, there is posterior disc space narrowing. No disc herniation or significant disc bulge. Facet joints also hypertrophic at this level. Proximal exit foramina are marginal to slightly narrowed. At the L2-L3 level, there is degenerative chronic appearing Schmorl's node formation inferior L2 endplate with endplate eburnation and vacuum disc phenomena. Mild posterior disc space narrowing. No disc herniation or significant disc bulge. PARASPINAL SOFT TISSUES: Unremarkable. OTHER FINDINGS: Linear scarring seen in the medial aspect left posterior sulcus Urinary bladder is incompletely distended which presumably accounts for thick-walled appearance. Correlation with urinalysis to exclude cystitis. IMPRESSION: Bilateral laminectomy L5-S1 with a 3 level fusion. Hardware appears intact. The overall central bony canal appears adequate however there are fairly significant significant bilateral foraminal stenotic changes at this level. See above discussion for additional details and findings.
[2018-09-21 10:34] VITALS: BP 151/87; PULSE 88; TEMP 98.5
[2018-09-21] MEDS ORDERED: Oxycodone/Acetaminophen 5/325 mg Tab PO STA (10:39)
[2018-09-21] MEDS ORDERED: Oxycodone/Acetaminophen 5/325 mg Tab ONE (10:55)
[2018-09-21 11:28] VITALS: RESP 18; O2SAT 95
== END 2018-09-21 11:10 | disposition home or self-care (01) ==
LOC: H.ER 06:46
DX: M54.9 Dorsalgia, unspecified (principal); E11.9 Type 2 diabetes mellitus without complications; Z79.84 Long term (current) use of oral hypoglycemic drugs
CPT/HCPCS: 72131; 96372; 99283; J1885

== ENCOUNTER 2018-09-26 08:01 | Inpatient (IN) | payer MEDICARE, BC ==
[2018-09-26 08:02] VITALS: PULSE 89
[2018-09-26 08:05] VITALS: BMI 35.9
[2018-09-26] MEDS ORDERED: Sodium Chloride 0.9% 1,000 ML IV STA (08:13)
--- NOTE | 2018-09-26 08:19 | ED PDOC ---
HPI: Abdomen Time Seen by Provider: 09/26/18 08:10 Chief Complaint (Nursing): GI Problem Chief Complaint (Provider): Vomiting, Abdominal Pain History Per: Patient History/Exam Limitations: no limitations Onset/Duration Of Symptoms: Sudden Onset (0600) Current Symptoms Are (Timing): Still Present Additional Complaint(s): Beth Jarrett is a 58 year old female presenting via EMS for evaluation of vomiting and abdominal pain onset at 0600. Patient denies any associated fevers, chills, or diarrhea. Patient reports taking medication this morning, but states he vomited soon thereafter. Past Medical History Reviewed: Historical Data, Nursing Documentation, Vital Signs Vital Signs: Last Vital Signs Temp 96 F L 09/26/18 08:05 Pulse 84 09/26/18 08:05 Resp 17 09/26/18 08:05 BP 214/125 H 09/26/18 08:05 Pulse Ox 95 09/26/18 08:05 - Medical History PMH: Anxiety, Asthma, Back Problems, Bipolar Disorder, CHF, COPD, Depression, Diabetes, HTN, Hyperlipidemia, Hypothyroidism, Pneumonia, Schizophrenia Denies: Hepatitis, HIV, Chronic Kidney Disease, Seizures, Sexually Transmitted Disease - Surgical History Surgical History: Back Surgery, Cholecystectomy, - Family History Family History: States: Unknown Family Hx - Immunization History Hx Tetanus Toxoid Vaccination: No Hx Influenza Vaccination: No Hx Pneumococcal Vaccination: No - Home Medications Home Medications: Ambulatory Orders Medication Instructions Recorded Aspirin [Ecotrin] 81 mg PO DAILY tabec 05/14/18 Donepezil [Aricept] 5 mg PO DAILY tab 05/14/18 Famotidine [Pepcid] 20 mg PO 1000,2200 tab 05/14/18 Fenofibrate [Tricor] 145 mg PO DAILY tab 05/14/18 Losartan [Cozaar] 100 mg PO DAILY tab 05/14/18 Benztropine [Cogentin] 0.5 mg PO Q12 07/30/18 Benzocaine/Menthol [Cepacol Sore 1 anabell PO Q3 PRN anabell 08/13/18 Throat] DULoxetine [Cymbalta] 60 mg PO DAILY ecc 08/13/18 Fluticasone Propionate [Flonase] 1 spr EMILY BID bottle 08/13/18 Furosemide [Lasix] 40 mg PO DAILY tab 08/13/18 LORazepam [Ativan] 1 mg PO Q8 PRN tab 08/13/18 amLODIPine [Norvasc] 10 mg PO DAILY tab 08/13/18 guaiFENesin [Mucinex LA] 600 mg PO Q12 tab 08/13/18 Acetaminophen [Tylenol 325mg tab] 650 mg PO Q6 PRN tab 08/21/18 Aluminum Hydroxide/Magnesium 30 ml PO Q6 PRN udc 08/21/18 [Maalox Plus 30 ml] Clotrimazole 1% Cream [Lotrimin 1% 1 applic TOP BID tube 08/21/18 CREAM] MetFORMIN [glucoPHAGE] 1,000 mg PO BIDWM tab 08/21/18 Potassium Chloride [K-Dur 20 mEq 20 meq PO DAILY tab 08/21/18 ER Tab] SITagliptin [Januvia] 100 mg PO DAILY tab 08/21/18 Acetaminophen [Tylenol 325mg tab] 650 mg PO TID #30 tab 09/01/18 Cyclobenzaprine [Flexeril] 10 mg PO TID #27 tab 09/01/18 Diclofenac Sodium 100 gm TP TID #100 gr 09/01/18 Diclofenac Sodium [Diclofenac 100 mg PO BID #40 tab.er.24h 09/01/18 Sodium ER] Cyclobenzaprine [Flexeril] 10 mg PO TID #27 tab 09/08/18 oxyCODONE/Acetaminophen [Percocet 1 ea PO TID #10 tab 09/21/18 5/325 mg Tab] - Allergies Allergies/Adverse Reactions: Allergies Allergy/AdvReac Type Severity Reaction Status Date / Time No Known Allergies Allergy Verified 09/08/18 10:24 Review of Systems ROS Statement: Except As Marked, All Systems Reviewed And Found Negative Constitutional: Negative for: Fever, Chills Gastrointestinal: Positive for: Nausea, Vomiting, Abdominal Pain. Negative for: Diarrhea Physical Exam - Reviewed Nursing Documentation Reviewed: Yes Vital Signs Reviewed: Yes - Physical Exam Appears: Positive for: Non-toxic, No Acute Distress Head Exam: Positive for: ATRAUMATIC, NORMAL INSPECTION, NORMOCEPHALIC Skin: Positive for: Normal Color, Warm, Dry. Negative for: Rash Eye Exam: Positive for: EOMI, Normal appearance, PERRL ENT: Positive for: Normal ENT Inspection (moist mucous membranes) Neck: Positive for: Normal, Painless ROM, Supple Cardiovascular/Chest: Positive for: Regular Rate, Rhythm. Negative for: Murmur Respiratory: Positive for: Normal Breath Sounds. Negative for: Respiratory Distress Gastrointestinal/Abdominal: Positive for: Soft, Tenderness (epigastric) Back: Positive for: Normal Inspection. Negative for: L CVA Tenderness, R CVA Tenderness, Vertebral Tenderness Extremity: Positive for: Normal ROM. Negative for: Pedal Edema, Deformity Neurologic/Psych: Positive for: Alert, Oriented. Negative for: Motor/Sensory Deficits - Laboratory Results Result Diagrams: 09/26/18 09:55 - ECG O2 Sat by Pulse Oximetry: 95 (RA) Pulse Ox Interpretation: Normal Medical Decision Making Medical Decision Making: Plan: Accucheck shows 180 mg/dL. BP elevated at 214/125 MMHG, but will recheck after patient stops vomiting. Will consider diabetic gastroparesis, as well as GI pathology, such as gastritis, and colitis. -EKG -CMP -CBC -Pepcid 20mg IVP -1L NS at 200 ml/hr -Zofran 4mg IVP -Reevaluate Multiple attempts at peripheral IV access as well as EJ with no success. Right femoral central line attempted unsuccessfully. Will consult IR for PICC line as pt needs IV access and fluids. Scribe Attestation: Documented by Tony Burr, acting as a scribe for Nj Morfin MD. Provider Scribe Attestation: All medical record entries made by the Scribe were at my direction and personally dictated by me. I have reviewed the chart and agree that the record accurately reflects my personal performance of the history, physical exam, medical decision making, and the department course for this patient. I have also personally directed, reviewed, and agree with the discharge instructions and disposition. Procedures - Time-Out Type of Procedure: Central line Correct Patient: Yes Correct Procedure: Yes - Central Line Central Line Lumen: triple Central Line Procedure: betadine prep, sterile drapes applied Central Line Postion: femoral (R) Anesthesia: Lidocaine cc's of anesthesia: 3 Progress: Unable to thread J wire despite obtaining venous access with good blood return. Will send for PICC Disposition - Clinical Impression Clinical Impression: Intractable vomiting, Hypertension, Diabetes - Patient ED Disposition Is Patient to be Admitted: Yes - Disposition Disposition Time: 12:44 Condition: FAIR Forms: [facility] ([facility]) - Pt Status Changed To: Hospital Disposition Of: Observation - POA Present On Arrival: None
[2018-09-26 10:18] LABS: BASO % 0.8 % (0.0-2.0); EOS % 0.1 % (0.0-4.0); HEMOGLOBIN 14.6 g/dL (12.0-16.0); LYMPH # 0.5 K/uL (1.0-4.3); LYMPH % 10.5 % (20.0-40.0); MEAN CELL VOLUME 91.5 fl (81.0-99.0); MEAN CORPUSCULAR HEMOGLOBIN 30.5 pg (27.0-31.0); MEAN CORPUSCULAR HGB CONC 33.4 g/dL (33.0-37.0); MEAN PLATELET VOLUME 11.1 fl (7.2-11.7); MONO # 0.4 K/uL (0.0-0.8); MONO % 8.2 % (0.0-10.0); NEUT # 4.1 K/uL (1.8-7.0); NEUT % 80.4 % (50.0-75.0); RBC 4.79 Mil/uL (3.80-5.20); RED CELL DISTRIBUTION WIDTH 15.7 % (11.5-14.5)
[2018-09-26] MEDS ORDERED: Lidocaine 1% Inj (20ml) ONE (11:52)
--- NOTE | 2018-09-26 12:24 | PCM.SURG1 ---
Surgeon's Initial Post Op Note - Surgeon's Notes Surgeon: Cale De La Rosa MD Pediatric Radiologist: NONE Type of Anesthesia: Local Pre-Operative Diagnosis: Poor venous access Operative Findings: US showed a patent right basilic vein Post-Operative Diagnosis: Poor venous access Operation Performed: SIngle lumen picc right arm, 35 CM Specimen/Specimens Removed: nONE Estimated Blood Loss: EBL {In ML}: 2 Blood Products Given: N/A Drains Used: No Drains Post-Op Condition: Fair Date of Surgery/Procedure: 09/26/18 Time of Surgery/Procedure: 12:20
--- NOTE | 2018-09-26 12:26 | RAD ---
Date of service: 09/26/2018 HISTORY: cough COMPARISON: 08/18/2018. Two-view chest FINDINGS: LUNGS: No active pulmonary disease. PLEURA: No significant pleural effusion identified, no pneumothorax apparent. CARDIOVASCULAR: No atherosclerotic calcification present Normal. OSSEOUS STRUCTURES: No significant abnormalities. VISUALIZED UPPER ABDOMEN: Normal. OTHER FINDINGS: None. IMPRESSION: No active disease. Resolved infiltrates/right pleural effusion.
[2018-09-26 13:51] LABS: ALB/GLOB RATIO 1.4 (1.0-2.1); ALBUMIN 3.9 g/dL (3.5-5.0); ALT/SGPT 46 U/L (9-52); AST/SGOT 34 U/L (14-36); BLOOD UREA NITROGEN 10 mg/dl (7-17); CALCIUM 8.7 mg/dL (8.4-10.2); GFR NON-AFRICAN AMERICAN > 60
[2018-09-26] MEDS ORDERED: Dextrose 50% SYRINGE Inj (50 ml) IV PRN (14:06)
[2018-09-26] MEDS ORDERED: Glucagon Recombinant 1 mg Inj IM PRN (14:06)
[2018-09-26] MEDS ORDERED: Potassium Chloride 20 mEq ER Tab PO ONE ×2 (14:18→16:16)
--- NOTE | 2018-09-26 14:24 | VASCULAR ---
PROCEDURE: Date of procedure: 09/26/2018 Procedure: 1. Placement of a right arm PICC with ultrasound and fluoroscopic guidance, CPT 74822 2. PICC tip confirmation with spot radiograph and is in the superior vena cava Medications: 1 percent lidocaine Total Fluoro time: 5.2 Seconds Radiation: 0.68 MGy EBL: 2 cc HISTORY: Poor venous access TECHNIQUE: Following informed consent and procedure time-out, the patient was placed supine on the interventional table and the right arm prepped and draped in the usual sterile fashion. Ultrasound showed a patent and compressible right basilic vein. After the skin was anesthetized with lidocaine, the basilic vein was accessed with micro micropuncture technique using ultrasound guidance. A guidewire was then advanced under fluoroscopic guidance into the superior vena cava. An image documenting ultrasound guidance for vascular access was permanently saved. The length of the single-lumen 4 Norwegian PICC was trimmed to 35 centimeters and advanced through a peel-away sheath. The PICC was position with tip of PICC confirm a spot radiograph the superior vena cava. The PICC was secured to the patient's skin. The PICC was flushed. A biopatch and sterile dressing was applied. IMPRESSION: Placement of a single-lumen 4 Norwegian PICC trimmed to 35 centimeters via right basilic vein. The tip of the PICC is confirmed with spot radiograph and is in the superior vena cava.
--- NOTE | 2018-09-26 15:53 | CP.PCM.HP ---
<Rosalina Monsalve - Last Filed: 09/26/18 15:54> History of Present Illness - History of Present Illness History of Present Illness: 58 yo F with hx diabetes, hypertension, bipolar d/o, hypothyroidism, admitted due to intractable vomiting and hypertensive urgency. Pt relates she was eating a biscuit and drinking orange juice at [employer] when she got nauseous and started to vomit. She vomited 2x , non bloody, nonbilious liquid/food particles. She felt weak and sick, and called 911, and came to ED. In ED, she was found to have elevated BP, and vomited again. It was difficult to obtain IV access (multiple peripheral lines, as well as IJ and femoral attempted), and she had PICC line placed in RUE for access. When seen in ED, she had gotten zofran, had stopped vomiting, and stated she felt better but was still feeling weak and bad. Denies chest pain, shortness of breath, difficulty urinating or stooling. Med hx: DM2, HTN, anxiety, bipolar, HLD Surg hx: , hysterectomy, ankle surg, back surgery Fam hx: noncontributory Social hx: 1 ppd smoker x 30 yrs, denies alcohol and drug use Allergies: nkda Meds: not fully complinant, see full med rec. states she takes norvasc, pepcid, ativan, metformin, aricept, a monthly injection for bipolar d/o Present on Admission - Present on Admission Any Indicators Present on Admission: No Review of Systems - Review of Systems All systems: reviewed and no additional remarkable complaints except Review of Systems: as per hpi Past Patient History - Infectious Disease Hx of Infectious Diseases: None - Past Medical History & Family History Past Medical History?: Yes - Past Social History Smoking Status: Heavy Smoker > 10 Cigarettes Daily - CARDIAC Hx Congestive Heart Failure: Yes Hx Hypercholesterolemia: Yes Hx Hypertension: Yes - PULMONARY Hx Asthma: Yes Hx Chronic Obstructive Pulmonary Disease (COPD): Yes Hx Pneumonia: Yes - NEUROLOGICAL Hx Seizures: No - HEENT Hx HEENT Problems: No - RENAL Hx Chronic Kidney Disease: No - ENDOCRINE/METABOLIC Hx Hypothyroidism: Yes - HEMATOLOGICAL/ONCOLOGICAL Hx Human Immunodeficiency Virus (HIV): No - INTEGUMENTARY Hx Dermatological Problems: No - MUSCULOSKELETAL/RHEUMATOLOGICAL Hx Musculoskeletal Disorders: Yes Hx Back Pain: Yes Hx Falls: Yes Other/Comment: back surgery - GASTROINTESTINAL Hx Gastrointestinal Disorders: Yes - GENITOURINARY/GYNECOLOGICAL Hx Sexually Transmitted Disorders: No - PSYCHIATRIC Hx Anxiety: Yes Hx Bipolar Disorder: Yes Hx Depression: Yes Hx Schizophrenia: Yes - SURGICAL HISTORY Hx Cholecystectomy: Yes - ANESTHESIA Hx Anesthesia: Yes Hx Anesthesia Reactions: No Hx Malignant Hyperthermia: No Meds Allergies/Adverse Reactions: Allergies Allergy/AdvReac Type Severity Reaction Status Date / Time No Known Allergies Allergy Verified 09/08/18 10:24 Physical Exam - Constitutional Appears: No Acute Distress - Head Exam Head Exam: NORMAL INSPECTION - Eye Exam Eye Exam: Normal appearance - ENT Exam ENT Exam: Mucous Membranes Moist - Respiratory Exam Respiratory Exam: NORMAL BREATHING PATTERN Additional comments: coarse breath sounds bilaterally - Cardiovascular Exam Cardiovascular Exam: REGULAR RHYTHM - GI/Abdominal Exam GI & Abdominal Exam: Normal Bowel Sounds, Soft. absent: Tenderness - Back Exam Back exam: NORMAL INSPECTION. absent: CVA tenderness (L), CVA tenderness (R) - Neurological Exam Neurological exam: Alert - Skin Skin Exam: Dry, Warm Results - Vital Signs Recent Vital Signs: Last Vital Signs Temp 98.9 F 09/26/18 15:29 Pulse 104 H 09/26/18 15:29 Resp 18 09/26/18 15:29 BP 150/99 H 09/26/18 15:29 Pulse Ox 95 09/26/18 15:29 - Labs Result Diagrams: 09/26/18 09:55 09/26/18 13:15 Labs: Laboratory Results - last 24 hr 09/26/18 09/26/18 09/26/18 08:10 09:55 13:15 WBC 5.0 RBC 4.79 Hgb 14.6 D Hct 43.8 MCV 91.5 MCH 30.5 MCHC 33.4 RDW 15.7 H Plt Count 380 D MPV 11.1 Neut % (Auto) 80.4 H Lymph % (Auto) 10.5 L Woodward % (Auto) 8.2 Eos % (Auto) 0.1 Baso % (Auto) 0.8 Neut # (Auto) 4.1 Lymph # (Auto) 0.5 L Woodward # (Auto) 0.4 Eos # (Auto) 0.0 Baso # (Auto) 0.0 Sodium 141 Potassium 3.0 L Chloride 104 Carbon Dioxide 27 Anion Gap 13 BUN 10 Creatinine 0.4 L Est GFR ( Amer) > 60 Est GFR (Non-Af Amer) > 60 POC Glucose (mg/dL) 180 H Random Glucose 167 H Calcium 8.7 Total Bilirubin 0.2 AST 34 ALT 46 Alkaline Phosphatase 119 Total Protein 6.7 Albumin 3.9 Globulin 2.8 Albumin/Globulin Ratio 1.4 Influenza Typ A,B (EIA) 09/26/18 13:15 WBC RBC Hgb Hct MCV MCH MCHC RDW Plt Count MPV Neut % (Auto) Lymph % (Auto) Woodward % (Auto) Eos % (Auto) Baso % (Auto) Neut # (Auto) Lymph # (Auto) Woodward # (Auto) Eos # (Auto) Baso # (Auto) Sodium Potassium Chloride Carbon Dioxide Anion Gap BUN Creatinine Est GFR ( Amer) Est GFR (Non-Af Amer) POC Glucose (mg/dL) Random Glucose Calcium Total Bilirubin AST ALT Alkaline Phosphatase Total Protein Albumin Globulin Albumin/Globulin Ratio Influenza Typ A,B (EIA) Negative for flu a/b Assessment & Plan (2) Intractable vomiting Status: Acute (3) DM (diabetes mellitus) Status: Chronic (4) Hypertension Status: Chronic Priority: Medium - Assessment and Plan (Free Text) Plan: - Admitted to tele, tele monitoring - NPO except meds - D5 1/2 NS at 60 ml/hr - Abdominal u/s and flat plate XRAY - Resume home meds for htn, diabetes, hold metformin for now - insulin coverage scale - Resume ativan - Was hypoK, repleted in ED, monitor on morning labs - Duonebs - SCD Discussed w/ Dr. Coughlin. <Won Coughlin - Last Filed: 09/30/18 06:42> Results - Vital Signs Recent Vital Signs: Last Vital Signs Temp 98 F 09/30/18 04:30 Pulse 99 H 09/30/18 04:30 Resp 18 09/30/18 04:30 BP 165/100 H 09/30/18 04:30 Pulse Ox 95 09/30/18 04:30 - Labs Result Diagrams: 09/28/18 05:30 09/28/18 05:30 Labs: Laboratory Results - last 24 hr 09/29/18 09/29/18 09/29/18 11:10 16:07 21:29 POC Glucose (mg/dL) 230 H 202 H 282 H 09/30/18 05:49 POC Glucose (mg/dL) 253 H Assessment & Plan - Assessment and Plan (Free Text) Plan: I was present during evaluation and discussed with Dr Monsalve re plans of care and mgt. Won Coughlin M.D.
[2018-09-26] MEDS ORDERED: Albuterol-Ipratrop 3 mg / 0.5 (3 ml) UD INH PRN (16:00)
[2018-09-26] MEDS ORDERED: Dextrose 5%/0.45% NS 1,000 ML IV SCH (16:15)
--- NOTE | 2018-09-26 17:09 | RAD ---
Date of service: 09/26/2018 HISTORY: vomiting COMPARISON: None available. FINDINGS: BOWEL: Normal. No obstruction. No free air. BONES: Orthopedic hardware related to laminectomy and fusion lumbar spine. OTHER FINDINGS: None. IMPRESSION: Unremarkable abdomen.
[2018-09-26] MEDS: Insulin Lispro (humaLOG) 100 Units/ml Inj SC SCH (17:15)
--- NOTE | 2018-09-26 17:25 | US ---
Date of service: 09/26/2018 HISTORY: abd pain, vomiting COMPARISON: None. TECHNIQUE: Sonographic evaluation of the abdomen. FINDINGS: LIVER: Measures 17.6 cm. Patent portal vein. Portal venous flow: Hepatopetal. Unremarkable echogenicity of the liver parenchyma. No mass. No intrahepatic bile duct dilatation. GALLBLADDER: Status post cholecystectomy. No abnormality is seen in the gallbladder fossa. COMMON BILE DUCT: Measures 5.2 mm. No stones. No dilatation. PANCREAS: Unremarkable as visualized. No mass. No ductal dilatation. RIGHT KIDNEY: Measures 4.5 x 11.8cm. Normal echogenicity. No calculus, mass, or hydronephrosis. LEFT KIDNEY: Measures 4.2 x 12.0cm. Normal echogenicity. No calculus, mass, or hydronephrosis. SPLEEN: Normal in size and contour. No mass. AORTA: No aneurysmal dilatation. IVC: Unremarkable. OTHER FINDINGS: None. IMPRESSION: Unremarkable abdominal sonogram.
--- NOTE | 2018-09-26 21:09 | CARD ---
APPROVED REPORT Date of service: 09/26/2018 EKG Measurement Heart [id number] <Conclusion> Normal sinus rhythm Left ventricular hypertrophy with repolarization abnormality Abnormal ECG
[2018-09-27] MEDS: Levothyroxine 50 MCG TAB PO SCH (06:15)
[2018-09-27 06:26] LABS: BASO % 0.3 % (0.0-2.0); EOS % 0.1 % (0.0-4.0); HEMOGLOBIN 12.3 g/dL (12.0-16.0); LYMPH # 0.6 K/uL (1.0-4.3); LYMPH % 5.6 % (20.0-40.0); MEAN CELL VOLUME 91.4 fl (81.0-99.0); MEAN CORPUSCULAR HEMOGLOBIN 29.9 pg (27.0-31.0); MEAN CORPUSCULAR HGB CONC 32.8 g/dL (33.0-37.0); MEAN PLATELET VOLUME 8.9 fl (7.2-11.7); MONO # 0.6 K/uL (0.0-0.8); MONO % 5.7 % (0.0-10.0); NEUT # 9.1 K/uL (1.8-7.0); NEUT % 88.3 % (50.0-75.0); NRBC % 0.1 % (0.0-0.0); PLATELET COUNT 155 K/uL (130-400); RBC 4.11 Mil/uL (3.80-5.20); RED CELL DISTRIBUTION WIDTH 15.5 % (11.5-14.5); WHITE BLOOD COUNT 10.3 K/uL (4.8-10.8)
[2018-09-27 06:36] LABS: ALB/GLOB RATIO 1.3 (1.0-2.1); ALBUMIN 3.5 g/dL (3.5-5.0); ALT/SGPT 30 U/L (9-52); AST/SGOT 25 U/L (14-36); BLOOD UREA NITROGEN 14 mg/dl (7-17); CALCIUM 8.2 mg/dL (8.4-10.2); GFR NON-AFRICAN AMERICAN > 60
[2018-09-27] MEDS: Insulin Lispro (humaLOG) 100 Units/ml Inj SC SCH ×3 (08:25→17:15)
[2018-09-27 08:47] LABS: BANDS 5 % (0-2); LYMPHOCYTE 5 % (20-50); MONOCYTE 6 % (0-10); NEUTROPHIL 84 % (42-75); PLATELET ESTIMATE NORMAL (NORMAL); TOTAL CELLS COUNTED 100
[2018-09-27 08:52] LABS: LARGE PLATELETS PRESENT
[2018-09-27 08:53] LABS: ANISOCYTOSIS SLIGHT
[2018-09-27] MEDS ORDERED: Dextrose 5%/0.45% NS 1,000 ML IV SCH ×2 (09:55→10:58)
[2018-09-27] MEDS ORDERED: Potassium Chloride 20 mEq 100 ML IVPB SCH (10:00)
[2018-09-27] MEDS ORDERED: Potassium Chloride 20 mEq/15 ml LIQ UD PO ONE (10:15)
[2018-09-27] MEDS ORDERED: Sodium Chloride 3% for Inhalation 4 ML VIAL.NEB IH PRN (10:54)
[2018-09-27] MEDS: Albuterol-Ipratrop 3 mg / 0.5 (3 ml) UD INH SCH ×4 (11:06→23:06)
[2018-09-27] MEDS: Potassium CL 10mEq/100ml 100 ML IVPB SCH ×3 (12:05→12:30)
--- NOTE | 2018-09-27 13:02 | CP.PCM.PN ---
Subjective - Date & Time of Evaluation Date of Evaluation: 09/27/18 Time of Evaluation: 13:05 - Subjective Subjective: 58 YR OLD FEMALE REFERRED FOR PULMONARY EVALUATION BECAUES OF A BARKING COUGH AND PULMONARY CONGESTION FOLLOWING INTRACTABLE VOMITING AFTER CHOKING ON FOOD.SHE IS RESPONSIVE TO VERBAL STIMULI BUT DROWSY. HX OF HTN,BIPOLAR DZ AND HYPOTHYROIDISM DENIES SMOKING OR DRUG USE Objective - Vital Signs/Intake and Output Vital Signs (last 24 hours): Temp Pulse Resp BP Pulse Ox 100.9 F H 111 H 18 116/77 93 L 09/27/18 12:00 09/27/18 12:00 09/27/18 12:00 09/27/18 12:00 09/27/18 12:00 - Medications Medications: Current Medications Acetaminophen (Tylenol 325mg Tab) 650 mg PO Q6 PRN PRN Reason: Pain, moderate (4-7) Acetaminophen (Tylenol 650 Mg Supp) 650 mg MO Q4 PRN PRN Reason: Fever >100.4 F Last Admin: 09/26/18 20:59 Dose: 650 mg Acetylcysteine (Acetylcysteine 20%) 2 ml INH RBID NORIS Albuterol/Ipratropium (Duoneb 3 Mg/0.5 Mg (3 Ml) Ud) 3 ml INH RQ4 NORIS Last Admin: 09/27/18 11:06 Dose: 3 ml Amlodipine Besylate (Norvasc) 10 mg PO DAILY [facility] Last Admin: 09/27/18 10:44 Dose: Not Given Dextrose (Dextrose 50% Inj) 0 ml IV STAT PRN; Protocol PRN Reason: Hypoglycemia Protocol Dextrose (Glutose 15) 0 gm PO ONCE PRN; Protocol PRN Reason: Hypoglycemia Protocol Donepezil HCl (Aricept) 10 mg PO DAILY [facility] Fenofibrate (Tricor) 145 mg PO DAILY [facility] Last Admin: 09/27/18 10:43 Dose: Not Given Glucagon (Glucagen Diagnostic Kit) 0 mg IM STAT PRN; Protocol PRN Reason: Hypoglycemia Protocol Potassium Chloride (Potassium Chloride 10 Meq/100 Ml) 100 mls @ 100 mls/hr IVPB Q1 NORIS Stop: 09/27/18 13:59 Last Admin: 09/27/18 12:30 Dose: 100 mls/hr Potassium Chloride/Dextrose/Sod Cl (Potassium Chl 20 Meq In D5-1/2ns) 1,000 mls @ 80 mls/hr IV .[id number] [facility] Stop: 09/28/18 11:34 Azithromycin 500 mg/ Sodium (Chloride) 250 mls @ 250 mls/hr IVPB DAILY [facility]; Protocol Clindamycin Phosphate 300 mg/ (Sodium Chloride) 52 mls @ 104 mls/hr IVPB Q8 [facility]; Protocol Ibuprofen (Motrin Oral Susp) 200 mg PO Q6 PRN PRN Reason: Headache Last Admin: 09/27/18 12:23 Dose: 200 mg Insulin Human Lispro (Humalog) 0 units SC ACTID [facility]; Protocol Last Admin: 09/27/18 12:27 Dose: Not Given Levothyroxine Sodium (Synthroid) 50 mcg PO DAILY@0630 [facility] Last Admin: 09/27/18 06:15 Dose: 50 mcg Lorazepam (Ativan) 1 mg IVP Q8 PRN PRN Reason: Anxiety Last Admin: 09/27/18 06:19 Dose: 1 mg Losartan Potassium (Cozaar) 100 mg PO DAILY [facility] Last Admin: 09/27/18 10:44 Dose: Not Given Methylprednisolone (Solu-Medrol) 60 mg IVP Q8 [facility] Last Admin: 09/27/18 12:30 Dose: 60 mg Ondansetron HCl (Zofran Inj) 4 mg IVP Q6 PRN PRN Reason: Nausea/Vomiting Last Admin: 09/26/18 17:40 Dose: 4 mg Pantoprazole Sodium (Protonix Inj) 40 mg IVP DAILY [facility] Last Admin: 09/27/18 10:24 Dose: 40 mg - Labs Labs: 09/27/18 06:00 09/27/18 06:00 - Constitutional Appears: Chronically Ill - Head Exam Head Exam: ATRAUMATIC, NORMAL INSPECTION, NORMOCEPHALIC - Eye Exam Eye Exam: EOMI, Normal appearance, PERRL Pupil Exam: NORMAL ACCOMODATION, PERRL - ENT Exam ENT Exam: Mucous Membranes Moist, Normal Exam - Neck Exam Neck Exam: Full ROM, Normal Inspection. absent: Lymphadenopathy - Respiratory Exam Respiratory Exam: Decreased Breath Sounds, Prolonged Expiratory Phase, Rales, Wheezes, NORMAL BREATHING PATTERN - Cardiovascular Exam Cardiovascular Exam: REGULAR RHYTHM, +S1, +S2. absent: Murmur - GI/Abdominal Exam GI & Abdominal Exam: Soft, Normal Bowel Sounds. absent: Tenderness - Rectal Exam Rectal Exam: NORMAL INSPECTION - Extremities Exam Extremities Exam: Full ROM, Normal Capillary Refill, Normal Inspection. absent: Joint Swelling, Pedal Edema - Back Exam Back Exam: NORMAL INSPECTION - Neurological Exam Neurological Exam: Alert, Awake, CN II-XII Intact, Normal Gait, Oriented x3 - Psychiatric Exam Psychiatric exam: Flat Affect - Skin Skin Exam: Dry, Intact, Normal Color, Warm Assessment and Plan - Assessment and Plan (Free Text) Assessment: PROBABLE ASPIRATION PNEUMONIA DUE TO INTRACTABLE VOMITING Plan: CT SCAN OF CHEST ADD CLINDAMYCIN IV TO COVER ASPIRATION MUCOMYST BID TO HELP MOBILIZE SPUTUM O2 SUPPLEMENTS
[2018-09-27] MEDS: Azithromycin 500 MG in Sodium Chloride 0.9% 250 ML IVPB SCH (14:04)
--- NOTE | 2018-09-27 14:18 | CP.PCM.PN ---
<Lalita Beattya - Last Filed: 09/27/18 14:15> Subjective - Date & Time of Evaluation Date of Evaluation: 09/27/18 Time of Evaluation: 11:00 - Subjective Subjective: Pt seen/evaluated this morning w/ Dr. Coughlin. Overnight, spiked fever to 102.3. Continues to have productive cough, and some nausea. Objective - Vital Signs/Intake and Output Vital Signs (last 24 hours): Temp Pulse Resp BP Pulse Ox 100.9 F H 111 H 18 116/77 93 L 09/27/18 12:00 09/27/18 12:00 09/27/18 12:00 09/27/18 12:00 09/27/18 12:00 - Medications Medications: Current Medications Acetaminophen (Tylenol 325mg Tab) 650 mg PO Q6 PRN PRN Reason: Pain, moderate (4-7) Acetaminophen (Tylenol 650 Mg Supp) 650 mg [place] Q4 PRN PRN Reason: Fever >100.4 F Last Admin: 09/26/18 20:59 Dose: 650 mg Acetylcysteine (Acetylcysteine 20%) 2 ml INH RBID [facility] Albuterol/Ipratropium (Duoneb 3 Mg/0.5 Mg (3 Ml) Ud) 3 ml INH RQ4 [facility] Last Admin: 09/27/18 11:06 Dose: 3 ml Amlodipine Besylate (Norvasc) 10 mg PO DAILY [facility] Last Admin: 09/27/18 10:44 Dose: Not Given Dextrose (Dextrose 50% Inj) 0 ml IV STAT PRN; Protocol PRN Reason: Hypoglycemia Protocol Dextrose (Glutose 15) 0 gm PO ONCE PRN; Protocol PRN Reason: Hypoglycemia Protocol Donepezil HCl (Aricept) 10 mg PO DAILY [facility] Fenofibrate (Tricor) 145 mg PO DAILY [facility] Last Admin: 09/27/18 10:43 Dose: Not Given Glucagon (Glucagen Diagnostic Kit) 0 mg IM STAT PRN; Protocol PRN Reason: Hypoglycemia Protocol Potassium Chloride/Dextrose/Sod Cl (Potassium Chl 20 Meq In D5-1/2ns) 1,000 mls @ 80 mls/hr IV .[id number] [facility] Stop: 09/28/18 11:34 Azithromycin 500 mg/ Sodium (Chloride) 250 mls @ 250 mls/hr IVPB DAILY [facility]; Protocol Last Admin: 09/27/18 14:04 Dose: 250 mls/hr Clindamycin Phosphate 300 mg/ (Sodium Chloride) 52 mls @ 104 mls/hr IVPB Q8 [facility]; Protocol Ibuprofen (Motrin Oral Susp) 200 mg PO Q6 PRN PRN Reason: Headache Last Admin: 09/27/18 12:23 Dose: 200 mg Insulin Human Lispro (Humalog) 0 units SC ACTID [facility]; Protocol Last Admin: 09/27/18 12:27 Dose: Not Given Levothyroxine Sodium (Synthroid) 50 mcg PO DAILY@0630 [facility] Last Admin: 09/27/18 06:15 Dose: 50 mcg Lorazepam (Ativan) 1 mg IVP Q8 PRN PRN Reason: Anxiety Last Admin: 09/27/18 06:19 Dose: 1 mg Losartan Potassium (Cozaar) 100 mg PO DAILY [facility] Last Admin: 09/27/18 10:44 Dose: Not Given Methylprednisolone (Solu-Medrol) 60 mg IVP Q8 [facility] Last Admin: 09/27/18 12:30 Dose: 60 mg Ondansetron HCl (Zofran Inj) 4 mg IVP Q6 PRN PRN Reason: Nausea/Vomiting Last Admin: 09/26/18 17:40 Dose: 4 mg Pantoprazole Sodium (Protonix Inj) 40 mg IVP DAILY [facility] Last Admin: 09/27/18 10:24 Dose: 40 mg - Labs Labs: 09/27/18 06:00 09/27/18 06:00 - Constitutional Appears: Other (uncomfortable) - Head Exam Head Exam: NORMAL INSPECTION - Eye Exam Eye Exam: Normal appearance - ENT Exam ENT Exam: Mucous Membranes Moist - Respiratory Exam Respiratory Exam: Wheezes, NORMAL BREATHING PATTERN Additional comments: coarse lung sounds, crackles bilaterally - Cardiovascular Exam Cardiovascular Exam: REGULAR RHYTHM, +S1, +S2 - GI/Abdominal Exam GI & Abdominal Exam: Soft. absent: Tenderness - Extremities Exam Extremities Exam: Normal Inspection. absent: Calf Tenderness - Back Exam Back Exam: NORMAL INSPECTION - Neurological Exam Neurological Exam: Alert - Skin Skin Exam: Normal Color, Warm Assessment and Plan (1) Productive cough Status: Acute (2) Intractable vomiting Status: Acute (3) DM (diabetes mellitus) Status: Chronic (4) Hypertension Status: Chronic - Assessment and Plan (Free Text) Plan: - NPO except meds - D5 1/2 NS + 20 mEq KCl at 80 ml/hr - Replete K - Likely PNA - start azithromycin; pulm consult - Dr. Miranda- probable aspiration PNA due to choking; add clindamycin to cover aspiration and mucomyst to mobilize sputum - CT scan chest ordered - Started IV steroids 60 mg Q8 hrs - Blood, urine, sputum cultures-- f/u results - Psych consult - Dr. Menendez; pt is on monthly injections of Invega, states she is due for injection - Abdominal u/s and flat plate XRAY - no acute findings - Resume home meds for htn, diabetes, hold metformin for now - Insulin coverage scale - Resume ativan - Duonebs - SCD <Won Coughlin - Last Filed: 09/30/18 06:43> Objective - Vital Signs/Intake and Output Vital Signs (last 24 hours): Temp Pulse Resp BP Pulse Ox 98 F 99 H 18 165/100 H 95 09/30/18 04:30 09/30/18 04:30 09/30/18 04:30 09/30/18 04:30 09/30/18 04:30 - Medications Medications: Current Medications Acetaminophen (Tylenol 325mg Tab) 650 mg PO Q6 PRN PRN Reason: Pain, moderate (4-7) Acetaminophen (Tylenol 650 Mg Supp) 650 mg ND Q4 PRN PRN Reason: Fever >100.4 F Last Admin: 09/26/18 20:59 Dose: 650 mg Acetylcysteine (Acetylcysteine 20%) 2 ml INH RBID [facility] Last Admin: 09/29/18 19:47 Dose: Not Given Albuterol/Ipratropium (Duoneb 3 Mg/0.5 Mg (3 Ml) Ud) 3 ml INH RQ4 [facility] Last Admin: 09/30/18 03:08 Dose: Not Given Amlodipine Besylate (Norvasc) 10 mg PO DAILY [facility] Last Admin: 09/29/18 09:41 Dose: 10 mg Dextrose (Dextrose 50% Inj) 0 ml IV STAT PRN; Protocol PRN Reason: Hypoglycemia Protocol Dextrose (Glutose 15) 0 gm PO ONCE PRN; Protocol PRN Reason: Hypoglycemia Protocol Donepezil HCl (Aricept) 10 mg PO DAILY [facility] Fenofibrate (Tricor) 145 mg PO DAILY [facility] Last Admin: 09/29/18 09:42 Dose: 145 mg Glucagon (Glucagen Diagnostic Kit) 0 mg IM STAT PRN; Protocol PRN Reason: Hypoglycemia Protocol Hydralazine HCl (Apresoline) 10 mg PO Q8 PRN PRN Reason: Systolic Blood Pressure Last Admin: 09/29/18 21:44 Dose: 10 mg Cefazolin Sodium/Dextrose (Ancef Iv 1 Gm Duplex) 1 gm in 50 mls @ 50 mls/hr IVPB Q8 [facility]; Protocol Last Admin: 09/30/18 00:56 Dose: 50 mls/hr Ibuprofen (Motrin Oral Susp) 200 mg PO Q6 PRN PRN Reason: Headache Last Admin: 09/30/18 00:54 Dose: 200 mg Insulin Human Lispro (Humalog) 0 units SC ACTID [facility]; Protocol Last Admin: 09/29/18 16:08 Dose: 3 units Levothyroxine Sodium (Synthroid) 50 mcg PO DAILY@0630 [facility] Last Admin: 09/30/18 05:52 Dose: 50 mcg Lorazepam (Ativan) 1 mg PO Q8 PRN PRN Reason: Anxiety Last Admin: 09/30/18 00:54 Dose: 1 mg Losartan Potassium (Cozaar) 100 mg PO DAILY [facility] Last Admin: 09/29/18 09:41 Dose: 100 mg Methylprednisolone (Solu-Medrol) 60 mg IVP Q8 [facility] Last Admin: 09/30/18 00:56 Dose: 60 mg Ondansetron HCl (Zofran Inj) 4 mg IVP Q6 PRN PRN Reason: Nausea/Vomiting Last Admin: 09/26/18 17:40 Dose: 4 mg Oseltamivir Phosphate (Tamiflu Cap) 75 mg PO BID [facility]; Protocol Last Admin: 09/29/18 16:04 Dose: 75 mg Pantoprazole Sodium (Protonix Inj) 40 mg IVP DAILY [facility] Last Admin: 09/29/18 09:39 Dose: 40 mg Promethazine HCl/Dextromethorphan (Phenergan Dm Syrup) 10 ml PO Q6 PRN PRN Reason: Cough Last Admin: 09/29/18 15:58 Dose: 10 ml Sodium Chloride ([place] Nasal [place]) 2 sprays EMILY Q4 PRN PRN Reason: Nasal congestion Last Admin: 09/30/18 05:39 Dose: 2 spr - Labs Labs: 09/28/18 05:30 09/28/18 05:30 Assessment and Plan - Assessment and Plan (Free Text) Plan: I was present during evaluation and discussed with Dr beatty re plans of care and mgt. Won Coughlin M.D.
[2018-09-27] MEDS: Potassium Ch 20mEq in D5-1/2NS 1,000 ML IV SCH (15:09)
--- NOTE | 2018-09-27 16:54 | CT ---
Date of service: 09/27/2018 PROCEDURE: CT Chest without contrast HISTORY: cough COMPARISON: 08/07/2018 TECHNIQUE: Contiguous axial images were obtained through the chest without intravenous contrast enhancement. Sagittal and coronal reconstructions were performed. Radiation dose (DLP): 516.02 mGy-cm. This CT exam was performed using one or more of the following dose reduction techniques: Automated exposure control, adjustment of the mA and/or kV according to patient size, and/or use of iterative reconstruction technique. FINDINGS: LUNGS: Focal pleural-based consolidation both posterior lower lobes and in apical posterior segment of left upper lobe. Likely atelectasis. Cannot rule out pneumonia. No pulmonary mass. MEDIASTINUM: Unremarkable thoracic aorta. No aneurysm. Mild cardiomegaly trace pericardial effusion. Main pulmonary artery unremarkable. No vascular congestion. No lymphadenopathy. There is atherosclerotic calcification of the thoracic aorta. PLEURA: No pleural fluid. No pneumothorax. BONES: No fracture. No destructive lesion. UPPER ABDOMEN: Status post cholecystectomy OTHER FINDINGS: None. IMPRESSION: Probable subsegmental atelectasis both lower lobes and apical posterior segment left upper lobe. No other acute abnormality.
[2018-09-27] MEDS: Clindamycin 300 MG in Sodium Chloride 0.9% 50 ML IVPB SCH (17:50)
[2018-09-27] MEDS: Acetylcysteine 20% Inhal Soln (4ml) INH SCH (19:18)
[2018-09-27 20:08] LABS: SQUAMOUS EPITHIAL 2 /hpf (0-5); URINE BACTERIA RARE (<OCC); URINE BILIRUBIN NEGATIVE (NEGATIVE); URINE BLOOD NEGATIVE (NEGATIVE); URINE CLARITY SLIGHTY-CLOUDY (Clear); URINE COLOR YELLOW (YELLOW); URINE GLUCOSE (UA) NEG (NEGATIVE); URINE LEUKOCYTE ESTERASE MOD Leu/uL (Negative); URINE PROTEIN NEGATIVE (NEGATIVE); URINE UROBILINOGEN 0.2-1.0 mg/dL (0.2-1.0)
[2018-09-28] MEDS: Clindamycin 300 MG in Sodium Chloride 0.9% 50 ML IVPB SCH ×3 (00:22→17:50)
[2018-09-28] MEDS: Potassium Ch 20mEq in D5-1/2NS 1,000 ML IV SCH (00:23)
[2018-09-28] MEDS: Albuterol-Ipratrop 3 mg / 0.5 (3 ml) UD INH SCH ×6 (05:14→23:16)
[2018-09-28] MEDS: Levothyroxine 50 MCG TAB PO SCH (06:07)
[2018-09-28 07:01] LABS: BASO % 0.1 % (0.0-2.0); HEMOGLOBIN 12.4 g/dL (12.0-16.0); LYMPH # 0.3 K/uL (1.0-4.3); LYMPH % 6.8 % (20.0-40.0); MEAN CELL VOLUME 91.6 fl (81.0-99.0); MEAN CORPUSCULAR HEMOGLOBIN 30.6 pg (27.0-31.0); MEAN CORPUSCULAR HGB CONC 33.4 g/dL (33.0-37.0); MONO # 0.1 K/uL (0.0-0.8); MONO % 2.7 % (0.0-10.0); NEUT # 3.9 K/uL (1.8-7.0); NEUT % 90.4 % (50.0-75.0); NRBC % 0.1 % (0.0-0.0); PLATELET COUNT 151 K/uL (130-400); RBC 4.05 Mil/uL (3.80-5.20); RED CELL DISTRIBUTION WIDTH 15.2 % (11.5-14.5); WHITE BLOOD COUNT 4.4 K/uL (4.8-10.8)
[2018-09-28] MEDS: Acetylcysteine 20% Inhal Soln (4ml) INH SCH (07:20)
[2018-09-28] MEDS: Insulin Lispro (humaLOG) 100 Units/ml Inj SC SCH ×3 (07:32→17:09)
[2018-09-28 07:35] LABS: ALB/GLOB RATIO 1.2 (1.0-2.1); ALBUMIN 3.5 g/dL (3.5-5.0); ALT/SGPT 25 U/L (9-52); AST/SGOT 21 U/L (14-36); BLOOD UREA NITROGEN 16 mg/dl (7-17); CALCIUM 9.4 mg/dL (8.4-10.2); GFR NON-AFRICAN AMERICAN > 60
[2018-09-28 08:15] LABS: ANISOCYTOSIS SLIGHT; LARGE PLATELETS PRESENT; LYMPHOCYTE 9 % (20-50); MONOCYTE 4 % (0-10); NEUTROPHIL 87 % (42-75); OVALOCYTES SLIGHT; PLATELET ESTIMATE NORMAL (NORMAL); TOTAL CELLS COUNTED 100
[2018-09-28] MEDS: Azithromycin 500 MG in Sodium Chloride 0.9% 250 ML IVPB SCH (09:43)
--- NOTE | 2018-09-28 10:46 | CP.PCM.PN ---
Subjective - Date & Time of Evaluation Date of Evaluation: 09/28/18 Time of Evaluation: 10:46 - Subjective Subjective: MORE AWAKE COUGH LESS Objective - Vital Signs/Intake and Output Vital Signs (last 24 hours): Temp Pulse Resp BP Pulse Ox 98.4 F 109 H 20 162/101 H 93 L 09/28/18 08:21 09/28/18 08:21 09/28/18 08:21 09/28/18 08:21 09/28/18 08:21 - Medications Medications: Current Medications Acetaminophen (Tylenol 325mg Tab) 650 mg PO Q6 PRN PRN Reason: Pain, moderate (4-7) Acetaminophen (Tylenol 650 Mg Supp) 650 mg [place] Q4 PRN PRN Reason: Fever >100.4 F Last Admin: 09/26/18 20:59 Dose: 650 mg Acetylcysteine (Acetylcysteine 20%) 2 ml INH RBID [facility] Last Admin: 09/28/18 07:20 Dose: 2 ml Albuterol/Ipratropium (Duoneb 3 Mg/0.5 Mg (3 Ml) Ud) 3 ml INH RQ4 [facility] Last Admin: 09/28/18 07:20 Dose: 3 ml Amlodipine Besylate (Norvasc) 10 mg PO DAILY [facility] Last Admin: 09/28/18 08:15 Dose: 10 mg Dextrose (Dextrose 50% Inj) 0 ml IV STAT PRN; Protocol PRN Reason: Hypoglycemia Protocol Dextrose (Glutose 15) 0 gm PO ONCE PRN; Protocol PRN Reason: Hypoglycemia Protocol Donepezil HCl (Aricept) 10 mg PO DAILY [facility] Fenofibrate (Tricor) 145 mg PO DAILY [facility] Last Admin: 09/28/18 08:22 Dose: Not Given Glucagon (Glucagen Diagnostic Kit) 0 mg IM STAT PRN; Protocol PRN Reason: Hypoglycemia Protocol Hydralazine HCl (Apresoline) 10 mg PO Q8 PRN PRN Reason: Systolic Blood Pressure Potassium Chloride/Dextrose/Sod Cl (Potassium Chl 20 Meq In D5-1/2ns) 1,000 mls @ 80 mls/hr IV .[id number] [facility] Stop: 09/28/18 11:34 Last Admin: 09/28/18 00:23 Dose: 80 mls/hr Azithromycin 500 mg/ Sodium (Chloride) 250 mls @ 250 mls/hr IVPB DAILY [facility]; Protocol Last Admin: 09/28/18 09:43 Dose: 250 mls/hr Clindamycin Phosphate 300 mg/ (Sodium Chloride) 52 mls @ 104 mls/hr IVPB Q8 [facility]; Protocol Last Admin: 09/28/18 08:21 Dose: 104 mls/hr Ibuprofen (Motrin Oral Susp) 200 mg PO Q6 PRN PRN Reason: Headache Last Admin: 09/28/18 06:10 Dose: 200 mg Insulin Human Lispro (Humalog) 0 units SC ACTID [facility]; Protocol Last Admin: 09/28/18 07:32 Dose: 4 units Levothyroxine Sodium (Synthroid) 50 mcg PO DAILY@0630 [facility] Last Admin: 09/28/18 06:07 Dose: 50 mcg Lorazepam (Ativan) 1 mg PO Q8 PRN PRN Reason: Anxiety Last Admin: 09/28/18 09:43 Dose: 1 mg Losartan Potassium (Cozaar) 100 mg PO DAILY [facility] Last Admin: 09/28/18 08:14 Dose: 100 mg Methylprednisolone (Solu-Medrol) 60 mg IVP Q8 [facility] Last Admin: 09/28/18 08:16 Dose: 60 mg Ondansetron HCl (Zofran Inj) 4 mg IVP Q6 PRN PRN Reason: Nausea/Vomiting Last Admin: 09/26/18 17:40 Dose: 4 mg Pantoprazole Sodium (Protonix Inj) 40 mg IVP DAILY [facility] Last Admin: 09/28/18 08:17 Dose: 40 mg - Labs Labs: 09/28/18 05:30 09/28/18 05:30 - Constitutional Appears: No Acute Distress - Head Exam Head Exam: ATRAUMATIC, NORMAL INSPECTION, NORMOCEPHALIC - Eye Exam Eye Exam: EOMI, Normal appearance, PERRL Pupil Exam: NORMAL ACCOMODATION, PERRL - ENT Exam ENT Exam: Mucous Membranes Moist, Normal Exam - Neck Exam Neck Exam: Full ROM, Normal Inspection. absent: Lymphadenopathy - Respiratory Exam Respiratory Exam: Decreased Breath Sounds, Rales, NORMAL BREATHING PATTERN - Cardiovascular Exam Cardiovascular Exam: REGULAR RHYTHM, +S1, +S2. absent: Murmur - GI/Abdominal Exam GI & Abdominal Exam: Soft, Normal Bowel Sounds. absent: Tenderness - Rectal Exam Rectal Exam: NORMAL INSPECTION - Extremities Exam Extremities Exam: Full ROM, Normal Capillary Refill, Normal Inspection. absent: Joint Swelling, Pedal Edema - Back Exam Back Exam: NORMAL INSPECTION - Neurological Exam Neurological Exam: Alert, Awake, CN II-XII Intact, Normal Gait, Oriented x3 - Psychiatric Exam Psychiatric exam: Normal Affect, Normal Mood - Skin Skin Exam: Dry, Intact, Normal Color, Warm Assessment and Plan - Assessment and Plan (Free Text) Assessment: ASPIRATION PNEUMONIA IMPROVING Plan: CONTINUE CURRENT RX
[2018-09-29] MEDS: Clindamycin 300 MG in Sodium Chloride 0.9% 50 ML IVPB SCH ×2 (01:03→09:38)
[2018-09-29] MEDS: Albuterol-Ipratrop 3 mg / 0.5 (3 ml) UD INH SCH ×6 (05:08→23:42)
[2018-09-29] MEDS: Levothyroxine 50 MCG TAB PO SCH (05:29)
[2018-09-29] MEDS: Insulin Lispro (humaLOG) 100 Units/ml Inj SC SCH ×3 (06:45→16:08)
[2018-09-29] MEDS: Acetylcysteine 20% Inhal Soln (4ml) INH SCH ×2 (07:09→19:47)
[2018-09-29] MEDS: Azithromycin 500 MG in Sodium Chloride 0.9% 250 ML IVPB SCH (09:38)
--- NOTE | 2018-09-29 10:29 | CP.PCM.PN ---
Subjective - Date & Time of Evaluation Date of Evaluation: 09/29/18 Time of Evaluation: 10:29 - Subjective Subjective: STILL COUGHING BUT UNABLE TO EXPECTORATE SPUTUM MORE ALERT AND AWAKE Objective - Vital Signs/Intake and Output Vital Signs (last 24 hours): Temp Pulse Resp BP Pulse Ox 97.4 F L 119 H 20 155/86 H 94 L 09/29/18 08:37 09/29/18 09:41 09/29/18 08:37 09/29/18 09:41 09/29/18 08:37 - Medications Medications: Current Medications Acetaminophen (Tylenol 325mg Tab) 650 mg PO Q6 PRN PRN Reason: Pain, moderate (4-7) Acetaminophen (Tylenol 650 Mg Supp) 650 mg [place] Q4 PRN PRN Reason: Fever >100.4 F Last Admin: 09/26/18 20:59 Dose: 650 mg Acetylcysteine (Acetylcysteine 20%) 2 ml INH RBID [facility] Last Admin: 09/29/18 07:09 Dose: 2 ml Albuterol/Ipratropium (Duoneb 3 Mg/0.5 Mg (3 Ml) Ud) 3 ml INH RQ4 [facility] Last Admin: 09/29/18 07:09 Dose: 3 ml Amlodipine Besylate (Norvasc) 10 mg PO DAILY [facility] Last Admin: 09/29/18 09:41 Dose: 10 mg Dextrose (Dextrose 50% Inj) 0 ml IV STAT PRN; Protocol PRN Reason: Hypoglycemia Protocol Dextrose (Glutose 15) 0 gm PO ONCE PRN; Protocol PRN Reason: Hypoglycemia Protocol Donepezil HCl (Aricept) 10 mg PO DAILY [facility] Fenofibrate (Tricor) 145 mg PO DAILY [facility] Last Admin: 09/29/18 09:42 Dose: 145 mg Glucagon (Glucagen Diagnostic Kit) 0 mg IM STAT PRN; Protocol PRN Reason: Hypoglycemia Protocol Hydralazine HCl (Apresoline) 10 mg PO Q8 PRN PRN Reason: Systolic Blood Pressure Last Admin: 09/29/18 05:32 Dose: 10 mg Vancomycin HCl 500 mg/ Sodium (Chloride) 100 mls @ 100 mls/hr IVPB Q12 [facility]; Protocol Ibuprofen (Motrin Oral Susp) 200 mg PO Q6 PRN PRN Reason: Headache Last Admin: 09/29/18 05:21 Dose: 200 mg Insulin Human Lispro (Humalog) 0 units SC ACTID [facility]; Protocol Last Admin: 09/29/18 06:45 Dose: 2 units Levothyroxine Sodium (Synthroid) 50 mcg PO DAILY@0630 [facility] Last Admin: 09/29/18 05:29 Dose: 50 mcg Lorazepam (Ativan) 1 mg PO Q8 PRN PRN Reason: Anxiety Last Admin: 09/29/18 05:24 Dose: 1 mg Losartan Potassium (Cozaar) 100 mg PO DAILY [facility] Last Admin: 09/29/18 09:41 Dose: 100 mg Methylprednisolone (Solu-Medrol) 60 mg IVP Q8 [facility] Last Admin: 09/29/18 09:40 Dose: 60 mg Ondansetron HCl (Zofran Inj) 4 mg IVP Q6 PRN PRN Reason: Nausea/Vomiting Last Admin: 09/26/18 17:40 Dose: 4 mg Pantoprazole Sodium (Protonix Inj) 40 mg IVP DAILY [facility] Last Admin: 09/29/18 09:39 Dose: 40 mg Promethazine HCl/Dextromethorphan (Phenergan Dm Syrup) 10 ml PO Q6 PRN PRN Reason: Cough - Labs Labs: 09/28/18 05:30 09/28/18 05:30 - Constitutional Appears: Chronically Ill - Head Exam Head Exam: ATRAUMATIC, NORMAL INSPECTION, NORMOCEPHALIC - Eye Exam Eye Exam: EOMI, Normal appearance, PERRL Pupil Exam: NORMAL ACCOMODATION, PERRL - ENT Exam ENT Exam: Mucous Membranes Moist, Normal Exam - Neck Exam Neck Exam: Full ROM, Normal Inspection. absent: Lymphadenopathy - Respiratory Exam Respiratory Exam: Decreased Breath Sounds, Rales, Wheezes, NORMAL BREATHING PATTERN - Cardiovascular Exam Cardiovascular Exam: REGULAR RHYTHM, +S1, +S2. absent: Murmur - GI/Abdominal Exam GI & Abdominal Exam: Soft, Normal Bowel Sounds. absent: Tenderness - Rectal Exam Rectal Exam: NORMAL INSPECTION - Extremities Exam Extremities Exam: Full ROM, Normal Capillary Refill, Normal Inspection. absent: Joint Swelling, Pedal Edema - Back Exam Back Exam: NORMAL INSPECTION - Neurological Exam Neurological Exam: Alert, Awake, CN II-XII Intact, Normal Gait, Oriented x3 - Psychiatric Exam Psychiatric exam: Flat Affect - Skin Skin Exam: Dry, Intact, Normal Color, Warm Assessment and Plan - Assessment and Plan (Free Text) Assessment: ASDPIRATION PNEUMONIA--SPUTUM-STAPH AUREUS Plan: D/C PRESENT IV ANTIBIOTICS BEGIN IV VANCOMYCIN SUGGEST ID CONSULT OOB TOLERATED
[2018-09-29] MEDS ORDERED: Paliperidone Palmitate 234 MG/1.5 ML SYR IM ONE (12:07)
--- NOTE | 2018-09-29 12:07 | CP.PCM.CON ---
History of Present Illness - History of Present Illness History of Present Illness: pt is 58ys old female with previous psychiatric diagnosis of schizoaffective disorder bipolar type , since age 17, last hospitalization at [facility] last march, partial compliance with treatment and follow up, admitted due to intractable vomiting and hypertensive urgency pt on evaluation reported seeing a psychiatrist at [facility], she stated she has missed her last Invegs sustenna injection due to hospitalization for mrdical reasons pt on evaluation cooperative good eye contact mood reported tired and anxious, affect appropriate to thought content ,thought form coherent denied perceptual disturbances, non elicited , denied suicidal or homicidal ideation, alert awake oriented to person and place no reported changes in sleep or appetite , Past Patient History - Infectious Disease Hx of Infectious Diseases: None - Past Medical History & Family History Past Medical History?: Yes - Past Social History Smoking Status: Heavy Smoker > 10 Cigarettes Daily - CARDIAC Hx Cardiac Disorders: Yes Hx Congestive Heart Failure: Yes Hx Hypercholesterolemia: Yes Hx Hypertension: Yes - PULMONARY Hx Respiratory Disorders: Yes Hx Asthma: Yes Hx Chronic Obstructive Pulmonary Disease (COPD): Yes Hx Pneumonia: Yes - NEUROLOGICAL Hx Neurological Disorder: No Hx Seizures: No - HEENT Hx HEENT Problems: No - RENAL Hx Chronic Kidney Disease: No - ENDOCRINE/METABOLIC Hx Endocrine Disorders: Yes Hx Diabetes Mellitus Type 2: Yes Hx Hypothyroidism: Yes - HEMATOLOGICAL/ONCOLOGICAL Hx Blood Disorders: No Hx Human Immunodeficiency Virus (HIV): No - INTEGUMENTARY Hx Dermatological Problems: No - MUSCULOSKELETAL/RHEUMATOLOGICAL Hx Musculoskeletal Disorders: Yes Hx Back Pain: Yes Hx Falls: Yes Other/Comment: back surgery - GASTROINTESTINAL Hx Gastrointestinal Disorders: Yes Hx Vomiting: Yes - GENITOURINARY/GYNECOLOGICAL Hx Genitourinary Disorders: No Hx Sexually Transmitted Disorders: No - PSYCHIATRIC Hx Psychophysiologic Disorder: Yes Hx Anxiety: Yes Hx Bipolar Disorder: Yes Hx Depression: Yes Hx Schizophrenia: Yes Hx Substance Use: No - SURGICAL HISTORY Hx Surgeries: Yes Hx Section: Yes Hx Cholecystectomy: Yes - ANESTHESIA Hx Anesthesia: Yes Hx Anesthesia Reactions: No Hx Malignant Hyperthermia: No Has any member of the family had a problem w/ anesthesia?: No Meds Allergies/Adverse Reactions: Allergies Allergy/AdvReac Type Severity Reaction Status Date / Time No Known Allergies Allergy Verified 09/08/18 10:24 - Medications Medications: Current Medications Acetaminophen (Tylenol 325mg Tab) 650 mg PO Q6 PRN PRN Reason: Pain, moderate (4-7) Acetaminophen (Tylenol 650 Mg Supp) 650 mg [place] Q4 PRN PRN Reason: Fever >100.4 F Last Admin: 09/26/18 20:59 Dose: 650 mg Acetylcysteine (Acetylcysteine 20%) 2 ml INH RBID [facility] Last Admin: 09/29/18 07:09 Dose: 2 ml Albuterol/Ipratropium (Duoneb 3 Mg/0.5 Mg (3 Ml) Ud) 3 ml INH RQ4 [facility] Last Admin: 09/29/18 11:17 Dose: Not Given Amlodipine Besylate (Norvasc) 10 mg PO DAILY [facility] Last Admin: 09/29/18 09:41 Dose: 10 mg Dextrose (Dextrose 50% Inj) 0 ml IV STAT PRN; Protocol PRN Reason: Hypoglycemia Protocol Dextrose (Glutose 15) 0 gm PO ONCE PRN; Protocol PRN Reason: Hypoglycemia Protocol Donepezil HCl (Aricept) 10 mg PO DAILY [facility] Fenofibrate (Tricor) 145 mg PO DAILY [facility] Last Admin: 09/29/18 09:42 Dose: 145 mg Glucagon (Glucagen Diagnostic Kit) 0 mg IM STAT PRN; Protocol PRN Reason: Hypoglycemia Protocol Hydralazine HCl (Apresoline) 10 mg PO Q8 PRN PRN Reason: Systolic Blood Pressure Last Admin: 09/29/18 05:32 Dose: 10 mg Vancomycin HCl 500 mg/ Sodium (Chloride) 100 mls @ 100 mls/hr IVPB Q12 [facility]; Protocol Ibuprofen (Motrin Oral Susp) 200 mg PO Q6 PRN PRN Reason: Headache Last Admin: 09/29/18 05:21 Dose: 200 mg Insulin Human Lispro (Humalog) 0 units SC ACTID [facility]; Protocol Last Admin: 09/29/18 06:45 Dose: 2 units Levothyroxine Sodium (Synthroid) 50 mcg PO DAILY@0630 [facility] Last Admin: 09/29/18 05:29 Dose: 50 mcg Lorazepam (Ativan) 1 mg PO Q8 PRN PRN Reason: Anxiety Last Admin: 09/29/18 05:24 Dose: 1 mg Losartan Potassium (Cozaar) 100 mg PO DAILY [facility] Last Admin: 09/29/18 09:41 Dose: 100 mg Methylprednisolone (Solu-Medrol) 60 mg IVP Q8 [facility] Last Admin: 09/29/18 09:40 Dose: 60 mg Ondansetron HCl (Zofran Inj) 4 mg IVP Q6 PRN PRN Reason: Nausea/Vomiting Last Admin: 09/26/18 17:40 Dose: 4 mg Pantoprazole Sodium (Protonix Inj) 40 mg IVP DAILY [facility] Last Admin: 09/29/18 09:39 Dose: 40 mg Promethazine HCl/Dextromethorphan (Phenergan Dm Syrup) 10 ml PO Q6 PRN PRN Reason: Cough Sodium Chloride ([place] Nasal [place]) 2 sprays EMILY Q4 PRN PRN Reason: Nasal congestion Results - Vital Signs Recent Vital Signs: Last Vital Signs Temp 97.4 F L 09/29/18 08:37 Pulse 119 H 09/29/18 09:41 Resp 20 09/29/18 08:37 BP 155/86 H 09/29/18 09:41 Pulse Ox 94 L 09/29/18 08:37 - Labs Result Diagrams: 09/28/18 05:30 09/28/18 05:30 Labs: Laboratory Results - last 24 hr 09/28/18 09/28/18 09/28/18 12:23 16:13 21:33 POC Glucose (mg/dL) 301 H 282 H 145 H 09/29/18 09/29/18 05:59 11:10 POC Glucose (mg/dL) 185 H 230 H Assessment & Plan - Assessment and Plan (Free Text) Assessment: schizoaffective disorder bipolar type Plan: recommend to restart invega sustenna injection 234 mg IM Q month first dose today restart cymbalta 20mg and increase gradually pt to follow up with private psychiatrist on discharge
[2018-09-29] MEDS: Nasal Spray(Ocean spray) NAS PRN (12:50)
--- NOTE | 2018-09-29 13:48 | CP.PCM.CON ---
History of Present Illness - History of Present Illness History of Present Illness: Beth Jarrett is a 58 year old female presenting to [facility] with vomiting and abdominal pain . referred for ID eval of pneumonia , possibly secondary to aspiration She says symptoms started while in [facility] ID consulted for antibiotic maangement - Medical History PMH: Anxiety, Asthma, Back Problems, Bipolar Disorder, CHF, COPD, Depression, Diabetes, HTN, Hyperlipidemia, Hypothyroidism, Pneumonia, Schizophrenia Denies: Hepatitis, HIV, Chronic Kidney Disease, Seizures, Sexually Transm itted Disease - Surgical History Surgical History: Back Surgery, Cholecystectomy, - Family History Family History: States: Unknown Family Hx Review of Systems - Review of Systems All systems: reviewed and no additional remarkable complaints except - Constitutional Constitutional: As Per HPI - EENT Eyes: absent: As Per HPI, Blind Spots, Blurred Vision, Change in Vision, Decreased Night Vision, Diplopia, Discharge, Dry Eye, Exophthalmos, Floaters, Irritation, Itchy Eyes, Loss of Peripheral Vision, Pain, Photophobia, Requires Corrective Lenses, Sees Flashes, Spots in Vision, Tunnel Vision, Other Visual Disturbances, Loss of Vision, Other Ears: absent: As Per HPI, Decreased Hearing, Ear Discharge, Ear Pain, Tinnitus, Abnormal Hearing, Disequilibrium, Dizziness, Other Nose/Mouth/Throat: absent: As Per HPI, Epistaxis, Nasal Congestion, Nasal Discharge, Nasal Obstruction, Nasal Trauma, Nose Pain, Post Nasal Drip, Sinus Pain, Sinus Pressure, Bleeding Gums, Change in Voice, Dental Pain, Dry Mouth, Dysphagia, Halitosis, Hoarsness, Lip Swelling, Mouth Lesions, Mouth Pain, Odynophagia, Sore Throat, Throat Swelling, Tongue Swelling, Facial Pain, Neck Pain, Neck Mass, Other - Breasts Breasts: absent: As Per HPI, Change in Shape, Mass, Pain, Nipple Discharge, Nipple Inversion, Skin Changes, Swelling, Other - Cardiovascular Cardiovascular: As Per HPI - Respiratory Respiratory: As Per HPI, Cough, Dyspnea, Dyspnea on Exertion, Chest Congestion. absent: Hemoptysis - Gastrointestinal Gastrointestinal: As Per HPI - Genitourinary Genitourinary: absent: As Per HPI, Change in Urinary Stream, Difficulty Urinating, Dysuria, Flank Pain, Hematuria, Pyuria, Nocturia, Urinary Incontinence, Urinary Frequency, Urinary Hesitance, Urinary Urgency, Voiding Freq/Small Amts, Freq UTI, Hx Renal/Bladder Calculi, Hx /Renal Surgery, Bladder Distension, Other - Reproductive: Female Reproductive:Female: absent: As Per HPI, Amenorrhea, Amenorrhea/ Control, Currently Menstual, Cycle <21 Days, Cycle >35 Days, Cycle Variable, Menses 1-7 Days, Menses >/= 8 Days, Menses Variable, Cycle > 4 Weeks Between, No Menses for 6 Months, Heavy Menses, Light Menses, Normal Menses, Spotting Between Cycles, S/P Hysterectomy, Menopausal, Post Menopausal, Premenarche, Abnormal Vaginal Bleeding, Dysmenorrhea, Dyspareunia, Genital Lesions, Genital Pruritis, Pelvic Pain, Prolapse Symptoms, Sexual Dysfunction, Vaginal Discharge, Vaginal Dryness, Vaginal Odor, Vaginal Pruritis, Other - Menstruation Menstruation: absent: As Per HPI, Amenorrhea, Amenorrhea/ Control, Currently Menstual, Cycle <21 Days, Cycle >35 Days, Cycle Variable, Menses 1-7 Days, Menses >/= 8 Days, Menses Variable, Cycle > 4 Weeks Between, No Menses for 6 Months, Heavy Menses, Light Menses, Normal Menses, Spotting Between Cycles, S/P Hysterectomy, Menopausal, Post Menopausal, Premenarche, Abnormal Vaginal Bleeding, Dysmenorrhea, Other - Musculoskeletal Musculoskeletal: absent: As Per HPI, Abnormal Gait, Arthralgias, Atrophy, Back Pain, Deformity, Joint Swelling, Limited Range of Motion, Loss of Height, Muscle Cramps, Muscle Weakness, Myalgias, Neck Pain, Numbness, Radiating Pain into Limb, Stiffness, Tingling, Other - Integumentary Integumentary: absent: As Per HPI, Acne, Alopecia, Bleeding Lesions, Change in Hair, Change in Nails, Change in Pigmentation, Changing Lesions, Dry Skin, Erythema, Furuncle, Hirsutism, Lesions, New Lesions, Non-Healing Lesions, Photosensitivity, Pruritus, Rash, Skin Pain, Skin Ulcer, Sores, Striae, Swelling, Unusual Bruising, Wounds, Jaundice, Other - Neurological Neurological: absent: As Per HPI, Abnormal Gait, Abnormal Hearing, Abnormal Movements, Abnormal Speech, Behavioral Changes, Burning Sensations, Confusion, Convulsions, Disequilibrium, Dizziness, Numbness, Focal Weakness, Frequent Falls, Headaches, Lack of Coordination, Loss of Vision, Memory Loss, Paresthesias, Radicular Pain, Restless Legs, Sensory Deficit, Syncope, Tingling, Tremor, Vertigo, Weakness, Other Visual Disturbances, Other - Psychiatric Psychiatric: absent: As Per HPI, Abnormal Sleep Pattern, Anhedonia, Anxiety, Auditory Hallucinations, Behavioral Changes, Change in Appetite, Change in Libido, Confusion, Depression, Difficulty Concentrating, Hallucinations, Homicidal Ideation, Hopelessness, Irritability, Memory Loss, Mood Swings, Panic Attacks, Paranoia, Suicidal Ideation, Visual Hallucinations, Tactile Hallucinations, Other - Endocrine Endocrine: absent: As Per HPI, Change in Body Appearance, Change in Libido, Cold Intolorance, Deepening of Voice, Excessive Sweating, Fatigue, Flushing, Heat Intolorance, Increase in Ring/Shoe/Hat Size, Palpitations, Polydipsia, Polyphagia, Polyuria, Other - Hematologic/Lymphatic Hematologic: absent: As Per HPI, Easy Bleeding, Easy Bruising, Lymphadenopathy, Other Past Patient History - Infectious Disease Hx of Infectious Diseases: None - Past Medical History & Family History Past Medical History?: Yes - Past Social History Smoking Status: Heavy Smoker > 10 Cigarettes Daily - CARDIAC Hx Cardiac Disorders: Yes Hx Congestive Heart Failure: Yes Hx Hypercholesterolemia: Yes Hx Hypertension: Yes - PULMONARY Hx Respiratory Disorders: Yes Hx Asthma: Yes Hx Chronic Obstructive Pulmonary Disease (COPD): Yes Hx Pneumonia: Yes - NEUROLOGICAL Hx Neurological Disorder: No Hx Seizures: No - HEENT Hx HEENT Problems: No - RENAL Hx Chronic Kidney Disease: No - ENDOCRINE/METABOLIC Hx Endocrine Disorders: Yes Hx Diabetes Mellitus Type 2: Yes Hx Hypothyroidism: Yes - HEMATOLOGICAL/ONCOLOGICAL Hx Blood Disorders: No Hx Human Immunodeficiency Virus (HIV): No - INTEGUMENTARY Hx Dermatological Problems: No - MUSCULOSKELETAL/RHEUMATOLOGICAL Hx Musculoskeletal Disorders: Yes Hx Back Pain: Yes Hx Falls: Yes Other/Comment: back surgery - GASTROINTESTINAL Hx Gastrointestinal Disorders: Yes Hx Vomiting: Yes - GENITOURINARY/GYNECOLOGICAL Hx Genitourinary Disorders: No Hx Sexually Transmitted Disorders: No - PSYCHIATRIC Hx Psychophysiologic Disorder: Yes Hx Anxiety: Yes Hx Bipolar Disorder: Yes Hx Depression: Yes Hx Schizophrenia: Yes Hx Substance Use: No - SURGICAL HISTORY Hx Surgeries: Yes Hx Section: Yes Hx Cholecystectomy: Yes - ANESTHESIA Hx Anesthesia: Yes Hx Anesthesia Reactions: No Hx Malignant Hyperthermia: No Has any member of the family had a problem w/ anesthesia?: No Meds Allergies/Adverse Reactions: Allergies Allergy/AdvReac Type Severity Reaction Status Date / Time No Known Allergies Allergy Verified 09/08/18 10:24 - Medications Medications: Current Medications Acetaminophen (Tylenol 325mg Tab) 650 mg PO Q6 PRN PRN Reason: Pain, moderate (4-7) Acetaminophen (Tylenol 650 Mg Supp) 650 mg [place] Q4 PRN PRN Reason: Fever >100.4 F Last Admin: 09/26/18 20:59 Dose: 650 mg Acetylcysteine (Acetylcysteine 20%) 2 ml INH RBID [facility] Last Admin: 09/29/18 07:09 Dose: 2 ml Albuterol/Ipratropium (Duoneb 3 Mg/0.5 Mg (3 Ml) Ud) 3 ml INH RQ4 [facility] Last Admin: 09/29/18 11:17 Dose: Not Given Amlodipine Besylate (Norvasc) 10 mg PO DAILY [facility] Last Admin: 09/29/18 09:41 Dose: 10 mg Dextrose (Dextrose 50% Inj) 0 ml IV STAT PRN; Protocol PRN Reason: Hypoglycemia Protocol Dextrose (Glutose 15) 0 gm PO ONCE PRN; Protocol PRN Reason: Hypoglycemia Protocol Donepezil HCl (Aricept) 10 mg PO DAILY [facility] Fenofibrate (Tricor) 145 mg PO DAILY [facility] Last Admin: 09/29/18 09:42 Dose: 145 mg Glucagon (Glucagen Diagnostic Kit) 0 mg IM STAT PRN; Protocol PRN Reason: Hypoglycemia Protocol Hydralazine HCl (Apresoline) 10 mg PO Q8 PRN PRN Reason: Systolic Blood Pressure Last Admin: 09/29/18 05:32 Dose: 10 mg Vancomycin HCl 500 mg/ Sodium (Chloride) 100 mls @ 100 mls/hr IVPB Q12 [facility]; Protocol Last Admin: 09/29/18 11:50 Dose: 100 mls/hr Ibuprofen (Motrin Oral Susp) 200 mg PO Q6 PRN PRN Reason: Headache Last Admin: 09/29/18 05:21 Dose: 200 mg Insulin Human Lispro (Humalog) 0 units SC ACTID [facility]; Protocol Last Admin: 09/29/18 12:50 Dose: 3 units Levothyroxine Sodium (Synthroid) 50 mcg PO DAILY@0630 [facility] Last Admin: 09/29/18 05:29 Dose: 50 mcg Lorazepam (Ativan) 1 mg PO Q8 PRN PRN Reason: Anxiety Last Admin: 09/29/18 05:24 Dose: 1 mg Losartan Potassium (Cozaar) 100 mg PO DAILY [facility] Last Admin: 09/29/18 09:41 Dose: 100 mg Methylprednisolone (Solu-Medrol) 60 mg IVP Q8 [facility] Last Admin: 09/29/18 09:40 Dose: 60 mg Ondansetron HCl (Zofran Inj) 4 mg IVP Q6 PRN PRN Reason: Nausea/Vomiting Last Admin: 09/26/18 17:40 Dose: 4 mg Pantoprazole Sodium (Protonix Inj) 40 mg IVP DAILY [facility] Last Admin: 09/29/18 09:39 Dose: 40 mg Promethazine HCl/Dextromethorphan (Phenergan Dm Syrup) 10 ml PO Q6 PRN PRN Reason: Cough Sodium Chloride ([place] Nasal [place]) 2 sprays EMILY Q4 PRN PRN Reason: Nasal congestion Last Admin: 09/29/18 12:50 Dose: 2 spr Physical Exam - Constitutional Appears: Non-toxic, No Acute Distress, Chronically Ill - Head Exam Head Exam: ATRAUMATIC, NORMAL INSPECTION, NORMOCEPHALIC - Eye Exam Eye Exam: EOMI, PERRL. absent: Scleral icterus - ENT Exam ENT Exam: Mucous Membranes Dry, Normal External Ear Exam, Normal Oropharynx - Neck Exam Neck exam: Negative for: Lymphadenopathy, Thyromegaly - Respiratory Exam Respiratory Exam: Decreased Breath Sounds, Prolonged Expiratory Phase, Rhonchi - Cardiovascular Exam Cardiovascular Exam: REGULAR RHYTHM, +S1, +S2 - GI/Abdominal Exam GI & Abdominal Exam: Diminished Bowel Sounds, Distended, Guarding, Soft. absent: Organomegaly, Rebound, Rigid, Tenderness - Rectal Exam Rectal Exam: Deferred - Exam Exam: NORMAL INSPECTION - Extremities Exam Extremities exam: Positive for: pedal pulses present. Negative for: calf tenderness, pedal edema, tenderness - Back Exam Back exam: absent: CVA tenderness (L), CVA tenderness (R), paraspinal tenderness - Neurological Exam Neurological exam: Alert, CN II-XII Intact, Oriented x3, Reflexes Normal - Psychiatric Exam Psychiatric exam: Depressed Results - Vital Signs Recent Vital Signs: Last Vital Signs Temp 98.3 F 09/29/18 12:22 Pulse 110 H 09/29/18 12:22 Resp 20 09/29/18 12:22 BP 177/108 H 09/29/18 12:22 Pulse Ox 92 L 09/29/18 12:22 - Labs Result Diagrams: 09/28/18 05:30 09/28/18 05:30 Labs: Laboratory Results - last 24 hr 09/28/18 09/28/18 09/29/18 16:13 21:33 05:59 POC Glucose (mg/dL) 282 H 145 H 185 H 09/29/18 11:10 POC Glucose (mg/dL) 230 H Assessment & Plan (1) Productive cough Status: Acute (2) DM (diabetes mellitus) Status: Chronic (3) Pneumonia Status: Acute Priority: High - Assessment and Plan (Free Text) Assessment: 58 yo female with hx of DM HTN Obesity COPD anxiety and depression is admitted with nausea and vomiting / flu like illness and was diagnoed with pneumonia with MSSA in sputum IV antibiotics in progress and patient improving slowly will discuss in detail with you and Dr Miranda Thanks for allowing me to participate in the care of your patients
[2018-09-29] MEDS: Promethazine DM 12.5 mg-30 mg/10 ml Syrup PO PRN (15:58)
[2018-09-29] MEDS: ceFAZolin IV 1 gm in Dextrose 1 GM/50 ML BAG IVPB SCH (17:43)
[2018-09-30] MEDS: Nasal Spray(Ocean spray) NAS PRN ×4 (00:54→14:05)
[2018-09-30] MEDS: ceFAZolin IV 1 gm in Dextrose 1 GM/50 ML BAG IVPB SCH ×4 (00:56→23:59)
[2018-09-30] MEDS: Albuterol-Ipratrop 3 mg / 0.5 (3 ml) UD INH SCH ×5 (03:08→19:38)
[2018-09-30] MEDS: Levothyroxine 50 MCG TAB PO SCH (05:52)
--- NOTE | 2018-09-30 06:49 | CP.PCM.PN ---
Subjective - Date & Time of Evaluation Date of Evaluation: 09/28/18 Time of Evaluation: 11:00 - Subjective Subjective: Patient still has a lot of cough and unable to expectorate. Has no fever. Ct scan chest showed bilateral pleural based consolidation Still with elevated FBS. A1c 7.9 Objective - Vital Signs/Intake and Output Vital Signs (last 24 hours): Temp Pulse Resp BP Pulse Ox 98 F 99 H 18 165/100 H 95 09/30/18 04:30 09/30/18 04:30 09/30/18 04:30 09/30/18 04:30 09/30/18 04:30 - Medications Medications: Current Medications Acetaminophen (Tylenol 325mg Tab) 650 mg PO Q6 PRN PRN Reason: Pain, moderate (4-7) Acetaminophen (Tylenol 650 Mg Supp) 650 mg [place] Q4 PRN PRN Reason: Fever >100.4 F Last Admin: 09/26/18 20:59 Dose: 650 mg Acetylcysteine (Acetylcysteine 20%) 2 ml INH RBID [facility] Last Admin: 09/29/18 19:47 Dose: Not Given Albuterol/Ipratropium (Duoneb 3 Mg/0.5 Mg (3 Ml) Ud) 3 ml INH RQ4 [facility] Last Admin: 09/30/18 03:08 Dose: Not Given Amlodipine Besylate (Norvasc) 10 mg PO DAILY [facility] Last Admin: 09/29/18 09:41 Dose: 10 mg Dextrose (Dextrose 50% Inj) 0 ml IV STAT PRN; Protocol PRN Reason: Hypoglycemia Protocol Dextrose (Glutose 15) 0 gm PO ONCE PRN; Protocol PRN Reason: Hypoglycemia Protocol Donepezil HCl (Aricept) 10 mg PO DAILY [facility] Fenofibrate (Tricor) 145 mg PO DAILY [facility] Last Admin: 09/29/18 09:42 Dose: 145 mg Glucagon (Glucagen Diagnostic Kit) 0 mg IM STAT PRN; Protocol PRN Reason: Hypoglycemia Protocol Hydralazine HCl (Apresoline) 10 mg PO Q8 PRN PRN Reason: Systolic Blood Pressure Last Admin: 09/29/18 21:44 Dose: 10 mg Cefazolin Sodium/Dextrose (Ancef Iv 1 Gm Duplex) 1 gm in 50 mls @ 50 mls/hr IVPB Q8 [facility]; Protocol Last Admin: 09/30/18 00:56 Dose: 50 mls/hr Ibuprofen (Motrin Oral Susp) 200 mg PO Q6 PRN PRN Reason: Headache Last Admin: 09/30/18 00:54 Dose: 200 mg Insulin Human Lispro (Humalog) 0 units SC ACTID [facility]; Protocol Last Admin: 09/29/18 16:08 Dose: 3 units Levothyroxine Sodium (Synthroid) 50 mcg PO DAILY@0630 [facility] Last Admin: 09/30/18 05:52 Dose: 50 mcg Lorazepam (Ativan) 1 mg PO Q8 PRN PRN Reason: Anxiety Last Admin: 09/30/18 00:54 Dose: 1 mg Losartan Potassium (Cozaar) 100 mg PO DAILY [facility] Last Admin: 09/29/18 09:41 Dose: 100 mg Methylprednisolone (Solu-Medrol) 60 mg IVP Q8 [facility] Last Admin: 09/30/18 00:56 Dose: 60 mg Ondansetron HCl (Zofran Inj) 4 mg IVP Q6 PRN PRN Reason: Nausea/Vomiting Last Admin: 09/26/18 17:40 Dose: 4 mg Oseltamivir Phosphate (Tamiflu Cap) 75 mg PO BID [facility]; Protocol Last Admin: 09/29/18 16:04 Dose: 75 mg Pantoprazole Sodium (Protonix Inj) 40 mg IVP DAILY [facility] Last Admin: 09/29/18 09:39 Dose: 40 mg Promethazine HCl/Dextromethorphan (Phenergan Dm Syrup) 10 ml PO Q6 PRN PRN Reason: Cough Last Admin: 09/29/18 15:58 Dose: 10 ml Sodium Chloride ([place] Nasal [place]) 2 sprays EMILY Q4 PRN PRN Reason: Nasal congestion Last Admin: 09/30/18 05:39 Dose: 2 spr - Labs Labs: 09/28/18 05:30 09/28/18 05:30 - Head Exam Head Exam: NORMAL INSPECTION - Eye Exam Eye Exam: Normal appearance - ENT Exam ENT Exam: Mucous Membranes Moist - Respiratory Exam Respiratory Exam: Clear to Ausculation Bilateral - Cardiovascular Exam Cardiovascular Exam: REGULAR RHYTHM - GI/Abdominal Exam GI & Abdominal Exam: Normal Bowel Sounds - Neurological Exam Neurological Exam: Awake, Oriented x3 Assessment and Plan (1) Aspiration pneumonia Status: Acute (2) Diabetes mellitus type 2 in obese Status: Acute (3) Hypertension Status: Chronic (4) Hypokalemia Status: Acute - Assessment and Plan (Free Text) Plan: Cont accucheck potassium supplement hydrate Neb tx ID consult follow up Pulmonary consult follow up Cont Iv antibiotics.
--- NOTE | 2018-09-30 06:55 | CP.PCM.PN ---
Subjective - Date & Time of Evaluation Date of Evaluation: 09/29/18 Time of Evaluation: 14:00 - Subjective Subjective: Patient continues to cough a lot but non productive, Has no fever. Noted elevated BP. Objective - Vital Signs/Intake and Output Vital Signs (last 24 hours): Temp Pulse Resp BP Pulse Ox 98 F 99 H 18 165/100 H 95 09/30/18 04:30 09/30/18 04:30 09/30/18 04:30 09/30/18 04:30 09/30/18 04:30 - Medications Medications: Current Medications Acetaminophen (Tylenol 325mg Tab) 650 mg PO Q6 PRN PRN Reason: Pain, moderate (4-7) Acetaminophen (Tylenol 650 Mg Supp) 650 mg IN Q4 PRN PRN Reason: Fever >100.4 F Last Admin: 09/26/18 20:59 Dose: 650 mg Acetylcysteine (Acetylcysteine 20%) 2 ml INH RBID [facility] Last Admin: 09/29/18 19:47 Dose: Not Given Albuterol/Ipratropium (Duoneb 3 Mg/0.5 Mg (3 Ml) Ud) 3 ml INH RQ4 [facility] Last Admin: 09/30/18 03:08 Dose: Not Given Amlodipine Besylate (Norvasc) 10 mg PO DAILY [facility] Last Admin: 09/29/18 09:41 Dose: 10 mg Dextrose (Dextrose 50% Inj) 0 ml IV STAT PRN; Protocol PRN Reason: Hypoglycemia Protocol Dextrose (Glutose 15) 0 gm PO ONCE PRN; Protocol PRN Reason: Hypoglycemia Protocol Donepezil HCl (Aricept) 10 mg PO DAILY [facility] Fenofibrate (Tricor) 145 mg PO DAILY [facility] Last Admin: 09/29/18 09:42 Dose: 145 mg Glucagon (Glucagen Diagnostic Kit) 0 mg IM STAT PRN; Protocol PRN Reason: Hypoglycemia Protocol Hydralazine HCl (Apresoline) 10 mg PO Q8 PRN PRN Reason: Systolic Blood Pressure Last Admin: 09/29/18 21:44 Dose: 10 mg Cefazolin Sodium/Dextrose (Ancef Iv 1 Gm Duplex) 1 gm in 50 mls @ 50 mls/hr IVPB Q8 [facility]; Protocol Last Admin: 09/30/18 00:56 Dose: 50 mls/hr Ibuprofen (Motrin Oral Susp) 200 mg PO Q6 PRN PRN Reason: Headache Last Admin: 09/30/18 00:54 Dose: 200 mg Insulin Human Lispro (Humalog) 0 units SC ACTID [facility]; Protocol Last Admin: 09/29/18 16:08 Dose: 3 units Levothyroxine Sodium (Synthroid) 50 mcg PO DAILY@0630 [facility] Last Admin: 09/30/18 05:52 Dose: 50 mcg Lorazepam (Ativan) 1 mg PO Q8 PRN PRN Reason: Anxiety Last Admin: 09/30/18 00:54 Dose: 1 mg Losartan Potassium (Cozaar) 100 mg PO DAILY [facility] Last Admin: 09/29/18 09:41 Dose: 100 mg Methylprednisolone (Solu-Medrol) 60 mg IVP Q8 [facility] Last Admin: 09/30/18 00:56 Dose: 60 mg Ondansetron HCl (Zofran Inj) 4 mg IVP Q6 PRN PRN Reason: Nausea/Vomiting Last Admin: 09/26/18 17:40 Dose: 4 mg Oseltamivir Phosphate (Tamiflu Cap) 75 mg PO BID [facility]; Protocol Last Admin: 09/29/18 16:04 Dose: 75 mg Pantoprazole Sodium (Protonix Inj) 40 mg IVP DAILY [facility] Last Admin: 09/29/18 09:39 Dose: 40 mg Promethazine HCl/Dextromethorphan (Phenergan Dm Syrup) 10 ml PO Q6 PRN PRN Reason: Cough Last Admin: 09/29/18 15:58 Dose: 10 ml Sodium Chloride ([place] Nasal [place]) 2 sprays EMILY Q4 PRN PRN Reason: Nasal congestion Last Admin: 09/30/18 05:39 Dose: 2 spr - Labs Labs: 09/28/18 05:30 09/28/18 05:30 - Eye Exam Eye Exam: Normal appearance - ENT Exam ENT Exam: Mucous Membranes Moist - Respiratory Exam Respiratory Exam: Decreased Breath Sounds - Cardiovascular Exam Cardiovascular Exam: REGULAR RHYTHM - GI/Abdominal Exam GI & Abdominal Exam: Normal Bowel Sounds Assessment and Plan (1) Aspiration pneumonia Status: Acute (2) Diabetes mellitus type 2 in obese Status: Acute (3) Hypertension Status: Chronic (4) Hypokalemia Status: Acute - Assessment and Plan (Free Text) Plan: Cont meds start po hypoglymeics adjust BP meds ambulate.
[2018-09-30] MEDS: Acetylcysteine 20% Inhal Soln (4ml) INH SCH ×2 (07:37→19:37)
[2018-09-30] MEDS ORDERED: methylPREDNISolone 40 MG in Sodium Chloride 0.9% 50 ML IV SCH (09:00)
[2018-09-30] MEDS: Promethazine DM 12.5 mg-30 mg/10 ml Syrup PO PRN ×2 (09:45→17:53)
[2018-09-30] MEDS: Insulin Lispro (humaLOG) 100 Units/ml Inj SC SCH ×3 (09:49→17:51)
[2018-09-30] MEDS: MethylPREDNISolone 40 mg Vial IVP SCH ×2 (10:40→20:39)
--- NOTE | 2018-09-30 11:29 | CP.PCM.PN ---
Subjective - Date & Time of Evaluation Date of Evaluation: 09/30/18 Time of Evaluation: 08:00 - Subjective Subjective: awake alert c/o cough and weakness Objective - Vital Signs/Intake and Output Vital Signs (last 24 hours): Temp Pulse Resp BP Pulse Ox 98.0 F 113 H 18 178/92 H 96 09/30/18 07:48 09/30/18 09:47 09/30/18 07:48 09/30/18 09:47 09/30/18 07:48 - Medications Medications: Current Medications Acetaminophen (Tylenol 325mg Tab) 650 mg PO Q6 PRN PRN Reason: Pain, moderate (4-7) Acetaminophen (Tylenol 650 Mg Supp) 650 mg SD Q4 PRN PRN Reason: Fever >100.4 F Last Admin: 09/26/18 20:59 Dose: 650 mg Acetylcysteine (Acetylcysteine 20%) 2 ml INH RBID [facility] Last Admin: 09/30/18 07:37 Dose: Not Given Albuterol/Ipratropium (Duoneb 3 Mg/0.5 Mg (3 Ml) Ud) 3 ml INH RQ4 [facility] Last Admin: 09/30/18 07:36 Dose: Not Given Amlodipine Besylate (Norvasc) 10 mg PO DAILY [facility] Last Admin: 09/29/18 09:41 Dose: 10 mg Dextrose (Dextrose 50% Inj) 0 ml IV STAT PRN; Protocol PRN Reason: Hypoglycemia Protocol Dextrose (Glutose 15) 0 gm PO ONCE PRN; Protocol PRN Reason: Hypoglycemia Protocol Donepezil HCl (Aricept) 10 mg PO DAILY [facility] Fenofibrate (Tricor) 145 mg PO DAILY [facility] Last Admin: 09/30/18 09:48 Dose: 145 mg Glucagon (Glucagen Diagnostic Kit) 0 mg IM STAT PRN; Protocol PRN Reason: Hypoglycemia Protocol Hydralazine HCl (Apresoline) 25 mg PO TID [facility] Last Admin: 09/30/18 09:46 Dose: 25 mg Cefazolin Sodium/Dextrose (Ancef Iv 1 Gm Duplex) 1 gm in 50 mls @ 50 mls/hr IVPB Q8 [facility]; Protocol Last Admin: 09/30/18 09:49 Dose: 50 mls/hr Ibuprofen (Motrin Oral Susp) 200 mg PO Q6 PRN PRN Reason: Headache Last Admin: 09/30/18 09:44 Dose: 200 mg Insulin Human Lispro (Humalog) 0 units SC ACTID [facility]; Protocol Last Admin: 09/30/18 09:49 Dose: 4 units Levothyroxine Sodium (Synthroid) 50 mcg PO DAILY@0630 [facility] Last Admin: 09/30/18 05:52 Dose: 50 mcg Lorazepam (Ativan) 1 mg PO Q8 PRN PRN Reason: Anxiety Last Admin: 09/30/18 09:56 Dose: 1 mg Losartan Potassium (Cozaar) 100 mg PO DAILY [facility] Last Admin: 09/30/18 09:47 Dose: 100 mg Metformin HCl (Glucophage) 1,000 mg PO BIDWM [facility] Last Admin: 09/30/18 08:35 Dose: 1,000 mg Methylprednisolone (Solu-Medrol) 40 mg IVP Q12 [facility] Ondansetron HCl (Zofran Inj) 4 mg IVP Q6 PRN PRN Reason: Nausea/Vomiting Last Admin: 09/26/18 17:40 Dose: 4 mg Oseltamivir Phosphate (Tamiflu Cap) 75 mg PO BID [facility]; Protocol Last Admin: 09/30/18 09:47 Dose: 75 mg Pantoprazole Sodium (Protonix Inj) 40 mg IVP DAILY [facility] Last Admin: 09/30/18 09:45 Dose: 40 mg Promethazine HCl/Dextromethorphan (Phenergan Dm Syrup) 10 ml PO Q6 PRN PRN Reason: Cough Last Admin: 09/30/18 09:45 Dose: 10 ml Sitagliptin Phosphate (Januvia) 100 mg PO DAILY [facility] Last Admin: 09/30/18 09:46 Dose: 100 mg Sodium Chloride ([place] Nasal [place]) 2 sprays EMILY Q4 PRN PRN Reason: Nasal congestion Last Admin: 09/30/18 08:39 Dose: 2 spr - Labs Labs: 09/28/18 05:30 09/28/18 05:30 - Constitutional Appears: Non-toxic, Chronically Ill - Head Exam Head Exam: NORMOCEPHALIC - Eye Exam Eye Exam: absent: Scleral icterus - ENT Exam ENT Exam: Mucous Membranes Dry - Neck Exam Neck Exam: absent: Lymphadenopathy - Respiratory Exam Respiratory Exam: Decreased Breath Sounds, Prolonged Expiratory Phase, Rhonchi - Cardiovascular Exam Cardiovascular Exam: REGULAR RHYTHM, +S1, +S2 - GI/Abdominal Exam GI & Abdominal Exam: Distended, Soft. absent: Tenderness - Rectal Exam Rectal Exam: Deferred - Exam Exam: NORMAL INSPECTION - Extremities Exam Extremities Exam: Normal Inspection. absent: Calf Tenderness, Pedal Edema, Tenderness - Back Exam Back Exam: absent: CVA tenderness (L), CVA tenderness (R), paraspinal tenderness - Neurological Exam Neurological Exam: Alert, Awake, CN II-XII Intact, Oriented x3 Neuro motor strength exam: Left Upper Extremity: 4, Right Upper Extremity: 4, Left Lower Extremity: 4, Right Lower Extremity: 4 - Psychiatric Exam Psychiatric exam: Depressed - Skin Skin Exam: Dry Assessment and Plan (1) Productive cough Status: Acute (2) DM (diabetes mellitus) Status: Chronic (3) Pneumonia Status: Acute - Assessment and Plan (Free Text) Assessment: Beth Jarrett is a 58 year old female presenting to [facility] with vomiting and abdominal pain . referred for ID eval of pneumonia , possibly secondary to aspiration sputum + for MSSA - switched to Ancef
[2018-09-30 12:04] LABS: HEPATITIS B SURFACE AG Negative (NEGATIVE)
[2018-09-30 12:09] LABS: HEPATITIS A IGM NEGATIVE (NEGATIVE); HEPATITIS B CORE AB NEGATIVE (NEGATIVE)
[2018-09-30 12:21] LABS: HEPATITIS C ANTIBODY NEGATIVE (NEGATIVE)
[2018-10-01] MEDS: Albuterol-Ipratrop 3 mg / 0.5 (3 ml) UD INH SCH ×7 (00:44→23:24)
[2018-10-01] MEDS: Levothyroxine 50 MCG TAB PO SCH (06:38)
[2018-10-01] MEDS: Acetylcysteine 20% Inhal Soln (4ml) INH SCH ×2 (07:11→19:02)
[2018-10-01] MEDS: Nasal Spray(Ocean spray) NAS PRN (09:19)
[2018-10-01] MEDS: Promethazine DM 12.5 mg-30 mg/10 ml Syrup PO PRN (09:22)
[2018-10-01] MEDS: Insulin Lispro (humaLOG) 100 Units/ml Inj SC SCH ×3 (09:23→17:54)
[2018-10-01] MEDS: MethylPREDNISolone 40 mg Vial IVP SCH ×2 (09:43→23:19)
--- NOTE | 2018-10-01 10:55 | CP.PCM.PN ---
Subjective - Date & Time of Evaluation Date of Evaluation: 10/01/18 Time of Evaluation: 10:55 - Subjective Subjective: STILL COUGHING SOB IMPROVING NO CHEST PAINS Objective - Vital Signs/Intake and Output Vital Signs (last 24 hours): Temp Pulse Resp BP Pulse Ox 98.1 F 113 H 20 179/76 H 94 L 10/01/18 07:45 10/01/18 09:22 10/01/18 07:45 10/01/18 09:22 10/01/18 07:45 - Medications Medications: Current Medications Acetaminophen (Tylenol 325mg Tab) 650 mg PO Q6 PRN PRN Reason: Pain, moderate (4-7) Acetaminophen (Tylenol 650 Mg Supp) [address] Q4 PRN PRN Reason: Fever >100.4 F Last Admin: 09/26/18 20:59 Dose: 650 mg Acetylcysteine (Acetylcysteine 20%) 2 ml INH RBID [facility] Last Admin: 10/01/18 07:11 Dose: Not Given Albuterol/Ipratropium (Duoneb 3 Mg/0.5 Mg (3 Ml) Ud) 3 ml INH RQ4 [facility] Last Admin: 10/01/18 07:11 Dose: Not Given Amlodipine Besylate (Norvasc) 10 mg PO DAILY [facility] Last Admin: 10/01/18 09:22 Dose: 10 mg Dextrose (Dextrose 50% Inj) 0 ml IV STAT PRN; Protocol PRN Reason: Hypoglycemia Protocol Dextrose (Glutose 15) 0 gm PO ONCE PRN; Protocol PRN Reason: Hypoglycemia Protocol Donepezil HCl (Aricept) 10 mg PO DAILY [facility] Duloxetine HCl (Cymbalta) 30 mg PO DAILY [facility] Last Admin: 10/01/18 09:22 Dose: 30 mg Fenofibrate (Tricor) 145 mg PO DAILY [facility] Last Admin: 10/01/18 09:25 Dose: 145 mg Glucagon (Glucagen Diagnostic Kit) 0 mg IM STAT PRN; Protocol PRN Reason: Hypoglycemia Protocol Hydralazine HCl (Apresoline) 25 mg PO TID [facility] Last Admin: 10/01/18 09:21 Dose: 25 mg Cefazolin Sodium/Dextrose (Ancef Iv 1 Gm Duplex) 1 gm in 50 mls @ 50 mls/hr IVPB Q8 [facility]; Protocol Last Admin: 09/30/18 23:59 Dose: 50 mls/hr Ibuprofen (Motrin Oral Susp) 200 mg PO Q6 PRN PRN Reason: Headache Last Admin: 10/01/18 03:45 Dose: 200 mg Insulin Human Lispro (Humalog) 0 units SC ACTID [facility]; Protocol Last Admin: 10/01/18 09:23 Dose: 3 units Levothyroxine Sodium (Synthroid) 50 mcg PO DAILY@0630 [facility] Last Admin: 10/01/18 06:38 Dose: 50 mcg Lorazepam (Ativan) 1 mg PO Q8 PRN PRN Reason: Anxiety Last Admin: 10/01/18 10:27 Dose: 1 mg Losartan Potassium (Cozaar) 100 mg PO DAILY [facility] Last Admin: 10/01/18 09:21 Dose: 100 mg Metformin HCl (Glucophage) 1,000 mg PO BIDWM [facility] Last Admin: 10/01/18 08:20 Dose: 1,000 mg Methylprednisolone (Solu-Medrol) 40 mg IVP Q12 [facility] Last Admin: 09/30/18 20:39 Dose: 40 mg Ondansetron HCl (Zofran Inj) 4 mg IVP Q6 PRN PRN Reason: Nausea/Vomiting Last Admin: 09/26/18 17:40 Dose: 4 mg Oseltamivir Phosphate (Tamiflu Cap) 75 mg PO BID [facility]; Protocol Last Admin: 10/01/18 09:20 Dose: 75 mg Pantoprazole Sodium (Protonix Inj) 40 mg IVP DAILY [facility] Last Admin: 10/01/18 09:25 Dose: 40 mg Promethazine HCl/Dextromethorphan (Phenergan Dm Syrup) 10 ml PO Q6 PRN PRN Reason: Cough Last Admin: 10/01/18 09:22 Dose: 10 ml Sitagliptin Phosphate (Januvia) 100 mg PO DAILY [facility] Last Admin: 10/01/18 09:21 Dose: 100 mg Sodium Chloride ([place] Nasal [place]) 2 sprays EMILY Q4 PRN PRN Reason: Nasal congestion Last Admin: 10/01/18 09:19 Dose: 2 spr - Labs Labs: 09/28/18 05:30 09/28/18 05:30 - Constitutional Appears: Chronically Ill - Head Exam Head Exam: ATRAUMATIC, NORMAL INSPECTION, NORMOCEPHALIC - Eye Exam Eye Exam: EOMI, Normal appearance, PERRL Pupil Exam: NORMAL ACCOMODATION, PERRL - ENT Exam ENT Exam: Mucous Membranes Moist, Normal Exam - Neck Exam Neck Exam: Full ROM, Normal Inspection. absent: Lymphadenopathy - Respiratory Exam Respiratory Exam: Decreased Breath Sounds, Prolonged Expiratory Phase, Rales, Wheezes, NORMAL BREATHING PATTERN - Cardiovascular Exam Cardiovascular Exam: REGULAR RHYTHM, +S1, +S2. absent: Murmur - GI/Abdominal Exam GI & Abdominal Exam: Soft, Normal Bowel Sounds. absent: Tenderness - Rectal Exam Rectal Exam: NORMAL INSPECTION - Extremities Exam Extremities Exam: Full ROM, Normal Capillary Refill, Normal Inspection. absent: Joint Swelling, Pedal Edema - Back Exam Back Exam: NORMAL INSPECTION - Neurological Exam Neurological Exam: Alert, Awake, CN II-XII Intact, Normal Gait, Oriented x3 - Psychiatric Exam Psychiatric exam: Normal Affect, Normal Mood - Skin Skin Exam: Dry, Intact, Normal Color, Warm Assessment and Plan - Assessment and Plan (Free Text) Assessment: ASPIRATION PNEUMONIA Plan: CONTINUE CURRENT RX REPEAT CXR
[2018-10-01] MEDS ORDERED: Sodium Chloride 3% for Inhalation 4 ML VIAL.NEB IH PRN (10:56)
[2018-10-01] MEDS: ceFAZolin IV 1 gm in Dextrose 1 GM/50 ML BAG IVPB SCH ×2 (17:38→17:43)
--- NOTE | 2018-10-01 17:50 | RAD ---
Date of service: 10/01/2018 HISTORY: PNEUMONIA COMPARISON: Comparison chest 09/26/2018. TECHNIQUE: Chest PA and lateral FINDINGS: In situ right-sided PICC line the tip of which is located in the SVC. LUNGS: Discoid and linear atelectasis left mid to lower low lung field. PLEURA: No significant pleural effusion identified. No pneumothorax apparent. CARDIOVASCULAR: Mild aortic atherosclerotic calcification present. Cardiomegaly.. No pulmonary vascular congestion. OSSEOUS STRUCTURES: Mild multilevel degenerative spondylosis of the thoracic spine. Several chronic appearing anterior wedge deformities midthoracic region result in slight increase kyphosis. VISUALIZED UPPER ABDOMEN: Normal. OTHER FINDINGS: None. IMPRESSION: Discoid and linear type atelectasis left mid to lower lung field
[2018-10-02] MEDS: ceFAZolin IV 1 gm in Dextrose 1 GM/50 ML BAG IVPB SCH ×2 (01:17→10:17)
[2018-10-02 04:29] VITALS: RESP 20
[2018-10-02] MEDS: Albuterol-Ipratrop 3 mg / 0.5 (3 ml) UD INH SCH ×3 (05:15→11:25)
[2018-10-02] MEDS: Levothyroxine 50 MCG TAB PO SCH (06:56)
[2018-10-02] MEDS: Acetylcysteine 20% Inhal Soln (4ml) INH SCH (07:32)
[2018-10-02 08:32] VITALS: BP 158/100; PULSE 103; TEMP 98.2; O2SAT 96
--- NOTE | 2018-10-02 08:47 | CP.PCM.PN ---
Subjective - Date & Time of Evaluation Date of Evaluation: 10/02/18 Time of Evaluation: 08:46 - Subjective Subjective: COUGH AND SOB CONTINUE TO IMPROVE O2 SAT-96% ON RA Objective - Vital Signs/Intake and Output Vital Signs (last 24 hours): Temp Pulse Resp BP Pulse Ox 98.2 F 103 H 20 158/100 H 96 10/02/18 08:31 10/02/18 08:31 10/02/18 08:31 10/02/18 08:31 10/02/18 08:31 - Medications Medications: Current Medications Acetaminophen (Tylenol 325mg Tab) 650 mg PO Q6 PRN PRN Reason: Pain, moderate (4-7) Acetaminophen (Tylenol 650 Mg Supp) 650 mg ND Q4 PRN PRN Reason: Fever >100.4 F Last Admin: 09/26/18 20:59 Dose: 650 mg Acetylcysteine (Acetylcysteine 20%) 2 ml INH RBID [facility] Last Admin: 10/02/18 07:32 Dose: Not Given Albuterol/Ipratropium (Duoneb 3 Mg/0.5 Mg (3 Ml) Ud) 3 ml INH RQ4 [facility] Last Admin: 10/02/18 07:32 Dose: Not Given Amlodipine Besylate (Norvasc) 10 mg PO DAILY [facility] Last Admin: 10/01/18 09:22 Dose: 10 mg Dextrose (Dextrose 50% Inj) 0 ml IV STAT PRN; Protocol PRN Reason: Hypoglycemia Protocol Dextrose (Glutose 15) 0 gm PO ONCE PRN; Protocol PRN Reason: Hypoglycemia Protocol Donepezil HCl (Aricept) 10 mg PO DAILY [facility] Duloxetine HCl (Cymbalta) 30 mg PO DAILY [facility] Last Admin: 10/01/18 09:22 Dose: 30 mg Fenofibrate (Tricor) 145 mg PO DAILY [facility] Last Admin: 10/01/18 09:25 Dose: 145 mg Glucagon (Glucagen Diagnostic Kit) 0 mg IM STAT PRN; Protocol PRN Reason: Hypoglycemia Protocol Hydralazine HCl (Apresoline) 25 mg PO TID [facility] Last Admin: 10/01/18 17:41 Dose: 25 mg Cefazolin Sodium/Dextrose (Ancef Iv 1 Gm Duplex) 1 gm in 50 mls @ 50 mls/hr IVPB Q8 [facility]; Protocol Last Admin: 10/02/18 01:17 Dose: 50 mls/hr Ibuprofen (Motrin Oral Susp) 200 mg PO Q6 PRN PRN Reason: Headache Last Admin: 10/01/18 12:33 Dose: 200 mg Insulin Human Lispro (Humalog) 0 units SC ACTID [facility]; Protocol Last Admin: 10/01/18 17:54 Dose: 2 units Levothyroxine Sodium (Synthroid) 50 mcg PO DAILY@0630 [facility] Last Admin: 10/02/18 06:56 Dose: Not Given Lorazepam (Ativan) 1 mg PO Q8 PRN PRN Reason: Anxiety Last Admin: 10/01/18 20:07 Dose: 1 mg Losartan Potassium (Cozaar) 100 mg PO DAILY [facility] Last Admin: 10/01/18 09:21 Dose: 100 mg Metformin HCl (Glucophage) 1,000 mg PO BIDWM [facility] Last Admin: 10/01/18 17:42 Dose: 1,000 mg Methylprednisolone (Solu-Medrol) 40 mg IVP Q12 [facility] Last Admin: 10/01/18 23:19 Dose: 40 mg Nicotine (Nicoderm Cq) 1 patch TD DAILY [facility] Last Admin: 10/01/18 18:12 Dose: 1 patch Ondansetron HCl (Zofran Inj) 4 mg IVP Q6 PRN PRN Reason: Nausea/Vomiting Last Admin: 09/26/18 17:40 Dose: 4 mg Oseltamivir Phosphate (Tamiflu Cap) 75 mg PO BID [facility]; Protocol Last Admin: 10/01/18 17:41 Dose: 75 mg Pantoprazole Sodium (Protonix Inj) 40 mg IVP DAILY [facility] Last Admin: 10/01/18 09:25 Dose: 40 mg Promethazine HCl/Dextromethorphan (Phenergan Dm Syrup) 10 ml PO Q6 PRN PRN Reason: Cough Last Admin: 10/01/18 09:22 Dose: 10 ml Sitagliptin Phosphate (Januvia) 100 mg PO DAILY [facility] Last Admin: 10/01/18 09:21 Dose: 100 mg Sodium Chloride ([place] Nasal [place]) 2 sprays EMILY Q4 PRN PRN Reason: Nasal congestion Last Admin: 10/01/18 09:19 Dose: 2 spr - Labs Labs: 09/28/18 05:30 09/28/18 05:30 - Constitutional Appears: No Acute Distress - Head Exam Head Exam: ATRAUMATIC, NORMAL INSPECTION, NORMOCEPHALIC - Eye Exam Eye Exam: EOMI, Normal appearance, PERRL Pupil Exam: NORMAL ACCOMODATION, PERRL - ENT Exam ENT Exam: Mucous Membranes Moist, Normal Exam - Neck Exam Neck Exam: Full ROM, Normal Inspection. absent: Lymphadenopathy - Respiratory Exam Respiratory Exam: Prolonged Expiratory Phase, Rales, NORMAL BREATHING PATTERN - Cardiovascular Exam Cardiovascular Exam: REGULAR RHYTHM, +S1, +S2. absent: Murmur - GI/Abdominal Exam GI & Abdominal Exam: Soft, Normal Bowel Sounds. absent: Tenderness - Rectal Exam Rectal Exam: NORMAL INSPECTION - Extremities Exam Extremities Exam: Full ROM, Normal Capillary Refill, Normal Inspection. absent: Joint Swelling, Pedal Edema - Back Exam Back Exam: NORMAL INSPECTION - Neurological Exam Neurological Exam: Alert, Awake, CN II-XII Intact, Normal Gait, Oriented x3 - Psychiatric Exam Psychiatric exam: Normal Affect, Normal Mood - Skin Skin Exam: Dry, Intact, Normal Color, Warm Assessment and Plan - Assessment and Plan (Free Text) Assessment: ASPIRATION PNEUMONIA IMPROVING Plan: CONTINUE CURRENT RX
[2018-10-02] MEDS ORDERED: Pantoprazole 40 mg EC Tab PO SCH (10:15)
[2018-10-02] MEDS ORDERED: Enoxaparin 40 mg Syringe SC SCH (10:15)
[2018-10-02] MEDS: Insulin Lispro (humaLOG) 100 Units/ml Inj SC SCH (10:27)
[2018-10-02] MEDS: Promethazine DM 12.5 mg-30 mg/10 ml Syrup PO PRN (10:54)
--- NOTE | 2018-10-02 13:40 | CP.PCM.PN ---
Subjective - Date & Time of Evaluation Date of Evaluation: 10/02/18 Time of Evaluation: 09:00 - Subjective Subjective: less cough less sob Objective - Vital Signs/Intake and Output Vital Signs (last 24 hours): Temp Pulse Resp BP Pulse Ox 98.2 F 103 H 20 158/100 H 96 10/02/18 08:31 10/02/18 10:41 10/02/18 08:31 10/02/18 10:41 10/02/18 08:31 - Medications Medications: Current Medications Acetaminophen (Tylenol 325mg Tab) 650 mg PO Q6 PRN PRN Reason: Pain, moderate (4-7) Acetaminophen (Tylenol 650 Mg Supp) 650 mg [place] Q4 PRN PRN Reason: Fever >100.4 F Last Admin: 09/26/18 20:59 Dose: 650 mg Acetylcysteine (Acetylcysteine 20%) 2 ml INH RBID [facility] Last Admin: 10/02/18 07:32 Dose: Not Given Albuterol/Ipratropium (Duoneb 3 Mg/0.5 Mg (3 Ml) Ud) 3 ml INH RQ4 [facility] Last Admin: 10/02/18 07:32 Dose: Not Given Amlodipine Besylate (Norvasc) 10 mg PO DAILY [facility] Last Admin: 10/02/18 10:41 Dose: 10 mg Dextrose (Dextrose 50% Inj) 0 ml IV STAT PRN; Protocol PRN Reason: Hypoglycemia Protocol Dextrose (Glutose 15) 0 gm PO ONCE PRN; Protocol PRN Reason: Hypoglycemia Protocol Donepezil HCl (Aricept) 10 mg PO DAILY [facility] Duloxetine HCl (Cymbalta) 30 mg PO DAILY [facility] Last Admin: 10/02/18 10:22 Dose: 30 mg Enoxaparin Sodium (Lovenox) 40 mg SC DAILY [facility]; Protocol Fenofibrate (Tricor) 145 mg PO DAILY [facility] Last Admin: 10/02/18 10:56 Dose: 145 mg Glucagon (Glucagen Diagnostic Kit) 0 mg IM STAT PRN; Protocol PRN Reason: Hypoglycemia Protocol Hydralazine HCl (Apresoline) 25 mg PO TID [facility] Last Admin: 10/02/18 10:18 Dose: 25 mg Cefazolin Sodium/Dextrose (Ancef Iv 1 Gm Duplex) 1 gm in 50 mls @ 50 mls/hr IVPB Q8 [facility]; Protocol Last Admin: 10/02/18 10:17 Dose: 50 mls/hr Ibuprofen (Motrin Oral Susp) 200 mg PO Q6 PRN PRN Reason: Headache Last Admin: 10/02/18 10:14 Dose: 200 mg Insulin Human Lispro (Humalog) 0 units SC ACTID [facility]; Protocol Last Admin: 10/02/18 10:27 Dose: 3 units Levothyroxine Sodium (Synthroid) 50 mcg PO DAILY@0630 [facility] Last Admin: 10/02/18 06:56 Dose: Not Given Lorazepam (Ativan) 1 mg PO Q8 PRN PRN Reason: Anxiety Last Admin: 10/01/18 20:07 Dose: 1 mg Losartan Potassium (Cozaar) 100 mg PO DAILY [facility] Last Admin: 10/02/18 10:21 Dose: 100 mg Metformin HCl (Glucophage) 1,000 mg PO BIDWM [facility] Last Admin: 10/02/18 10:22 Dose: 1,000 mg Methylprednisolone (Solu-Medrol) 40 mg IVP Q12 [facility] Last Admin: 10/01/18 23:19 Dose: 40 mg Nicotine (Nicoderm Cq) 1 patch TD DAILY [facility] Last Admin: 10/02/18 10:34 Dose: 1 patch Ondansetron HCl (Zofran Inj) 4 mg IVP Q6 PRN PRN Reason: Nausea/Vomiting Last Admin: 09/26/18 17:40 Dose: 4 mg Oseltamivir Phosphate (Tamiflu Cap) 75 mg PO BID [facility]; Protocol Last Admin: 10/02/18 10:56 Dose: 75 mg Pantoprazole Sodium (Protonix Ec Tab) 40 mg PO DAILY [facility] Promethazine HCl/Dextromethorphan (Phenergan Dm Syrup) 10 ml PO Q6 PRN PRN Reason: Cough Last Admin: 10/02/18 10:54 Dose: 10 ml Sitagliptin Phosphate (Januvia) 100 mg PO DAILY [facility] Last Admin: 10/02/18 10:30 Dose: 100 mg Sodium Chloride ([place] Nasal [place]) 2 sprays EMILY Q4 PRN PRN Reason: Nasal congestion Last Admin: 10/01/18 09:19 Dose: 2 spr - Labs Labs: 09/28/18 05:30 09/28/18 05:30 - Constitutional Appears: Non-toxic, Chronically Ill - Head Exam Head Exam: NORMOCEPHALIC - Eye Exam Eye Exam: absent: Scleral icterus - ENT Exam ENT Exam: Mucous Membranes Dry - Neck Exam Neck Exam: absent: Lymphadenopathy - Respiratory Exam Respiratory Exam: Decreased Breath Sounds, Rhonchi - Cardiovascular Exam Cardiovascular Exam: REGULAR RHYTHM, +S1, +S2 - GI/Abdominal Exam GI & Abdominal Exam: Distended, Soft. absent: Tenderness - Rectal Exam Rectal Exam: Deferred - Exam Exam: NORMAL INSPECTION - Extremities Exam Extremities Exam: absent: Pedal Edema - Back Exam Back Exam: absent: CVA tenderness (L), CVA tenderness (R) - Neurological Exam Neurological Exam: Alert, Awake, Oriented x3 Assessment and Plan (1) Productive cough Status: Acute (2) DM (diabetes mellitus) Status: Chronic (3) Pneumonia Status: Acute - Assessment and Plan (Free Text) Assessment: cont iv rx at [facility]CU
--- NOTE | 2018-10-02 14:00 | PQF ---
PROVIDER RESPONSE TEXT: DM with hyperglycemia REVIEWER QUERY TEXT: Diabetic Associated Manifestations Please specify any manifestations associated / due to diabetes Such as: --DM with Hyperglycemia -- Diabetes with renal manifestation -- Diabetes with neurologic manifestation -- Diabetes with ophthalmic manifestation -- Diabetes with peripheral circulatory manifestation -- Other, please specify Random glucose: 167->162->219 POC: 09/28 @12:23-> 301 on 09/29@21:29->282 -metformin,januvia, insulin The patient's Clinical Indicators include: -- Query created by: Kaykay Reveles on 09/30/2018 3:49 PM Electronically signed by: Won Coughlin MD 10/02/2018 1:56 PM
--- NOTE | 2018-10-02 14:00 | PQF ---
PROVIDER RESPONSE TEXT: Copd, exacerbation acute REVIEWER QUERY TEXT: COPD Specificity COPD - is documented in the Medical Record. Please specify the associated condition: Such as: -- Stable -- Exacerbation - acute -- Other, please specify 09/26 H and P: includes: Hx. COPD 09/27 and 09/29: Pulmonary note: Respiratory Exam: Decreased Breath Sounds, Prolonged Expiratory Phase, Rales, Wheezes 09/27 Resident/Attending note; Respiratory exam: Exam: Wheezes 09/28 Attending/Resident progress note includes: (1) Aspiration pneumonia Status: Acute -nebs, IV steroids The patient's Clinical Indicators include: -- Query created by: Kaykay Reveles on 09/30/2018 3:45 PM Electronically signed by: Won Coughlin MD 10/02/2018 1:56 PM
[2018-10-02] MEDS ORDERED: Povidone Iodine Topical 10% Sol ONE (14:47)
== END 2018-10-02 15:56 | disposition home or self-care (01) | DRG 178 ==
LOC: H.ER 08:01 → H.ERHOLD 12:39 → H.TEL 17:06 → OBSVTOIN 09-29 12:39 → H.MEDSURG1 10-01 02:05 → UNDODISIN 10-01 14:41
PROVIDERS: ADMIT Family Medicine; ATTEND Family Medicine
PROC: 02HV33Z Insertion of Infusion Device into Superior Vena Cava, Percutaneous Approach (ICD-10-PCS; principal; 2018-09-26)
PROC: B518ZZA Fluoroscopy of Superior Vena Cava, Guidance (ICD-10-PCS; 2018-09-26)
PROC: B548ZZA Ultrasonography of Superior Vena Cava, Guidance (ICD-10-PCS; 2018-09-26)
PROC: 3E04329 Introduction of Other Anti-infective into Central Vein, Percutaneous Approach (ICD-10-PCS; 2018-09-26)
DX: J69.0 Pneumonitis due to inhalation of food and vomit (principal); J44.1 Chronic obstructive pulmonary disease with (acute) exacerbation; J15.211 Pneumonia due to Methicillin susceptible Staphylococcus aureus; E11.65 Type 2 diabetes mellitus with hyperglycemia; F25.0 Schizoaffective disorder, bipolar type; E87.6 Hypokalemia; I16.0 Hypertensive urgency; I11.0 Hypertensive heart disease with heart failure; I50.9 Heart failure, unspecified; E03.9 Hypothyroidism, unspecified; E78.5 Hyperlipidemia, unspecified; E78.00 Pure hypercholesterolemia, unspecified; E66.9 Obesity, unspecified; Z68.35 Body mass index [BMI] 35.0-35.9, adult; F41.9 Anxiety disorder, unspecified; F32.9 Major depressive disorder, single episode, unspecified; F17.210 Nicotine dependence, cigarettes, uncomplicated; Z79.82 Long term (current) use of aspirin; Z79.84 Long term (current) use of oral hypoglycemic drugs; Z87.01 Personal history of pneumonia (recurrent); Z59.0 Homelessness

== ENCOUNTER 2018-10-18 17:33 | Emergency (ER) | payer MEDICARE, BC ==
[2018-10-18 17:34] VITALS: PULSE 89
[2018-10-18 17:37] VITALS: RESP 20; BMI 37.0
[2018-10-18] MEDS ORDERED: Albuterol-Ipratrop 3 mg / 0.5 (3 ml) UD INH STA ×3 (18:04→18:25)
--- NOTE | 2018-10-18 18:12 | ED PDOC ---
HPI: General Adult Time Seen by Provider: 10/18/18 18:00 Chief Complaint (Nursing): Trauma Chief Complaint (Provider): Trauma History Per: Patient History/Exam Limitations: no limitations Onset/Duration Of Symptoms: Mins (just prior to arrival) Current Symptoms Are (Timing): Still Present Severity: Moderate Additional Complaint(s): 58 year old female with a past medical history of COPD, diabetes, and hypertension is brought into the ED for an evaluation of a head injury that occurred just prior to arrival. Patient reports that she was in a [employer] when she slipped and fell and hit the back of her head. Patient denies having loss of consciousness, fevers, chills, dizziness prior to the fall, and any other complaints. Of note: Patient was discharged home on 10/02/2018 after being hospitalized for aspiration pneumonia. Patient reports that she has had a cough since then. PMD: None provided. Past Medical History Reviewed: Historical Data, Nursing Documentation, Vital Signs Vital Signs: Last Vital Signs Temp 98.6 F 10/18/18 17:37 Pulse 109 H 10/18/18 17:37 Resp 20 10/18/18 17:37 BP 145/88 10/18/18 17:37 Pulse Ox 96 10/18/18 17:37 GRISEL Report Viewed: Yes - Medical History PMH: Anxiety, Asthma, Back Problems, Bipolar Disorder, CHF, COPD, Depression, Diabetes, HTN, Hypercholesterolemia, Hyperlipidemia, Hypothyroidism, Pneumonia, Schizophrenia Denies: Hepatitis, HIV, Chronic Kidney Disease, Seizures, Sexually Transmitted Disease - Surgical History Surgical History: Back Surgery, Cholecystectomy, - Family History Family History: States: No Known Family Hx - Social History Current smoker - smoking cessation education provided: Yes SMOKER/PACKS PER DAY:: 1 Alcohol: None Drugs: Denies - Immunization History Hx Tetanus Toxoid Vaccination: No Hx Influenza Vaccination: No Hx Pneumococcal Vaccination: No - Home Medications Home Medications: Ambulatory Orders Medication Instructions Recorded Benztropine [Cogentin] 0.5 mg PO HS 07/30/18 DULoxetine [Cymbalta] 60 mg PO DAILY ecc 08/13/18 Acetaminophen [Tylenol 325mg tab] 650 mg PO Q6 PRN tab 08/21/18 Levothyroxine [Synthroid] 50 mcg PO DAILY 09/26/18 Paliperidone Palmitate [Invega 234 mg IM Q30D 09/26/18 Sustenna] Zaleplon [Sonata] 5 mg PO HS 09/26/18 metFORMIN [glucOPHAGE] 500 mg PO BID 09/26/18 Albuterol Sulfate [Ventolin Hfa] 2 puff IH Q6 PRN 30 Days #1 10/02/18 [email or web address] Albuterol/Ipratropium [Combivent 2 puff IH Q4 30 Days #1 inhaler 10/02/18 Respimat] Azithromycin 500 mg PO QD7 7 Days #7 tablet 10/02/18 Donepezil [Aricept] 10 mg PO DAILY 30 Days #30 tab 10/02/18 Fenofibrate [Tricor] 145 mg PO DAILY 30 Days #30 tab 10/02/18 Levothyroxine [Synthroid] 50 mcg PO DAILY@0630 tab 10/02/18 Losartan [Cozaar] 100 mg PO DAILY 30 Days #30 tab 10/02/18 Methylprednisolone [Medrol Dose 4 mg PO ASDIR #21 mg 10/02/18 Pack (21 tabs)] Nicotine 21 mg/24 hr [Nicoderm Cq] 1 patch TD DAILY patch 10/02/18 Oseltamivir Cap [Tamiflu Cap] 75 mg PO BID 5 Days #10 capsule 10/02/18 Pantoprazole [Protonix EC Tab] 40 mg PO DAILY ect 10/02/18 Promethazine DM [Phenergan DM 10 ml PO Q6 PRN 10 Days #1 bottle 10/02/18 Syrup] SITagliptin [Januvia] 100 mg PO DAILY tab 10/02/18 Sodium Chloride Nasal [place] [[place] 2 sprays EMILY Q4 PRN bottle 10/02/18 Nasal [place]] amLODIPine [Norvasc] 10 mg PO DAILY 30 Days #30 tab 10/02/18 guaiFENesin [Mucinex LA] 600 mg PO Q12 14 Days #28 tab 10/02/18 hydrALAZINE [Apresoline] 25 mg PO BID 30 Days #60 tab 10/02/18 Albuterol 0.083% [Albuterol 0.083% 2.5 mg IH Q6 PRN #100 neb 10/18/18 Inhal Allison (2.5 mg/3 ml) UD] Azithromycin [Zithromax] 500 mg PO DAILY #6 tablet 10/18/18 Mask, Face [Nebulizer Aerosol Mask 1 dev XX Q6 PRN #1 dev 10/18/18 Adult] Nebulizer [Aeroeclipse II] 1 each MC Q6 PRN #1 each 10/18/18 Prednisone [Deltasone] 3 tab PO DAILY #12 tablet 10/18/18 guaiFENesin/Dextromethorphan 1 tab PO Q12 PRN #20 tab 10/18/18 [guaiFENesin/DM 600-30 mg] - Allergies Allergies/Adverse Reactions: Allergies Allergy/AdvReac Type Severity Reaction Status Date / Time No Known Allergies Allergy Verified 10/18/18 17:48 Review of Systems ROS Statement: Except As Marked, All Systems Reviewed And Found Negative Constitutional: Negative for: Fever, Chills Respiratory: Positive for: Cough Neurological: Positive for: Other (head injury status post fall. No loss of consciousness). Negative for: Dizziness Physical Exam - Reviewed Nursing Documentation Reviewed: Yes Vital Signs Reviewed: Yes - Physical Exam Appears: Positive for: Well, Non-toxic, No Acute Distress Head Exam: Positive for: NORMOCEPHALIC. Negative for: ATRAUMATIC (mild swelling noted to posterior aspect of scalp) Skin: Positive for: Normal Color, Warm, Dry Eye Exam: Positive for: Normal appearance, EOMI, PERRL Neck: Positive for: Normal, Painless ROM, Supple Cardiovascular/Chest: Positive for: Regular Rate, Rhythm Respiratory: Positive for: Rhonchi (bilaterally) Neurologic/Psych: Positive for: Alert, Oriented (3x) - Laboratory Results Result Diagrams: 10/18/18 19:06 10/18/18 19:06 - ECG O2 Sat by Pulse Oximetry: 96 (RA) Pulse Ox Interpretation: Normal - CT Scan/US CT head Other Rad Studies (CT/US): Read By Radiologist, Radiology Report Reviewed (see MDM note) CT cervical spine Other Rad Studies (CT/US): Read By Radiologist, Radiology Report Reviewed (see MDM note) - Progress ED Course And Treament: head ct: chronic sinusitis no acute injury lactate 2.3. Patient given NS 1liter No wbc/fever noted. CXR: No pneumonia Duoneb x 3 solumedrol 125mg iv with improvement of coughing/rhonchi. d/w Dr. Thayer. Patient never picked up zithromax rx after d/c from hospital. We will write zithromax 500mg daily x 7days. zithromax 500mg x 1 dose here. Patient refused repeat vbg. Medical Decision Making Medical Decision Makin:00 Initial impression: 58 year old female with a head injury status post fall and a cough. Initial plan: * CT cervical spine w/o contrast * CT head w/o contrast * XRay chest 2 views * Duoneb 3 ml INH * peak flow pre post * reevaluation 19:23 CT head read and reviewed by radiologist COMMENTS: The study shows normal configuration of sella turcica. There are no intra or extra-axial collections. There is no mass effect or midline shift. There is no evidence of hematoma formation. No hydrocephalus is present. No abnormal ca lcifications are noted. There are mild bilateral periventricular hypolucencies compatible with white matter ischemic disease. No significant other abnormalities are seen either in the posterior fossa or supratentorial compartment. There is mucosal thickening and partial opacification involving bilateral ethmoid air cells and maxillary sinuses consistent with chronic sinusitis. IMPRESSION: 1. Bilateral periventricular hypolucencies compatible with chronic white matter ischemic disease. 2. Sinusitis as above. 3. No evidence of acute intracranial pathology. 19:26 CT cervical spine read and reviewed by radiologist COMMENTS: There is no fracture or spondylolisthesis visualized. The paraspinal soft tissues are unremarkable. There are no lytic or blastic lesions. Straightening of cervical lordosis is seen, suggesting muscular spasm. There is evidence of minimal multilevel disk disease, demonstrated by minimal osteophytosis and endplate sclerosis. No significant disk herniation is noted at any level. Canal and foramina remain patent. IMPRESSION: 1. No fracture or spondylolisthesis. 2. Straightening of cervical lordosis is seen, suggesting muscular spasm. 3. Minimal multilevel spondylosis. Scribe Attestation: Documented Brigid Gabriel, acting as a scribe for Funmi Son PA-C. Provider Scribe Attestation: All medical record entries made by the Scribe were at my direction and personally dictated by me. I have reviewed the chart and agree that the record accurately reflects my personal performance of the history, physical exam, medical decision making, and the department course for this patient. I have also personally directed, reviewed, and agree with the discharge instructions and disposition. Disposition - Clinical Impression Clinical Impression: Bronchitis, Head injury - Patient ED Disposition Is Patient to be Admitted: No - Disposition Disposition: Routine/Home Disposition Time: 20:32 Condition: FAIR Prescriptions: Albuterol 0.083% [Albuterol 0.083% Inhal Allison (2.5 mg/3 ml) UD] 2.5 mg IH Q6 PRN #100 neb PRN Reason: Cough And Congestion Azithromycin [Zithromax] 500 mg PO DAILY #6 tablet guaiFENesin/Dextromethorphan [guaiFENesin/DM 600-30 mg] 1 tab PO Q12 PRN #20 tab PRN Reason: Cough Mask, Face [Nebulizer Aerosol Mask Adult] 1 dev XX Q6 PRN #1 dev PRN Reason: Cough Nebulizer [Aeroeclipse II] 1 each MC Q6 PRN #1 each PRN Reason: Cough Prednisone [Deltasone] 3 tab PO DAILY #12 tablet Instructions: Chronic Bronchitis (DC), Closed Head Injury (DC) Forms: [employer] (Telugu)
--- NOTE | 2018-10-18 18:53 | RAD ---
Date of service: 10/18/2018 HISTORY: cough COMPARISON: Chest radiographs 10/01/2018. TECHNIQUE: Chest PA and lateral FINDINGS: LUNGS: Linear atelectasis is seen at the mid to inferior right lung zone and has resolved at the mid left lung zone. No additional airspace disease appreciated bilaterally. PLEURA: No significant pleural effusion identified. No pneumothorax apparent. CARDIOVASCULAR: No aortic atherosclerotic calcification present. Normal cardiac size. No pulmonary vascular congestion. OSSEOUS STRUCTURES: No significant abnormalities. VISUALIZED UPPER ABDOMEN: Normal. OTHER FINDINGS: None. IMPRESSION: Fluctuant linear atelectasis mid to inferior lung zones bilaterally. No acute infiltrates, pleural effusion or pneumothorax bilaterally.
[2018-10-18] MEDS ORDERED: Albuterol-Ipratrop 3 mg / 0.5 (3 ml) UD ONE (18:58)
[2018-10-18] MEDS ORDERED: methylPREDNISolone 125 MG in Sodium Chloride 0.9% 50 ML IV STA (19:10)
[2018-10-18 19:19] LABS: BASO % 0.8 % (0.0-2.0); EOS # 0.1 K/uL (0.0-0.7); EOS % 1.6 % (0.0-4.0); HEMOGLOBIN 11.6 g/dL (12.0-16.0); LYMPH # 1.6 K/uL (1.0-4.3); LYMPH % 26.8 % (20.0-40.0); MEAN CELL VOLUME 92.9 fl (81.0-99.0); MEAN CORPUSCULAR HEMOGLOBIN 30.7 pg (27.0-31.0); MEAN CORPUSCULAR HGB CONC 33.1 g/dL (33.0-37.0); MEAN PLATELET VOLUME 8.3 fl (7.2-11.7); MONO # 0.3 K/uL (0.0-0.8); MONO % 5.6 % (0.0-10.0); NEUT # 3.8 K/uL (1.8-7.0); NEUT % 65.2 % (50.0-75.0); RBC 3.77 Mil/uL (3.80-5.20); RED CELL DISTRIBUTION WIDTH 15.5 % (11.5-14.5); WHITE BLOOD COUNT 5.8 K/uL (4.8-10.8)
[2018-10-18 19:20] LABS: VENOUS BLOOD GAS BASE EXCESS 4.5 mmol/L (0.0-2.0); VENOUS BLOOD GAS PCO2 46 mmHg (40-60); VENOUS BLOOD GAS PO2 38 mm/Hg (30-55); VENOUS BLOOD PH 7.42 (7.32-7.43)
[2018-10-18] MEDS ORDERED: Sodium Chloride 0.9% 1,000 ML IV STA (19:21)
[2018-10-18 19:27] LABS: BLOOD UREA NITROGEN 15 mg/dl (7-17); CALCIUM 9.3 mg/dL (8.4-10.2); GFR NON-AFRICAN AMERICAN > 60
[2018-10-18] MEDS ORDERED: Azithromycin 200 mg/5 ml Susp (22.5 ml) PO STA (20:00)
[2018-10-18 20:33] VITALS: BP 158/90; PULSE 111; TEMP 98
[2018-10-18 20:37] VITALS: O2SAT 96
--- NOTE | 2018-10-19 08:50 | CT ---
Date of service: 10/18/2018 PROCEDURE: CT HEAD WITHOUT CONTRAST. HISTORY: head injury COMPARISON: None available. TECHNIQUE: Axial computed tomography images were obtained through the head/brain without intravenous contrast. Radiation dose: Total exam DLP = 1238.2 mGy-cm. This CT exam was performed using one or more of the following dose reduction techniques: Automated exposure control, adjustment of the mA and/or kV according to patient size, and/or use of iterative reconstruction technique. FINDINGS: HEMORRHAGE: No intracranial hemorrhage. BRAIN: No mass effect or edema. No atrophy. Mild chronic microvascular ischemic changes. VENTRICLES: Unremarkable. No hydrocephalus. CALVARIUM: Unremarkable. PARANASAL SINUSES: Mild secretions in the maxillary sinuses. MASTOID AIR CELLS: Unremarkable as visualized. No inflammatory changes. OTHER FINDINGS: None. IMPRESSION: No acute intracranial pathology. Mild age-related changes. Mild maxillary sinus disease.
--- NOTE | 2018-10-19 08:51 | CT ---
Date of service: 10/18/2018 PROCEDURE: CT Cervical Spine without contrast HISTORY: head injury COMPARISON: None available. TECHNIQUE: Axial computed tomography images were obtained of the cervical spine without the use of intravenous contrast. Coronal and sagittal reformatted images were created and reviewed. Radiation dose: Total exam DLP = 409.03 mGy-cm. This CT exam was performed using one or more of the following dose reduction techniques: Automated exposure control, adjustment of the mA and/or kV according to patient size, and/or use of iterative reconstruction technique. FINDINGS: VERTEBRAE: No fracture. Straightening of the normal lordosis. No destructive bony lesion. DISCS/SPINAL CANAL/NEURAL FORAMINA: No significant central canal or neural foraminal stenosis. Discs heights are grossly preserved. PARASPINAL SOFT TISSUES: Unremarkable. OTHER FINDINGS: None. IMPRESSION: Straightening of the normal cervical lordosis which may be related to positioning/spasm. No acute fracture.
== END 2018-10-18 20:50 | disposition home or self-care (01) ==
LOC: H.ER 17:33
DX: S09.90XA Unspecified injury of head, initial encounter (principal); W19.XXXA Unspecified fall, initial encounter; Y92.511 Restaurant or cafe as the place of occurrence of the external cause; J40 Bronchitis, not specified as acute or chronic; E03.9 Hypothyroidism, unspecified; E11.9 Type 2 diabetes mellitus without complications; E78.00 Pure hypercholesterolemia, unspecified; F20.9 Schizophrenia, unspecified; F31.9 Bipolar disorder, unspecified; F41.9 Anxiety disorder, unspecified; I11.0 Hypertensive heart disease with heart failure; J32.0 Chronic maxillary sinusitis; J44.9 Chronic obstructive pulmonary disease, unspecified; Z79.84 Long term (current) use of oral hypoglycemic drugs
CPT/HCPCS: 70450; 71046; 72125; 80048; 82803; 85025; 87040; 99284; J2930; J7030

== ENCOUNTER 2018-12-03 09:45 | Emergency (ER) | payer MEDICARE, BC ==
[2018-12-03 09:45] VITALS: PULSE 89
[2018-12-03 09:48] VITALS: BMI 37.8
[2018-12-03 09:50] VITALS: TEMP 97.4
[2018-12-03] MEDS ORDERED: Lidocaine 5% Patch TD STA (10:16)
[2018-12-03] MEDS ORDERED: Naproxen 500 MG TAB PO STA (10:18)
[2018-12-03] MEDS ORDERED: Naproxen 500 MG TAB PO ONE (10:24)
[2018-12-03] MEDS ORDERED: Lidocaine 5% Patch TD ONE (10:24)
--- NOTE | 2018-12-03 10:38 | ED PDOC ---
HPI: Back Time Seen by Provider: 12/03/18 10:02 Chief Complaint (Nursing): Back Pain Chief Complaint (Provider): Back Pain History Per: Patient History/Exam Limitations: no limitations Current Symptoms Are (Timing): Still Present Additional Complaint(s): Beth Jarrett is a 58 year old female with a past medical history of CHF, COPH, HTN, and HLD, who presents to the emergency department complaining of occasionally worsening back pain. Patient states she previously has had spinal surgery with hardware in place. She denies any fall or trauma, urinary or fecal incontinence, fever, weakness or numbness in legs. Patient is able to walk but slowly and limited due to pain. She admits to not following up with pain management and spinal surgeons. PMD: Johnson Kerr Past Medical History Reviewed: Historical Data, Nursing Documentation, Vital Signs Vital Signs: Last Vital Signs Temp 97.4 F L 12/03/18 09:48 Pulse 115 H 12/03/18 09:48 Resp 17 12/03/18 09:48 BP 189/100 H 12/03/18 09:48 Pulse Ox 91 L 12/03/18 09:48 - Medical History PMH: Anxiety, Asthma, Back Problems, Bipolar Disorder, CHF, COPD, Depression, Diabetes, HTN, Hypercholesterolemia, Hyperlipidemia, Hypothyroidism, Pneumonia, Schizophrenia Denies: Hepatitis, HIV, Chronic Kidney Disease, Seizures, Sexually Transmitted Disease - Surgical History Surgical History: Back Surgery, Cholecystectomy, - Family History Family History: States: Unknown Family Hx - Immunization History Hx Tetanus Toxoid Vaccination: No Hx Influenza Vaccination: No Hx Pneumococcal Vaccination: No - Home Medications Home Medications: Ambulatory Orders Medication Instructions Recorded Benztropine [Cogentin] 0.5 mg PO HS 07/30/18 Levothyroxine [Synthroid] 50 mcg PO DAILY 09/26/18 Paliperidone Palmitate [Invega 234 mg IM Q30D 09/26/18 Sustenna] Zaleplon [Sonata] 5 mg PO HS 09/26/18 metFORMIN [glucOPHAGE] 500 mg PO BID 09/26/18 Albuterol Sulfate [Ventolin Hfa] 2 puff IH Q6 PRN 30 Days #1 10/02/18 hfa.[email or web address] Albuterol/Ipratropium [Combivent 2 puff IH Q4 30 Days #1 inhaler 10/02/18 Respimat] Donepezil [Aricept] 10 mg PO DAILY 30 Days #30 tab 10/02/18 Fenofibrate [Tricor] 145 mg PO DAILY 30 Days #30 tab 10/02/18 Losartan [Cozaar] 100 mg PO DAILY 30 Days #30 tab 10/02/18 Nicotine 21 mg/24 hr [Nicoderm Cq] 1 patch TD DAILY patch 10/02/18 Pantoprazole [Protonix EC Tab] 40 mg PO DAILY ect 10/02/18 SITagliptin [Januvia] 100 mg PO DAILY tab 10/02/18 amLODIPine [Norvasc] 10 mg PO DAILY 30 Days #30 tab 10/02/18 hydrALAZINE [Apresoline] 25 mg PO BID 30 Days #60 tab 10/02/18 Albuterol 0.083% [Albuterol 0.083% 2.5 mg IH Q6 PRN #100 neb 10/18/18 Inhal [place] (2.5 mg/3 ml) UD] DULoxetine [Cymbalta] 60 mg PO Q12 12/03/18 LORazepam [Ativan] 1 mg PO Q12 12/03/18 Lidocaine 5% [Lidoderm] 1 ea TD Q12 #7 patch 12/03/18 Naproxen 500 mg PO Q12 #28 tab 12/03/18 hydrOXYzine Pamoate [Vistaril] 100 mg PO DAILY@1500 12/03/18 - Allergies Allergies/Adverse Reactions: Allergies Allergy/AdvReac Type Severity Reaction Status Date / Time No Known Allergies Allergy Verified 12/03/18 10:08 Review of Systems ROS Statement: Except As Marked, All Systems Reviewed And Found Negative Genitourinary Female: Negative for: Incontinence Musculoskeletal: Positive for: Back Pain Neurological: Negative for: Weakness, Numbness Physical Exam - Reviewed Nursing Documentation Reviewed: Yes Vital Signs Reviewed: Yes - Physical Exam Appears: Positive for: Non-toxic, No Acute Distress Head Exam: Positive for: ATRAUMATIC, NORMOCEPHALIC Skin: Positive for: Normal Color, Warm, Dry Eye Exam: Positive for: Normal appearance, EOMI, PERRL Neck: Positive for: Normal, Painless ROM, Supple Cardiovascular/Chest: Positive for: Regular Rate, Rhythm. Negative for: Murmur Respiratory: Positive for: Normal Breath Sounds. Negative for: Respiratory Distress Back: Positive for: Other (paraspinal tenderness ). Negative for: Vertebral Tenderness Extremity: Positive for: Other (full symmetric strength of lower extremities ) Neurologic/Psych: Positive for: Alert, Oriented - ECG O2 Sat by Pulse Oximetry: 91 (RA) Pulse Ox Interpretation: Abnormal Medical Decision Making Medical Decision Making: Time: 1017 A/P: Work up for worsening chronic back pain. Will give lidocaine patch, naproxen, and flexeril and will reassess patient. --Flexeril 10 mg PO --Lidocaine patch 1 ea TD --Naproxen 500 mg PO Time: 1125 --Patient's pain has improved and patient will be discharged with Rx of lidocaine patch and naproxen. 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 - Scribe Attestation: Documented by Elio Staley, acting as a scribe for Tracy Collier MD. Provider Scribe Attestation: All medical record entries made by the Scribe were at my direction and personally dictated by me. I have reviewed the chart and agree that the record accurately reflects my personal performance of the history, physical exam, medical decision making, and the department course for this patient. I have also personally directed, reviewed, and agree with the discharge instructions and disposition. Disposition - Disposition Prescriptions: Lidocaine 5% [Lidoderm] 1 ea TD Q12 #7 patch Naproxen 500 mg PO Q12 #28 tab Forms: [employer] (Tajik)
[2018-12-03 12:10] VITALS: BP 168/97; PULSE 100; RESP 18; O2SAT 99
== END 2018-12-03 11:26 | disposition home or self-care (01) ==
LOC: H.ER 09:45
DX: M54.9 Dorsalgia, unspecified (principal); G89.29 Other chronic pain; Z86.59 Personal history of other mental and behavioral disorders; E11.9 Type 2 diabetes mellitus without complications; I11.0 Hypertensive heart disease with heart failure; J44.9 Chronic obstructive pulmonary disease, unspecified; Z79.84 Long term (current) use of oral hypoglycemic drugs; Z79.899 Other long term (current) drug therapy; E03.9 Hypothyroidism, unspecified

== ENCOUNTER 2018-12-10 07:10 | Emergency (ER) | payer MEDICARE, BC ==
[2018-12-10 07:10] VITALS: PULSE 89; BMI 37.8
[2018-12-10 07:34] VITALS: RESP 20; TEMP 97.8
[2018-12-10] MEDS ORDERED: Albuterol-Ipratrop 3 mg / 0.5 (3 ml) UD ONE (07:51)
--- NOTE | 2018-12-10 07:58 | ED PDOC ---
History of Present Illness History of Present Illness: CC: SOB HPI: Pt is a 58 y/o female wit hx of COPD, DM, HTN, Obesity, HLD, Diastolic CHF (Grade 1), Schitzophrenia, and Depression presenting to ED with complaints of worsening dyspnea and persistent cough. States that for the past 2 weeks she has had a productive cough (green sputum) and sob on exertion and when laying flat. She states that her exercise tolerance has been reduced and she gets short of breath even when walking to the bathroom. She has been using her rescue inhaler treatment 3-4x a day without much improvement. She woke up in the middle of the night gasping for air which is what prompted her ER visit. When asked about chest pain, she reports "bone pain" over her chest only when coughing but unrelated to exertion. She denies fever/chills, hemoptysis, wheezing, prolonged immobility, hx of dvt/pe, LE swelling or calf pain. Of note, pt has had multiple ED visits in the last 6 months for COPD exacerbation and recently hospitalized in Aug for PNU PMD: Dr. Kerr <Muna Newberry - Last Filed: 12/10/18 10:47> HPI: Influenza <Muna Newberry - Last Filed: 12/10/18 10:47> <Aisha Carlos - Last Filed: 12/10/18 11:50> Time Seen by Provider: 12/10/18 07:14 Chief Complaint: Cough, Cold, Congestion Past Medical History Reviewed: Historical Data, Nursing Documentation, Vital Signs Vital Signs: Last Vital Signs Temp 97.8 F 12/10/18 07:33 Pulse 108 H 12/10/18 07:33 Resp 20 12/10/18 07:33 BP 140/87 12/10/18 07:33 Pulse Ox 94 L 12/10/18 07:33 - Medical History PMH: Anxiety, Asthma, Back Problems, Bipolar Disorder, CHF, COPD, Depression, Diabetes, HTN, Hypercholesterolemia, Hyperlipidemia, Hypothyroidism, Pneumonia, Schizophrenia Denies: Hepatitis, HIV, Chronic Kidney Disease, Seizures, Sexually Transmitted Disease - Surgical History Surgical History: Back Surgery, Cholecystectomy, - Family History Family History: States: Unknown Family Hx - Living Arrangements Living Arrangements: Other (Lives in senior living at the moment) - Social History Current smoker - smoking cessation education provided: Yes (50 pack year smoking hx) - Immunization History Hx Tetanus Toxoid Vaccination: No Hx Influenza Vaccination: No Hx Pneumococcal Vaccination: No <Muna Newberry - Last Filed: 12/10/18 10:47> Vital Signs: Last Vital Signs Temp 97.8 F 12/10/18 07:33 Pulse 98 H 12/10/18 08:06 Resp 20 12/10/18 07:33 BP 140/87 12/10/18 07:33 Pulse Ox 94 L 12/10/18 08:56 <Aisha Carlos - Last Filed: 12/10/18 11:50> - Home Medications Home Medications: Ambulatory Orders Medication Instructions Recorded Benztropine [Cogentin] 0.5 mg PO HS 07/30/18 Levothyroxine [Synthroid] 50 mcg PO DAILY 09/26/18 Paliperidone Palmitate [Invega 234 mg IM Q30D 09/26/18 Sustenna] Zaleplon [Sonata] 5 mg PO HS 09/26/18 metFORMIN [glucOPHAGE] 500 mg PO BID 09/26/18 Albuterol Sulfate [Ventolin Hfa] 2 puff IH Q6 PRN 30 Days #1 10/02/18 hfa.aer.ad Albuterol/Ipratropium [Combivent 2 puff IH Q4 30 Days #1 inhaler 10/02/18 Respimat] Donepezil [Aricept] 10 mg PO DAILY 30 Days #30 tab 10/02/18 Fenofibrate [Tricor] 145 mg PO DAILY 30 Days #30 tab 10/02/18 Losartan [Cozaar] 100 mg PO DAILY 30 Days #30 tab 10/02/18 Nicotine 21 mg/24 hr [Nicoderm Cq] 1 patch TD DAILY patch 10/02/18 Pantoprazole [Protonix EC Tab] 40 mg PO DAILY ect 10/02/18 SITagliptin [Januvia] 100 mg PO DAILY tab 10/02/18 amLODIPine [Norvasc] 10 mg PO DAILY 30 Days #30 tab 10/02/18 hydrALAZINE [Apresoline] 25 mg PO BID 30 Days #60 tab 10/02/18 Albuterol 0.083% [Albuterol 0.083% 2.5 mg IH Q6 PRN #100 neb 10/18/18 Inhal Allison (2.5 mg/3 ml) UD] DULoxetine [Cymbalta] 60 mg PO Q12 12/03/18 LORazepam [Ativan] 1 mg PO Q12 12/03/18 Lidocaine 5% [Lidoderm] 1 ea TD Q12 #7 patch 12/03/18 Naproxen 500 mg PO Q12 #28 tab 12/03/18 hydrOXYzine Pamoate [Vistaril] 100 mg PO DAILY@1500 12/03/18 Albuterol HFA [Ventolin HFA 90 1 - 2 puff IH Q4H PRN #1 bottle 12/10/18 mcg/actuation (8 g)] - Allergies Allergies/Adverse Reactions: Allergies Allergy/AdvReac Type Severity Reaction Status Date / Time No Known Allergies Allergy Verified 12/10/18 07:25 Review of Systems Constitutional: Negative for: Fever, Chills Cardiovascular: Positive for: Orthopnea, Paroxysmal Noc. Dyspnea. Negative for: Palpitations Respiratory: Positive for: Cough, Shortness of Breath. Negative for: Hemoptysis Gastrointestinal: Negative for: Nausea, Vomiting, Abdominal Pain, Diarrhea Genitourinary Female: Negative for: Dysuria Neurological: Negative for: Weakness, Numbness <Rohith,Adiam - Last Filed: 12/10/18 10:47> Physical Exam - Physical Exam Appears: Positive for: Uncomfortable (Pt's breathing appears more labored when speaking but otherwise appears comfortabl. Can complete full sentences but pauses intermittently to catch her breath ) Skin: Positive for: Normal Color. Negative for: Diaphoresis, Pallor Eye Exam: Positive for: Normal appearance ENT: Positive for: Normal ENT Inspection. Negative for: Nasal Congestion, P haryngeal Erythema, Tonsillar Exudate Neck: Positive for: Normal Cardiovascular/Chest: Positive for: Tachycardia, Other (Slightly tender midsternum on palpation ). Negative for: Murmur Respiratory: Positive for: Rales (lower lung bases BL), Rhonchi. Negative for: Accessory Muscle Use, Stridor, Wheezing, Respiratory Distress, Plerual Rub Pulses-Dorsalis Pedis (L): 2+ Pulses-Dorsalis Pedis (R): 2+ Gastrointestinal/Abdominal: Positive for: Normal Exam, Bowel Sounds, Soft. Negative for: Tenderness Extremity: Positive for: Pedal Edema (+1 BL, symmetrical), Capillary Refill. Negative for: Calf Tenderness Neurological/Psych: Positive for: Awake, Alert <Muna Newberry - Last Filed: 12/10/18 10:47> Medical Decision Making Medical Decision Making: Pt is a 58 y/o female wit hx of COPD, DM, HTN, Obesity, Schitzophrenia, and Depression presenting to ED with complaints of worsening dyspnea and persistent cough. Differential diagnosis includes but not limited to COPD vs CHF EKG- Sinus tachycardia, LVH w/ strain pattern. Discussed EKG findings with Cancer Genetics Assistant application architect, Dr. Coleman, at 0753 who agrees that there is no STEMI. 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 On Cxray noted to have BL Hilar haziness and mild pleural effusions, Will given Lasix 40mg IV now. <Muna Newberry - Last Filed: 12/10/18 10:47> Medical Decision Making: Patient seen and evaluated alongside resident; patient came to ER for evaluation of worsening dyspnea and cough. XR reviewed, seems to be indicative of possible CHF; pt feels better with nebs in the ER. patient follows up with Dr. Kerr, will be admitted. 1023 Patient has elected to sign out AMA; risks of leaving, including worsening symptoms, and possibly discussed with patient. Patient expresses understanding of risks and states she still wishes to leave; patient informed to follow up with PMD, and instructed to return immediately to the ER if symptoms worsen or new symptoms arise. <Aisha Carlos Y - Last Filed: 12/10/18 11:50> - Laboratory Results Result Diagrams: 12/10/18 08:15 12/10/18 08:15 - ECG O2 Sat by Pulse Oximetry: 94 <Muna Newberry - Last Filed: 12/10/18 10:47> - Laboratory Results Result Diagrams: 12/10/18 08:15 12/10/18 08:15 Lab Results: Troponin I 0.0130 ng/mL (0.00-0.120) 12/10/18 08:15 NT-Pro-B Natriuret Pep 1560 pg/ml (0-900) H 12/10/18 08:15 Total Bilirubin 0.4 mg/dl (0.2-1.3) 12/10/18 08:15 AST 21 U/L (14-36) 12/10/18 08:15 ALT 24 U/L (9-52) 12/10/18 08:15 Alkaline Phosphatase 102 U/L (38-126) 12/10/18 08:15 Total Protein 6.7 G/DL (6.3-8.2) 12/10/18 08:15 Albumin 3.8 g/dL (3.5-5.0) 12/10/18 08:15 Globulin 2.8 gm/dL (2.2-3.9) 12/10/18 08:15 Albumin/Globulin Ratio 1.3 (1.0-2.1) 12/10/18 08:15 <Aisha Carlos - Last Filed: 12/10/18 11:50> Disposition - Disposition Disposition Time: 10:48 <Muna Newberry - Last Filed: 12/10/18 10:47> <Aisha Carlos - Last Filed: 12/10/18 11:50> - Clinical Impression Clinical Impression: Left against medical advice, Cough - Disposition Condition: STABLE Against Medical Advice - AMA Patient Left Against Medical Advice: The patient declines admission to the hospital and wishes to leave the Emergency Department. This action is against my medical advice. This decision was made with informed refusal. The patient was told that admission to the hospital is necessary. Explanation of the reasons why were discussed. The risks of leaving were explained to the patient and include, but are not limited to, worsening of known or currently unknown conditions, permanent disability and from undiagnosed or untreated conditions. The patient has the capacity to make this informed decision and understands my explanation of the current medical problem and risks of leaving. The patient voluntarily accepts these risks and signed an AMA form documenting our conversation. The patient was given the opportunity to ask questions and reconsider. The patient was encouraged to return to the Emergency Department at any time for further care. <Muna Newberry - Last Filed: 12/10/18 10:47> Attending/Attestation - Attestation I have personally seen and examined this patient.: Yes I have fully participated in the care of the patient.: Yes I have reviewed all pertinent clinical information: Yes <Aisha Carlos Y - Last Filed: 12/10/18 11:50>
[2018-12-10] MEDS: Albuterol-Ipratrop 3 mg / 0.5 (3 ml) UD INH STA (07:59)
[2018-12-10 08:07] VITALS: PULSE 98
[2018-12-10 08:11] VITALS: O2SAT 94
[2018-12-10 08:41] LABS: BASO # 0.1 K/uL (0.0-0.2); BASO % 1.2 % (0.0-2.0); EOS # 0.1 K/uL (0.0-0.7); EOS % 1.6 % (0.0-4.0); LYMPH # 1.4 K/uL (1.0-4.3); LYMPH % 20.8 % (20.0-40.0); MEAN CELL VOLUME 90.7 fl (81.0-99.0); MEAN CORPUSCULAR HEMOGLOBIN 28.7 pg (27.0-31.0); MEAN CORPUSCULAR HGB CONC 31.7 g/dL (33.0-37.0); MEAN PLATELET VOLUME 9.7 fl (7.2-11.7); MONO # 0.4 K/uL (0.0-0.8); MONO % 6.2 % (0.0-10.0); NEUT # 4.8 K/uL (1.8-7.0); NEUT % 70.2 % (50.0-75.0); NRBC % 0.1 % (0.0-0.0); RBC 4.52 Mil/uL (3.80-5.20); RED CELL DISTRIBUTION WIDTH 14.3 % (11.5-14.5); WHITE BLOOD COUNT 6.8 K/uL (4.8-10.8)
[2018-12-10 08:49] LABS: ALB/GLOB RATIO 1.3 (1.0-2.1); ALBUMIN 3.8 g/dL (3.5-5.0); ALT/SGPT 24 U/L (9-52); AST/SGOT 21 U/L (14-36); BLOOD UREA NITROGEN 17 mg/dl (7-17); CALCIUM 9.3 mg/dL (8.4-10.2); GFR NON-AFRICAN AMERICAN > 60
[2018-12-10 09:00] LABS: B-TYPE NATRIURETIC PEPTIDE 1560 pg/ml (0-900)
[2018-12-10 09:41] VITALS: BP 156/91
--- NOTE | 2018-12-10 10:37 | RAD ---
Date of service: 12/10/2018 HISTORY: cough, sob COMPARISON: Chest radiographs 10/18/2018. FINDINGS: LUNGS: There is some prominence of the bronchovascular markings at the bilateral lung bases PICC, particularly at the right though. This may be due to overlap with body habitus at the cyst wall rather than true early infiltrate. Clinically correlate further. No definite air bronchograms are identified to define infiltrate at either base nevertheless. PLEURA: No significant pleural effusion identified, no pneumothorax apparent. CARDIOVASCULAR: No aortic atherosclerotic calcification present. Stable cardiac silhouette. No pulmonary vascular congestion. OSSEOUS STRUCTURES: No significant abnormalities. VISUALIZED UPPER ABDOMEN: Normal. OTHER FINDINGS: None. IMPRESSION: Crowding of the bronchovascular markings is suggested and favored over 2 infiltrates with overlapped body habitus related density further accentuating markings. Infiltrate is not felt to be present. Clinically correlate further. No pulmonary vascular congestion or significant change in cardiac silhouette size. No pneumothorax or pleural effusion bilaterally.
--- NOTE | 2018-12-10 21:12 | CARD ---
APPROVED REPORT Date of service: 12/10/2018 EKG Measurement Heart [id number] <Conclusion> Sinus tachycardia Possible Left atrial enlargement Left ventricular hypertrophy ST & T wave abnormality, consider lateral ischemia Abnormal ECG
== END 2018-12-10 10:45 | disposition left against medical advice (07) ==
LOC: H.ER 07:10 → UNDOADMIN 09:39 → H.ERHOLD 09:39 → UNDODISIN 10:45
DX: R05 Cough (principal); I50.9 Heart failure, unspecified
CPT/HCPCS: 71045; 80053; 83880; 84484; 85025; 87804; 93005; 94640; 96374; 99284; J1940

== ENCOUNTER 2018-12-12 06:05 | Inpatient (IN) | payer MEDICARE, BC ==
[2018-12-12 06:05] VITALS: PULSE 89; BMI 37.8
[2018-12-12] MEDS ORDERED: Albuterol-Ipratrop 3 mg / 0.5 (3 ml) UD INH STA ×4 (06:35→10:19)
[2018-12-12] MEDS ORDERED: Magnesium Sulfate 2 gm/50 ml 2 GM/50 ML BAG IVPB STA (06:36)
[2018-12-12] MEDS ORDERED: Albuterol-Ipratrop 3 mg / 0.5 (3 ml) UD ONE ×2 (06:37→10:04)
--- NOTE | 2018-12-12 06:52 | ED PDOC ---
HPI: SOB/CHF/COPD Time Seen by Provider: 12/12/18 06:32 Chief Complaint (Nursing): Shortness Of Breath Chief Complaint (Provider): Shortness Of Breath History Per: Patient History/Exam Limitations: no limitations Additional Complaint(s): 58 y/o female with history of frequent visits for COPD presents to the ED with worsening shortness of breath since 4 am. Patient was supposed to be admitted on Sunday (x3 days ago) but signed out AMA for personal reasons. Patient reports that since then she has had difficulty controlling her COPD and this morning she couldn't catch her breath, prompting ED visit. Past Medical History Reviewed: Historical Data, Nursing Documentation, Vital Signs Vital Signs: Last Vital Signs Temp 97.5 F L 12/12/18 06:07 Pulse 103 H 12/12/18 06:07 Resp 16 12/12/18 06:07 BP 172/103 H 12/12/18 06:07 Pulse Ox 88 L 12/12/18 06:07 - Medical History PMH: Anxiety, Asthma, Back Problems, Bipolar Disorder, CHF, COPD, Depression, Diabetes, HTN, Hypercholesterolemia, Hyperlipidemia, Hypothyroidism, Pneumonia, Schizophrenia Denies: Hepatitis, HIV, Chronic Kidney Disease, Seizures, Sexually Transmitted Disease - Surgical History Surgical History: Back Surgery, Cholecystectomy, - Family History Family History: States: Unknown Family Hx - Immunization History Hx Tetanus Toxoid Vaccination: No Hx Influenza Vaccination: No Hx Pneumococcal Vaccination: No - Home Medications Home Medications: Ambulatory Orders Medication Instructions Recorded Benztropine [Cogentin] 0.5 mg PO HS 07/30/18 Levothyroxine [Synthroid] 50 mcg PO DAILY 09/26/18 Paliperidone Palmitate [Invega 234 mg IM Q30D 09/26/18 Sustenna] Zaleplon [Sonata] 5 mg PO HS 09/26/18 metFORMIN [glucOPHAGE] 500 mg PO BID 09/26/18 Albuterol Sulfate [Ventolin Hfa] 2 puff IH Q6 PRN 30 Days #1 10/02/18 hfa.aer.ad Albuterol/Ipratropium [Combivent 2 puff IH Q4 30 Days #1 inhaler 10/02/18 Respimat] Donepezil [Aricept] 10 mg PO DAILY 30 Days #30 tab 10/02/18 Fenofibrate [Tricor] 145 mg PO DAILY 30 Days #30 tab 10/02/18 Losartan [Cozaar] 100 mg PO DAILY 30 Days #30 tab 10/02/18 Nicotine 21 mg/24 hr [Nicoderm Cq] 1 patch TD DAILY patch 10/02/18 Pantoprazole [Protonix EC Tab] 40 mg PO DAILY ect 10/02/18 SITagliptin [Januvia] 100 mg PO DAILY tab 10/02/18 amLODIPine [Norvasc] 10 mg PO DAILY 30 Days #30 tab 10/02/18 hydrALAZINE [Apresoline] 25 mg PO BID 30 Days #60 tab 10/02/18 Albuterol 0.083% [Albuterol 0.083% 2.5 mg IH Q6 PRN #100 neb 10/18/18 Inhal Allison (2.5 mg/3 ml) UD] DULoxetine [Cymbalta] 60 mg PO Q12 12/03/18 LORazepam [Ativan] 1 mg PO Q12 12/03/18 Lidocaine 5% [Lidoderm] 1 ea TD Q12 #7 patch 12/03/18 Naproxen 500 mg PO Q12 #28 tab 12/03/18 hydrOXYzine Pamoate [Vistaril] 100 mg PO DAILY@1500 12/03/18 Albuterol HFA [Ventolin HFA 90 1 - 2 puff IH Q4H PRN #1 bottle 12/10/18 mcg/actuation (8 g)] - Allergies Allergies/Adverse Reactions: Allergies Allergy/AdvReac Type Severity Reaction Status Date / Time No Known Allergies Allergy Verified 12/10/18 07:25 Review of Systems ROS Statement: Except As Marked, All Systems Reviewed And Found Negative Respiratory: Positive for: Shortness of Breath Physical Exam - Reviewed Nursing Documentation Reviewed: Yes Vital Signs Reviewed: Yes - Physical Exam Appears: Positive for: Well, Non-toxic, No Acute Distress Head Exam: Positive for: ATRAUMATIC, NORMAL INSPECTION, NORMOCEPHALIC Skin: Positive for: Normal Color, Warm, DRY Eye Exam: Positive for: EOMI, Normal appearance, PERRL ENT: Positive for: Normal ENT Inspection Neck: Positive for: Normal, Painless ROM Cardiovascular/Chest: Positive for: Regular Rate, Rhythm. Negative for: Murmur Respiratory: Positive for: Decreased Breath Sounds (bilaterally), Wheezing (bilaterally). Negative for: Accessory Muscle Use Gastrointestinal/Abdominal: Positive for: Normal Exam, Soft. Negative for: Tenderness Back: Positive for: Normal Inspection Extremity: Positive for: Normal ROM. Negative for: Pedal Edema, Deformity Neurological/Psych: Positive for: Awake, Alert, Normal Tone. Negative for: Motor/Sensory Deficits - ECG O2 Sat by Pulse Oximetry: 88 (RA) Pulse Ox Interpretation: Abnormal Medical Decision Making Medical Decision Making: Time: 06:35 MDM: COPD exacerbation. Will treat with duonebs, magnesium, and solumedrol * Basic Labs * CXR * Duoneb * Magnesium * Solumedrol 07:00 Patient care endorsed to Dr. Clements pending labs, CXR, and reevaluation. --- Scribe Attestation: Documented by Jesus Perez, acting as a scribe for Tracy Collier MD. Provider Scribe Attestation: All medical record entries made by the Scribe were at my direction and personally dictated by me. I have reviewed the chart and agree that the record accurately reflects my personal performance of the history, physical exam, medical decision making, and the department course for this patient. I have also personally directed, reviewed, and agree with the discharge instructions and disposition. Disposition - Patient ED Disposition Is Patient to be Admitted: Transfer of Care - Disposition Disposition: Transfer of Care Disposition Time: 07:00 Forms: [employer] (Bengali) Patient Signed Over To: Dodie Clements
--- NOTE | 2018-12-12 07:13 | ED PDOC ---
- Laboratory Results Result Diagrams: 12/12/18 07:20 12/12/18 07:20 - ECG O2 Sat by Pulse Oximetry: 88 (RA) - Progress Re-evaluation Time: 08:00 Condition: Re-examined, Improving,but remains with symptoms Medical Decision Making Medical Decision Makinyo female, comes to ER reporting shortness of breath Patient signed out to me by Dr. Collier pending labs, CXR, reassessment. 0700 Reassessed at bedside upon sign out Scribe Attestation: Documented by Lady Gupta, acting as a scribe for Dodie Clements MD. Provider Scribe Attestation: All medical record entries made by the Scribe were at my direction and personally dictated by me. I have reviewed the chart and agree that the record accurately reflects my personal performance of the history, physical exam, medical decision making, and the department course for this patient. I have also personally directed, reviewed, and agree with the discharge instructions and disposition. Disposition Discussed With : Loco Miranda Doctor Will See Patient In The: Hospital Counseled Patient/Family Regarding: Studies Performed, Diagnosis - Clinical Impression Clinical Impression: COPD exacerbation - POA Present On Arrival: None - Disposition Disposition: Admitted as In-Patient Disposition Time: 08:00 Condition: FAIR
[2018-12-12] MEDS ORDERED: Magnesium Sulfate 2 gm/50 ml 2 GM/50 ML BAG ONE (07:19)
[2018-12-12 07:34] LABS: BASO # 0.1 K/uL (0.0-0.2); BASO % 1.2 % (0.0-2.0); EOS # 0.1 K/uL (0.0-0.7); EOS % 1.4 % (0.0-4.0); HEMOGLOBIN 13.7 g/dL (12.0-16.0); LYMPH # 1.2 K/uL (1.0-4.3); LYMPH % 17.1 % (20.0-40.0); MEAN CELL VOLUME 91.1 fl (81.0-99.0); MEAN CORPUSCULAR HEMOGLOBIN 29.6 pg (27.0-31.0); MEAN CORPUSCULAR HGB CONC 32.5 g/dL (33.0-37.0); MEAN PLATELET VOLUME 9.2 fl (7.2-11.7); MONO # 0.5 K/uL (0.0-0.8); MONO % 6.9 % (0.0-10.0); NEUT # 5.2 K/uL (1.8-7.0); NEUT % 73.4 % (50.0-75.0); NRBC % 0.1 % (0.0-0.0); RBC 4.63 Mil/uL (3.80-5.20)
[2018-12-12 07:49] LABS: BLOOD UREA NITROGEN 19 mg/dl (7-17); GFR NON-AFRICAN AMERICAN > 60
[2018-12-12] MEDS ORDERED: levoFLOXacin 500 mg in D5W 500 MG/100 ML BAG IVPB ONE (08:12)
[2018-12-12] MEDS ORDERED: levoFLOXacin 500 mg in D5W 500 MG/100 ML BAG IVPB SCH (09:00)
[2018-12-12] MEDS ORDERED: Albuterol 0.083% Inhal Sol (2.5 mg/3 mL) UD IH PRN (09:31)
[2018-12-12] MEDS ORDERED: Sodium Chloride 3% for Inhalation 4 ML VIAL.NEB IH PRN (09:37)
[2018-12-12] MEDS ORDERED: Azithromycin 500 MG in Sodium Chloride 0.9% 250 ML IVPB SCH (09:45)
[2018-12-12] MEDS ORDERED: methylPREDNISolone 80 MG in Sodium Chloride 0.9% 50 ML IVPB SCH (09:45)
[2018-12-12] MEDS ORDERED: Albuterol 0.083% Inhal Sol (2.5 mg/3 mL) UD ONE (09:55)
[2018-12-12] MEDS: Promethazine 12.5 mg/10 ml Syrup PO SCH ×3 (10:17→21:03)
[2018-12-12] MEDS ORDERED: Promethazine 6.25 MG/5 ML CUP ONE (10:18)
[2018-12-12] MEDS ORDERED: Azithromycin 500 MG IV IVPB ONE (10:20)
--- NOTE | 2018-12-12 10:26 | ED PDOC ---
ED Additional Note - Date & Time of Evaluation Date of Evaluation: 12/12/18 Time of Evaluation: 10:20 - Physician Additional Note Physician Additional Note: 10:20 Patient suddenly had difficulty breathing, became tachypneic and hypoxic. Patient placed on BIPAP, duoneb and steroids given; patient with improvement in O2 saturation after being placed on BIPAP. A total of 60 minutes of critical care administered by me. Repeat CXR and EKG ordered. Patient pending ABG. 1040 On reassessment, patient is conversing in full sentences, respiratory rate improved and O2 sats remain > 95%. 1041 ABG reviewed, mild hypoxia, pH normal, lactate 1.3 No respiratory acidosis or alkalosis; consistent with hypoxemic respiratory failure 11.30 Patient is improved. No respiratory distress. Not hypoxic. Scribe Attestation: Documented by Lady Gupta, acting as a scribe for Dodie Clements MD. Provider Scribe Attestation: All medical record entries made by the Scribe were at my direction and personally dictated by me. I have reviewed the chart and agree that the record accurately reflects my personal performance of the history, physical exam, medical decision making, and the department course for this patient. I have also personally directed, reviewed, and agree with the discharge instructions and disposition. Critical Care Time - Critical Care Note Total Time (in mins): 60 Documented critical care: time excludes all time spent performing seperately billable procedures.
[2018-12-12 10:38] LABS: ABG ALLEN TEST YES; ARTERIAL BLOOD GAS HCO3 24.2 mmol/L (21-28); ARTERIAL BLOOD GAS HEMOGLOBIN 15.1 g/dL (11.7-17.4); ARTERIAL BLOOD GAS O2 CAPACITY 20.1 mL/dL (16-24); ARTERIAL BLOOD GAS O2 CONTENT 19.7 ML/dL (15-23); ARTERIAL BLOOD GAS O2 SAT 98.2 % (95-98); ARTERIAL BLOOD GAS PCO2 44 mm/Hg (35-45); ARTERIAL BLOOD GAS PH 7.36 (7.35-7.45); ARTERIAL BLOOD GAS PO2 76 mm/Hg (80-100); ARTERIAL BLOOD GAS TCO2 26.3 mmol/L (22-28)
[2018-12-12 10:52] LABS: TROPONIN I 0.018 ng/mL (0.00-0.120)
--- NOTE | 2018-12-12 11:10 | RAD ---
Date of service: 12/12/2018 HISTORY: Possible admission. COMPARISON: 12/10/2018. Single-view chest FINDINGS: LUNGS: No active pulmonary disease. PLEURA: No significant pleural effusion identified, no pneumothorax apparent. CARDIOVASCULAR: No atherosclerotic calcification present No radiographic findings to suggest acute or significant cardiovascular disease. OSSEOUS STRUCTURES: No significant abnormalities. Evidence of old dislocation right humeral head relative to glenoid. VISUALIZED UPPER ABDOMEN: Normal. OTHER FINDINGS: None. IMPRESSION: No active disease. No significant interval change compared to the prior examination(s).
--- NOTE | 2018-12-12 11:13 | RAD ---
Date of service: 12/12/2018 HISTORY: dyspnea COMPARISON: December 12, 2018 Time of the most recent examination: 07:44. FINDINGS: LUNGS: No active pulmonary disease. PLEURA: No significant pleural effusion identified, no pneumothorax apparent. CARDIOVASCULAR: No atherosclerotic calcification present Pulmonary vascular prominence is accentuated by underpenetrated technique and portable AP positioning. OSSEOUS STRUCTURES: No significant abnormalities. VISUALIZED UPPER ABDOMEN: Normal. OTHER FINDINGS: None. IMPRESSION: Pulmonary vascular congestion a new/more prominent finding compared to the prior study 07:44. December 12, 2018
--- NOTE | 2018-12-12 17:15 | CARD ---
APPROVED REPORT Date of service: 12/12/2018 EKG Measurement Heart [id number] <Conclusion> Sinus tachycardia Possible Left atrial enlargement Left ventricular hypertrophy with repolarization abnormality Abnormal ECG
--- NOTE | 2018-12-12 17:16 | CARD ---
APPROVED REPORT Date of service: 12/12/2018 EKG Measurement Heart [id number] [place] 146P40 [id number] <Conclusion> Sinus tachycardia Possible Left atrial enlargement Left ventricular hypertrophy with repolarization abnormality Abnormal ECG
--- NOTE | 2018-12-12 19:23 | HP ---
HISTORY OF PRESENT ILLNESS: Ms. Jarrett is a 58-year-old female who was admitted via the emergency room because of progressively worsening shortness of breath for the past three days prior to presentation. She also indicates that she has had exercise intolerance and chest tightness. She was seen in the emergency room three days ago and signed of against medical advice because she had things to take care of. She is presently homeless and lives in a senior living, has a past medical history of hypertension, COPD, bipolar disorder, congestive heart failure, depression, diabetes mellitus, and hyperlipidemia with hypothyroidism. She also has a history of schizophrenia and has been poorly compliant to her medications and continues to smoke cigarettes. FAMILY HISTORY: Noncontributory. SOCIAL HISTORY: She smokes one to two packs of cigarettes daily. Does not use drugs or alcohol and lives in a homeless senior living. PHYSICAL EXAMINATION: GENERAL: The patient is alert and oriented, appears much more comfortable since being seen in the emergency room. VITAL SIGNS: Blood pressure of 172/103, pulse of 103, respiratory rate 16. She is febrile. O2 sat 88% on room air. SKIN: Shows fair turgor. Pupils are equal and reactive to light and accommodation. HEENT: Mouth shows fair hygiene. NECK: JVP flat. LUNGS: Poor aeration bilaterally with audible wheezing and rales. HEART: Regular. ABDOMEN: Soft, nontender. No organomegaly. BREASTS: Normal. EXTREMITIES: Show no edema or cyanosis. CENTRAL NERVOUS SYSTEM: Exam grossly intact. GENITALIA AND RECTAL EXAM: Deferred. Laboratory data and x-rays reviewed. IMPRESSION: Acute exacerbation of chronic obstructive pulmonary disease, hypertension poorly controlled, questionable history of diabetes, hyperlipidemia, hypothyroidism. PLAN: Intravenous steroids as well as bronchodilators, oxygen therapy. Would continue IV antibiotics for empiric therapy for upper respiratory tract infection. Would monitor the patient on medical floor. Discharge planning will depend on the patient's clinical improvement. Loco Miranda MD
[2018-12-13] MEDS: Promethazine 12.5 mg/10 ml Syrup PO SCH ×2 (04:03→09:30)
[2018-12-13 06:03] VITALS: O2SAT 99
[2018-12-13] MEDS ORDERED: Levothyroxine 50 MCG TAB PO SCH (06:30)
[2018-12-13] MEDS ORDERED: Enoxaparin 40 mg Syringe SC SCH (09:00)
[2018-12-13 09:31] VITALS: BP 144/81; PULSE 100
[2018-12-13 09:46] VITALS: RESP 20; TEMP 98.1
--- NOTE | 2018-12-13 10:33 | CP.PCM.PN ---
Subjective - Date & Time of Evaluation Date of Evaluation: 12/13/18 Time of Evaluation: 10:34 - Subjective Subjective: MORE AWAKE AND ALERT TODAY THREATENING TO SIGN OUT AMA REFUSING TREATMENT Objective - Vital Signs/Intake and Output Vital Signs (last 24 hours): Temp Pulse Resp BP Pulse Ox 98.1 F 100 H 20 144/81 99 12/13/18 09:44 12/13/18 09:44 12/13/18 09:44 12/13/18 09:44 12/13/18 09:44 - Medications Medications: Current Medications Albuterol Sulfate (Albuterol 0.083% Inhal Allison (2.5 Mg/3 Ml) Ud) 2.5 mg IH Q6 PRN PRN Reason: Cough and congestion Last Admin: 12/12/18 09:56 Dose: 2.5 mg Amlodipine Besylate (Norvasc) 10 mg PO DAILY [facility] Last Admin: 12/13/18 09:30 Dose: 10 mg Duloxetine HCl (Cymbalta) 60 mg PO Q12 [facility] Last Admin: 12/13/18 09:28 Dose: 60 mg Enoxaparin Sodium (Lovenox) 40 mg SC DAILY [facility]; Protocol Levofloxacin/Dextrose (Levaquin 500mg) 500 mg in 100 mls @ 100 mls/hr IVPB DAILY [facility]; Protocol Last Admin: 12/12/18 08:15 Dose: 100 mls/hr Azithromycin 500 mg/ Sodium (Chloride) 250 mls @ 250 mls/hr IVPB DAILY [facility]; Protocol Last Admin: 12/12/18 10:19 Dose: 250 mls/hr Levothyroxine Sodium (Synthroid) 50 mcg PO DAILY@0630 [facility] Last Admin: 12/13/18 06:13 Dose: 50 mcg Lorazepam (Ativan) 1 mg PO Q12 [facility] Last Admin: 12/13/18 09:38 Dose: 1 mg Methylprednisolone (Solu-Medrol) 80 mg IV Q8 [facility] Last Admin: 12/13/18 09:29 Dose: 80 mg Promethazine HCl (Phenergan Syrup) 12.5 mg PO Q6 [facility] Last Admin: 12/13/18 09:30 Dose: 12.5 mg - Labs Labs: 12/12/18 07:20 12/12/18 07:20 - Constitutional Appears: No Acute Distress - Head Exam Head Exam: ATRAUMATIC, NORMAL INSPECTION, NORMOCEPHALIC - Eye Exam Eye Exam: EOMI, Normal appearance, PERRL Pupil Exam: NORMAL ACCOMODATION, PERRL - ENT Exam ENT Exam: Mucous Membranes Moist, Normal Exam - Neck Exam Neck Exam: Full ROM, Normal Inspection. absent: Lymphadenopathy - Respiratory Exam Respiratory Exam: Prolonged Expiratory Phase, Rales, Wheezes, NORMAL BREATHING PATTERN - Cardiovascular Exam Cardiovascular Exam: REGULAR RHYTHM, +S1, +S2. absent: Murmur - GI/Abdominal Exam GI & Abdominal Exam: Soft, Normal Bowel Sounds. absent: Tenderness - Rectal Exam Rectal Exam: NORMAL INSPECTION - Extremities Exam Extremities Exam: Full ROM, Normal Capillary Refill, Normal Inspection. absent: Joint Swelling, Pedal Edema - Back Exam Back Exam: NORMAL INSPECTION - Neurological Exam Neurological Exam: Alert, Awake, CN II-XII Intact, Normal Gait, Oriented x3 - Psychiatric Exam Psychiatric exam: Normal Affect, Normal Mood - Skin Skin Exam: Dry, Intact, Normal Color, Warm Assessment and Plan - Assessment and Plan (Free Text) Assessment: RESPIRATORY FAILURE CLINICALLY IMPROVING ACUTE EXAC OF COPD DM HTN Plan: ADVISED COMPLIANCE TO THERAPY
--- NOTE | 2018-12-13 10:36 | CP.PCM.DIS ---
Provider - Provider Date of Admission: 12/12/18 08:01 Attending physician: oLco Miranda MD Time Spent in preparation of Discharge (in minutes): 30 Diagnosis - Discharge Diagnosis (1) COPD exacerbation Status: Acute Priority: High (2) Depression Status: Acute (3) Diabetes mellitus type 2 in obese Status: Acute (4) Left against medical advice Status: Acute (5) Hypertension Status: Chronic Priority: Medium Hospital Course - Lab Results Lab Results: Micro Results 12/12/18 07:40 Blood Blood Culture - Preliminary NO GROWTH AFTER 24 HOURS 12/12/18 07:20 Blood Blood Culture - Preliminary NO GROWTH AFTER 24 HOURS Most Recent Lab Values WBC 7.0 K/uL (4.8-10.8) 12/12/18 07:20 RBC 4.63 Mil/uL (3.80-5.20) 12/12/18 07:20 Hgb 13.7 g/dL (12.0-16.0) 12/12/18 07:20 Hct 42.2 % (34.0-47.0) 12/12/18 07:20 MCV 91.1 fl (81.0-99.0) 12/12/18 07:20 MCH 29.6 pg (27.0-31.0) 12/12/18 07:20 MCHC 32.5 g/dL (33.0-37.0) L 12/12/18 07:20 RDW 14.0 % (11.5-14.5) 12/12/18 07:20 Plt Count 271 K/uL (130-400) 12/12/18 07:20 MPV 9.2 fl (7.2-11.7) 12/12/18 07:20 Neut % (Auto) 73.4 % (50.0-75.0) 12/12/18 07:20 Lymph % (Auto) 17.1 % (20.0-40.0) L 12/12/18 07:20 Allen % (Auto) 6.9 % (0.0-10.0) 12/12/18 07:20 Eos % (Auto) 1.4 % (0.0-4.0) 12/12/18 07:20 Baso % (Auto) 1.2 % (0.0-2.0) 12/12/18 07:20 Neut # (Auto) 5.2 K/uL (1.8-7.0) 12/12/18 07:20 Lymph # (Auto) 1.2 K/uL (1.0-4.3) 12/12/18 07:20 Allen # (Auto) 0.5 K/uL (0.0-0.8) 12/12/18 07:20 Eos # (Auto) 0.1 K/uL (0.0-0.7) 12/12/18 07:20 Baso # (Auto) 0.1 K/uL (0.0-0.2) 12/12/18 07:20 pCO2 44 mm/Hg (35-45) 12/12/18 10:28 pO2 76 mm/Hg (80-100) L 12/12/18 10:28 HCO3 24.2 mmol/L (21-28) 12/12/18 10:28 ABG pH 7.36 (7.35-7.45) 12/12/18 10:28 ABG Total CO2 26.3 mmol/L (22-28) 12/12/18 10:28 ABG O2 Saturation 98.2 % (95-98) H 12/12/18 10:28 ABG O2 Content 19.7 ML/dL (15-23) 12/12/18 10:28 ABG Base Excess -0.8 mmol/L (-2.0-3.0) 12/12/18 10:28 ABG Hemoglobin 15.1 g/dL (11.7-17.4) 12/12/18 10:28 ABG Carboxyhemoglobin 3.7 % (0.5-1.5) H 12/12/18 10:28 POC ABG HHb (Measured) 1.7 % (0.0-5.0) 12/12/18 10:28 ABG Methemoglobin 1.9 % (0.0-3.0) 12/12/18 10:28 ABG O2 Capacity 20.1 mL/dL (16-24) 12/12/18 10:28 Tino Test Yes 12/12/18 10:28 A-a O2 Difference 439.0 mm/Hg 12/12/18 10:28 Hgb O2 Saturation 92.7 % (95.0-98.0) L 12/12/18 10:28 Mechanical Rate 12 12/12/18 10:28 FiO2 80.0 % 12/12/18 10:28 Inspiratory BiPAP 10 12/12/18 10:28 Expiratory BiPAP 5 12/12/18 10:28 Sodium 142 mmol/l (132-148) 12/12/18 07:20 Potassium 3.9 MMOL/L (3.6-5.0) 12/12/18 07:20 Chloride 108 mmol/L (98-107) H 12/12/18 07:20 Carbon Dioxide 23 mmol/L (22-30) 12/12/18 07:20 Anion Gap 15 (10-20) 12/12/18 07:20 BUN 19 mg/dl (7-17) H 12/12/18 07:20 Creatinine 0.5 mg/dl (0.7-1.2) L 12/12/18 07:20 Est GFR ( Amer) > 60 12/12/18 07:20 Est GFR (Non-Af Amer) > 60 12/12/18 07:20 POC Glucose (mg/dL) 204 mg/dL (65-110) H 12/13/18 06:40 Random Glucose 145 mg/dL (65-105) H 12/12/18 07:20 Calcium 9.0 mg/dL (8.4-10.2) 12/12/18 07:20 Troponin I 0.0180 ng/mL (0.00-0.120) 12/12/18 10:26 NT-Pro-B Natriuret Pep 1320 pg/ml (0-900) H 12/12/18 10:26 Triglycerides 175 mg/DL (0-149) H D 12/13/18 05:00 Cholesterol 284 mg/dL (0-199) H 12/13/18 05:00 LDL Cholesterol Direct 180 mg/dL (0-129) H 12/13/18 05:00 HDL Cholesterol 59 MG/DL (30-70) 12/13/18 05:00 Thyroxine (T4) 5.69 ug/dl (5.5-11.0) 12/13/18 05:00 TSH 3rd Generation 0.60 mIU/ML (0.46-4.68) 12/13/18 05:00 - Hospital Course Hospital Course: SOB IMPROVING PT SIGNED OUT AGAINST MEDICAL ADVISE - Date & Time of H&P Date of H&P: 12/13/18 Time of H&P: 10:36 Discharge Exam - Head Exam Head Exam: ATRAUMATIC, NORMAL INSPECTION, NORMOCEPHALIC Discharge Plan - Follow Up Plan Condition: FAIR Disposition: HOME/ ROUTINE
== END 2018-12-13 11:00 | disposition left against medical advice (07) | DRG 190 ==
LOC: H.ER 06:05 → H.ERHOLD 08:01 → OBSVTOIN 08:01 → H.TEL 13:22
PROVIDERS: ADMIT Internal Medicine Pulmonary Disease; ATTEND Internal Medicine Pulmonary Disease
PROC: 5A09357 Assistance with Respiratory Ventilation, Less than 24 Consecutive Hours, Continuous Positive Airway Pressure (ICD-10-PCS; principal; 2018-12-12)
DX: J44.1 Chronic obstructive pulmonary disease with (acute) exacerbation (principal); J96.91 Respiratory failure, unspecified with hypoxia; Z59.0 Homelessness; Z79.890 Hormone replacement therapy; E78.00 Pure hypercholesterolemia, unspecified; E78.5 Hyperlipidemia, unspecified; E03.9 Hypothyroidism, unspecified; F17.210 Nicotine dependence, cigarettes, uncomplicated; I50.9 Heart failure, unspecified; I11.0 Hypertensive heart disease with heart failure; E11.9 Type 2 diabetes mellitus without complications; E66.9 Obesity, unspecified; Z68.37 Body mass index [BMI] 37.0-37.9, adult; F41.9 Anxiety disorder, unspecified; F32.9 Major depressive disorder, single episode, unspecified; J06.9 Acute upper respiratory infection, unspecified; Z79.84 Long term (current) use of oral hypoglycemic drugs